=== PATIENT | male | born 1960 | race Caucasian/White ===

== ENCOUNTER 2019-08-22 13:24 | Inpatient (IN) | payer OTHER ==
[~2019-08-22] VITALS: Ht 152.4 cm; Wt 54.0 kg
[2019-08-22 13:57] LABS: EOSINOPHILS % (AUTO) 0.1 % (0.0-6.0); LYMPHOCYTES # (AUTO) 2.7 /CMM (0.8-4.8); MONOCYTES # (AUTO) 0.7 /CMM (0.1-1.30)
[2019-08-22 13:59] LABS: BASOPHILS % (AUTO) 2.8 % (0.0-2.0); HEMATOCRIT 27 % (39-51); HEMOGLOBIN 9.2 g/dL (13.5-17.5); LYMPHOCYTES % (AUTO) 28.9 % (20.0-44.0); MEAN CORPUSCULAR HGB CONC 34 g/dl (31.0-36.0); MEAN CORPUSCULAR VOLUME 102 fL (80-96); MONOCYTES % (AUTO) 7.8 % (2.0-12.0); NEUTROPHILS % (AUTO) 60.4 % (43.0-81.0); PLATELET COUNT (AUTO) 191 /CMM (150-450); RED BLOOD CELL COUNT(AUTO) 2.63 MIL/uL (4.5-6.0); WHITE BLOOD COUNT (AUTO) 9.4 K/uL (4.3-11.0)
[2019-08-22 14:00] LABS: BASOPHILS # (AUTO) 0.3 /CMM (0.0-0.2); NEUTROPHILS # (AUTO) 5.7 /CMM (1.8-8.9)
[2019-08-22 14:05] LABS: CALCIUM, SERUM 8.9 mg/dL (8.5-10.1); CARBON DIOXIDE 25 mmol/L (21-32); CHLORIDE 94 mmol/L (98-107); GLUCOSE 184 mg/dL (74-106); POTASSIUM 5.3 mmol/L (3.5-5.1); SODIUM SERUM 133 mmol/L (136-145); UREA NITROGEN, BLOOD 54 mg/dL (7-18)
[2019-08-22 14:10] LABS: CREATININE 8.5 mg/dL (0.6-1.3)
--- NOTE | 2019-08-22 14:10 | NUR ---
BIB [facility] TO ER BED 5. AAOX4. NOT IN RESP DISTRESS, BREATHING EVEN AND UNLABORED. BROUGHT IN FOR FEVER. PER REPORT, PT WAS NOTED WITH TEMP OF 102. UPON ASSESSMENT, PT'S TEMP WAS 101.5 ORAL. PT IS DIALYSIS PT WITH HD DAYS ON MARY. DIALYSIS DAYS T,TH,S. PT PLACED ON MONITOR. MD WAS AT THE BEDSIDE FOR EVAL. ORDERS RECEIVED, NOTED AND CARRIED OUT. IV LINE ON L WRIST 18G. BLOOD DRAWN AND GIVEN TO LOAN REVIEW OFFICER AT BEDSIDE.
[2019-08-22 14:14] LABS: ALANINE AMINOTRANSFERASE 20 U/L (12-78); ALBUMIN 3.1 g/dL (3.4-5.0); ALKALINE PHOSPHATASE 81 U/L (46-116); ASPARTATE AMINOTRANSFERASE 26 U/L (15-37); BILIRUBIN,DIRECT 0.3 mg/dL (0.0-0.2); BILIRUBIN,TOTAL 0.8 mg/dL (0.2-1.0); TOTAL PROTEIN, SERUM 7.2 g/dL (6.4-8.2)
[2019-08-22] MEDS ORDERED: FOLI0.8T PO (14:21)
[2019-08-22] MEDS ORDERED: ATOR40TA PO (14:21)
[2019-08-22] MEDS ORDERED: GABA300C PO (14:21)
[2019-08-22] MEDS ORDERED: FERR325T24 PO (14:21)
[2019-08-22] MEDS ORDERED: DOCU250C21 PO (14:21)
[2019-08-22] MEDS ORDERED: MIRT30TA7 PO (14:21)
[2019-08-22] MEDS ORDERED: COLC0.6C PO (14:21)
[2019-08-22] MEDS ORDERED: ALLO100T PO (14:21)
[2019-08-22] MEDS ORDERED: LABE100T5 PO (14:21)
[2019-08-22] MEDS ORDERED: FENO67CA PO (14:21)
[2019-08-22] MEDS ORDERED: AMLO10TA7 PO (14:21)
[2019-08-22] MEDS ORDERED: ASCO500T20 PO (14:21)
[2019-08-22] MEDS ORDERED: PANT20TA3 PO (14:21)
[2019-08-22] MEDS ORDERED: LIOT25TA13 PO (14:21)
[2019-08-22] MEDS ORDERED: OMEG-167 PO (14:21)
[2019-08-22] MEDS ORDERED: CEFEPIME 1 GM in IV D5W 50 ML IV ONE (14:30)
[2019-08-22] MEDS ORDERED: VANCOMYCIN 1 GM in IV D5W 250 ML IV ONE (14:30)
--- NOTE | 2019-08-22 15:05 | NUR ---
PT IS UNABLE TO PRODUCE URINE. PT IS ON DIALYSIS. MD IS AWARE.
--- NOTE | 2019-08-22 16:43 | NUR ---
PANEL DESIGN ENGINEER PRODUCTS PAGED
--- NOTE | 2019-08-22 17:39 | NUR ---
PANEL GAS MAIN FITTER HELPER PAGED
[2019-08-22] MEDS ORDERED: Z GUARD REMEDY 2 OZ OINT TP PRN (18:30)
[2019-08-22] MEDS ORDERED: ONDANSETRON HCL/PF 4 MG/2 ML VIAL IVP PRN (18:30)
[2019-08-22] MEDS ORDERED: ZOLPIDEM TARTRATE 5 MG TABLET PO PRN (18:30)
--- NOTE | 2019-08-22 19:26 | NUR ---
BED ASSIGNMENT 115
--- NOTE | 2019-08-22 19:34 | NUR ---
REPORT GIVEN TO VANESSA OQUENDO FOR EZEQUIEL.
[2019-08-22] MEDS ORDERED: ACETAMINOPHEN 325 MG TABLET ONE (19:37)
--- NOTE | 2019-08-22 19:55 | NUR ---
PT TRANSPORTED TO UNIT ON GURNEY WITH EMT AND RN AT BEDSIDE W/ ACLS PROTOCOL. NAD DURING TRANSPORT.
[2019-08-22 20:00] VITALS: BP 123/69
[2019-08-22] MEDS ORDERED: ACETAMINOPHEN 325 MG TABLET PO ONE (20:00)
[2019-08-22] MEDS ORDERED: FEE PK DOSING 1 MIN EA MC ONE (20:11)
--- NOTE | 2019-08-22 20:15 | NUR ---
ANTHROPOLOGY FACULTY MEMBERRADAR MECHANIC NOTES RECEIVED PATIENT FROM ER VIA HUGORMARILOU, ALERT AND ORIENTED X 3. VERBALLY RESPONSIVE PRYDEINIG SPEAKING, ABLE TO FOLLOW DIRECTIONS. BREATHING REGULAR AND UNLABORED ON ROOM AIR. BODY ASSESSMENT DONE, SKIN INTACT CLEAN AND DRY. LEFT WRIST G18 IV LINE INTACT AND PATENT, FLUSHING WELL WITH NO BLEEDING OR S/S OF INFILTRATION NOTED. ATTACHED TO WELLNESS INSTRUCTOR WITH NSR AT 67bpm. RIGHT UPPER ARM AV FISTULA POSITIVE FOR BRUIT AND THRILL, NO ACTIVE BLEEDING SEEN. DENIES SUICIDAL IDEATION OR PAIN/DISCOMFORT AT THIS TIME. BELONGINGS AND INITIAL VITAL SIGNS CHECKED AND DOCUMENTED. NO ADVANCE DIRECTIVES, PATIENT WISHES TO BE FULL CODE. BED LOW AND LOCKED ON SEMI FOWLERS POSITION. CALL LIGHT IN REACH. WILL CONTINUE TO MONITOR.
[2019-08-22] MEDS ORDERED: VANCOMYCIN 500 MG in IV D5W 100 ML IV PRN (20:30)
[2019-08-22] MEDS ORDERED: CEFEPIME 2 GM in IV D5W 100 ML IV SCH (20:30)
--- NOTE | 2019-08-22 22:00 | NUR ---
ADVERTISING INTERN NOTES ADVISED PATIENT ABOUT ISOLATION PRECAUTIONS TO R/O COVID19, HEALTH TEACHINGS PROVIDED, VERBALIZED UNDERSTANDING.
[2019-08-23 01:00] VITALS: BP 123/65
[2019-08-23 05:00] VITALS: BP 119/71
--- NOTE | 2019-08-23 05:00 | NUR ---
CHIEF NURSING EXECUTIVE NOTES DVT PUMP ON, WILL F/U WITH MD FOR ORDERS OF CHEMICAL DVT PROPHYLAXIS.
[2019-08-23] MEDS: HYDROCODONE/APAP 5/325MG 1 EACH TABLET PO PRN (05:34)
--- NOTE | 2019-08-23 05:35 | NUR ---
LEASING PROFESSIONAL NOTES COMPLAINED OF 6/10 HEADACHE, NORCO 5/325 GIVEN BY MOUTH. NON-PHARMACOLOGICAL INTERVENTIONS PROVIDED. VITAL SIGNS WNL. WILL CONTINUE TO MONITOR.
--- NOTE | 2019-08-23 06:35 | NUR ---
CONTENT STRATEGIST CLOSING NOTES PATIENT IN BED ALERT AND ORIENTED X 3. AFEBRILE WITH NO S/S OF DISTRESS OBSERVED. LEFT WRIST G18 IV LINE PATENT AND FLUSHING WELL. MAINTAINED ON SECOND RIDE FARE COLLECTOR WITH SINUS BRADYCARDIA AT 58bpm. RIGHT UPPER ARM AV FISTULA POSITIVE FOR BRUIT AND THRILL, NO ACTIVE BLEEDING SEEN. DENIES PAIN/DISCOMFORT AT THIS TIME. BED LOW AND LOCKED ON SEMI FOWLERS POSITION. CALL LIGHT IN REACH. WILL ENDORSE TO MORNING SHIFT FOR EZEQUIEL.
[2019-08-23 06:43] LABS: BASOPHILS # (AUTO) 0.1 /CMM (0.0-0.2); BASOPHILS % (AUTO) 0.7 % (0.0-2.0); EOSINOPHILS % (AUTO) 1.2 % (0.0-6.0); HEMATOCRIT 27 % (39-51); LYMPHOCYTES # (AUTO) 2.9 /CMM (0.8-4.8); MEAN CORPUSCULAR HGB CONC 34 g/dl (31.0-36.0); MEAN CORPUSCULAR VOLUME 101 fL (80-96); MONOCYTES # (AUTO) 0.5 /CMM (0.1-1.30); MONOCYTES % (AUTO) 6.7 % (2.0-12.0); NEUTROPHILS # (AUTO) 4.3 /CMM (1.8-8.9); NEUTROPHILS % (AUTO) 54.4 % (43.0-81.0); PLATELET COUNT (AUTO) 192 /CMM (150-450); RED BLOOD CELL COUNT(AUTO) 2.64 MIL/uL (4.5-6.0)
[2019-08-23 06:49] LABS: D-DIMER 0.28 mg/L(FEU (0.17-0.50)
[2019-08-23 06:59] LABS: ALBUMIN 3.2 g/dL (3.4-5.0); BILIRUBIN,TOTAL 0.8 mg/dL (0.2-1.0); CALCIUM, SERUM 8.9 mg/dL (8.5-10.1); MAGNESIUM 2.1 mg/dL (1.8-2.4); PHOSPHORUS 7.7 mg/dL (2.5-4.9); POTASSIUM 5.5 mmol/L (3.5-5.1); TOTAL PROTEIN, SERUM 7.6 g/dL (6.4-8.2)
[2019-08-23 07:03] LABS: CREATININE 10.1 mg/dL (0.6-1.3)
--- NOTE | 2019-08-23 07:25 | NUR ---
RN OPENING NOTE Received patient asleep in bed appears calm and relaxed. On room air no signs of distress. Patient is AO x 4 persian speaking. Tele reading SR 60bpm. Has L wrist # 18 flushes well. MARY AV Fistula palpable bruit and thrill. Call light within reach. Safety measures reinforced. Bed locked and on lowest position. Side rails up x2. Will cont to monitor.
[2019-08-23 07:28] LABS: THYROID STIMULATING HORMONE 1.372 uIU/mL (0.358-3.74)
[2019-08-23 07:53] LABS: C-REACTIVE PROTEIN 10.1 mg/dL (0.0-0.9)
[2019-08-23 08:00] VITALS: BP 133/76
[2019-08-23] MEDS: HEPARIN SODIUM, PORCINE 5000 UNITS/1 ML VIAL SQ SCH ×2 (11:57→21:21)
[2019-08-23 12:00] VITALS: BP 114/69
[2019-08-23] MEDS: CEFEPIME 1 GM in IV D5W 50 ML IV SCH (13:37)
[2019-08-23] MEDS: ACETAMINOPHEN 325 MG TABLET PO PRN (15:59)
[2019-08-23 16:00] VITALS: BP 132/77
[2019-08-23] MEDS ORDERED: COLCHICINE 0.6 MG TABLET PO PRN (16:30)
[2019-08-23] MEDS: LABETALOL HCL (100MG) 100 MG TABLET PO SCH (17:15)
[2019-08-23] MEDS: FERROUS SULFATE (325 MG) 325 MG/TAB TABLET PO SCH (17:15)
--- NOTE | 2019-08-23 18:45 | NUR ---
RN CLOSING NOTE Patient in bed calm and relaxed no signs of distress. All due meds given. Vital signs within normal limits. No co pain or discomfort. Dialysis done tolerated well. Will endorse to shift foreman nurse for blair.
--- NOTE | 2019-08-23 19:45 | NUR ---
TONGUE TRIMMER OPENING NOTES PATIENT AWAKEN IN BED. A/OX3. PRIMARY LANGUAGE LATVIAN. ON RA. NO S/S OF ACUTE RESPIRATORY DISTRESS; BREATHING IS EVEN AND UNLABORED. NO C/O PAIN. TELE MONITOR READING NSR, HEART RATE 77. IV PRESENT ON LEFT WRIST, SIZE 18, INTACT & PATENT, HEP LOCKED. CONTACT AND DROPLET PRECAUTIONS IN PLACE FOR R/O COVID 19; RESULTS PENDING. SAFETY MEASURES IN PLACE AND PATIENT'S NEEDS MET. BED LOCKED, ALARM ON, SIDE RAILS X2, CALL LIGHT WITHIN REACH. WILL CONTINUE TO MONITOR.
[2019-08-23 20:00] VITALS: BP 136/73
[2019-08-23] MEDS: ATORVASTATIN 40 MG TABLET PO SCH (21:19)
[2019-08-23] MEDS: MIRTAZAPINE 15 MG TABLET PO SCH (21:19)
[2019-08-23] MEDS: GABAPENTIN 300 MG CAPSULE PO SCH (21:20)
[2019-08-24] VITALS: BP 137/77
--- NOTE | 2019-08-24 01:37 | NUR ---
PT NEGATIVE COVID
--- NOTE | 2019-08-24 02:59 | NUR ---
REAL ESTATE SERVICES COORDINATOR NOTES COVID 19 TEST RESULTED NEGATIVE. CHARGE NURSE MADE AWARE.
[2019-08-24 04:00] VITALS: BP 146/72
[2019-08-24] MEDS: ACETAMINOPHEN 325 MG TABLET PO PRN ×2 (06:16→15:07)
[2019-08-24 06:54] LABS: CALCIUM, SERUM 8.9 mg/dL (8.5-10.1); POTASSIUM 4.8 mmol/L (3.5-5.1)
--- NOTE | 2019-08-24 06:58 | NUR ---
WATER QUALITY ANALYST CLOSING NOTES PATIENT SLEEPING IN BED, EASY TO AWAKEN. A/OX3. STABLE ON RA. NO S/S OF ACUTE RESPIRATORY DISTRESS; BREATHING IS EVEN AND UNLABORED. NO C/O PAIN. TELE MONITOR READING NSR, HEART RATE 78. IV PRESENT ON LEFT WRIST, SIZE 18, INTACT & PATENT, HEP LOCKED. SAFETY MEASURES IN PLACE AND PATIENT'S NEEDS MET. BED LOCKED, ALARM ON, SIDE RAILS X2, CALL LIGHT WITHIN REACH. WILL ENDORSE TO DAY SHIFT NURSE PLAN OF CARE
--- NOTE | 2019-08-24 07:52 | NUR ---
KIRSTEN RN OPENING NOTES PATIENT IS AWAKING IN BED. A/OX3. PRIMARY LANGUAGE CZECH. ON RA. NO S/S OF ACUTE RESPIRATORY DISTRESS; BREATHING IS EVEN AND UNLABORED. TELE MONITOR READING NSR, HEART RATE 81. IV PRESENT ON LEFT WRIST, SIZE 18, INTACT & PATENT, HEP LOCKED. CONTACT AND DROPLET PRECAUTIONS IN PLACE FOR R/O COVID 19; RESULTS PENDING. SAFETY MEASURES IN PLACE AND PATIENT'S NEEDS MET. BED LOCKED, ALARM ON, SIDE RAILS X2, CALL LIGHT WITHIN REACH. WILL CONTINUE TO MONITOR.
[2019-08-24 08:00] VITALS: BP 161/76
[2019-08-24] MEDS: PANTOPRAZOLE 40 MG TABLET.DR PO SCH (08:29)
[2019-08-24] MEDS: FERROUS SULFATE (325 MG) 325 MG/TAB TABLET PO SCH ×2 (08:29→17:10)
[2019-08-24] MEDS: ASCORBIC ACID 500 MG TABLET PO SCH (08:30)
[2019-08-24] MEDS: HEPARIN SODIUM, PORCINE 5000 UNITS/1 ML VIAL SQ SCH ×2 (08:30→23:49)
[2019-08-24] MEDS: DOCUSATE SODIUM 250 MG CAPSULE PO SCH (08:30)
[2019-08-24] MEDS: FOLIC ACID 1 MG TABLET PO SCH (08:30)
[2019-08-24] MEDS: LABETALOL HCL (100MG) 100 MG TABLET PO SCH ×2 (08:30→17:11)
[2019-08-24] MEDS: AMLODIPINE BESYLATE 10 MG TABLET PO SCH (08:31)
[2019-08-24] MEDS: ALLOPURINOL 100 MG TABLET PO SCH (08:31)
--- NOTE | 2019-08-24 08:39 | NUR ---
DISCUSSED WITH DR. RAMIREZ PATIENT NEGATIVE SARS TEST AND LABS/XRAYS,PER DR. RAMIREZ NEED TO RESWAB PT. PCR,WILL CONTINUE ISO FOR NOW ORDERED PRIMARY RN AWARE.
--- NOTE | 2019-08-24 09:00 | NUR ---
KIRSTEN RN NOTES GOT THE COVID SWAB THROYUGH NASAL PCR.
[2019-08-24] MEDS: Fenofibrate 48 MG TABLET PO SCH (09:17)
[2019-08-24] MEDS: LIOTHYRONINE SODIUM (25 MCG) 25 MCG TABLET PO SCH (09:17)
--- NOTE | 2019-08-24 10:30 | NUR ---
KIRSTEN RN NOTES TOOK THE TEST TO THE LAB PER DOCTOR ORDER
[2019-08-24 12:00] VITALS: BP 139/69
[2019-08-24] MEDS: CEFEPIME 1 GM in IV D5W 50 ML IV SCH (13:00)
[2019-08-24 16:00] VITALS: BP 144/64
--- NOTE | 2019-08-24 17:25 | NUR ---
KIRSTEN RN NOTES DIALYSIS NURSE COOPER AT THE BED SIDE
--- NOTE | 2019-08-24 19:13 | NUR ---
KIRSTEN RN CLOSING NOTES PATIENT IN BED ALERT AND ORIENTED X 3. AFEBRILE WITH NO S/S OF DISTRESS OBSERVED. LEFT WRIST G18 IV LINE PATENT AND FLUSHING WELL. MAINTAINED ON HOUSE CALLS NURSE WITH SINUS RHYTHM 80'S. RIGHT UPPER ARM AV FISTULA POSITIVE FOR BRUIT AND THRILL, NO ACTIVE BLEEDING SEEN. DENIES PAIN/DISCOMFORT AT THIS TIME. BED LOW AND LOCKED ON SEMI FOWLERS POSITION. CALL LIGHT IN REACH. WILL ENDORSE TO NIGHTSHIFT SHIFT FOR EZEQUIEL. DIALYSIS NURSE COOPER IS STILL AT THE BED SITE
--- NOTE | 2019-08-24 19:15 | NUR ---
RN OPENING NOTES PT RECEIVED, HD ONGOING TO RIGHT UPPER ARM AV FISTULA. A/OX2-3, FORGETFUL. ON ROOM AIR, BREATHING EVEN AND UNLABORED. DENIES SOB. IV TO LEFT WRIST PATENT NAD INTACT. BED IN LOW/LOCKED POSITION WITH CALL LIGHT IN REACH AND BED ALARM ON FOR SAFETY. WILL CONTINUE TO MONITOR
[2019-08-24 20:00] VITALS: BP 159/84
[2019-08-24] MEDS: HYDROCODONE/APAP 5/325MG 1 EACH TABLET PO PRN (20:03)
--- NOTE | 2019-08-24 20:50 | NUR ---
RN NOTES HD COMPLETED WITH 2L OUT. BP 148/89
[2019-08-24] MEDS: MIRTAZAPINE 15 MG TABLET PO SCH (23:48)
[2019-08-24] MEDS: GABAPENTIN 300 MG CAPSULE PO SCH (23:48)
[2019-08-24] MEDS: ATORVASTATIN 40 MG TABLET PO SCH (23:48)
[2019-08-25] VITALS: BP 158/76
[2019-08-25 04:00] VITALS: BP 166/76
[2019-08-25 06:30] LABS: BASOPHILS # (AUTO) 0.1 /CMM (0.0-0.2); BASOPHILS % (AUTO) 1.1 % (0.0-2.0); EOSINOPHILS % (AUTO) 1.2 % (0.0-6.0); HEMATOCRIT 27 % (39-51); HEMOGLOBIN 8.9 g/dL (13.5-17.5); LYMPHOCYTES # (AUTO) 1.8 /CMM (0.8-4.8); LYMPHOCYTES % (AUTO) 28.1 % (20.0-44.0); MEAN CORPUSCULAR HGB CONC 33 g/dl (31.0-36.0); MEAN CORPUSCULAR VOLUME 103 fL (80-96); MONOCYTES # (AUTO) 0.6 /CMM (0.1-1.30); MONOCYTES % (AUTO) 8.8 % (2.0-12.0); NEUTROPHILS # (AUTO) 3.9 /CMM (1.8-8.9); NEUTROPHILS % (AUTO) 60.8 % (43.0-81.0); PLATELET COUNT (AUTO) 197 /CMM (150-450); RED BLOOD CELL COUNT(AUTO) 2.63 MIL/uL (4.5-6.0); WHITE BLOOD COUNT (AUTO) 6.4 K/uL (4.3-11.0)
[2019-08-25 07:04] LABS: CALCIUM, SERUM 9.2 mg/dL (8.5-10.1); CREATININE 5.2 mg/dL (0.6-1.3); POTASSIUM 4.2 mmol/L (3.5-5.1)
[2019-08-25 07:23] LABS: IRON, SERUM 62 ug/dl (50-175); TOTAL IRON BINDING CAPACITY 217 ug/dl (250-450)
--- NOTE | 2019-08-25 07:24 | NUR ---
RN CLOSING NOTES PT RESTING COMFORTABLY IN BED. A/OX2-3 FORGETFUL. ON ROOM AIR, BREATHING EVEN AND UNLABORED. IN NO ACUTE DISTRESS OR PAIN. IV TO LEFT WRIST REMAINS PATENT AND INTACT. NO SIGNIFICANT CHANGES OVERNIGHT. ALL NEEDS MET AND ATTENDED. TURNED/REPOSITION Q2H AND HEELS OFFLOADED. BED IN LOW/LOCKED POSITION WITH CALL LIGHT IN REACH. SIDE RAILS UPX3 AND BED ALARM ON FOR SAFETY. ENDORSED TO ONCOMING SHIFT.
[2019-08-25] MEDS: PANTOPRAZOLE 40 MG TABLET.DR PO SCH (07:53)
--- NOTE | 2019-08-25 07:55 | NUR ---
KIRSTEN RN OPENING NOTES PATIENT IS SLEEPING IN BED. A/OX3. PRIMARY LANGUAGE NIGERIAN. ON RA. BREATHING IS EVEN AND UNLABORED. TELE MONITOR MED SURGE. IV PRESENT ON LEFT WRIST, SIZE 18, INTACT & PATENT, HEP LOCKED. CONTACT AND DROPLET PRECAUTIONS IN PLACE FOR R/O COVID 19; RESULTS PENDING. SAFETY MEASURES IN PLACE AND PATIENT'S NEEDS MET. BED LOCKED, ALARM ON, SIDE RAILS X2, CALL LIGHT WITHIN REACH. WILL CONTINUE TO MONITOR
[2019-08-25 08:00] VITALS: BP 163/69
[2019-08-25] MEDS: FERROUS SULFATE (325 MG) 325 MG/TAB TABLET PO SCH ×2 (08:15→16:51)
[2019-08-25] MEDS: DOCUSATE SODIUM 250 MG CAPSULE PO SCH (08:15)
[2019-08-25] MEDS: ASCORBIC ACID 500 MG TABLET PO SCH (08:15)
[2019-08-25] MEDS: ALLOPURINOL 100 MG TABLET PO SCH (08:15)
--- NOTE | 2019-08-25 08:15 | NUR ---
KIRSTEN RN NOTES PT HAS SLIGHTHLY FEVER 99.7. TYLENOL WAS GIVEN AND ICE PACKED WAS PLACED AND REMOVED BLANKETS.
[2019-08-25] MEDS: AMLODIPINE BESYLATE 10 MG TABLET PO SCH (08:16)
[2019-08-25] MEDS: FOLIC ACID 1 MG TABLET PO SCH (08:16)
[2019-08-25] MEDS: LABETALOL HCL (100MG) 100 MG TABLET PO SCH ×2 (08:17→16:52)
[2019-08-25] MEDS: HEPARIN SODIUM, PORCINE 5000 UNITS/1 ML VIAL SQ SCH ×2 (08:18→21:04)
[2019-08-25] MEDS: LIOTHYRONINE SODIUM (25 MCG) 25 MCG TABLET PO SCH (08:19)
[2019-08-25] MEDS: Fenofibrate 48 MG TABLET PO SCH (08:19)
--- NOTE | 2019-08-25 10:00 | NUR ---
KIRSTEN RN NOTES RECHECKED TEM IT DROPPED TO 98.1. REMOVED ICE PACKED.
[2019-08-25 10:01] LABS: FERRITIN 3188 ng/mL (8-388)
--- NOTE | 2019-08-25 11:23 | NUR ---
KIRSTEN RN NOTES 4 HOME HIV MEDS WERE BROUGHT BY TOMÁS [phone] SCIENTIFIC PUBLICATIONS EDITOR FROM [facility].
[2019-08-25 12:00] VITALS: BP 144/80
--- NOTE | 2019-08-25 12:00 | NUR ---
KIRSTEN RN NOTES BY ACCOUNT SERVICES MANAGER CHECKED TEMP IS 99.5. PUT ICE PACK AND REMOVED BLANKETS
--- NOTE | 2019-08-25 12:30 | NUR ---
KIRSTEN RN NOTES FEVER DROPPED 98.7
[2019-08-25] MEDS: EMTRICITABINE PO SCH (13:03)
[2019-08-25] MEDS: ABACAVIR SULFATE 300 MG PO SCH ×2 (13:03→16:53)
[2019-08-25] MEDS: DARUNAVIR ETHANOLATE 800 MG PO SCH (13:03)
[2019-08-25 13:04] LABS: OCCULT BLOOD STOOL POSITIVE (NEGATIVE)
[2019-08-25] MEDS: CEFEPIME 1 GM in IV D5W 50 ML IV SCH (13:06)
[2019-08-25 16:00] VITALS: BP 141/71
[2019-08-25] MEDS: NORVIR PO SCH (17:00)
--- NOTE | 2019-08-25 17:26 | NUR ---
KIRSTEN RN NOTES CALLED [facility] REGARDS TO DUE MED NORVIR . EDI INFORMED THAT IT IS . [facility]
--- NOTE | 2019-08-25 17:31 | NUR ---
KIRSTEN RN NOTES SPOKE WITH TOMÁS FROM [facility] WILL BRING THE NEW NORVIR TUESDAY WILL LET THE NURSE KNOW.
--- NOTE | 2019-08-25 19:44 | NUR ---
MS/RN OPENING NOTES RECEIVED PATIENT IN BED, AWAKE, OPENS EYES, WEAKNESS OBSERVED, ABLE TO NOD WITH SIMPLE QUESTIONS ON ROOM AIR. RECEIVED REPORT FROM AM RN FOR EZEQUIEL., PATIENT POCKETING UNABLE TO SWALLOW WITHOUT COUGHING, AWAITING NG FOR SWALLOW EVAL. TO MONITOR, SKIN WARM TO TOUCH. BED LOCKED, CALL LIGHTS WITHIN REACH. WILL MONITOR. NO MOANING AND NO GUARDING. SKIN WARM TO TOUCH.
[2019-08-25 20:00] VITALS: BP 142/75
--- NOTE | 2019-08-25 20:03 | NUR ---
ms/rn notes patient appear sedated, more unresponsive, and not taking po meds awaitinf for swallow evalmd beltran made aware about patient who has occult blood test poitive result and still to contnue heparin per md, to have mild scale sugar check as well. md order carreied out, also with stat abg order.
[2019-08-25] MEDS ORDERED: DEXTROSE 50%-WATER 50 ML DISP.SYRIN IV PRN (20:30)
[2019-08-25] MEDS: BLOOD SUGAR DIAGNOSTIC 1 EACH STRIP IN SCH (21:21)
[2019-08-25] MEDS: MIRTAZAPINE 15 MG TABLET PO SCH (21:30)
[2019-08-25] MEDS: ATORVASTATIN 40 MG TABLET PO SCH (21:30)
[2019-08-25] MEDS: GABAPENTIN 300 MG CAPSULE PO SCH (21:30)
--- NOTE | 2019-08-25 21:31 | NUR ---
MS/RN NOTES ABG RESULT REPORTED TO MD BOTELLO WITH NO NEW ORDER, PATIENT ON OXYGEN VIA NC AT 2 LITER SATURATION 99%, BLOOD SUGAR CHECK AT 100.
[2019-08-26] MEDS: ACETAMINOPHEN 650 MG/SUPP.RECT RC PRN ×3 (01:37→20:14)
--- NOTE | 2019-08-26 01:42 | NUR ---
TYLENOL 650 MG SUPPOSITORY GIVEN FOR TEMPERATURE OVER 100 DEG F.COOLING MEASURES PROVIDED.
[2019-08-26 03:31] VITALS: BP 142/75
--- NOTE | 2019-08-26 03:33 | NUR ---
MS/RN NOTES PATIENT OBSERVED MOANING AND VITAL SIGN CHECK SBP ELEVATED OVER 160. PATIENT CAN SWALLOW ZIP OF WATER, AWAKE AT THIS TIME, TO MONITOR.
[2019-08-26] MEDS: HYDROCODONE/APAP 5/325MG 1 EACH TABLET PO PRN (03:35)
--- NOTE | 2019-08-26 03:55 | NUR ---
MS/RN NOTES NORCO 5-325 MG PO GIVEN PATIENT MORE AWAKE, OBSERVED MOANING AND ABLE TO SWALLOW CRUSHED WITH APPLE SAUCE,
--- NOTE | 2019-08-26 06:18 | NUR ---
115-1 MS/RN NOTES PATIENT SLEPT AND OBSERVED MORE LETHARGIC, MONITORED FOR ANY CHANGES, TYLENOL SUPPOSITORY GIVEN FOR FEVER, BED LOCKED, ON OXYGEN VIA NC FOR COMFORT MEASURES. WILL ENDORSE TO AM RN FOR EZEQUIEL.
--- NOTE | 2019-08-26 07:20 | NUR ---
RN OPENING NOTES RECEIVED PATIENT IN BED, AWAKE, OPENS EYES, WEAKNESS OBSERVED, . RECEIVED REPORT FROM AM RN FOR EZEQUIEL., PATIENT POCKETING UNABLE TO SWALLOW WITHOUT COUGHING, AWAITING NG FOR SWALLOW EVAL TOMORROW. TO MONITOR, SKIN WARM TO TOUCH. BED LOCKED, CALL LIGHTS WITHIN REACH. WILL MONITOR.
[2019-08-26] MEDS: BLOOD SUGAR DIAGNOSTIC 1 EACH STRIP IN SCH ×4 (07:30→21:01)
[2019-08-26 08:00] VITALS: BP 118/79
[2019-08-26] MEDS: PANTOPRAZOLE 40 MG TABLET.DR PO SCH (08:19)
[2019-08-26] MEDS: FERROUS SULFATE (325 MG) 325 MG/TAB TABLET PO SCH ×2 (08:19→17:23)
[2019-08-26] MEDS: FOLIC ACID 1 MG TABLET PO SCH (08:19)
[2019-08-26] MEDS: ASCORBIC ACID 500 MG TABLET PO SCH (08:19)
[2019-08-26] MEDS: DOCUSATE SODIUM 250 MG CAPSULE PO SCH (08:21)
--- NOTE | 2019-08-26 08:38 | NUR ---
RN NOTES TYLENOL 650 MG SUPPOSITORY GIVEN FOR TEMPERATURE OVER 100 DEG F.COOLING MEASURES PROVIDED.
[2019-08-26 08:45] LABS: CALCIUM, SERUM 9.4 mg/dL (8.5-10.1); MAGNESIUM 2.5 mg/dL (1.8-2.4); PHOSPHORUS 7.2 mg/dL (2.5-4.9); POTASSIUM 4.7 mmol/L (3.5-5.1)
[2019-08-26] MEDS: LABETALOL HCL (100MG) 100 MG TABLET PO SCH ×2 (08:50→17:24)
[2019-08-26] MEDS: AMLODIPINE BESYLATE 10 MG TABLET PO SCH (08:50)
[2019-08-26] MEDS: ALLOPURINOL 100 MG TABLET PO SCH (08:50)
[2019-08-26] MEDS: LIOTHYRONINE SODIUM (25 MCG) 25 MCG TABLET PO SCH (08:58)
[2019-08-26 08:59] LABS: CREATININE 8.5 mg/dL (0.6-1.3)
[2019-08-26 09:00] VITALS: BP 118/79
[2019-08-26] MEDS: Fenofibrate 48 MG TABLET PO SCH (09:00)
[2019-08-26] MEDS: NORVIR PO SCH ×2 (09:00→17:00)
[2019-08-26 09:08] LABS: *BASOS 1 % (Not Estab.); *EOS 1 % (Not Estab.); *EOS, ABSOLUTE 0.1 x10E3/uL (0.0-0.4); *HCT 27.1 % (37.5-51.0); *HGB 8.7 g/dL (13.0-17.7); *IMMATURE GRANULOCYTES 0 % (Not Estab.); *LYMPHOCYTES 30 % (Not Estab.); *LYMPHS, ABSOLUTE 1.9 x10E3/uL (0.7-3.1); *MCH 33.1 pg (26.6-33.0); *MCHC 32.1 g/dL (31.5-35.7); *MCV 103 fL (79-97); *MONOCYTES 6 % (Not Estab.); *MONOS, ABSOLUTE 0.4 x10E3/uL (0.1-0.9); *NEUTROPHILS 62 % (Not Estab.); *NEUTROPHILS, ABSOLUTE 3.9 x10E3/uL (1.4-7.0); *PLT 217 x10E3/uL (150-450); *RBC 2.63 x10E6/uL (4.14-5.80)
[2019-08-26 09:22] LABS: C-REACTIVE PROTEIN 5.9 mg/dL (0.0-0.9)
[2019-08-26 09:23] LABS: ALBUMIN 3.2 g/dL (3.4-5.0); BILIRUBIN,DIRECT 0.3 mg/dL (0.0-0.2); BILIRUBIN,TOTAL 1.1 mg/dL (0.2-1.0)
[2019-08-26 09:24] LABS: TOTAL PROTEIN, SERUM 8.2 g/dL (6.4-8.2)
[2019-08-26 09:26] LABS: BASOPHILS # (AUTO) 0.1 /CMM (0.0-0.2); BASOPHILS % (AUTO) 1.3 % (0.0-2.0); EOSINOPHILS % (AUTO) 0.8 % (0.0-6.0); HEMATOCRIT 27 % (39-51); LYMPHOCYTES # (AUTO) 2.2 /CMM (0.8-4.8); LYMPHOCYTES % (AUTO) 30.6 % (20.0-44.0); MEAN CORPUSCULAR HGB CONC 34 g/dl (31.0-36.0); MEAN CORPUSCULAR VOLUME 102 fL (80-96); MONOCYTES # (AUTO) 0.6 /CMM (0.1-1.30); MONOCYTES % (AUTO) 8.5 % (2.0-12.0); NEUTROPHILS # (AUTO) 4.3 /CMM (1.8-8.9); NEUTROPHILS % (AUTO) 58.8 % (43.0-81.0); PLATELET COUNT (AUTO) 197 /CMM (150-450); RED BLOOD CELL COUNT(AUTO) 2.61 MIL/uL (4.5-6.0); WHITE BLOOD COUNT (AUTO) 7.3 K/uL (4.3-11.0)
[2019-08-26] MEDS: HEPARIN SODIUM, PORCINE 5000 UNITS/1 ML VIAL SQ SCH ×2 (09:38→20:15)
[2019-08-26] MEDS: DARUNAVIR ETHANOLATE 800 MG PO SCH (09:47)
[2019-08-26] MEDS: ABACAVIR SULFATE 300 MG PO SCH ×2 (09:47→17:25)
[2019-08-26] MEDS: EMTRICITABINE PO SCH (09:48)
--- NOTE | 2019-08-26 09:51 | NUR ---
NORVIR UN-ADMINISTERED, MEDICATION IS NOT IN [place], . ASKED PATIENT IF HE PREFERRED LIQUID OR TABLET,PATIENT NON-VERBAL. PER PHARMACY WILL BE IN LIQUID FORM TOMORROW
[2019-08-26] MEDS: CEFEPIME 1 GM in IV D5W 50 ML IV SCH ×2 (14:00→16:47)
--- NOTE | 2019-08-26 14:28 | NUR ---
RN NOTES CEFEPINE IV UN-ADMINISTERED DUE TO HEMODIALYSES, PER PHARMACY TO ADMINISTER AFTER HD IS COMPLETE. WILL CALL AGAIN .
[2019-08-26 15:55] LABS: ABG BASE EXCESS -0.3 mmol/L; ABG OXYGEN SATURATION 92.4 % (92.0-98.5); ABG PCO2 32.2 mmHg (35.0-45.0); ABG PH 7.472 (7.350-7.450); ABG PO2 64.8 mmHg (75.0-100.0); AaDO2 46.4 mmHg; COHb 1.2 % (0.5-1.5); MetHb 0.3 % (0.0-1.5); SITE, ABG Right Radial; VENT MODE, BG ROOM AIR
[2019-08-26 16:00] VITALS: BP 151/83
[2019-08-26 16:34] VITALS: BP 151/83
--- NOTE | 2019-08-26 17:01 | NUR ---
RN NOTES STARTED CEFEPINE IV LATE DUE TO HEMODIALYSIS, PHARMACY AWARE.
--- NOTE | 2019-08-26 19:36 | NUR ---
RN CLOSING NOTES PATIENT IN BED, OPENS EYES, WEAKNESS IS OBSERVED, PATIENT POCKETING UNABLE TO SWALLOW WITHOUT COUGHING, AWAITING NG FOR SWALLOW EVAL TOMORROW. LAST HD 08/25 REMOVED 2L, AWAITING FOR ANOTHER HD TOMORROW. TO MONITOR, SKIN WARM TO TOUCH. BED LOCKED, CALL LIGHTS WITHIN REACH. ENDORSED TO PM NURSE FOR EZEQUIEL.
[2019-08-26 20:00] VITALS: BP 171/80
[2019-08-26] MEDS: hydrALAZINE HCL IV 20 MG VIAL IV PRN (20:59)
[2019-08-26] MEDS: GABAPENTIN 300 MG CAPSULE PO SCH (21:00)
[2019-08-26] MEDS: ATORVASTATIN 40 MG TABLET PO SCH (21:00)
[2019-08-26] MEDS: MIRTAZAPINE 15 MG TABLET PO SCH (21:01)
[2019-08-27] VITALS (9 sets, daily range): BP systolic 139–167; BP diastolic 69–82
[2019-08-27 06:28] LABS: BASOPHILS # (AUTO) 0.1 /CMM (0.0-0.2); BASOPHILS % (AUTO) 1.1 % (0.0-2.0); EOSINOPHILS % (AUTO) 1.1 % (0.0-6.0); HEMATOCRIT 29 % (39-51); HEMOGLOBIN 9.6 g/dL (13.5-17.5); LYMPHOCYTES % (AUTO) 23.9 % (20.0-44.0); MEAN CORPUSCULAR HGB CONC 33 g/dl (31.0-36.0); MEAN CORPUSCULAR VOLUME 103 fL (80-96); MONOCYTES # (AUTO) 0.7 /CMM (0.1-1.30); MONOCYTES % (AUTO) 7.9 % (2.0-12.0); NEUTROPHILS # (AUTO) 5.4 /CMM (1.8-8.9); PLATELET COUNT (AUTO) 223 /CMM (150-450); RED BLOOD CELL COUNT(AUTO) 2.81 MIL/uL (4.5-6.0); WHITE BLOOD COUNT (AUTO) 8.2 K/uL (4.3-11.0)
[2019-08-27 06:45] LABS: CALCIUM, SERUM 9.5 mg/dL (8.5-10.1); MAGNESIUM 2.7 mg/dL (1.8-2.4); PHOSPHORUS 7.2 mg/dL (2.5-4.9); POTASSIUM 4.9 mmol/L (3.5-5.1)
[2019-08-27 06:48] LABS: CREATININE 7.9 mg/dL (0.6-1.3)
[2019-08-27] MEDS: PANTOPRAZOLE 40 MG TABLET.DR PO SCH (07:30)
--- NOTE | 2019-08-27 07:30 | NUR ---
TELE/RN NOTE THE PATIENT IS RECEIVED IN BED. PATIENT IS ALERT AND ORIENTED TO SELF. EXTERNAL TELE BOX READING IS SR 83. RECEIVING OXYGEN AT 2L/MIN VIA NASAL CANNULA. RESPIRATION REGULAR AND UNLABORED. PATIENT IN NO APPARENT DISTRESS. LEFT WRIST G 18 PATENT AND SALINE LOCKED. RIGHT UPPER ARM AV SHUNT PRESENT. BED LOW AND LOCKED. SIDE RAILS UP X3. CALL LIGHT WITHIN REACH. WILL CONTINUE TO MONITOR.
[2019-08-27] MEDS: FERROUS SULFATE (325 MG) 325 MG/TAB TABLET PO SCH ×2 (09:00→16:53)
[2019-08-27] MEDS: ALLOPURINOL 100 MG TABLET PO SCH (09:00)
[2019-08-27] MEDS: ABACAVIR SULFATE 300 MG PO SCH ×2 (09:00→16:53)
[2019-08-27] MEDS: EMTRICITABINE PO SCH (09:00)
[2019-08-27] MEDS: FOLIC ACID 1 MG TABLET PO SCH (09:00)
[2019-08-27] MEDS: Fenofibrate 48 MG TABLET PO SCH (09:00)
[2019-08-27] MEDS: LABETALOL HCL (100MG) 100 MG TABLET PO SCH ×2 (09:00→16:53)
[2019-08-27] MEDS: DARUNAVIR ETHANOLATE 800 MG PO SCH (09:00)
[2019-08-27] MEDS: ASCORBIC ACID 500 MG TABLET PO SCH (09:00)
[2019-08-27] MEDS: DOCUSATE SODIUM 250 MG CAPSULE PO SCH (09:00)
[2019-08-27] MEDS: NORVIR PO SCH ×2 (09:00→16:53)
[2019-08-27] MEDS: AMLODIPINE BESYLATE 10 MG TABLET PO SCH (09:00)
[2019-08-27] MEDS: LIOTHYRONINE SODIUM (25 MCG) 25 MCG TABLET PO SCH (09:00)
[2019-08-27] MEDS: BLOOD SUGAR DIAGNOSTIC 1 EACH STRIP IN SCH ×4 (09:20→22:30)
[2019-08-27] MEDS: hydrALAZINE HCL IV 20 MG VIAL IV PRN ×3 (09:45→16:57)
[2019-08-27] MEDS: HEPARIN SODIUM, PORCINE 5000 UNITS/1 ML VIAL SQ SCH ×2 (09:57→21:31)
--- NOTE | 2019-08-27 10:00 | NUR ---
TELE/RN NOTE ALL MORNING PO MEDICATION AND BREAKFAST ARE HELD DUE TO PATIENT POCKETING FOOD AND PO INTAKE NOT BEING SAFE. PATIENT HAS AN ORDER FOR SWALLOW EVAL. WAITING FOR THE EVAL TO BE DONE.
[2019-08-27 10:16] LABS: *% CD 8 POS. LYMPH 30.7 % (12.0-35.5); *ABSOLUTE CD 4 HELPER 361 /uL (359-1519); *ABSOLUTE CD 8 SUPPRESSOR 583 /uL (109-897); *CD4/CD8 RATIO 0.62 (0.92-3.72)
--- NOTE | 2019-08-27 12:00 | NUR ---
TELE/RN NOTE THE PATIENT`S TEMP IS NOTED TO BE 99.3F. ICE PACK PLACED BOTH AXILIARY. WILL RECHECK VITALS AGAIN IN ONE HOUR.
--- NOTE | 2019-08-27 12:00 | NUR ---
TELE/RN NOTE NORVIR MEDICATION IS DELIVERED BY RESPONSIBLE DEMOCRAT (VAL). THE MEDICATION HANDED TO THE PHARMACY PER POLICY AND INFORMED PHARMACY THAT THE RESPONSIBLE DEMOCRAT WANTS TO TAKE BACK THE REMAINING MEDICATION HOME UPON DISCHARGE.
--- NOTE | 2019-08-27 12:35 | NUR ---
TELE/RN NOTE THE PATIENT IS SEEN BY SPEECH THERAPIST FOR SWALLOW EVAL AND PER ST THE PATIENT DID NOT PASS SWALLOS EVAL AND IT IS NOT SAFE TO FEET THE PATIENT. NORMA SANDOVAL IS MADE AWARE AND RECEIVED AN ORDER FOR NPO. NOTED AND CARRIED OUT. PER SPEECH THERAPIES SHE WILL SEE THE PATIENT AGAIN TOMORROW.
--- NOTE | 2019-08-27 12:38 | NUR ---
TELE/RN NOTE THE PATIENT HAD DIALYSIS TODAY WITH 2L OUTPUT. THE PATIENT TOLERATED DIALYSIS WELL. PATIENT IS IN NO APPARENT DISTRESS.
--- NOTE | 2019-08-27 13:00 | NUR ---
TELE/RN NOTE COOLING MEASURES EFFECTIVE. THE PATIENT`S TEMP IS 98.7F.
--- NOTE | 2019-08-27 14:32 | NUR ---
TELE/RN NOTE MAXIPIME 1 GM DUE AT 1400 IS NOT ADMINISTERED YET BECAUSE THE PHARMACY HAS NOT DELIVERED THE MEDICATION. FOLLOW UP CALL TO PHARMACY IS MADE.
[2019-08-27] MEDS: CEFEPIME 1 GM in IV D5W 50 ML IV SCH (14:47)
--- NOTE | 2019-08-27 15:11 | NUR ---
RECEIVED REPORT FROM VANESSA SANDS FOR CONTINUITY OF CARE
--- NOTE | 2019-08-27 15:15 | NUR ---
TELE/RN NOTE THE PATIENT IS ALERT AND ORIENTED TO SELF. IN ROOM AIR AND OXYGEN SATURATION IS AT 95%. RESPIRATION REGULAR AND UNLABORED. PATIENT WITH NO MANIFESTATION OF ANY DISTRESS. TELE BOX SHOWING SR. LEFT WRIST G 18 PATENT AND MAXIPIME INFUSING PER ORDER. NO S/S INFILTRATION NOTED. RIGHT UPPER ARM AV SHUNT IN PLACE WITH NO BLEEDING. BED LOW AND LOCKED. SIDE RAILS UP X3. CALL LIGHT WITHIN REACH. ENDORSEMENT GIVEN TO VANESSA DE LOS SANTOS.
[2019-08-27 17:57] LABS: BASOPHILS # (AUTO) 0.1 /CMM (0.0-0.2); EOSINOPHILS % (AUTO) 0.4 % (0.0-6.0); HEMATOCRIT 28 % (39-51); HEMOGLOBIN 9.1 g/dL (13.5-17.5); LYMPHOCYTES # (AUTO) 1.5 /CMM (0.8-4.8); LYMPHOCYTES % (AUTO) 19.5 % (20.0-44.0); MEAN CORPUSCULAR HGB CONC 33 g/dl (31.0-36.0); MEAN CORPUSCULAR VOLUME 105 fL (80-96); MONOCYTES # (AUTO) 0.6 /CMM (0.1-1.30); MONOCYTES % (AUTO) 8.1 % (2.0-12.0); NEUTROPHILS # (AUTO) 5.6 /CMM (1.8-8.9); PLATELET COUNT (AUTO) 218 /CMM (150-450); RED BLOOD CELL COUNT(AUTO) 2.66 MIL/uL (4.5-6.0); WHITE BLOOD COUNT (AUTO) 7.8 K/uL (4.3-11.0)
[2019-08-27 18:40] LABS: BILIRUBIN,TOTAL 1.2 mg/dL (0.2-1.0); CALCIUM, SERUM 10.2 mg/dL (8.5-10.1); POTASSIUM 5.3 mmol/L (3.5-5.1); TOTAL PROTEIN, SERUM 8.1 g/dL (6.4-8.2)
--- NOTE | 2019-08-27 18:41 | NUR ---
RN CLOSING NOTE: PATIENT REMAINS IN ROOM. NO SIGNS OF ACUTE DISTRESS NOTED. SR IN THE 80S ON THE TELE MONITOR. SAFETY MEASURES IMPLEMENTED, BED IN LOWEST POSITION, LOCKED, SIDE RAILS UP, CALL LIGHT WITHIN REACH. WILL ENDORSE TO ONCOMING SHIFT RN FOR CONTINUITY OF CARE.
[2019-08-27 18:56] LABS: ALBUMIN 2.9 g/dL (3.4-5.0); CREATININE 6.2 mg/dL (0.6-1.3)
--- NOTE | 2019-08-27 19:10 | NUR ---
RN OPENING NOTE RECEIVED PATIENT IN BED RESTING NON VERBAL,NOT RESPONDING,BREATHING IS EVEN AN UNLABORED VITAL SIGN IN NORMAL RANGE,NPO HE FAILED SWALLOWING EVAL, VS 155/70 HR 89 RR 20 T:98.6,BREATHING IS EVEN NONLABORED NO SOB NOT ACUTE DISTRESS NOTED,IV SITE IS ON LEFT WRIST INTACT FLUSHED,AV FISTULA ON RIGHT UPPER ARM,ENDORSED BY PREVIOUS SHIFT HE HAD DIALYSIS TODAY REMOVED 2 LITER FLUID,CONTINUE TO MONITOR.
[2019-08-27 19:41] LABS: LYMPHOCYTES % (MANUAL) 19 % (16-48); MONOCYTES % (MANUAL) 4 % (0-11.0); NEUTROPHILS % (MANUAL) 77 (42-76)
[2019-08-27] MEDS: ATORVASTATIN 40 MG TABLET PO SCH ×2 (22:00→22:34)
[2019-08-27] MEDS: MIRTAZAPINE 15 MG TABLET PO SCH ×2 (22:00→22:36)
[2019-08-27] MEDS: GABAPENTIN 300 MG CAPSULE PO SCH ×2 (22:00→22:35)
--- NOTE | 2019-08-27 22:00 | NUR ---
RN NOTE ALL PO MEDS IN HOLD DUE TO PATIENT IS NPO AND FAILED SWALLOWING EVAL,AND UNABLE TO SWALLOW.
[2019-08-27] MEDS: INSULIN REGULAR, HUMAN 100 UNIT/ML 3 ML VIAL SQ PRN (22:31)
[2019-08-28] VITALS (7 sets, daily range): BP systolic 104–156; BP diastolic 60–80
--- NOTE | 2019-08-28 02:00 | NUR ---
TELE/RN OPENING NOTE RECEIVED THE PATIENT IN BED SLEEP. PATIENT IS ALERT AND ORIENTED X 1. EXTERNAL TELE BOX READING IS SR 88. RECEIVING OXYGEN AT 2L/MIN VIA NASAL CANNULA TOLERATING WELL. RESPIRATION REGULAR AND UNLABORED. PATIENT SHOW NO SIGNS OF DISTRESS. PATIENT HAS LEFT WRIST G #18 PATENT AND SALINE LOCKED. RIGHT UPPER ARM AV SHUNT PRESENT. SAFETY MEASURES ARE IN PLACE, BED IS LOW AND LOCKED WITH SIDE RAILS UP X3. CALL LIGHT WITHIN REACH. RECEIVED REPORT FROM KEL MENDEZ FOR EZEQUIEL. WILL CONTINUE TO MONITOR.
--- NOTE | 2019-08-28 02:08 | NUR ---
RN CLOSING NOTE PATIENT REMAINS IN BED NOT ACUTE DISTRESS NOTED,ENDORSED TO SANJEEV RN FOR CONTINUATION OF CARE
--- NOTE | 2019-08-28 06:15 | NUR ---
TELE/RN CLOSING NOTE PATIENT IN BED SLEEP. PATIENT IS ALERT AND ORIENTED X 1. EXTERNAL TELE BOX READING IS SR 86. RECEIVING OXYGEN AT 2L/MIN VIA NASAL CANNULA TOLERATING WELL. RESPIRATION REGULAR AND UNLABORED. PATIENT SHOW NO SIGNS OF DISTRESS. PATIENT HAS LEFT WRIST G #18 PATENT AND SALINE LOCKED. RIGHT UPPER ARM AV SHUNT PRESENT. AM LABS HAVE BEEN DRAWN. ALL PATIENTS NEEDS HAVE BEEN MET DURING SHIFT. SAFETY MEASURES ARE IN PLACE, BED IS LOW AND LOCKED WITH SIDE RAILS UP X 2. CALL LIGHT WITHIN REACH. WILL ENDORSE CARE TO DAY SHIFT NURSE.
[2019-08-28 06:33] LABS: ABG BASE EXCESS -1.1 mmol/L; ABG OXYGEN SATURATION 91.8 % (92.0-98.5); ABG PCO2 30.8 mmHg (35.0-45.0); ABG PH 7.474 (7.350-7.450); ABG PO2 65.6 mmHg (75.0-100.0); AaDO2 47.2 mmHg; MetHb 0.4 % (0.0-1.5); O2Hb 89.6 % (94.0-97.0); SITE, ABG Left Radial; VENT MODE, BG Room Air
[2019-08-28 07:00] LABS: BASOPHILS # (AUTO) 0.1 /CMM (0.0-0.2); EOSINOPHILS % (AUTO) 0.8 % (0.0-6.0); HEMATOCRIT 24 % (39-51); HEMOGLOBIN 7.8 g/dL (13.5-17.5); LYMPHOCYTES # (AUTO) 1.7 /CMM (0.8-4.8); MEAN CORPUSCULAR HGB CONC 33 g/dl (31.0-36.0); MEAN CORPUSCULAR VOLUME 104 fL (80-96); MONOCYTES # (AUTO) 0.6 /CMM (0.1-1.30); MONOCYTES % (AUTO) 8.3 % (2.0-12.0); NEUTROPHILS # (AUTO) 5.2 /CMM (1.8-8.9); NEUTROPHILS % (AUTO) 67.9 % (43.0-81.0); PLATELET COUNT (AUTO) 219 /CMM (150-450); RED BLOOD CELL COUNT(AUTO) 2.26 MIL/uL (4.5-6.0); WHITE BLOOD COUNT (AUTO) 7.7 K/uL (4.3-11.0)
[2019-08-28 07:07] LABS: ALBUMIN 2.8 g/dL (3.4-5.0); BILIRUBIN,TOTAL 1.2 mg/dL (0.2-1.0); CALCIUM, SERUM 9.8 mg/dL (8.5-10.1); MAGNESIUM 2.8 mg/dL (1.8-2.4); PHOSPHORUS 5.6 mg/dL (2.5-4.9); POTASSIUM 4.9 mmol/L (3.5-5.1); TOTAL PROTEIN, SERUM 7.3 g/dL (6.4-8.2)
[2019-08-28] MEDS: PANTOPRAZOLE 40 MG TABLET.DR PO SCH (07:19)
[2019-08-28] MEDS: BLOOD SUGAR DIAGNOSTIC 1 EACH STRIP IN SCH ×4 (07:30→21:27)
[2019-08-28 07:35] LABS: CREATININE 7.8 mg/dL (0.6-1.3)
[2019-08-28] MEDS: LIOTHYRONINE SODIUM (25 MCG) 25 MCG TABLET PO SCH (08:09)
[2019-08-28] MEDS: DOCUSATE SODIUM 250 MG CAPSULE PO SCH (08:09)
[2019-08-28] MEDS: AMLODIPINE BESYLATE 10 MG TABLET PO SCH (08:09)
[2019-08-28] MEDS: LABETALOL HCL (100MG) 100 MG TABLET PO SCH ×2 (08:09→16:27)
[2019-08-28] MEDS: DARUNAVIR ETHANOLATE 800 MG PO SCH (08:09)
[2019-08-28] MEDS: FOLIC ACID 1 MG TABLET PO SCH (08:09)
[2019-08-28] MEDS: ABACAVIR SULFATE 300 MG PO SCH ×2 (08:09→16:26)
[2019-08-28] MEDS: FERROUS SULFATE (325 MG) 325 MG/TAB TABLET PO SCH ×2 (08:09→16:25)
[2019-08-28] MEDS: NORVIR PO SCH ×2 (08:09→16:26)
[2019-08-28] MEDS: EMTRICITABINE PO SCH (08:09)
[2019-08-28] MEDS: ASCORBIC ACID 500 MG TABLET PO SCH (08:10)
[2019-08-28] MEDS: ALLOPURINOL 100 MG TABLET PO SCH (08:10)
[2019-08-28] MEDS: Fenofibrate 48 MG TABLET PO SCH (08:10)
[2019-08-28] MEDS: HEPARIN SODIUM, PORCINE 5000 UNITS/1 ML VIAL SQ SCH ×2 (08:26→21:11)
--- NOTE | 2019-08-28 08:43 | NUR ---
DURING FULL BODY ASSESSMENT, PATIENT SEEMS TO BE MORE ALTERED, CN AWARE. DIALYSIS NURSE AT BEDSIDE, WILL CONTINUE TO MONITOR MENTAL STATUS AND UPDATE MD ACCORDINGLY.
[2019-08-28] MEDS ORDERED: ALBUMIN 25% 25 GM in PREMIX 1 EA IV PRN (09:30)
--- NOTE | 2019-08-28 12:44 | NUR ---
KELIN ATMOSPHERIC PHYSICS PROFESSOR AWARE OF PATIENT'S MENTAL STATUS, NNO AT THIS TIME. WILL CONTINUE TO MONITOR PATIENT FOR CHANGES
[2019-08-28] MEDS: CEFEPIME 1 GM in IV D5W 50 ML IV SCH (13:00)
--- NOTE | 2019-08-28 15:18 | NUR ---
ABG RESULT DONE RESULT RELAYED TO KELIN CRESPO NO NEW ORDERS.
--- NOTE | 2019-08-28 19:00 | NUR ---
RN CLOSING NOTE: PATIENT REMAINS IN BED, NO SIGNS OF RESPIRATORY DISTRESS NOTED, NO SIGNS OF ACUTE DISTRESS NOTED. SR 82 ON TELE MONITOR. SAFETY MEASURES IMPLEMENTED, BED IN LOWEST POSITION LOCKED, BED ALARM ON, SIDE RAILS UP, CALL LIGHT WITHIN REACH. WILL ENDORSE TO SANJEEV MENDEZ FOR CONTINUITY OF CARE. Addendum: 08/28/19 at 1903 by BRANDO ANDERSON RN CORRECTION: GARRET WILL BE THE RN
--- NOTE | 2019-08-28 19:20 | NUR ---
RN OPENING NOTES: Received pt resting in bed, on isolation for R/O Covid. A&Ox1, nonverbal. On 2L/min NC tolerating well. No SOB or respiratory distress noted. SR on tele monitor. Pt NPO. IV site on left wrist #18 patent and flushing. Dressing c/d/i. MARY AV fistula. Safety measures in place. Will continue to monitor.
[2019-08-28] MEDS ORDERED: VANCOMYCIN 1 GM in IV D5W 250 ML IV ONE (21:00)
[2019-08-28] MEDS: MEROPENEM 500 MG in IV NS 0.9% 50 ML IV SCH (21:06)
[2019-08-28] MEDS: MIRTAZAPINE 15 MG TABLET PO SCH (21:28)
[2019-08-28] MEDS: ATORVASTATIN 40 MG TABLET PO SCH (21:28)
[2019-08-29] VITALS (10 sets, daily range): BP systolic 108–162; BP diastolic 50–85
[2019-08-29 02:52] LABS: ABG BASE EXCESS 1.2 mmol/L; ABG OXYGEN SATURATION 96.5 % (92.0-98.5); ABG PCO2 33.2 mmHg (35.0-45.0); ABG PH 7.488 (7.350-7.450); ABG PO2 101.3 mmHg (75.0-100.0); AaDO2 30.3 mmHg; COHb 1.8 % (0.5-1.5); MetHb 0.3 % (0.0-1.5); O2Hb 94.5 % (94.0-97.0); SITE, ABG Left Brachial; VENT MODE, BG Nasal Cannula
--- NOTE | 2019-08-29 04:04 | NUR ---
RN NOTE: Pt noted w/ IV site dislodged. Applied pressure. Started new IV site on LFA #20, patent and flushing. Dressing c/d/i.
[2019-08-29 06:40] LABS: CALCIUM, SERUM 9.4 mg/dL (8.5-10.1); CREATININE 7.3 mg/dL (0.6-1.3); POTASSIUM 4.5 mmol/L (3.5-5.1)
--- NOTE | 2019-08-29 06:40 | NUR ---
RN CLOSING NOTES: Pt remains on 2L/min NC tolerating well. No SOB or respiratory distress noted throughout shift. No acute changes noted during shift. SR on tele monitor. Isolation precautions in place. All meds administered as ordered. Kept clean and dry. Safety measures in place. Will endorse to AM nurse for EZEQUIEL.
[2019-08-29 07:22] LABS: BASOPHILS # (AUTO) 0.1 /CMM (0.0-0.2); MONOCYTES # (AUTO) 0.7 /CMM (0.1-1.30)
[2019-08-29 07:26] LABS: BASOPHILS % (AUTO) 1.2 % (0.0-2.0); EOSINOPHILS % (AUTO) 2.1 % (0.0-6.0); LYMPHOCYTES # (AUTO) 2.2 /CMM (0.8-4.8); LYMPHOCYTES % (AUTO) 22.9 % (20.0-44.0); MEAN CORPUSCULAR HGB CONC 33 g/dl (31.0-36.0); MEAN CORPUSCULAR VOLUME 105 fL (80-96); MONOCYTES % (AUTO) 6.8 % (2.0-12.0); NEUTROPHILS # (AUTO) 6.6 /CMM (1.8-8.9); PLATELET COUNT (AUTO) 233 /CMM (150-450); WHITE BLOOD COUNT (AUTO) 9.8 K/uL (4.3-11.0)
[2019-08-29] MEDS: BLOOD SUGAR DIAGNOSTIC 1 EACH STRIP IN SCH ×4 (07:30→21:03)
[2019-08-29] MEDS: PANTOPRAZOLE 40 MG TABLET.DR PO SCH (07:30)
--- NOTE | 2019-08-29 07:35 | NUR ---
RN OPENING NOTE Patient is resting in bed, A/O x0, opens eyes. Patient is in no acute distress, no SOB, saturating 100% on 1.5L NC. Tele monitor SR 85. IV line in the LFA #20g is clean and intact, flushing well. MARY AV fistula noted, thrill and bruit present. Blood sugar this morning 92. Will turn and reposition patient every 2 hours. Bed is in lowest position, side rails x3 in upright position, fall, safety and aspiration precautions in place. Will continue with plan of care.
[2019-08-29 07:50] LABS: RED BLOOD CELL COUNT(AUTO) 1.89 MIL/uL (4.5-6.0)
[2019-08-29 07:51] LABS: HEMOGLOBIN 6.5 g/dL (13.5-17.5)
[2019-08-29 07:52] LABS: HEMATOCRIT 20 % (39-51)
--- NOTE | 2019-08-29 08:06 | NUR ---
RN NOTE Notified Michelet N.P. patient's Hgb 6.5. Received order to tranfuse 1 unit PRBC. Orders repeated back and will carry out. Charge nurse made aware.
[2019-08-29 08:44] LABS: LYMPHOCYTES % (MANUAL) 20 % (16-48); NEUTROPHILS % (MANUAL) 73 (42-76)
[2019-08-29 08:45] LABS: EOSINOPHILS % (MANUAL) 2 % (0-4); MONOCYTES % (MANUAL) 5 % (0-11.0)
[2019-08-29] MEDS: EMTRICITABINE PO SCH (09:00)
[2019-08-29] MEDS: DOCUSATE SODIUM 250 MG CAPSULE PO SCH (09:00)
[2019-08-29] MEDS: LIOTHYRONINE SODIUM (25 MCG) 25 MCG TABLET PO SCH (09:00)
[2019-08-29] MEDS: Fenofibrate 48 MG TABLET PO SCH (09:00)
[2019-08-29] MEDS: NORVIR PO SCH ×2 (09:00→16:36)
[2019-08-29] MEDS: LABETALOL HCL (100MG) 100 MG TABLET PO SCH ×2 (09:00→16:36)
[2019-08-29] MEDS: FERROUS SULFATE (325 MG) 325 MG/TAB TABLET PO SCH ×2 (09:00→16:36)
[2019-08-29] MEDS: ABACAVIR SULFATE 300 MG PO SCH ×2 (09:00→16:36)
[2019-08-29] MEDS: DARUNAVIR ETHANOLATE 800 MG PO SCH (09:00)
[2019-08-29] MEDS: AMLODIPINE BESYLATE 10 MG TABLET PO SCH (09:00)
[2019-08-29] MEDS: ASCORBIC ACID 500 MG TABLET PO SCH (09:00)
[2019-08-29] MEDS: HEPARIN SODIUM, PORCINE 5000 UNITS/1 ML VIAL SQ SCH (09:00)
[2019-08-29] MEDS: FOLIC ACID 1 MG TABLET PO SCH (09:00)
[2019-08-29] MEDS: ALLOPURINOL 100 MG TABLET PO SCH (09:00)
--- NOTE | 2019-08-29 09:02 | NUR ---
RN NOTE Non-admin medications due to NPO diagnosis and possible GI bleed. MD is aware.
--- NOTE | 2019-08-29 10:43 | NUR ---
RN NOTE RT reported ABG results to Dr. Haider. Patient's O2 titrated down to 1L NC.
--- NOTE | 2019-08-29 14:16 | NUR ---
FF. UP COVID RESULT PER LAB SPECIMEN LEAKED NEED TO RESWAB,KELIN CRESPO MADE AWARE AND OK TO RESWAB AGUEDA MALIK RN MADE AWARE.
[2019-08-29] MEDS: PANTOPRAZOLE 40 MG VIAL IV SCH ×2 (15:27→20:54)
[2019-08-29 15:41] LABS: ABG BASE EXCESS -1.4 mmol/L; ABG PCO2 34.2 mmHg (35.0-45.0); ABG PH 7.436 (7.350-7.450); ABG PO2 139.5 mmHg (75.0-100.0); AaDO2 5.4 mmHg; COHb 1.6 % (0.5-1.5); MetHb 0.3 % (0.0-1.5); O2Hb 96.1 % (94.0-97.0); SITE, ABG Left Brachial; VENT MODE, BG Nasal Cannula
--- NOTE | 2019-08-29 17:40 | NUR ---
COVID SWAB SENT TO LAB
--- NOTE | 2019-08-29 17:53 | NUR ---
RN NOTE Blood transfusion started at 1735 currently being given during HD. Patient remains stable, vital signs remain stable. Patient is resting in bed, showing no signs of acute distress. Will continue to monitor.
--- NOTE | 2019-08-29 18:22 | NUR ---
RN NOTE BLOOD TRANSFUSION COMPLETE Blood transfusion completed with HD. HD RN at the bedside. Patient remains stable, showing no signs of acute distress, vital signs remains stable.
--- NOTE | 2019-08-29 18:23 | NUR ---
RN CLOSING NOTE Patient is resting in bed, A/O x0, opens eyes. Patient is in no acute distress, no SOB, saturating 100% on 1.5L NC. Tele monitor SR 85. IV line in the LFA #20g is clean and intact, flushing well. MARY AV fistula noted, thrill and bruit present. BS remain stable throughout the shift. Patient turned and reposition every 2 hours. All patient needs met, patient kept clean and dry throughout shift. Currently on HD at this time. Bed is in lowest position, side rails x3 in upright position, fall, safety and aspiration precautions in place. Will endorse to chairman & ceo for EZEQUIEL.
--- NOTE | 2019-08-29 19:40 | NUR ---
RN NOTE RECEIVED PT IN BED. AO X1, NON VERBAL, AROUSABLE TO LIGHT PAIN. NO S/SX OF ACUTE DISTRESS AT THIS TIME. PATIENT'S BREATHING IS EVEN AND UNLABORED. PATIENT IS ON 1 L OF OXYGEN VIA NC; TOLERATING WELL, SATURATING AT 100%. PATIENT ON TELE MONITOR READING SR, HR IS 70. NOTED IV SITE ON LFA; PATENT AND FLUSHING WELL ,NO S/S OF INFECTION OR INFILTRATION. NOTED AV FISTULA AT MARY, BRUIT AND THRILL NOTED. HD ONGOING AT BEDSIDE. SAFETY MEASURES IMPLEMENTED PER PROTOCOL. PATIENT BED ALARM IS ON. HEAD OF BED ELEVATED. BED IS LOCKED, IN LOWEST POSITION AND SIDE RAILS UP. CALL LIGHT WITHIN REACH OF THE PATIENT. WILL CONTINUE TO MONITOR AND REASSESS FOR ANY CHANGES. Addendum: 08/30/19 at 0515 by LATRICIA LACEY RN NOTED DVT PUMPS IN PLACE ON BLE.
--- NOTE | 2019-08-29 19:45 | NUR ---
RN NOTE NOTED END OF HD, 1.5 LITER WAS REMOVED PER HD RN, BP 130/60. PATIENT IN STABLE CONDITION. NO SIGN OF DISTRESS NOTED. LAB WAS INFORMED, SPOKE WITH JAMES, ACKNOWLEDGED AND SAID BLOOD DRAW WILL BE DONE 45 MINS POST HD.
[2019-08-29] MEDS: IV D5/ 0.9% NACL 1,000 ML IV PRN (20:54)
[2019-08-29] MEDS: MEROPENEM 500 MG in IV NS 0.9% 50 ML IV SCH (20:55)
[2019-08-29 20:59] LABS: BASOPHILS % (AUTO) 0.4 % (0.0-2.0); EOSINOPHILS % (AUTO) 2.3 % (0.0-6.0); HEMATOCRIT 23 % (39-51); HEMOGLOBIN 7.6 g/dL (13.5-17.5); LYMPHOCYTES # (AUTO) 1.8 /CMM (0.8-4.8); LYMPHOCYTES % (AUTO) 18.3 % (20.0-44.0); MEAN CORPUSCULAR HGB CONC 33 g/dl (31.0-36.0); MEAN CORPUSCULAR VOLUME 101 fL (80-96); MONOCYTES # (AUTO) 0.7 /CMM (0.1-1.30); MONOCYTES % (AUTO) 7.2 % (2.0-12.0); NEUTROPHILS # (AUTO) 7.1 /CMM (1.8-8.9); NEUTROPHILS % (AUTO) 71.8 % (43.0-81.0); PLATELET COUNT (AUTO) 225 /CMM (150-450); RED BLOOD CELL COUNT(AUTO) 2.27 MIL/uL (4.5-6.0); WHITE BLOOD COUNT (AUTO) 9.8 K/uL (4.3-11.0)
--- NOTE | 2019-08-29 21:00 | NUR ---
RN NOTE NOTED REPEAT CBC POST HD RESULTED, HGB LEVEL LOW AT 7.6 FROM PREVIOUS 6.5. STOCK REPLENISHER MADE AWARE.
[2019-08-29] MEDS: MIRTAZAPINE 15 MG TABLET PO SCH (21:27)
[2019-08-29] MEDS: ATORVASTATIN 40 MG TABLET PO SCH (21:27)
[2019-08-30] VITALS (11 sets, daily range): BP systolic 109–166; BP diastolic 70–85
--- NOTE | 2019-08-30 04:00 | NUR ---
NOTED BP 166/85. REASSESSED AND REPOSITIONED PATIENT. NO SIGN OF DISTRESS NOTED. BP RECHECKED AT 0430 AND REVEALED 152/69.
[2019-08-30 06:18] LABS: BASOPHILS # (AUTO) 0.1 /CMM (0.0-0.2); BASOPHILS % (AUTO) 1.2 % (0.0-2.0); EOSINOPHILS % (AUTO) 3.9 % (0.0-6.0); LYMPHOCYTES # (AUTO) 1.7 /CMM (0.8-4.8); LYMPHOCYTES % (AUTO) 21.2 % (20.0-44.0); MEAN CORPUSCULAR HGB CONC 33 g/dl (31.0-36.0); MEAN CORPUSCULAR VOLUME 101 fL (80-96); MONOCYTES # (AUTO) 0.7 /CMM (0.1-1.30); MONOCYTES % (AUTO) 8.6 % (2.0-12.0); NEUTROPHILS # (AUTO) 5.2 /CMM (1.8-8.9); NEUTROPHILS % (AUTO) 65.1 % (43.0-81.0); PLATELET COUNT (AUTO) 225 /CMM (150-450); RED BLOOD CELL COUNT(AUTO) 2.02 MIL/uL (4.5-6.0)
[2019-08-30 06:45] LABS: CALCIUM, SERUM 9.4 mg/dL (8.5-10.1); CREATININE 5.8 mg/dL (0.6-1.3)
--- NOTE | 2019-08-30 06:50 | NUR ---
RN NOTE TELEPHONE CALL FROM [facility], CRITICAL LAB VALUE NOTED HGB 6.8, HCT 20. SOON RN (EGG FACTORY WORKER) MADE AWARE.
[2019-08-30 06:53] LABS: HEMATOCRIT 20 % (39-51); HEMOGLOBIN 6.8 g/dL (13.5-17.5)
[2019-08-30 07:15] LABS: COMPLEMENT C3, SERUM 125 mg/dL (82-167); COMPLEMENT C4, SERUM 44 mg/dL (14-44)
--- NOTE | 2019-08-30 07:15 | NUR ---
ANODE CREW SUPERVISOR NOTES PATIENT IN BED OPENS EYES. NO ACUTE DISTRESS NOTED. BREATHING UNLABORED. IV ACCESS PATENT AND INTACT, NO REDNESS, NO SWELLING NOTED. CALL LIGHT WITHIN REACH. WILL CONTINUE TO MONITOR ACCORDINGLY.
--- NOTE | 2019-08-30 07:15 | NUR ---
RN NOTE PATIENT REMAINS IN ROOM. NO SIGNS OF RESPIRATORY/ACUTE DISTRESS NOTED. NS RUNNING AT 50 ML/HR AT [facility]. LATEST BP 152/69. SAFETY MEASURES IMPLEMENTED, BED IN LOWEST POSITION, LOCKED, SIDE RAILS UPX3, CALL LIGHT WITHIN REACH. ENDORSED TO AM SHIFT RN FOR CONTINUITY OF CARE.
--- NOTE | 2019-08-30 07:40 | NUR ---
BIOPHYSICS TEACHER NOTES RECEIVED NEW ORDER FROM DR KELIN CRESPO FOR 1 PRBC TO BE GIVEN WITH HD. ORDERS CLARIFIED AND READ BACK WITH DR CRESPO
[2019-08-30] MEDS: PANTOPRAZOLE 40 MG VIAL IV SCH ×2 (08:05→20:34)
[2019-08-30] MEDS: BLOOD SUGAR DIAGNOSTIC 1 EACH STRIP IN SCH ×4 (08:05→22:02)
[2019-08-30 08:06] LABS: *HIV-1 RNA BY PCR 70 copies/mL (.); *HIV-1 log10 RNA 1.845 (.)
--- NOTE | 2019-08-30 08:19 | NUR ---
UKE DRIVER NOTE PATIENT TRANSPORTED FOR CT HEAD IN STABLE CONDITION
[2019-08-30] MEDS: NORVIR PO SCH ×2 (09:00→17:00)
[2019-08-30] MEDS: ABACAVIR SULFATE 300 MG PO SCH ×2 (09:00→17:00)
[2019-08-30] MEDS: LABETALOL HCL (100MG) 100 MG TABLET PO SCH ×2 (09:00→17:00)
[2019-08-30] MEDS: Fenofibrate 48 MG TABLET PO SCH (09:00)
[2019-08-30] MEDS: ASCORBIC ACID 500 MG TABLET PO SCH (09:00)
[2019-08-30] MEDS: LIOTHYRONINE SODIUM (25 MCG) 25 MCG TABLET PO SCH (09:00)
[2019-08-30] MEDS: FERROUS SULFATE (325 MG) 325 MG/TAB TABLET PO SCH ×2 (09:00→17:00)
[2019-08-30] MEDS: FOLIC ACID 1 MG TABLET PO SCH (09:00)
[2019-08-30] MEDS: EMTRICITABINE PO SCH (09:00)
[2019-08-30] MEDS: ALLOPURINOL 100 MG TABLET PO SCH (09:00)
[2019-08-30] MEDS: AMLODIPINE BESYLATE 10 MG TABLET PO SCH (09:00)
[2019-08-30] MEDS: DOCUSATE SODIUM 250 MG CAPSULE PO SCH (09:00)
[2019-08-30] MEDS: DARUNAVIR ETHANOLATE 800 MG PO SCH (09:00)
--- NOTE | 2019-08-30 09:00 | NUR ---
FULL STACK NET DEVELOPER NOTE PATIENT CAME BACK FROM CT IN STABLE CONDITION
--- NOTE | 2019-08-30 09:10 | NUR ---
PAINT PROCESS ENGINEER NOTES DIALYSIS STARTED BY DIALYSIS NURSE LAURIE, PATIENT WITH STABLE VITAL SIGNS. NO ACUTE DISTRESS NOTED.
--- NOTE | 2019-08-30 09:25 | NUR ---
ANESTHESIOLOGY TECHNOLOGIST NOTES BLOOD TRANSFUSION STARTED, VITAL SIGNS STABLE, WILL CONTINUE TO MONITOR. Addendum: 08/30/19 at 1013 by CARROLL BROOKS RN ADDENDUM: BLOOD TRANSFUSION STARTED WITH HD.
[2019-08-30 09:34] LABS: BAND % (MANUAL) 1 % (0.0-5.0); EOSINOPHILS % (MANUAL) 4 % (0-4); LYMPHOCYTES % (MANUAL) 24 % (16-48); MONOCYTES % (MANUAL) 6 % (0-11.0); NEUTROPHILS % (MANUAL) 65 (42-76)
--- NOTE | 2019-08-30 09:40 | NUR ---
PERSONNEL ADMINISTRATOR NOTES BLOOD TRANSFUSION ON GOING,, VITAL SIGNS STABLE, NO ADVERSE REACTION OF BLOOD TRANSFUSION NOTED, WILL CONTINUE TO MONITOR.
--- NOTE | 2019-08-30 09:55 | NUR ---
PRINTED CIRCUIT BOARD DRAFTER NOTES BLOOD TRANSFUSION COMPLETED WITH HD. PATIENT IN STABLE CONDITION. NO ACUTE DISTRESS NOTED. BREATHING UNLABORED. NO ADVERSE REACTION OF BLOOD TRANSFUSION NOTED. VITAL SIGNS STABLE. HD ON GOING. WILL CONTINUE TO MONITOR PATIENT.
--- NOTE | 2019-08-30 10:50 | NUR ---
BACK SHOE CUTTER NOTES DIALYSIS DONE BY LAURIE MENDEZ, 2 LITERS OUT, VITAL SIGNS REMAIN STABLE. NO ACUTE DISTRESS NOTED. WILL CONTINUE TO MONITOR.
--- NOTE | 2019-08-30 11:13 | NUR ---
EXTERIOR DOOR INSTALLER NOTES PATIENT SEEN AND EVALUATED BY DR KELIN CRESPO, CLARIFIED IF HE WANTS HGB/HCT RECHECKED AGAIN POST BLOOD TRANFUSION, DR NEVILLE SAID CHECK LABS FOR TOMORROW.
--- NOTE | 2019-08-30 16:10 | NUR ---
REGULATORY COMPLIANCE MANAGER NOTES PATIENT TRANSPORTED TO [facility] VIA ACLS, OPENS EYES, ABLE TO MOVE RIGHT HAND AND RIGHT LEGS. NO ACUTE DISTRESS NOTED. BREATHING UNLABORED. IV ACCESS PATENT AND INTACT, NO REDNESS, NO SWELLING NOTED. ALL BELONGINGS ACCOUNTED FOR AND MEDICATIONS TRANSFER WITH THE PATIENT. REPORT GIVEN TO SONIA MENDEZ.
--- NOTE | 2019-08-30 16:23 | NUR ---
RN NOTES RECEIVED REPORT FROM SIMEON MENDEZ. PATIENT VITAL SIGN 165/83 HR 83 RR 20 TEMP 99 SAO2 92%. WILL CONTINUE TO MONITOR.
[2019-08-30] MEDS: IV D5/ 0.9% NACL 1,000 ML IV PRN (16:56)
--- NOTE | 2019-08-30 17:41 | NUR ---
TELE/RN NOTES PATIENT BP 159/85 HR 83 KELIN CRESPO IS AWARE. NO NEW ORDER AT THIS TIME.
--- NOTE | 2019-08-30 17:50 | NUR ---
TELE/RN NOTES KELIN CHERIE ORDER HYDRALAZINE 10 MG IVP EVERY HOURS NOTED AND CARRIED OUT.
--- NOTE | 2019-08-30 17:58 | NUR ---
TELE/RN NOTES PATIENT IS ON NPO.
[2019-08-30] MEDS ORDERED: hydrALAZINE HCL IV 20 MG VIAL IV PRN (18:00)
[2019-08-30] MEDS: hydrALAZINE HCL IV 20 MG VIAL IV PRN (18:05)
--- NOTE | 2019-08-30 18:57 | NUR ---
MS/RN CLOSING NOTES PATIENT IS ON BED. PATIENT OPEN EYES, NON VERBAL, MOVES RIGHT HAND AND RIGHT LEGS. PATIENT WITH OXYGEN 3 L VIA NASAL CANNULA IN PLACED. PATIENT IN NO APPARENT RESPIRATORY DISTRESS NOTED. PATIENT DENIES PAIN AT THIS TIME. IV ACCESS AT LEFT FOREARM # 20G PATENT AND INTACT. SEEN AND EXAMINED BY MD WITH ORDERS MADE AND CARRIED OUT. ALL DUE MEDICATION WAS GIVEN. SAFETY PRECAUTION IN PLACED . BED IN LOWEST POSITION AND LOCKED. SIDE RAILS UP X2. CALL LIGHT WITHIN REACH. WILL ENDORSED TO WIRE BRUSH OPERATOR FOR EZEQUIEL.
--- NOTE | 2019-08-30 19:10 | NUR ---
MS/RN OPENING NOTES: PATIENT IS ON BED. PATIENT OPEN EYES, NON VERBAL, MOVES RIGHT HAND AND RIGHT LEGS. PATIENT WITH OXYGEN 1 L VIA NASAL CANNULA IN PLACED. PATIENT IN NO APPARENT RESPIRATORY DISTRESS NOTED. PT SHOWS NO S/S OF PAIN. NO COMPLAINS OF PAIN. ON TELE MONITOR WITH READING OF SR 86. IV ACCESS AT LEFT FOREARM # 20G PATENT AND INTACT, D5 NS RUNNING AT 50MLS/HR. SAFETY PRECAUTION IN PLACED. BED IN LOWEST POSITION AND LOCKED. SIDE RAILS UP X2. CALL LIGHT WITHIN REACH. WILL CONTINUE MONITORING ACCORDINGLY. Addendum: 08/30/19 at 2013 by TIERRA RODRIGUEZ RN TELE/RN OPENING NOTES:
[2019-08-30] MEDS: MEROPENEM 500 MG in IV NS 0.9% 50 ML IV SCH (20:33)
[2019-08-30] MEDS: MIRTAZAPINE 15 MG TABLET PO SCH (21:57)
[2019-08-30] MEDS: ATORVASTATIN 40 MG TABLET PO SCH (21:57)
--- NOTE | 2019-08-30 22:00 | NUR ---
TELE/RN NOTES: PT ACCUCHECK FOR HS IS 108. NO INSULIN COVERAGE PER SLIDING SCALE. PT IS ALSO NPO. STABLE AT THIS TIME. WILL CONTINUE TO MONITOR ACCORDINGLY.
[2019-08-30] MEDS: INSULIN REGULAR, HUMAN 100 UNIT/ML 3 ML VIAL SQ PRN (22:03)
[2019-08-30] MEDS: ACETAMINOPHEN 650 MG/SUPP.RECT RC PRN (23:46)
--- NOTE | 2019-08-30 23:48 | NUR ---
TELE/RN NOTES: PT IS MORE ALERT NOW COMPARED TO LETHARGIC STATE. ASKED PT IF HE HAS ANY PAIN. AND PATIENT WAS ABLE TO ANSWER BY DOING HAND GESTURES AND NODDING HIS HEAD. PER PT, HE HAS GENERALIZED PAIN AND A HEADACHE. TYLENOL 650MG SUPPOSITORY ADMINISTERED. VSS. WILL CONTINUE TO MONITOR ACCORDINGLY.
[2019-08-31] VITALS: BP 159/81
[2019-08-31 04:00] VITALS: BP 146/82
[2019-08-31] MEDS: BLOOD SUGAR DIAGNOSTIC 1 EACH STRIP IN SCH ×4 (06:38→22:24)
[2019-08-31] MEDS: INSULIN REGULAR, HUMAN 100 UNIT/ML 3 ML VIAL SQ PRN ×2 (06:40→22:38)
--- NOTE | 2019-08-31 06:40 | NUR ---
TELE/RN NOTES: PT ACCUCHECK FOR AC IS 117. NO INSULIN COVERAGE PER SLIDING SCALE. PT IS ALSO NPO. STABLE AT THIS TIME. WILL CONTINUE TO MONITOR ACCORDINGLY.
--- NOTE | 2019-08-31 07:00 | NUR ---
TELE/RN CLOSING NOTES: PATIENT IS ON BED. MORE AWAKE AND RESPONSIVE TO QUESTIONS WHEN ASKED. ABLE TO NOD WHEN RESPONDING TO QUESTIONS. PATIENT WITH OXYGEN 1 L VIA NASAL CANNULA IN PLACED. PATIENT IN NO APPARENT RESPIRATORY DISTRESS NOTED. PT SHOWS NO S/S OF PAIN. NO COMPLAINS OF PAIN. ON TELE MONITOR WITH READING OF SR 77. IV ACCESS AT LEFT FOREARM # 20G PATENT AND INTACT. SAFETY PRECAUTION IN PLACED. BED IN LOWEST POSITION AND LOCKED. SIDE RAILS UP X2. CALL LIGHT WITHIN REACH. WILL ENDORSE TO NEXT SHIFT FOR EZEQUIEL.
--- NOTE | 2019-08-31 07:36 | NUR ---
RN NOTES RECEIVED PATIENT IN BED RESTING COMFORTABLY IN MODERATE HIGH BACK REST. ON OXYGEN 1 L VIA NASAL CANNULA. NO SIGNS OF DISTRESS NOTED AT THIS TIME. ON TELE MONITOR WITH READING OF SR 80'S. IV ACCESS AT LEFT FOREARM # 20G PATENT AND INTACT. SAFETY PRECAUTION IN PLACED. BED IN LOWEST POSITION AND LOCKED. SIDE RAILS UP X2. CALL LIGHT WITHIN REACH. WILL CONTINUE TO MONITOR.
[2019-08-31 08:00] VITALS: BP 155/76
[2019-08-31 08:19] LABS: CALCIUM, SERUM 9.8 mg/dL (8.5-10.1); POTASSIUM 3.9 mmol/L (3.5-5.1)
[2019-08-31] MEDS: FERROUS SULFATE (325 MG) 325 MG/TAB TABLET PO SCH ×2 (09:00→17:17)
[2019-08-31] MEDS: DOCUSATE SODIUM 250 MG CAPSULE PO SCH (09:00)
[2019-08-31] MEDS: ABACAVIR SULFATE 300 MG PO SCH ×2 (09:00→17:09)
[2019-08-31] MEDS: LABETALOL HCL (100MG) 100 MG TABLET PO SCH ×2 (09:00→17:17)
[2019-08-31] MEDS: Fenofibrate 48 MG TABLET PO SCH (09:00)
[2019-08-31] MEDS: EMTRICITABINE PO SCH (09:00)
[2019-08-31] MEDS: ALLOPURINOL 100 MG TABLET PO SCH (09:00)
[2019-08-31] MEDS: AMLODIPINE BESYLATE 10 MG TABLET PO SCH (09:00)
[2019-08-31] MEDS: LIOTHYRONINE SODIUM (25 MCG) 25 MCG TABLET PO SCH (09:00)
[2019-08-31] MEDS: DARUNAVIR ETHANOLATE 800 MG PO SCH (09:00)
[2019-08-31] MEDS: ASCORBIC ACID 500 MG TABLET PO SCH (09:00)
[2019-08-31] MEDS: FOLIC ACID 1 MG TABLET PO SCH (09:00)
[2019-08-31] MEDS: NORVIR PO SCH ×2 (09:00→17:33)
[2019-08-31] MEDS: PANTOPRAZOLE 40 MG VIAL IV SCH ×2 (09:03→22:27)
[2019-08-31 10:02] LABS: BASOPHILS # (AUTO) 0.1 /CMM (0.0-0.2); BASOPHILS % (AUTO) 0.8 % (0.0-2.0); EOSINOPHILS % (AUTO) 2.5 % (0.0-6.0); HEMATOCRIT 25 % (39-51); HEMOGLOBIN 8.3 g/dL (13.5-17.5); LYMPHOCYTES # (AUTO) 1.4 /CMM (0.8-4.8); LYMPHOCYTES % (AUTO) 17.2 % (20.0-44.0); MEAN CORPUSCULAR HGB CONC 33 g/dl (31.0-36.0); MEAN CORPUSCULAR VOLUME 99 fL (80-96); MONOCYTES # (AUTO) 0.7 /CMM (0.1-1.30); MONOCYTES % (AUTO) 8.2 % (2.0-12.0); NEUTROPHILS # (AUTO) 5.8 /CMM (1.8-8.9); NEUTROPHILS % (AUTO) 71.3 % (43.0-81.0); PLATELET COUNT (AUTO) 247 /CMM (150-450); RED BLOOD CELL COUNT(AUTO) 2.54 MIL/uL (4.5-6.0); WHITE BLOOD COUNT (AUTO) 8.1 K/uL (4.3-11.0)
--- NOTE | 2019-08-31 11:50 | NUR ---
RN NOTES PATIENT WAS PICKED UP BY 2 O.R NURSE VIA HOSPITAL BED FOR PEG PLACEMENT, PATIENT HAS NO FAMILY, CONSENT WAS SIGNED BY DR. CRESPO AND DR. ALCAZAR. CHECKLIST DONE. NO SIGNS OF DISTRESS NOTED. WILL CONTINUE TO MONITOR.
[2019-08-31] MEDS ORDERED: FENTANYL PF 100MCG/2ML AMPUL ONE (11:57)
[2019-08-31] MEDS ORDERED: ANESTHESIA TRAY IN PYXIS 1 EA TRAY MC ONE (12:01)
--- NOTE | 2019-08-31 12:57 | NUR ---
RN NOTES RECEIVED PATIENT FROM SURGERY, S/P PEG PLACEMENT, NO SIGNS OF DISTRESS NOTED AT THIS TIME. BINDER IN PLACE, PER DR. SAYRA BLANKENSHIP TO GIVE MEDS TODAY AND TO START TUBE FEEDING IN THE AM 08/31. WILL CONTINUE TO MONITOR.
[2019-08-31 14:14] LABS: *ANA ANTI-CENTROMERE B AB <0.2 AI (0.0-0.9); *ANA ANTI-DNA(DS) AB, QN <1 IU/mL (0-9); *ANA ANTI-JO-1 <0.2 AI (0.0-0.9); *ANA ANTICHROMATIN ANTIBODY <0.2 AI (0.0-0.9); *ANA RNP ANTIBODIES <0.2 AI (0.0-0.9); *ANA SJOGREN'S ANTI-SS-A <0.2 AI (0.0-0.9); *ANA SJOGREN'S ANTI-SS-B <0.2 AI (0.0-0.9); *ANAANTI-SCLERODERMA-70 AB <0.2 AI (0.0-0.9); *ANASMITH AB <0.2 AI (0.0-0.9)
--- NOTE | 2019-08-31 14:15 | NUR ---
RN NOTES DIALYSIS NURSE ON UNIT, WILL DIALYZE PATIENT. NO SIGNS OF DISTRESS NOTED AT THIS TIME. WILL CONTINUE TO MONITOR.
[2019-08-31 16:00] VITALS: BP 130/69
--- NOTE | 2019-08-31 17:10 | NUR ---
RN NOTES S/P HD, OUTPUT OF 1.5L, NO SIGNS OF DISTRESS NOTED, V/S WNL. WILL CONTINUE TO MONITOR.
--- NOTE | 2019-08-31 19:20 | NUR ---
RN NOTES PATIENT IN BED RESTING COMFORTABLY IN MODERATE HIGH BACK REST. ON ROOM AIR, NO SIGNS OF DISTRESS NOTED THROUGHOUT THE SHIFT. IV ACCESS AT LEFT FOREARM # 20G PATENT AND INTACT. S/P PEG PLACEMENT, INTACT WITH BINDER. SAFETY PRECAUTION IN PLACED. BED IN LOWEST POSITION AND LOCKED. SIDE RAILS UP X2. CALL LIGHT WITHIN REACH. WILL ENDORSE TO STAFF RN NURSE FOR EZEQUIEL.
--- NOTE | 2019-08-31 19:25 | NUR ---
MS/RN OPENING NOTES: PATIENT IS ON BED. PATIENT OPEN EYES, NON VERBAL, MOVES RIGHT HAND AND RIGHT LEGS. PATIENT WITH OXYGEN 1 L VIA NASAL CANNULA IN PLACED. PATIENT IN NO APPARENT RESPIRATORY DISTRESS NOTED. PT SHOWS NO S/S OF PAIN. NO COMPLAINS OF PAIN. S/P G-TUBE PLACEMENT. OK TO GIVE MEDS THROUGH G-TUBE. IV ACCESS AT LEFT FOREARM # 20G PATENT AND INTACT, D5 NS RUNNING AT 50MLS/HR. SAFETY PRECAUTION IN PLACED. BED IN LOWEST POSITION AND LOCKED. SIDE RAILS UP X2. CALL LIGHT WITHIN REACH. WILL CONTINUE MONITORING ACCORDINGLY.
[2019-08-31] MEDS: IV D5/ 0.9% NACL 1,000 ML IV PRN (19:31)
[2019-08-31 20:00] VITALS: BP 135/68
[2019-08-31] MEDS: ATORVASTATIN 40 MG TABLET PO SCH (22:26)
[2019-08-31] MEDS: MIRTAZAPINE 15 MG TABLET PO SCH (22:26)
[2019-08-31] MEDS: MEROPENEM 500 MG in IV NS 0.9% 50 ML IV SCH (22:28)
[2019-09-01] MEDS: INSULIN REGULAR, HUMAN 100 UNIT/ML 3 ML VIAL SQ PRN ×2 (06:31→21:30)
[2019-09-01] MEDS: BLOOD SUGAR DIAGNOSTIC 1 EACH STRIP IN SCH ×4 (06:31→21:28)
[2019-09-01 07:14] LABS: BASOPHILS # (AUTO) 0.1 /CMM (0.0-0.2); BASOPHILS % (AUTO) 0.8 % (0.0-2.0); HEMATOCRIT 22 % (39-51); HEMOGLOBIN 7.6 g/dL (13.5-17.5); LYMPHOCYTES # (AUTO) 2.1 /CMM (0.8-4.8); MEAN CORPUSCULAR HGB CONC 34 g/dl (31.0-36.0); MEAN CORPUSCULAR VOLUME 99 fL (80-96); MONOCYTES # (AUTO) 0.7 /CMM (0.1-1.30); MONOCYTES % (AUTO) 8.2 % (2.0-12.0); NEUTROPHILS # (AUTO) 5.4 /CMM (1.8-8.9); PLATELET COUNT (AUTO) 233 /CMM (150-450); RED BLOOD CELL COUNT(AUTO) 2.27 MIL/uL (4.5-6.0); WHITE BLOOD COUNT (AUTO) 8.5 K/uL (4.3-11.0)
[2019-09-01 07:45] LABS: CALCIUM, SERUM 9.3 mg/dL (8.5-10.1); CREATININE 5.3 mg/dL (0.6-1.3); POTASSIUM 3.9 mmol/L (3.5-5.1)
--- NOTE | 2019-09-01 07:55 | NUR ---
MS/RN CLOSING NOTES: PATIENT IS ON BED RESTING COMFORTABLY. ABLE TO NOD WHEN RESPONDING TO QUESTIONS IN GERMAN. PATIENT WITH OXYGEN 1 L VIA NASAL CANNULA IN PLACED. PATIENT IN NO APPARENT RESPIRATORY DISTRESS NOTED. PT SHOWS NO S/S OF PAIN. NO COMPLAINS OF PAIN. IV ACCESS AT LEFT FOREARM #20G PATENT AND INTACT. SAFETY PRECAUTION IN PLACED. BED IN LOWEST POSITION AND LOCKED. SIDE RAILS UP X2. CALL LIGHT WITHIN REACH. WILL ENDORSE TO NEXT SHIFT FOR EZEQUIEL.
[2019-09-01 08:00] VITALS: BP 153/67
--- NOTE | 2019-09-01 08:00 | NUR ---
RN NOTES RECEIVED PATIENT IN THE BED, NON-VERBAL, ROOM AIR, NO ACUTE RESPIRATORY DISTRESS, PATIENT TOTAL CARE, GT INTACT, RESIDUAL, AND PLACEMENT CHECKED, V/S TAKEN WNL, ADMINISTERED SCHEDULED MEDICATION VIA GT, ASSIST TURN AND REPOSTION Q 2 HR. KEEP HOB ELEVATED FOR ASPIRATION PRECAUTION. CALL LIGHT WITHIN TO REACH. CONTINUED MONITORING.
[2019-09-01] MEDS: PANTOPRAZOLE 40 MG VIAL IV SCH ×2 (10:01→21:02)
[2019-09-01] MEDS: LIOTHYRONINE SODIUM (25 MCG) 25 MCG TABLET PO SCH (10:02)
[2019-09-01] MEDS: Fenofibrate 48 MG TABLET PO SCH (10:02)
[2019-09-01] MEDS: ASCORBIC ACID 500 MG TABLET PO SCH (10:02)
[2019-09-01] MEDS: AMLODIPINE BESYLATE 10 MG TABLET PO SCH (10:02)
[2019-09-01] MEDS: ABACAVIR SULFATE 300 MG PO SCH ×2 (10:02→17:12)
[2019-09-01] MEDS: FERROUS SULFATE (325 MG) 325 MG/TAB TABLET PO SCH ×2 (10:03→17:03)
[2019-09-01] MEDS: FOLIC ACID 1 MG TABLET PO SCH (10:03)
[2019-09-01] MEDS: DOCUSATE SODIUM 250 MG CAPSULE PO SCH (10:03)
[2019-09-01] MEDS: LABETALOL HCL (100MG) 100 MG TABLET PO SCH ×2 (10:03→17:04)
[2019-09-01] MEDS: DARUNAVIR ETHANOLATE 800 MG PO SCH (10:03)
[2019-09-01] MEDS: ALLOPURINOL 100 MG TABLET PO SCH (10:07)
[2019-09-01] MEDS: NORVIR PO SCH ×2 (10:46→17:10)
[2019-09-01] MEDS: EMTRICITABINE PO SCH (10:46)
--- NOTE | 2019-09-01 13:10 | NUR ---
rn notes bs-110 mg/dl. patient GTF, will start at dinner time, no coverage given, picker feeder for mri of brain wo contrast. mri Questionnaire felled from history, patient has no family, and non verbal, cosigned via co worker VANESSA Silva.
--- NOTE | 2019-09-01 15:00 | NUR ---
RN Notes patient having hemodialysis at this time.
[2019-09-01 16:00] VITALS: BP 117/67
--- NOTE | 2019-09-01 17:00 | NUR ---
rn notes finished hemodialysis at this time output was 1800 ml, bs-96/mg/dl started nephro GTF 20 ml/hr goal is oncrease 45 in 24 hr . assist turn and reposition q 2 hr, keep hob elevated for aspiration precaution.
[2019-09-01] MEDS: NEPRO 1,000 ML BOTTLE GT PRN (17:06)
[2019-09-01] MEDS: VANCOMYCIN 500 MG in IV D5W 100 ML IV PRN (18:23)
--- NOTE | 2019-09-01 18:30 | NUR ---
RN NOTES PATIENT STABLE INFUSING VANCOMYCIN 100ML/HR INTACT ON LEFT FA. , ALSO INFUSING GTF AT 20ML/HR INTACT, KEEP HOB ELEVATED FOR ASPIRATION PRECAUTION, CALL LIGHT WITHIN TO REACH. ENDORSED ONCOMING NURSE FOLLOW PLAN OF CARE.
--- NOTE | 2019-09-01 19:42 | NUR ---
MS/RN OPENING NOTES: RECEIVED PATIENT ON BED. PATIENT OPEN EYES, NON VERBAL, BUT ABLE TO NOD WHEN ANSWERING TO QUESTIONS. FRENCH SPEAKING. MOVES RIGHT HAND AND RIGHT LEGS. PATIENT WITH OXYGEN 1 L VIA NASAL CANNULA IN PLACED. PATIENT IN NO APPARENT RESPIRATORY DISTRESS NOTED. PT SHOWS NO S/S OF PAIN. NO COMPLAINS OF PAIN. GTF INFUSING AT 25MLS/HR. NO RESIDUALS. IV ACCESS AT LEFT FOREARM # 20G PATENT AND INTACT. SAFETY PRECAUTION IN PLACED. BED IN LOWEST POSITION AND LOCKED. SIDE RAILS UP X2. CALL LIGHT WITHIN REACH. WILL CONTINUE MONITORING ACCORDINGLY.
[2019-09-01 20:00] VITALS: BP 118/63
[2019-09-01] MEDS: MEROPENEM 500 MG in IV NS 0.9% 50 ML IV SCH (21:01)
[2019-09-01] MEDS: MIRTAZAPINE 15 MG TABLET PO SCH (21:19)
[2019-09-01] MEDS: ATORVASTATIN 40 MG TABLET PO SCH (21:19)
--- NOTE | 2019-09-01 22:00 | NUR ---
MS/RN NOTES: TRANSFERRED PT VIA GURNEY. PT LEFT UNIT IN STABLE CONDITION. VSS. ALL DUE MEDS GIVEN ORDERED. ALL NEEDS MET AND RENDERED. REPORT GIVEN AT BEDSIDE TO VANESSA ALDANA FOR EZEQUIEL.
--- NOTE | 2019-09-01 22:05 | NUR ---
furniture upholsterer of care notes: received report at bed side from bayron alfaro. pt from [facility] brought to [facility] via bed. pt non verbal, open eyes, on ra respirations even and unlabored, iv access patent and flushing well, on hl. pt has gtube in placed, abdl binder applied. scd in used, ble offloaded on pillows. suction set up secured. inventory of belongings completed by fitz otto. vs taken and recorded. hob kept 30 degree. safety precautions for fall initiated, call light in reach, will continue monitoring pt.
[2019-09-01 22:09] VITALS: BP 111/60
--- NOTE | 2019-09-01 22:11 | NUR ---
rnnotes: pt awake, open eyes, non verbal, pt with gtube, abdomen soft tot touch with active bowel sound heard upon auscultation. gtube residual check, nothing obtained, able to flush easily with 30cc of water. pt connected to gtube feeding nepro at 20ml/hr. kept pt hob 30 degree, aspiration precaution followed.
[2019-09-01] MEDS: ACETAMINOPHEN 325 MG TABLET PO PRN (22:14)
[2019-09-01 22:15] VITALS: BP 111/60
--- NOTE | 2019-09-01 22:16 | NUR ---
prn tylenol: t 99.0 orally, prn tylenol 650 mg administered via gtube.
[2019-09-02] VITALS: BP 118/60
[2019-09-02] MEDS: BLOOD SUGAR DIAGNOSTIC 1 EACH STRIP IN SCH ×4 (06:18→21:38)
[2019-09-02] MEDS: IV D5/ 0.9% NACL 1,000 ML IV PRN (06:21)
--- NOTE | 2019-09-02 06:46 | NUR ---
End of shift report: Pt remains non-verbal, open eyes, intermittent cough noted, non-productive. Pt kept on aspiration precaution, kept hob 30 degree. Iv access remains patent and flushing well, infusing with d5ns at 50ml/hr, no s/s of iv infiltration noted. Pt remains on gtube feeding, nepro at 30ml/hr. ble kept offloaded on pillows. Pt remains on isolation r/o meningitis, ppe utilized. Vs remains stable, needs attended, safety precautions for fall remains engaged, call light in reach, will endorse to day rn for continuity of care.
[2019-09-02 07:08] LABS: BASOPHILS # (AUTO) 0.1 /CMM (0.0-0.2); EOSINOPHILS % (AUTO) 3.2 % (0.0-6.0); HEMATOCRIT 24 % (39-51); HEMOGLOBIN 8.1 g/dL (13.5-17.5); LYMPHOCYTES # (AUTO) 2.3 /CMM (0.8-4.8); LYMPHOCYTES % (AUTO) 29.1 % (20.0-44.0); MEAN CORPUSCULAR HGB CONC 33 g/dl (31.0-36.0); MEAN CORPUSCULAR VOLUME 100 fL (80-96); MONOCYTES # (AUTO) 0.7 /CMM (0.1-1.30); MONOCYTES % (AUTO) 8.8 % (2.0-12.0); NEUTROPHILS # (AUTO) 4.6 /CMM (1.8-8.9); NEUTROPHILS % (AUTO) 57.9 % (43.0-81.0); PLATELET COUNT (AUTO) 270 /CMM (150-450); RED BLOOD CELL COUNT(AUTO) 2.45 MIL/uL (4.5-6.0); WHITE BLOOD COUNT (AUTO) 7.9 K/uL (4.3-11.0)
[2019-09-02 07:11] LABS: CALCIUM, SERUM 10.1 mg/dL (8.5-10.1); POTASSIUM 3.6 mmol/L (3.5-5.1)
--- NOTE | 2019-09-02 07:40 | NUR ---
MS RN OPENING NOTE PATIENT IN BED RESTING COMFORTABLY. PATIENT IN NO ACUTE DISTRESS. NO SOB NOTED. PATIENT BREATHING IS EVEN AND UNLABORED. PATIENT IS NONVERBAL, WITH EYES OPEN. PATIENT HOB IS ELEVATED. SAFETY PRECAUTIONS IN PLACE. PATIENT BED ALARM IS ON. ISOLATION PRECAUTIONS IN PLACE. PATIENT BED IS LOCKED AND IN LOWEST POSITION. CALL LIGHT WITHIN REACH. WILL CONTINUE TO MONITOR.
[2019-09-02 08:00] VITALS: BP 130/69
--- NOTE | 2019-09-02 08:00 | NUR ---
MS RN NOTE PATIENT TEMPERATURE 99.1F. IMPLEMENTED COOLING MEASURES. WILL CONTINUE TO MONITOR.
[2019-09-02] MEDS: FERROUS SULFATE (325 MG) 325 MG/TAB TABLET PO SCH ×2 (08:25→16:37)
[2019-09-02] MEDS: AMLODIPINE BESYLATE 10 MG TABLET PO SCH (08:25)
[2019-09-02] MEDS: ALLOPURINOL 100 MG TABLET PO SCH (08:25)
[2019-09-02] MEDS: PANTOPRAZOLE 40 MG VIAL IV SCH ×2 (08:25→20:34)
[2019-09-02] MEDS: ASCORBIC ACID 500 MG TABLET PO SCH (08:25)
[2019-09-02] MEDS: DARUNAVIR ETHANOLATE 800 MG PO SCH (08:26)
[2019-09-02] MEDS: ABACAVIR SULFATE 300 MG PO SCH ×2 (08:26→16:36)
[2019-09-02] MEDS: DOCUSATE SODIUM 250 MG CAPSULE PO SCH (08:26)
[2019-09-02] MEDS: FOLIC ACID 1 MG TABLET PO SCH (08:26)
[2019-09-02] MEDS: LABETALOL HCL (100MG) 100 MG TABLET PO SCH ×2 (08:26→16:36)
[2019-09-02] MEDS: Fenofibrate 48 MG TABLET PO SCH (08:31)
[2019-09-02] MEDS: LIOTHYRONINE SODIUM (25 MCG) 25 MCG TABLET PO SCH (08:31)
[2019-09-02] MEDS: EMTRICITABINE PO SCH (08:34)
--- NOTE | 2019-09-02 08:36 | NUR ---
MS RN NOTE Per pharmacist Von input "6 each" when scanning medication Emtriva, as that is the equivalent of 6ml of the ordered dose that is suppose to be given.
--- NOTE | 2019-09-02 08:47 | NUR ---
MS RN NOTE Per pharmacist Von when scanning this medication Norvir, input "1 each" as the equivalent dose of the scheduled ordered dose to be given.
[2019-09-02] MEDS: NORVIR PO SCH ×2 (08:48→16:35)
--- NOTE | 2019-09-02 11:30 | NUR ---
MS MENDEZ NOTE CALLED TO PHYSICIAN [employer] TECHNICIAN MEDICAL OFFICES OF HIV PHYSICIAN JUVE AVILEZ. NO ONE HAS PICKED UP AND CALLED TO OFFICES MULTIPLE TIMES WITH NO RESPONSE. VOICEMAIL MESSAGE LEFT TO OBTAIN LABS, CD4, AND VIRAL LOAD. Addendum: 09/02/19 at 1309 by EMILY BYRNES RN MS MENDEZ NOTE CALLED TO PHYSICIAN PLANETARIUM TECHNICIAN MEDICAL OFFICES OF HIV PHYSICIAN JUVE AVILEZ. NO ONE HAS PICKED UP AND CALLED TO OFFICES MULTIPLE TIMES WITH NO RESPONSE. VOICEMAIL MESSAGE LEFT TO OBTAIN LABS, CD4, AND VIRAL LOAD RESULTS.
[2019-09-02] MEDS: INSULIN REGULAR, HUMAN 100 UNIT/ML 3 ML VIAL SQ PRN ×2 (12:27→21:40)
[2019-09-02 16:04] VITALS: BP 121/56
[2019-09-02] MEDS: ACETAMINOPHEN 325 MG TABLET PO PRN (16:39)
--- NOTE | 2019-09-02 16:40 | NUR ---
MS RN NOTE PATIENT TEMPERATURE 99.4F. IMPLEMENTED COOLING MEASURES AND TYLENOL PRN GIVEN ORDERED.
--- NOTE | 2019-09-02 16:57 | NUR ---
MS RN NOTE PATIENT BLOOD SUGAR IS 96. NO INSULIN COVERAGE NEEDED PER PROTOCOL.
--- NOTE | 2019-09-02 17:12 | NUR ---
MS RN NOTE NOTIFIED DR. PAYAN OF CT HEAD WITHOUT CONTRAST RESULTS.
--- NOTE | 2019-09-02 18:20 | NUR ---
MS RN NOTE PATIENT TEMPERATURE 99F. COOLING MEASURES ONGOING.
--- NOTE | 2019-09-02 18:39 | NUR ---
MS RN CLOSING NOTE PATIENT IN BED RESTING COMFORTABLY. PATIENT IN NO ACUTE DISTRESS. NO SOB NOTED. PATIENT BREATHING IS EVEN AND UNLABORED. PATIENT IS NONVERBAL, WITH EYES OPEN. PATIENT HOB IS ELEVATED. SAFETY PRECAUTIONS IN PLACE. PATIENT BED ALARM IS ON. ISOLATION PRECAUTIONS IN PLACE. PATIENT KEPT CLEAN, DRY, AND COMFORTABLE THROUGHOUT SHIFT. PATIENT ON GTUBE FEEDING, NEPRO AT 35ML/HR. PATIENT TURNED AND REPOSITIONED Q2H. IV SITE PATENT AND INTACT. PATIENT BED IS LOCKED AND IN LOWEST POSITION. CALL LIGHT WITHIN REACH. WILL ENDORSE CARE TO PM SHIFT FOR EZEQUIEL.
--- NOTE | 2019-09-02 19:00 | NUR ---
MS/RN OPENING NOTES: RECEIVED PATIENT IN BED RESTING COMFORTABLY. NONVERBAL, OPENS EYES WHEN TALKED TO. PATIENT IN NO ACUTE DISTRESS. NO SOB NOTED. PATIENT BREATHING IS EVEN AND UNLABORED. PATIENT HOB IS ELEVATED. G-TUBE INFUSING AT 35MLS/HR. NO RESIDUALS NOTED. SAFETY PRECAUTIONS IN PLACE. PATIENT BED ALARM IS ON. ISOLATION PRECAUTIONS IN PLACE. PATIENT BED IS LOCKED AND IN LOWEST POSITION. CALL LIGHT WITHIN REACH. WILL CONTINUE TO MONITOR ACCORDINGLY.
[2019-09-02 20:00] VITALS: BP 103/52
[2019-09-02] MEDS: MEROPENEM 500 MG in IV NS 0.9% 50 ML IV SCH (20:31)
[2019-09-02 20:38] VITALS: BP 103/52
[2019-09-02] MEDS: ATORVASTATIN 40 MG TABLET PO SCH (21:31)
--- NOTE | 2019-09-02 22:00 | NUR ---
MS/RN NOTES: PT HAS A TEMP OF 99.3. APPLIED COOLING MEASURES. WILL CONTINUE TO MONITOR TEMP. PT STABLE.
--- NOTE | 2019-09-02 23:00 | NUR ---
MS/RN NOTES: PT TEMP NOW 98.5. WILL CONTINUE TO MONITOR ACCORDINGLY.
[2019-09-03] MEDS: IV D5/ 0.9% NACL 1,000 ML IV PRN (03:16)
[2019-09-03] MEDS: ACETAMINOPHEN 325 MG TABLET PO PRN (04:20)
--- NOTE | 2019-09-03 04:30 | NUR ---
MS/RN NOTES: TEMP IS 99.3. PT GIVEN TYLENOL 650MG VIA GTUBE. TOLERATED WELL. WILL RECHECK AND CONTINUE TO MONITOR.
--- NOTE | 2019-09-03 04:41 | NUR ---
MS/RN NOTES: PT. HAD A LOOSE CONSISTENCY, DARK BM JUST NOW. H/H LOW. PATIENT IS POSITIVE FOR STOOL OCCULT BLOOD X1 ON 08/24. INFORMED BETHEL YAO HAZARDOUS WASTE MANAGEMENT SPECIALIST. WAITING FOR ORDERS.
--- NOTE | 2019-09-03 05:30 | NUR ---
MS/RN NOTES: GAVE PT BED BATH. TEMP IS NOW 98.7. COOLING MEASURES AND TYLENOL EFFECTIVE. WILL CONTINUE TO MONITOR.
[2019-09-03] MEDS: NEPRO 1,000 ML BOTTLE GT PRN (05:47)
--- NOTE | 2019-09-03 06:40 | NUR ---
MS/RN NOTES: TOTAL BM X2. FEEDING WELL TOLERATED. NO RESIDUALS.
[2019-09-03 06:43] LABS: BASOPHILS # (AUTO) 0.1 /CMM (0.0-0.2); BASOPHILS % (AUTO) 1.3 % (0.0-2.0); EOSINOPHILS % (AUTO) 3.6 % (0.0-6.0); HEMATOCRIT 25 % (39-51); HEMOGLOBIN 8.3 g/dL (13.5-17.5); LYMPHOCYTES # (AUTO) 1.9 /CMM (0.8-4.8); LYMPHOCYTES % (AUTO) 21.9 % (20.0-44.0); MEAN CORPUSCULAR HGB CONC 34 g/dl (31.0-36.0); MEAN CORPUSCULAR VOLUME 100 fL (80-96); MONOCYTES # (AUTO) 0.5 /CMM (0.1-1.30); MONOCYTES % (AUTO) 6.3 % (2.0-12.0); NEUTROPHILS # (AUTO) 5.7 /CMM (1.8-8.9); NEUTROPHILS % (AUTO) 66.9 % (43.0-81.0); PLATELET COUNT (AUTO) 298 /CMM (150-450); RED BLOOD CELL COUNT(AUTO) 2.47 MIL/uL (4.5-6.0); WHITE BLOOD COUNT (AUTO) 8.6 K/uL (4.3-11.0)
--- NOTE | 2019-09-03 06:51 | NUR ---
MS/RN CLOSING NOTES: PATIENT REMAINS IN BED RESTING COMFORTABLY. NONVERBAL, OPENS EYES WHEN TALKED TO. PATIENT IN NO ACUTE DISTRESS. NO SOB NOTED. PATIENT BREATHING IS EVEN AND UNLABORED. PATIENT HOB IS ELEVATED. G-TUBE INFUSING AT 40MLS/HR. NO RESIDUALS NOTED. IV ON THE LEFT FA #22G WITH D5NS RUNNING AT 50MLS/HR. SAFETY PRECAUTIONS IN PLACE. PATIENT BED ALARM IS ON. ISOLATION PRECAUTIONS IN PLACE. PATIENT BED IS LOCKED AND IN LOWEST POSITION. CALL LIGHT WITHIN REACH. WILL ENDORSE TO DAY SHIFT FOR EZEQUIEL.
[2019-09-03 07:10] LABS: CALCIUM, SERUM 9.5 mg/dL (8.5-10.1); CREATININE 7.3 mg/dL (0.6-1.3); MAGNESIUM 2.2 mg/dL (1.8-2.4); PHOSPHORUS 4.9 mg/dL (2.5-4.9); POTASSIUM 4.2 mmol/L (3.5-5.1)
--- NOTE | 2019-09-03 07:30 | NUR ---
MS RN NOTES RECEIVED PT IN BED, ASLEEP, EASILY AROUSED, NONVERBAL. PT TOLERATING RA, WITH NO ACUTE RESPIRATORY DISTRESS NOTED. PT NOT EXHIBITING ANY SIGNS OF PAIN OR DISCOMFORT, PT APPEARS CALM. IVF D5NS AT 50ML/HR TO LFA G22, INTACT AND FLUID INFUSING WELL. ON GOING GT FEEDING NEPHRO RUNNING AT 40ML/HR, NO RESIDUALS NOTED. MARY AV FISTULA NOTED FOR HD ACCESS. HOB KEPT ELEVATED. PT KEPT COMFORTABLE. CALL LIGHT KEPT WITHIN REACH. PT'S BED IN LOWEST, LOCKED POSITION WITH SRX3. WILL CONTINUE PLAN OF CARE.
[2019-09-03] MEDS: BLOOD SUGAR DIAGNOSTIC 1 EACH STRIP IN SCH ×4 (07:46→21:18)
[2019-09-03 08:00] VITALS: BP 151/70
[2019-09-03] MEDS: NORVIR PO SCH (08:24)
[2019-09-03] MEDS: DARUNAVIR ETHANOLATE 800 MG PO SCH (08:26)
[2019-09-03] MEDS: ABACAVIR SULFATE 300 MG PO SCH (08:27)
[2019-09-03] MEDS ORDERED: COLCHICINE 0.6 MG TABLET GT PRN (08:29)
[2019-09-03] MEDS: PANTOPRAZOLE 40 MG VIAL IV SCH (08:30)
[2019-09-03] MEDS ORDERED: ZOLPIDEM TARTRATE 5 MG TABLET GT PRN (08:32)
[2019-09-03] MEDS: ASCORBIC ACID 500 MG TABLET GT SCH (08:44)
[2019-09-03] MEDS: Fenofibrate 48 MG TABLET GT SCH (08:44)
[2019-09-03] MEDS: AMLODIPINE BESYLATE 10 MG TABLET GT SCH (08:44)
[2019-09-03] MEDS: LIOTHYRONINE SODIUM (25 MCG) 25 MCG TABLET GT SCH (08:44)
[2019-09-03] MEDS: ALLOPURINOL 100 MG TABLET GT SCH (08:45)
[2019-09-03] MEDS: LABETALOL HCL (100MG) 100 MG TABLET GT SCH ×2 (08:45→17:00)
[2019-09-03] MEDS: FOLIC ACID 1 MG TABLET GT SCH (08:46)
[2019-09-03] MEDS: DOCUSATE SODIUM LIQ 100 MG/10 ML UDC GT SCH (08:49)
[2019-09-03] MEDS: FERROUS SULFATE UDC 300 MG/5 ML UDC GT SCH ×2 (08:49→18:45)
[2019-09-03] MEDS ORDERED: EMTRICITABINE PO SCH (09:00)
--- NOTE | 2019-09-03 09:00 | NUR ---
MS RN NOTES PT'S MORNING MEDICINES, ALL ADMINISTERED VIA GT. VERIFIED ALL ORDERS TO PHARMACIST/MINA, ORDERS CLARIFIED. WILL CONTINUE PLAN OF CARE.
--- NOTE | 2019-09-03 09:50 | NUR ---
MS RN NOTES SEEN AND EVALUATED BY DR PAYAN, ORDERED TO DISCONTINUE ISOLATION. WILL CONTINUE PLAN OF CARE.
[2019-09-03 16:00] VITALS: BP 130/64
--- NOTE | 2019-09-03 16:18 | NUR ---
MS RN NOTES PT JUST STARTED BEING DIALYZE BY RN/VANDANA. WILL CONTINUE PLAN OF CARE.
--- NOTE | 2019-09-03 17:22 | NUR ---
MS RN NOTES SCHEDULED 5PM MEDICINES ON HOLD AT THIS TIME DUE TOPT IS BEING DIALYZE. WILL CONTINUE ADMINISTERING THE MEDS AFTER DIALYSIS PER RN/VANDANA. WILL CONTINUE TO MONITOR.
[2019-09-03] MEDS: NORVIR GT SCH (18:45)
[2019-09-03] MEDS: ABACAVIR SULFATE 300 MG GT SCH (18:49)
--- NOTE | 2019-09-03 18:57 | NUR ---
MS RN NOTES PT REMAINS IN BED, ASLEEP, EASILY AROUSED, NONVERBAL. PT TOLERATING RA, WITH NO ACUTE RESPIRATORY DISTRESS NOTED. PT NOT EXHIBITING ANY SIGNS OF PAIN OR DISCOMFORT, PT APPEARS CALM. PT JUST FINISHED DIALYSIS WITH 1L OUTPUT. IVF D5NS AT 50ML/HR TO LFA G22, INTACT AND FLUID INFUSING WELL. ON GOING GT FEEDING NEPHRO RUNNING AT 45ML/HR, NO RESIDUALS NOTED. MARY AV FISTULA NOTED FOR HD ACCESS. HOB KEPT ELEVATED. PT KEPT COMFORTABLE. CALL LIGHT KEPT WITHIN REACH. PT'S BED IN LOWEST, LOCKED POSITION WITH SRX3. WILL ENDORSE TO INCOMING NIGHT NURSE FOR EZEQUIEL.
--- NOTE | 2019-09-03 19:05 | NUR ---
RN MS OPENING NOTES RECEIVED PATIENT IN BED HOB ELEVATED FOR ASPIRATION PRECAUTIONS, AWAKE EYES OPEN, NON VERBAL, RESPONSIVE TO VERBAL AND TACTILE STIMULI, RESPIRATIONS EVEN AND UNLABORED WITH EQUAL RISE AND FALL OF CHEST, APPEARS COMFORTABLE AT THIS TIME, NO FACIAL GRIMACING PRESENT, HD SITE TO RIGHT ARM AV FISTULA WITH BRUIT PRESENT, GTUBE INTACT AND PROPERLY WORKING, IV SITE TO LEFT FA #22 G INTACT AND PATENT IVF RUNNING ORDERED, ORIENTED TO STAFF AND CALL LIGHT AND KEPT WITHIN REACH, SAFETY PRECAUTIONS IN PLACE, LOW BED AND LOCKED, ALL NEEDS ATTENDED AT THIS TIME WILL CONTINUE TO MONITOR AND ATTEND TO NEEDS, REPOSITIONED, HEELS OFFLOADED.
[2019-09-03 20:00] VITALS: BP 128/77
[2019-09-03 20:16] VITALS: BP 128/77
[2019-09-03] MEDS: MEROPENEM 500 MG in IV NS 0.9% 50 ML IV SCH (21:14)
[2019-09-03] MEDS: ATORVASTATIN 40 MG TABLET GT SCH (21:14)
[2019-09-03] MEDS: INSULIN REGULAR, HUMAN 100 UNIT/ML 3 ML VIAL SQ PRN (21:25)
[2019-09-04] VITALS (9 sets, daily range): BP systolic 113–150; BP diastolic 59–77
[2019-09-04] MEDS: IV D5/ 0.9% NACL 1,000 ML IV PRN (03:04)
[2019-09-04] MEDS: NEPRO 1,000 ML BOTTLE GT PRN (04:43)
[2019-09-04] MEDS: LIOTHYRONINE SODIUM (25 MCG) 25 MCG TABLET GT SCH (05:40)
[2019-09-04] MEDS: PANTOPRAZOLE 40 MG/PACK PACK GT SCH (05:40)
[2019-09-04] MEDS: BLOOD SUGAR DIAGNOSTIC 1 EACH STRIP IN SCH ×4 (05:59→22:04)
[2019-09-04] MEDS: INSULIN REGULAR, HUMAN 100 UNIT/ML 3 ML VIAL SQ PRN (06:01)
--- NOTE | 2019-09-04 06:25 | NUR ---
RN MS CLOSING NOTES PATIENT IN BED HOB ELEVATED FOR ASPIRATION PRECAUTIONS, AWAKE EYES OPEN, NON VERBAL NOTED MUMBLES UNCLEAR SPEECH, RESPONSIVE TO VERBAL AND TACTILE STIMULI, RESPIRATIONS EVEN AND UNLABORED WITH EQUAL RISE AND FALL OF CHEST, APPEARS COMFORTABLE AT THIS TIME, NO FACIAL GRIMACING PRESENT, HD SITE TO RIGHT ARM AV FISTULA WITH BRUIT PRESENT, GTUBE INTACT AND PROPERLY WORKING TOLERATING WELL RESIDUALS 5CC, IV SITE TO LEFT FA #22 G INTACT AND PATENT IVF RUNNING ORDERED, CALL LIGHT KEPT WITHIN REACH, SAFETY PRECAUTIONS IN PLACE, LOW BED AND LOCKED, ALL NEEDS ATTENDED AT THIS TIME WILL CONTINUE TO MONITOR AND ATTEND TO NEEDS, REPOSITIONED, HEELS OFFLOADED PERINEAL CARE PROVIDED , WOUND CARE CONSULT PLACED, NOTED BUTTOCKS AREA WITH SCATTERED DRY SCALY SKIN, ZGUARD APPLIED , MEPILEX APPLIED, WOUND PHOTO TAKEN.
[2019-09-04 07:00] LABS: BASOPHILS # (AUTO) 0.1 /CMM (0.0-0.2); BASOPHILS % (AUTO) 1.4 % (0.0-2.0); EOSINOPHILS % (AUTO) 2.8 % (0.0-6.0); HEMATOCRIT 21 % (39-51); LYMPHOCYTES # (AUTO) 1.7 /CMM (0.8-4.8); LYMPHOCYTES % (AUTO) 19.9 % (20.0-44.0); MEAN CORPUSCULAR HGB CONC 33 g/dl (31.0-36.0); MEAN CORPUSCULAR VOLUME 102 fL (80-96); MONOCYTES # (AUTO) 0.5 /CMM (0.1-1.30); MONOCYTES % (AUTO) 5.7 % (2.0-12.0); NEUTROPHILS # (AUTO) 6.1 /CMM (1.8-8.9); NEUTROPHILS % (AUTO) 70.2 % (43.0-81.0); PLATELET COUNT (AUTO) 228 /CMM (150-450); RED BLOOD CELL COUNT(AUTO) 2.08 MIL/uL (4.5-6.0); WHITE BLOOD COUNT (AUTO) 8.7 K/uL (4.3-11.0)
[2019-09-04 07:06] LABS: CREATININE 5.3 mg/dL (0.6-1.3); POTASSIUM 3.9 mmol/L (3.5-5.1)
--- NOTE | 2019-09-04 07:28 | NUR ---
MS RN NOTES RECEIVED PT IN BED, ASLEEP, EASILY AROUSED, NONVERBAL. PT TOLERATING RA, WITH NO ACUTE RESPIRATORY DISTRESS NOTED. PT NOT EXHIBITING ANY SIGNS OF PAIN OR DISCOMFORT AND PT APPEARS CALM. IVF D5NS AT 50ML/HR TO LFA G22, INTACT AND FLUID INFUSING WELL. ON GOING GT FEEDING NEPHRO RUNNING AT 45ML/HR, NO RESIDUALS NOTED. MARY AV FISTULA NOTED FOR HD ACCESS. HOB KEPT ELEVATED. PT KEPT COMFORTABLE. CALL LIGHT KEPT WITHIN REACH. PT'S BED IN LOWEST, LOCKED POSITION WITH SRX3. WILL CONTINUE PLAN OF CARE.
[2019-09-04 07:30] LABS: HEMOGLOBIN 6.9 g/dL (13.5-17.5)
--- NOTE | 2019-09-04 08:17 | NUR ---
MS RN NOTES RECEIVED CALL FROM LAB REGARDING HGB RESULT OF 6.9, HOSPITALIST/TS MADE AWARE. AWAITING FOR ORDERS.
[2019-09-04] MEDS: FERROUS SULFATE UDC 300 MG/5 ML UDC GT SCH ×2 (08:26→17:11)
[2019-09-04] MEDS: FOLIC ACID 1 MG TABLET GT SCH (08:26)
[2019-09-04] MEDS: DOCUSATE SODIUM LIQ 100 MG/10 ML UDC GT SCH (08:26)
[2019-09-04] MEDS: ACETAMINOPHEN 325 MG TABLET PO PRN (08:27)
[2019-09-04] MEDS: AMLODIPINE BESYLATE 10 MG TABLET GT SCH (08:27)
[2019-09-04] MEDS: LABETALOL HCL (100MG) 100 MG TABLET GT SCH ×2 (08:27→17:11)
[2019-09-04] MEDS: ALLOPURINOL 100 MG TABLET GT SCH (08:27)
[2019-09-04] MEDS: ASCORBIC ACID 500 MG TABLET GT SCH (08:27)
[2019-09-04] MEDS: NORVIR GT SCH ×2 (08:29→17:11)
[2019-09-04] MEDS: DARUNAVIR ETHANOLATE 800 MG GT SCH (08:30)
[2019-09-04] MEDS: ABACAVIR SULFATE 300 MG GT SCH ×2 (08:30→17:11)
[2019-09-04] MEDS: EMTRICITABINE GT SCH (08:31)
[2019-09-04] MEDS: Fenofibrate 48 MG TABLET GT SCH (08:31)
--- NOTE | 2019-09-04 08:42 | NUR ---
WOUND CARE CONSULT: PT PRESENTS WITH RASH TO BUTTOCKS WITH PEELING SKIN AND NOTED TO HAVE FREQUENT STOOLING. RECOMMENDATIONS MADE FOR SKIN PROTECTION. DISCUSSED WITH NURSING STAFF. WILL SEE PRN. MEI IN AGREEMENT WITH PLAN OF CARE. Addendum: 09/04/19 at 0844 by TOMAS ARREGUIN WNDNU Amended: Links added.
--- NOTE | 2019-09-04 09:32 | NUR ---
MS RN NOTES PT SEEN AND EVALUATED BY DR. RAMIREZ. INFORMED REGARDING EPISODE OF LOW GRADE FEVER ASWELL. PRN TYL 650MG GIVEN ORDERED. WILL CONTINUE TO MONITOR.
--- NOTE | 2019-09-04 09:41 | NUR ---
MS RN NOTES RECEIVED ORDER OF 1PRBC TO TRANSFUSE TO PT. PT MADE AWARE, EXISTING BLOOD TRANSFUSION CONSENT PRESENT AND MADE AWARE BLOOD BANK.
[2019-09-04] MEDS: CLOTRIMAZOLE 1% 15 GM TUBE TP SCH ×2 (09:53→17:12)
[2019-09-04 09:59] LABS: EOSINOPHILS % (MANUAL) 6 % (0-4); LYMPHOCYTES % (MANUAL) 18 % (16-48); MONOCYTES % (MANUAL) 2 % (0-11.0); NEUTROPHILS % (MANUAL) 74 (42-76)
--- NOTE | 2019-09-04 10:06 | NUR ---
MS RN NOTES RECEIVED CALL FROM DR. MULLINS FOR SCHEDULED SUBXYPHOID PERICARDIAL WINDOW AT 3PM. INFORMED HIM REGARDING NO PRESENCE OF FAMILY MEMBER, PREVIOUS CONSENT WAS SIGNED BY DNP/NN AND MD/DF. PER DR. MULLINS, ASK DR. HEMPHILL AND DR. STEEL TO SIGN WELL. PT GTF NEPHRO STOPPED. WILL OBTAIN CONSENT FOR DR. STEEL AND DR. HEMPHILL. WILL CONTINUE TO MONITOR.
--- NOTE | 2019-09-04 10:38 | NUR ---
MS RN NOTES CALLED LAB AND BLOOD IS NOT READY YET. AWAITING FOR BLOOD TO BE AVAILABLE BEFORE TRANSFUSING. NO ACTIVE BLEEDING PRESENT. WILL CONTINUE TO MONITOR.
[2019-09-04] MEDS ORDERED: ANESTHESIA TRAY IN PYXIS 1 EA TRAY MC ONE (12:01)
[2019-09-04] MEDS ORDERED: FENTANYL PF 250MCG/5ML AMPUL ONE (13:02)
[2019-09-04] MEDS ORDERED: FAMOTIDINE/PF INJ 20 MG/2 ML VIAL IV ONE (13:03)
--- NOTE | 2019-09-04 13:15 | NUR ---
MS RN NOTES PT BEING DIALYZE BY RN/ALEE, BLOOD TRANSFUSION ADMINISTERED WITH DIALYSIS. WILL DOCUMENT VITALS WELL. WILL CONTINUE TO MONITOR.
--- NOTE | 2019-09-04 13:47 | NUR ---
MS RN NOTES BLOOD TRANSFUSION IS FINISHED PER VANESSA/ALEE. VITALS DOCUMENTED. SEEN AND EVALUATED BY DR. BOTELLO, UPDATED WITH PT'S CONDITION WELL. WILL CONTINUE TO MONITOR.
--- NOTE | 2019-09-04 14:27 | NUR ---
MS RN NOTES RECEIVED CALL FROM DR. MULLINS, CANCELLED SUBXIPHOID PERICARDIAL WINDOW PROCEDURE TODAY. MAY RESUME GTF, WILL RESCHEDULE THE PROCEDURE EVELINA AT 3PM AND NPO POST MIDNIGHT PER DR. MULLINS. SURGERY MADE AWARE AND RN/ALANNAH INFORMED. DIALYSIS NURSE AT BEDSIDE MADE AWARE WELL. WILL ENDORSE TO INCOMING NIGHT NURSE FOR EZEQUIEL.
--- NOTE | 2019-09-04 15:24 | NUR ---
MS RN NOTES JUST FINISHED DIALYSIS, 2L OUT. VITALS RECORDED. PT STABLE AND COMFORTABLE AT THIS TIME. WILL CONTINUE TO MONITOR.
--- NOTE | 2019-09-04 16:42 | NUR ---
MS RN NOTES ID/KEVIN IN THE UNIT. RN FOLLOWED UP WITH PT'S MD FOR HIV. TRACKED FROM HIS OWN PHARMACY , THEY GAVE DR. SOUZA'S CONTACT NUMBER , THAT APPEARS TO BE A CLINIC, WAS ABLE TO SPEAK TO THE CREDIT ADMINISTRATOR NURSE AT , BUT STATING THEY DON'T HAVE PHYSICIAN'S CONTACT INFORMATION WELL, AND EVENTUALLY TRANSFERRED TO TO [facility] LINE WITH AUTOMATED SERVICES ONLY. MADE AWARE KEVIN AND WILL FOLLOW-UP IN AM. WILL ENDORSE INFORMATION TO NIGHT NURSE WELL.
[2019-09-04] MEDS: VANCOMYCIN 500 MG in IV D5W 100 ML IV PRN (17:15)
--- NOTE | 2019-09-04 18:51 | NUR ---
MS RN NOTES PT REMAINS ASLEEP, EASILY AROUSED, NONVERBAL. PT TOLERATING RA, WITH NO ACUTE RESPIRATORY DISTRESS NOTED. PT NOT EXHIBITING ANY SIGNS OF PAIN OR DISCOMFORT AND PT APPEARS CALM. IVF D5NS AT 50ML/HR TO LFA G22, INTACT AND FLUID INFUSING WELL. PIV TO LAC G20, FLUSHED WITH NS, INTACT AND OPERATIONAL. ON GOING GT FEEDING NEPHRO RUNNING AT 45ML/HR, NO RESIDUALS NOTED. MARY AV FISTULA NOTED FOR HD ACCESS. HOB KEPT ELEVATED. PT KEPT COMFORTABLE. ALL NEEDS AND CARE ATTENDED. CALL LIGHT KEPT WITHIN REACH. PT'S BED IN LOWEST, LOCKED POSITION WITH SRX3. WILL ENDORSE TO INCOMING NIGHT NURSE FOR EZEQUIEL.
--- NOTE | 2019-09-04 19:00 | NUR ---
RN dimas opening notes Received Pt in the room. Pt is resting in bed comfortably, able to open eyes and verbal-mumbles. Respiration is normal. No SOB. No S/S of distress noted. IV sites at LAC# 20 is clean, intact and infusing well D5NS@ 50 ml/hr. IV sites at LFA# 22 is clean, intact and SL. R upperarm AV fistula is thrill and bruit. Gtube is clean and infusing well nephro @ 45 ml/hr with 0 residual. Safety precautions is maintained. Bed at low position, brakes locked, side rails upX3. HOB elevated and call light is within reach. Will continue to monitor.
[2019-09-04] MEDS: MEROPENEM 500 MG in IV NS 0.9% 50 ML IV SCH (20:21)
[2019-09-04] MEDS: ATORVASTATIN 40 MG TABLET GT SCH (22:03)
[2019-09-05] VITALS (12 sets, daily range): BP systolic 129–165; BP diastolic 70–83
[2019-09-05] MEDS: IV D5/ 0.9% NACL 1,000 ML IV PRN (01:03)
[2019-09-05] MEDS: PANTOPRAZOLE 40 MG/PACK PACK GT SCH (05:19)
[2019-09-05] MEDS: LIOTHYRONINE SODIUM (25 MCG) 25 MCG TABLET GT SCH (05:19)
--- NOTE | 2019-09-05 06:40 | NUR ---
RN medsurg closing notes Pt is resting in bed comfortably. Respiration is normal. No SOB. No S/S of distress noted. VS is stable. Afebrile. IV sites at LAC# 20 is clean, intact and infusing well D5NS@ 50 ml/hr. IV sites at LFA# 22 is clean, intact and SL. R upperarm AV fistula is thrill and bruit. Pt status is NPO for today's procedure. Kept Pt clean, dry and comfortable. All needs met and attended. Safety precautions is maintained. Bed at low position, brakes locked, side rails upX3. HOB elevated and call light is within reach. Will endorse to morning nurse for EZEQUIEL.
[2019-09-05] MEDS: BLOOD SUGAR DIAGNOSTIC 1 EACH STRIP IN SCH ×3 (06:46→18:18)
[2019-09-05 07:13] LABS: BASOPHILS # (AUTO) 0.1 /CMM (0.0-0.2); BASOPHILS % (AUTO) 1.4 % (0.0-2.0); EOSINOPHILS % (AUTO) 3.2 % (0.0-6.0); HEMATOCRIT 24 % (39-51); LYMPHOCYTES # (AUTO) 1.6 /CMM (0.8-4.8); LYMPHOCYTES % (AUTO) 21.4 % (20.0-44.0); MEAN CORPUSCULAR HGB CONC 33 g/dl (31.0-36.0); MEAN CORPUSCULAR VOLUME 101 fL (80-96); MONOCYTES # (AUTO) 0.5 /CMM (0.1-1.30); MONOCYTES % (AUTO) 6.2 % (2.0-12.0); NEUTROPHILS # (AUTO) 5.2 /CMM (1.8-8.9); NEUTROPHILS % (AUTO) 67.8 % (43.0-81.0); PLATELET COUNT (AUTO) 267 /CMM (150-450); RED BLOOD CELL COUNT(AUTO) 2.41 MIL/uL (4.5-6.0); WHITE BLOOD COUNT (AUTO) 7.7 K/uL (4.3-11.0)
[2019-09-05 07:29] LABS: CALCIUM, SERUM 10.1 mg/dL (8.5-10.1); CREATININE 4.9 mg/dL (0.6-1.3); MAGNESIUM 2.3 mg/dL (1.8-2.4); PHOSPHORUS 3.2 mg/dL (2.5-4.9); POTASSIUM 4.1 mmol/L (3.5-5.1)
--- NOTE | 2019-09-05 07:45 | NUR ---
MS RN OPENING NOTE PATIENT IN BED RESTING COMFORTABLY. PATIENT IN NO ACUTE DISTRESS. NO SOB NOTED. PATIENT BREATHING IS EVEN AND UNLABORED. PATIENT MAINTAINED NPO STATUS. PATIENT HOB IS ELEVATED. SAFETY PRECAUTIONS IN PLACE. PATIENT BED ALARM IS ON. PATIENT BED IS LOCKED AND IN LOWEST POSITION. CALL LIGHT WITHIN REACH. WILL CONTINUE TO MONITOR.
[2019-09-05] MEDS: FERROUS SULFATE UDC 300 MG/5 ML UDC GT SCH ×2 (09:00→17:57)
[2019-09-05] MEDS: ASCORBIC ACID 500 MG TABLET GT SCH (09:00)
[2019-09-05] MEDS: AMLODIPINE BESYLATE 10 MG TABLET GT SCH (09:00)
[2019-09-05] MEDS: LABETALOL HCL (100MG) 100 MG TABLET GT SCH ×2 (09:00→17:58)
[2019-09-05] MEDS: EMTRICITABINE GT SCH (09:00)
[2019-09-05] MEDS: NORVIR GT SCH (09:00)
[2019-09-05] MEDS: FOLIC ACID 1 MG TABLET GT SCH (09:00)
[2019-09-05] MEDS: DARUNAVIR ETHANOLATE 800 MG GT SCH (09:00)
[2019-09-05] MEDS: DOCUSATE SODIUM LIQ 100 MG/10 ML UDC GT SCH (09:00)
[2019-09-05] MEDS: ABACAVIR SULFATE 300 MG GT SCH ×2 (09:00→18:01)
[2019-09-05] MEDS: Fenofibrate 48 MG TABLET GT SCH (09:00)
--- NOTE | 2019-09-05 09:05 | NUR ---
MS RN NOTES PATIENT NPO STATUS. HELD AM PO MEDICATIONS.
[2019-09-05] MEDS: CLOTRIMAZOLE 1% 15 GM TUBE TP SCH ×2 (09:25→17:59)
--- NOTE | 2019-09-05 11:56 | NUR ---
MS RN NOTE Per Ravi Banks, order okay for straight cath to obtain urine sample for UA.
--- NOTE | 2019-09-05 11:57 | NUR ---
MS RN NOTE PATIENT BLOOD SUGAR IS 117. NO INSULIN COVERAGE NEEDED PER PROTOCOL.
[2019-09-05] MEDS ORDERED: KETAMINE HCL (500MG/10ML) 50 MG/ML VIAL ONE (12:35)
[2019-09-05] MEDS ORDERED: MIDAZOLAM HCL 2 MG/2ML VIAL ONE (12:35)
[2019-09-05] MEDS ORDERED: ROCURONIUM BROMIDE 50 MG/5 ML ONE (13:16)
[2019-09-05] MEDS ORDERED: DESFLURANE 240 ML BOTTLE IH ONE (13:32)
[2019-09-05] MEDS ORDERED: FENTANYL PF 100MCG/2ML AMPUL ONE (13:32)
[2019-09-05 13:49] LABS: APPEARANCE,URINE CLEAR (CLEAR); BILIRUBIN,URINE NEGATIVE (NEGATIVE); BLOOD, URINE NEGATIVE Ery/uL (NEGATIVE); COLOR,URINE DARK YELLO (YELLOW); KETONES,URINE NEGATIVE (NEGATIVE); LEUKOCYTE ESTERASE ,URINE NEGATIVE (NEGATIVE); NITRITE, URINE NEGATIVE (NEGATIVE); PH,URINE 8.5 (5.0-8.0); PROTEIN,URINE 100 mg/dl (NEGATIVE); UGLUCOSE NEGATIVE (NEGATIVE); UROBILINOGEN,URINE 0.2 EU/dL (0.2)
[2019-09-05 15:09] LABS: BACTERIA,URINE Few /HPF (None Seen); RBC,URINE 0-2 /HPF (0-2); SQUAMOUS EPITHELIAL CELL,UR Few /HPF (None Seen); WBC,URINE 0-2 /HPF (0-3)
--- NOTE | 2019-09-05 16:10 | NUR ---
RN NOTE PATIENT TRANSFERRED TO ICU FROM OR AFTER PERICARDIAL WINDOW. REPORT GIVEN TO CORONA MENDEZ AT ICU FOR TRANSFER OF CARE. PATIENT HAD BEEN KEPT CLEAN, DRY, AND COMFORTABLE THROUGHOUT MY CARE. ENDORSED ALL CARE TO CORONA MENDEZ FOR EZEQUIEL Addendum: 09/05/19 at 1711 by EMILY BYRNES RN RN NOTE PATIENT TRANSFERRED TO ICU FROM OR AFTER PERICARDIAL WINDOW. REPORT GIVEN TO CORONA MENDEZ AT ICU FOR TRANSFER OF CARE. PATIENT HAD BEEN KEPT CLEAN, DRY, AND COMFORTABLE THROUGHOUT MY CARE. ENDORSED ALL CARE TO CORONA MENDEZ FOR EZEQUIEL.
--- NOTE | 2019-09-05 19:18 | NUR ---
RN CLOSING NOTES PATIENT IS RESTING COMFORTABLY AT THIS TIME, NO S.SX OF DISTRESS. PT NEEDS HAVE BEEN MET, VITAL SIGNS ARE STABLE. NO ACUTE CHANGES OCCURRED THROUGHOUT THE SHIFT, SAFETY MEASURES HAVE BEEN IMPLEMENTED, CALL LIGHT IS WITHIN REACH, BED IS IN [id number] AND LOCKED POSITION, PT HAS BEEN ENDORSED TO NIGHTSHIFT RN FOR EZEQUIEL.
--- NOTE | 2019-09-05 19:45 | NUR ---
ICU/BELLY DANCER REPORT RECEIVED FROM THE TO DAY NURSE. SEE FLOWSHEET FOR ASSESSMENT, SKIN ISSUES ARE ADDRESSED ON FLOWSHEET ALONG WITH INTERVENTION TO EACH. PT ALERT TO SELF, OPENS EYES BUT NO VERBAL RESPONDS. PT HAS 3 LITERS N/C WITH SATURATION AT 100'S%. WILL MONITOR THIS PT AND HIS SATURATION. PT WAS TURNED AND REPOSITIONED FOR COMFORT AND CARE. NO ACUTE DISTRESS SEEN AT THIS TIME, WILL CONTINUE TO MONITOR THIS PT. MANISH CARDIAL DRESSING APPEARS TO CLEAN, DRY AND INTACT. LEFT CHEST TUBE IS DRAINING SERIOUS FLUID, WILL MONITOR THIS.
--- NOTE | 2019-09-05 20:05 | NUR ---
ICU/WEATHERIZATION AND HOUSING INSPECTOR STARTED G/TUBE FEEDING ON THIS PT. WAS HANGING UP HOWEVER HAD NOT BEEN STATED. WILL MONITOR THIS PT AND HIS RESIDUALS.
--- NOTE | 2019-09-05 20:30 | NUR ---
ICU/CNC MAINTENANCE TECHNICIAN CHANGED ACCU CHECK SCALE OVER TO Q 6 HRS DUE TO PT IS CURRENTLY ON G/TUBE FEEDING, NO LONGER ACHS.
--- NOTE | 2019-09-05 21:30 | NUR ---
ICU/COMBAT SYSTEMS ENGINEER PT APPEARS TO BE IN PAIN USING FLACC SCALE. PAIN IS RATED 8-10, NOTIFIED CHARGE NURSE WHO THEN GAVE MORPHINE 2MG IVP PRN. PT IS S/P PERICARDIAL WINDOW AND LEFT CHEST TUBE. WILL CONTINUE TO MONITOR THIS PT AND HIS PAIN.
[2019-09-05] MEDS: MEROPENEM 500 MG in IV NS 0.9% 50 ML IV SCH (21:36)
[2019-09-05] MEDS: MORPHINE SULFATE INJ 2 MG/ML DISP.SYRIN IV PRN (21:48)
[2019-09-05] MEDS: ATORVASTATIN 40 MG TABLET GT SCH (21:49)
[2019-09-05] MEDS: ALLOPURINOL 100 MG TABLET GT SCH (21:49)
[2019-09-05] MEDS ORDERED: DEXTROSE 50%-WATER 50 ML DISP.SYRIN IV PRN (22:00)
--- NOTE | 2019-09-05 22:10 | NUR ---
ICU/AMORTIZATION SCHEDULE CLERK PT WAS PROVIDED ORAL CARE AT THIS TIME, PT TOLERATED THIS WELL, REMAINS ON CURRENT 3 LITERS N/C WITH SATURATION AT 99%. PT WAS TURNED AND REPOSITIONED FOR COMFORT AND CARE. WILL CONTINUE TO MONITOR THIS PT
--- NOTE | 2019-09-05 23:50 | NUR ---
ICU/[employer] MIDNIGHT BLOOD SUGAR WAS 110, THERE IS NO COVERAGE FOR THIS PER SLIDING SCALE ORDERED BY MD. WILL CONTINUE TO MONITOR THIS PER MD ORDERS AND HOSPITAL PROTOCOL.
[2019-09-06] VITALS (23 sets, daily range): BP systolic 113–169; BP diastolic 62–79
[2019-09-06] MEDS: BLOOD SUGAR DIAGNOSTIC 1 EACH STRIP IN SCH ×5 (00:49→23:29)
--- NOTE | 2019-09-06 01:10 | NUR ---
ICU/STATEMENT CLERK PT'S BLOOD PRESSURE HAS BEEN ELEVATED AT 160'S, PT HAD RECEIVED MORPHINE HOWEVER IT DIDN'T APPEAR TO WORK. NOTIFIED CHARGE NURSE WHO THEN GAVE APRESOLINE 10MG IVP PRN FOR SBP GREATER THEN 160'S, CURRENT BP IS 169/79. WILL CONTINUE TO MONITOR THIS PT
[2019-09-06] MEDS: MORPHINE SULFATE INJ 2 MG/ML DISP.SYRIN IV PRN (02:19)
--- NOTE | 2019-09-06 02:45 | NUR ---
ICU/UNIVERSITY EXTENSION SPECIALIST PT APPEARS TO BE IN PAIN USING FLACC SCALE. PAIN IS RATED 8-10, NOTIFIED CHARGE NURSE WHO THEN GAVE MORPHINE 2MG IVP PRN. PT IS S/P PERICARDIAL WINDOW AND LEFT CHEST TUBE. WILL CONTINUE TO MONITOR THIS PT AND HIS PAIN.
[2019-09-06 04:24] LABS: BASOPHILS # (AUTO) 0.1 /CMM (0.0-0.2); BASOPHILS % (AUTO) 0.6 % (0.0-2.0); EOSINOPHILS % (AUTO) 0.4 % (0.0-6.0); HEMATOCRIT 25 % (39-51); HEMOGLOBIN 8.1 g/dL (13.5-17.5); LYMPHOCYTES # (AUTO) 1.3 /CMM (0.8-4.8); LYMPHOCYTES % (AUTO) 14.2 % (20.0-44.0); MEAN CORPUSCULAR HGB CONC 33 g/dl (31.0-36.0); MEAN CORPUSCULAR VOLUME 101 fL (80-96); MONOCYTES # (AUTO) 0.5 /CMM (0.1-1.30); NEUTROPHILS # (AUTO) 7.1 /CMM (1.8-8.9); NEUTROPHILS % (AUTO) 78.8 % (43.0-81.0); PLATELET COUNT (AUTO) 221 /CMM (150-450); RED BLOOD CELL COUNT(AUTO) 2.43 MIL/uL (4.5-6.0)
[2019-09-06 04:45] LABS: CALCIUM, SERUM 9.1 mg/dL (8.5-10.1); CREATININE 6.4 mg/dL (0.6-1.3); PHOSPHORUS 4.4 mg/dL (2.5-4.9)
[2019-09-06] MEDS: PANTOPRAZOLE 40 MG/PACK PACK GT SCH (06:10)
--- NOTE | 2019-09-06 07:04 | NUR ---
ICU/[employer] CALLED ABOUT 0600 MEDICATION CYTOMEL, WILL BRING IT UP.
[2019-09-06] MEDS: DOCUSATE SODIUM LIQ 100 MG/10 ML UDC GT SCH (08:34)
[2019-09-06] MEDS: LABETALOL HCL (100MG) 100 MG TABLET GT SCH ×2 (08:35→18:25)
[2019-09-06] MEDS: ASCORBIC ACID 500 MG TABLET GT SCH (08:35)
[2019-09-06] MEDS: FOLIC ACID 1 MG TABLET GT SCH (08:35)
[2019-09-06] MEDS: FERROUS SULFATE UDC 300 MG/5 ML UDC GT SCH ×2 (08:35→18:24)
[2019-09-06] MEDS: AMLODIPINE BESYLATE 10 MG TABLET GT SCH (08:36)
[2019-09-06] MEDS: ABACAVIR SULFATE 300 MG GT SCH ×2 (08:43→18:32)
[2019-09-06] MEDS: Fenofibrate 48 MG TABLET GT SCH (08:43)
[2019-09-06] MEDS: CLOTRIMAZOLE 1% 15 GM TUBE TP SCH ×2 (08:43→18:44)
[2019-09-06] MEDS: EMTRICITABINE GT SCH (08:43)
[2019-09-06] MEDS: LIOTHYRONINE SODIUM (25 MCG) 25 MCG TABLET GT SCH (08:43)
[2019-09-06] MEDS: DARUNAVIR ETHANOLATE 800 MG GT SCH (08:44)
[2019-09-06] MEDS: NORVIR GT SCH (08:44)
--- NOTE | 2019-09-06 13:54 | NUR ---
ICU/JEWELRY FINISHER NOTE Pt was received lethargic, no purposeful response movement noted, occ tracking with eye movement but not consistent. Left chest tube is patent and intact on low cont suction. Tolerating TF, no residual noted. Had HD this am, took out 1L, stable. Transferred to tele as okayed by Dr. Estevez, gave report to Vesta MENDEZ.
--- NOTE | 2019-09-06 14:00 | NUR ---
SIMONIZERCAD DESIGNER NOTES FROM ICU RECEIVED FROM THE TO DAY RN NURSE,CONCEPCIÓN RIVAS. PT ALERT TO SELF, OPENS EYES OCCASIONALLY RESPONDS IN THAI. PT IS ON 1 LITERS N/C WITH SATURATION AT 100'S%. TURNED AND REPOSITIONED FOR COMFORT AND CARE. NO ACUTE DISTRESS OR S/S OF DISCOMFORT AT THIS TIME, WILL CONTINUE TO MONITOR THIS PT. MANISH CARDIAL DRESSING APPEARS TO CLEAN, DRY AND INTACT. LEFT CHEST TUBE INTACT DRAINING SERIOUS FLUID, ON GT FEEDING OF NEPRO AT 45 ML/HR INFUSING WELL. HOB ELEVATED.WITH ASPIRATION PRECAUTIONS.WITH RT UPPER ARM AV SHUNT INTACT AND HAD HEMODIALYSIS TODAY WITH 1 LITER OUTPUT.WILL CONTINUE TO MONITOR.
--- NOTE | 2019-09-06 14:10 | NUR ---
URGENT LUMBAR PUNCTURE PROCEDURE DONE TO RULE OUT MENINGITIS.PLEASE CHECK PROGRESS NOTES OF NITA BOTELLO DNP. PT UNABLE TO SIGN DUE TO CONFUSION.SENT CSF BODY FLUID TO LAB FOR NUMEROUS TESTS ORDERED AND CARRIED OUT.WILL WAIT FOR THE RESULT. PT TOLERATED WELL. NO S/S OF PAIN OR DISTRESS. WILL CONTINUE TO MONITOR.
[2019-09-06 16:42] LABS: CSF GLUCOSE 76 mg/dL (40-70); CSF PROTEIN 71.7 mg/dL (15-45)
--- NOTE | 2019-09-06 18:00 | NUR ---
CALLED DR MEDINA BUT TO NO AVAIL. DR MEDINA HASN'T RETURNED CALL.WILL FOLLOW UP TOMORROW.PT RESTING IN BED WITH NO S/S OF PAIN OR DISTRESS.WITH ONGOING GT FEEDING OF NEPRO.WITH LT MID AXILLARY CHEST TUBE IN PLACE DRAINING 280 ML SEROSANGUINOUS FLUID OUTPUT. TURNED EVERY TWO HRS.WILL CONTINUE TO MONITOR.
[2019-09-06] MEDS: VANCOMYCIN 500 MG in IV D5W 100 ML IV PRN (18:32)
[2019-09-06] MEDS: INSULIN REGULAR, HUMAN 100 UNIT/ML 3 ML VIAL SQ PRN (19:11)
--- NOTE | 2019-09-06 19:50 | NUR ---
SENIOR SECURITY ARCHITECT NOTES PATIENT IN BED, OPENS EYES. TELUGU SPEAKING ONLY. BREATHING EVEN AND UNLABORED ON 1L NC. SHOWS NO SIGNS OF ACUTE RESPIRATORY DISTRESS, NO ACUTE PAIN. TELE MONITOR SR WITH INVERT T-WAVE. GTUBE IS CLEAN DRY AND INTACT. RUNNING NEPHRO AT 45ML/HR. NO RESIDUALS. R UPPER ARM AV SHUNT. IV ON L FA 22G AND L AC 20G CLEAN DRY AND INTACT. SHOWS NO SIGNS OF INFILTRATION, NO REDNESS. L CHEST TUBE SUCTION WITH 280ML OF SEROSANGIOUS FLUID OUT FROM PREVIOUS SHIFT. SAFETY PRECAUTIONS IN PLACE. BED IN LOWEST POSITION, LOCKED, AND CALL LIGHT KEPT WITHIN REACH. WILL CONTINUE TO MONITOR.
[2019-09-06] MEDS: ACETAMINOPHEN 325 MG TABLET PO PRN (21:13)
[2019-09-06] MEDS: ATORVASTATIN 40 MG TABLET GT SCH (21:13)
[2019-09-06] MEDS: MEROPENEM 500 MG in IV NS 0.9% 50 ML IV SCH (21:13)
[2019-09-06] MEDS: ALLOPURINOL 100 MG TABLET GT SCH (21:13)
--- NOTE | 2019-09-06 21:13 | NUR ---
BLOOD BANK TECHNOLOGIST NOTES PT FEVER OF 100.3. STARTED COOLING MEASURES AND GIVEN TYLENOL AT 3. WILL CONTINUE TO MONITOR.
--- NOTE | 2019-09-06 22:13 | NUR ---
WINDOWS ARCHITECT NOTES AN HOUR AFTER TYLENOL, TEMP 98.2. WILL CONTINUE TO MONITOR.
[2019-09-07] VITALS: BP 127/63
[2019-09-07] MEDS: NEPRO 1,000 ML BOTTLE GT PRN (00:05)
[2019-09-07 04:00] VITALS: BP 133/62
[2019-09-07] MEDS: LIOTHYRONINE SODIUM (25 MCG) 25 MCG TABLET GT SCH (06:19)
[2019-09-07] MEDS: BLOOD SUGAR DIAGNOSTIC 1 EACH STRIP IN SCH ×4 (06:19→23:40)
[2019-09-07] MEDS: PANTOPRAZOLE 40 MG/PACK PACK GT SCH (06:19)
[2019-09-07] MEDS: INSULIN REGULAR, HUMAN 100 UNIT/ML 3 ML VIAL SQ PRN ×3 (06:30→12:19)
[2019-09-07 06:57] LABS: BASOPHILS % (AUTO) 0.6 % (0.0-2.0); EOSINOPHILS % (AUTO) 1.2 % (0.0-6.0); HEMATOCRIT 23 % (39-51); HEMOGLOBIN 7.9 g/dL (13.5-17.5); LYMPHOCYTES # (AUTO) 1.5 /CMM (0.8-4.8); LYMPHOCYTES % (AUTO) 19.9 % (20.0-44.0); MEAN CORPUSCULAR HGB CONC 34 g/dl (31.0-36.0); MEAN CORPUSCULAR VOLUME 99 fL (80-96); MONOCYTES # (AUTO) 0.7 /CMM (0.1-1.30); MONOCYTES % (AUTO) 8.7 % (2.0-12.0); NEUTROPHILS # (AUTO) 5.4 /CMM (1.8-8.9); NEUTROPHILS % (AUTO) 69.6 % (43.0-81.0); PLATELET COUNT (AUTO) 218 /CMM (150-450); RED BLOOD CELL COUNT(AUTO) 2.32 MIL/uL (4.5-6.0); WHITE BLOOD COUNT (AUTO) 7.8 K/uL (4.3-11.0)
--- NOTE | 2019-09-07 07:02 | NUR ---
ENTREPRENEUR NOTES PATIENT IN BED, OPENS EYES. GREEK SPEAKING ONLY. BREATHING EVEN AND UNLABORED ON 1L NC. SHOWS NO SIGNS OF ACUTE RESPIRATORY DISTRESS, NO ACUTE PAIN. TELE MONITOR SR WITH INVERT T-WAVE. GTUBE IS CLEAN DRY AND INTACT. RUNNING NEPHRO AT 45ML/HR. NO RESIDUALS. R UPPER ARM AV SHUNT. IV ON L FA 22G AND L AC 20G CLEAN DRY AND INTACT. SHOWS NO SIGNS OF INFILTRATION, NO REDNESS. L CHEST TUBE SUCTION WITH 78ML OF SEROSANGUINEOUS FLUID OUT. ALL DUE MEDICATIONS GIVEN. SAFETY PRECAUTIONS IN PLACE. BED IN LOWEST POSITION, LOCKED, AND CALL LIGHT KEPT WITHIN REACH. WILL ENDORSE TO ONCOMING NURSE.
[2019-09-07 07:10] LABS: CALCIUM, SERUM 9.4 mg/dL (8.5-10.1); CREATININE 6.1 mg/dL (0.6-1.3); MAGNESIUM 2.2 mg/dL (1.8-2.4); PHOSPHORUS 4.7 mg/dL (2.5-4.9); POTASSIUM 3.8 mmol/L (3.5-5.1)
[2019-09-07 08:00] VITALS: BP 142/66
--- NOTE | 2019-09-07 08:00 | NUR ---
FUNERAL HOME MANAGER OPENING NOTES Received Patient resting in bed. Non-verbal, occasionally mumbles in Khmer. VS stable with no acute distress. Breathing even and unlabored on 2LPM via NC with no respiratory distress. Denies pain. No signs and symptoms of pain. Chest Tube in place and patent. Telemonitor in place and patent reading SR with HR-74. Right Upper Arm AV Shunt patent with thrill and bruit noted. GTube in place and patent. Noted green residual 250ml. Held GTube feeding at this time. 22g PIV on LFA clean, intact, patent and flushing well. 20g PIV on LAC clean, intact, patent and flushing well. Safety precautions in place. Bed locked and set to lowest position with side rails x 2 up. All needs rendered at this time. Call light within reach. Will continue to monitor.
[2019-09-07] MEDS: DOCUSATE SODIUM LIQ 100 MG/10 ML UDC GT SCH (08:25)
[2019-09-07] MEDS: FOLIC ACID 1 MG TABLET GT SCH (08:25)
[2019-09-07] MEDS: FERROUS SULFATE UDC 300 MG/5 ML UDC GT SCH ×2 (08:25→17:43)
[2019-09-07] MEDS: EMTRICITABINE GT SCH (08:26)
[2019-09-07] MEDS: ABACAVIR SULFATE 300 MG GT SCH ×2 (08:26→17:43)
[2019-09-07] MEDS: AMLODIPINE BESYLATE 10 MG TABLET GT SCH (08:27)
[2019-09-07] MEDS: ASCORBIC ACID 500 MG TABLET GT SCH (08:27)
[2019-09-07] MEDS: DARUNAVIR ETHANOLATE 800 MG GT SCH (08:27)
[2019-09-07] MEDS: LABETALOL HCL (100MG) 100 MG TABLET GT SCH ×2 (08:27→17:43)
[2019-09-07] MEDS: Fenofibrate 48 MG TABLET GT SCH (08:27)
[2019-09-07] MEDS: NORVIR GT SCH (08:29)
[2019-09-07] MEDS: CLOTRIMAZOLE 1% 15 GM TUBE TP SCH ×2 (08:48→17:44)
--- NOTE | 2019-09-07 14:00 | NUR ---
MS RN NOTES Notified Jocelyn DNP of increased GTube residual. Per DNP, ordered Reglan 10mg IVP q6h. Order read back, noted and carried out. Patient otherwise in stable condition. No signs and symptoms of acute distress. Will continue to monitor.
[2019-09-07] MEDS: METOCLOPRAMIDE HCL 10 MG/2 ML VIAL IV SCH ×2 (14:49→21:15)
[2019-09-07 16:00] VITALS: BP 134/72
[2019-09-07] MEDS: HYDROCODONE/APAP 5/325MG 1 EACH TABLET GT PRN ×2 (17:45→21:55)
--- NOTE | 2019-09-07 19:02 | NUR ---
MS RN CLOSING NOTES Patient resting in bed. Non-verbal, occasionally mumbles in Tajik. VS stable with no acute distress. Breathing even and unlabored on 2LPM via NC with no respiratory distress. Denies pain. No signs and symptoms of pain. Chest Tube in place and patent. Right Upper Arm AV Shunt patent with thrill and bruit noted. GTube in place and patent with Nephro infusing at 45ml/hr. 22g PIV on LFA clean, intact, patent and flushing well. 20g PIV on LAC clean, intact, patent and flushing well. Safety precautions in place. Bed locked and set to lowest position with side rails x 2 up. All needs rendered at this time. Call light within reach. Will endorse plan of care to oncoming shift.
--- NOTE | 2019-09-07 19:30 | NUR ---
MS/RN OPENING NOTES RECEIVED PATIENT IN BED, OPENS EYES. PATIENT IS GUYANESE SPEAKING. BREATHING EVEN AND UNLABORED ON 2L NC. PATIENT SHOWS NO SIGNS OF ACUTE RESPIRATORY DISTRESS AND NO ACUTE PAIN NOTED. G-TUBE IS CLEAN DRY AND INTACT. RUNNING NEPHRO AT 45ML/HR, NO RESIDUALS NOTED. PATIENT HAS RIGHT UPPER ARM AV SHUNT. IV ON LEFT FOREARM 22 G AND LEFT AC 20G CLEAN DRY AND INTACT. LEFT CHEST TUBE IN PLACE WITH SUCTION. SAFETY MEASURES ARE IN PLACE, BED IS LOCKED AND PLACED IN THE LOWEST POSITION WITH ALARM ON. CALL LIGHT IS WITHIN REACH. SIDE RAILS ARE UP X 3. WILL CONTINUE TO MONITOR PATIENT THROUGH OUT SHIFT.
[2019-09-07 20:00] VITALS: BP 98/64
[2019-09-07] MEDS: ALLOPURINOL 100 MG TABLET GT SCH (21:15)
[2019-09-07] MEDS: ATORVASTATIN 40 MG TABLET GT SCH (21:15)
--- NOTE | 2019-09-07 21:55 | NUR ---
MS/RN NOTES PATIENT WAS SHOWING FACIAL GRIMACING AND DISCOMFORT. WHEN ASKED IN [facility] IF HE WAS IN PAIN PATIENT NODDED HEAD WILL MOANING. PATIENT WAS GIVEN NORCO 5-325 MG G TUBE, V/S STABLE. WILL CONTINUE TO MONITOR.
[2019-09-08] MEDS: METOCLOPRAMIDE HCL 10 MG/2 ML VIAL IV SCH ×4 (02:57→21:27)
[2019-09-08] MEDS: PANTOPRAZOLE 40 MG/PACK PACK GT SCH (05:06)
[2019-09-08] MEDS: LIOTHYRONINE SODIUM (25 MCG) 25 MCG TABLET GT SCH (05:06)
[2019-09-08] MEDS: BLOOD SUGAR DIAGNOSTIC 1 EACH STRIP IN SCH ×3 (05:21→17:31)
--- NOTE | 2019-09-08 06:45 | NUR ---
MS/RN CLOSING NOTES PATIENT IN BED RESTING, OPENS EYES. PATIENT IS GEORGIAN SPEAKING. BREATHING EVEN AND UNLABORED ON 2L NC TOLERATING WELL. PATIENT SHOWS NO SIGNS OF ACUTE RESPIRATORY DISTRESS AND NO ACUTE PAIN NOTED. G-TUBE IS CLEAN DRY AND INTACT RUNNING NEPHRO AT 40ML/HR, 20ML OF RESIDUALS NOTED. PATIENT HAS RIGHT UPPER ARM AV SHUNT. IV ON LEFT FOREARM 22 G AND LEFT AC 20G INTACT. LEFT CHEST TUBE IN PLACE WITH SUCTION, OUTPUT 25 ML. SAFETY MEASURES ARE IN PLACE, BED IS LOCKED AND PLACED IN THE LOWEST POSITION WITH ALARM ON. CALL LIGHT IS WITHIN REACH. SIDE RAILS ARE UP X 3. WILL ENDORSE CARE TO DAY SHIFT.
--- NOTE | 2019-09-08 07:00 | NUR ---
MS RN OPENING NOTES RECEIVED PATIENT RESTING IN BED WITH OPEN EYES AT THIS TIME. NON VERBAL AND MUMBLES. BREATHING EVEN AND UNLABORED WITH EQUAL RISE AND FALL IN CHEST. PT ON 2LPM OXYGEN VIA NC. NO SOB NOTED, NO S/S OF ANY ACUTE DISTRESS NOTED, NO S/S OF PAIN NOTED. G-TUBE FEEDING IN PLACE WITH NO RESIDUAL NOTED. R UPPER ARM AV SHUNT NOTED. IV ACCESS ON LFA G#22 AND LAC G#20 INTACT, PATENT AND FLUSHING WELL. CHEST TUBE SUCTION IN PLACE WITH SEROSANGUINEOUS FLUID NOTED. SAFETY PRECAUTIONS IN PLACE. BED IN LOWEST LOCKED POSITION, SIDE RAILS UP, CALL LIGHT WITHIN REACH. WILL CONTINUE TO MONITOR
[2019-09-08 08:00] VITALS: BP 137/61
--- NOTE | 2019-09-08 08:00 | NUR ---
PATIENT NOTED WITH LEFT LATERAL BELOW THE BREAST INCISION. PICTURE TAKEN AND FILED IN CHART. WILL CONTINUE TO MONITOR
--- NOTE | 2019-09-08 08:00 | NUR ---
PATIENT NOTED WITH TEMPERATURE OF 99.5, COOLING MEASURES ADMINISTERED, SHEETS TAKEN OFF, ICE PACK PLACE UNDER ARMS. WILL CONTINUE TO MONITOR
[2019-09-08 08:31] LABS: CALCIUM, SERUM 9.5 mg/dL (8.5-10.1); CREATININE 4.9 mg/dL (0.6-1.3); POTASSIUM 4.3 mmol/L (3.5-5.1)
--- NOTE | 2019-09-08 09:00 | NUR ---
REASSESSED PATIENT'S TEMPERATURE AT THIS TIME AFTER APPLYING COOLING MEASURES. TEMPERATURE 98.8 NOTED AT THIS TIME. COOLING MEASURES EFFECTIVE. WILL CONTINUE TO MONITOR
[2019-09-08] MEDS: NEPRO 1,000 ML BOTTLE GT PRN (09:17)
[2019-09-08] MEDS: FERROUS SULFATE UDC 300 MG/5 ML UDC GT SCH ×2 (09:21→16:48)
[2019-09-08] MEDS: FOLIC ACID 1 MG TABLET GT SCH (09:21)
[2019-09-08] MEDS: DOCUSATE SODIUM LIQ 100 MG/10 ML UDC GT SCH (09:21)
[2019-09-08] MEDS: ASCORBIC ACID 500 MG TABLET GT SCH (09:22)
[2019-09-08] MEDS: LABETALOL HCL (100MG) 100 MG TABLET GT SCH ×2 (09:22→16:48)
[2019-09-08] MEDS: AMLODIPINE BESYLATE 10 MG TABLET GT SCH (09:22)
[2019-09-08] MEDS: DARUNAVIR ETHANOLATE 800 MG GT SCH (09:23)
[2019-09-08] MEDS: ABACAVIR SULFATE 300 MG GT SCH ×2 (09:23→16:46)
[2019-09-08] MEDS: Fenofibrate 48 MG TABLET GT SCH (09:23)
[2019-09-08] MEDS: EMTRICITABINE GT SCH (09:24)
[2019-09-08] MEDS: CLOTRIMAZOLE 1% 15 GM TUBE TP SCH ×2 (09:25→17:05)
[2019-09-08] MEDS: NORVIR GT SCH (09:32)
[2019-09-08] MEDS: INSULIN REGULAR, HUMAN 100 UNIT/ML 3 ML VIAL SQ PRN (11:46)
[2019-09-08 16:00] VITALS: BP 129/69
[2019-09-08] MEDS: HYDROCODONE/APAP 5/325MG 1 EACH TABLET GT PRN (17:13)
--- NOTE | 2019-09-08 17:14 | NUR ---
PATIENT NOTED WITH FACIAL GRIMACE, MOANING, RESTLESS, TRASHING AND GUARDING. VS ASSESSED. BP 129/69 HR 73, RR 20, T 98.1, SPO2 100. NORCO 5-325 GT Q4HR PRN ADMINISTERED AT THIS TIME. WILL CONTINUE TO MONITOR
--- NOTE | 2019-09-08 17:33 | NUR ---
BS 128, NO COVERAGE PER SLIDING SCALE. WILL CONTINUE TO MONITOR
--- NOTE | 2019-09-08 18:48 | NUR ---
HD DONE TODAY WITH 500CC OUTPUT. PT REMAINS STABLE. WILL CONTINUE TO MONITOR
--- NOTE | 2019-09-08 18:49 | NUR ---
LEFT CHEST TUBE IN PLACE WITH SUCTION. SEROSANGUINEOUS OUTPUT OF 40CC. WILL CONTINUE TO MONITOR
--- NOTE | 2019-09-08 18:51 | NUR ---
MS RN CLOSING NOTES PT AWAKE IN BED AT THIS TIME. PT REMAINED STABLE THROUGHOUT SHIFT. ALL CARE, NEEDS, WOUND TREATMENT, MEDICATIONS ADMINISTERED ANTICIPATED PER SCHEDULE. PT KEPT CLEAN AND DRY. PATIENT TOLERATED G-TUBE WELL WITH NO RESIDUAL NOTED. LEFT CHEST TUBE IN PLACE. SAFETY PRECAUTIONS IN PLACE, BED IN LOWEST LOCKED POSITION, HOB ELEVATED TO SEMI FOWLERS POSITION, SIDE RAILS UP, CALL LIGHT WITHIN REACH, WILL ENDORSE TO RUG CLIPPER NURSE FOR EZEQUIEL.
[2019-09-08 20:00] VITALS: BP 112/51
--- NOTE | 2019-09-08 20:00 | NUR ---
MS TELE OPENING NOTES RECEIVED PATIENT IN BED, OPENS EYES, NON-VERBAL, MUMBLES, NAMIBIAN SPEAKING, 02 @ 2LPM VIA NASAL CANNULA, UNLABORED BREATHING, NO SIGNS OF RESPIRATORY DISTRESS, G TUBE FEEDING NEPRO @ 45 ML/HR, MARY AV SHUNT, LFA G #22 SL, LAC #20G, LEFT CHEST TUBE DRAINAGE PRESENT, SIDE RAILS UP.
[2019-09-08] MEDS: ATORVASTATIN 40 MG TABLET GT SCH (22:02)
[2019-09-08] MEDS: ALLOPURINOL 100 MG TABLET GT SCH (22:02)
[2019-09-09] VITALS (8 sets, daily range): BP systolic 121–136; BP diastolic 52–65
[2019-09-09] MEDS: BLOOD SUGAR DIAGNOSTIC 1 EACH STRIP IN SCH ×4 (00:19→18:01)
--- NOTE | 2019-09-09 00:22 | NUR ---
MS NOTES BLOODSUGAR 127. NO COVERAGE.
[2019-09-09] MEDS: METOCLOPRAMIDE HCL 10 MG/2 ML VIAL IV SCH ×4 (02:51→21:20)
[2019-09-09] MEDS: PANTOPRAZOLE 40 MG/PACK PACK GT SCH (05:05)
[2019-09-09] MEDS: LIOTHYRONINE SODIUM (25 MCG) 25 MCG TABLET GT SCH (05:05)
[2019-09-09] MEDS: INSULIN REGULAR, HUMAN 100 UNIT/ML 3 ML VIAL SQ PRN (05:31)
--- NOTE | 2019-09-09 06:30 | NUR ---
MS RN NOTES ZERO OUTPUT ON SURGICAL DRAINAGE.
--- NOTE | 2019-09-09 06:37 | NUR ---
MS RN CLOSING NOTES ENDORSED PATIENT IN BED, OPENS EYES, NON-VERBAL, MUMBLES, CYMRAES SPEAKING, 02 @ 2LPM VIA NASAL CANNULA, UNLABORED BREATHING, NO SIGNS OF RESPIRATORY DISTRESS, G TUBE FEEDING NEPRO @ 45 ML/HR, MARY AV SHUNT, LFA G #22 SL, LAC #20G, NO REDNESS OR INFILTRATION NOTED, LEFT CHEST TUBE DRAINAGE PRESENT, ZERO DRAIN OUTPUT, DUE MEDS GIVEN, SIDE RAILS UP FOR SAFETY.
--- NOTE | 2019-09-09 07:10 | NUR ---
MS RN NOTES PATIENT IN BED AWAKE, MUMBLES. NO ACUTE DISTRESS NOTED. BREATHING UNLABORED. IV ACCESS PATENT AND INTACT, NO REDNESS, NO SWELLING NOTED. G TUBE FEEDING INFUSING WELL AT ORDERED RATE, HEAD OF BED ELEVATED. RIGHT UPPER ARM DIALYSIS ACCESS INTACT WITH DRESSING. LEFT CHEST TUBE IN PLACE. SAFETY MEASURES IN PLACE. CALL LIGHT WITHIN REACH. WILL CONTINUE TO MONITOR ACCORDINGLY.
[2019-09-09 08:08] LABS: LYMPHOCYTES # (AUTO) 1.5 /CMM (0.8-4.8)
[2019-09-09 08:27] LABS: CALCIUM, SERUM 9.8 mg/dL (8.5-10.1); CREATININE 4.1 mg/dL (0.6-1.3); MAGNESIUM 2.4 mg/dL (1.8-2.4); PHOSPHORUS 3.2 mg/dL (2.5-4.9); POTASSIUM 4.5 mmol/L (3.5-5.1)
[2019-09-09 08:59] LABS: BASOPHILS % (AUTO) 0.7 % (0.0-2.0); EOSINOPHILS % (AUTO) 1.8 % (0.0-6.0); LYMPHOCYTES % (AUTO) 20.5 % (20.0-44.0); MEAN CORPUSCULAR HGB CONC 33 g/dl (31.0-36.0); MEAN CORPUSCULAR VOLUME 102 fL (80-96); MONOCYTES # (AUTO) 0.5 /CMM (0.1-1.30); MONOCYTES % (AUTO) 7.5 % (2.0-12.0); NEUTROPHILS # (AUTO) 5.1 /CMM (1.8-8.9); NEUTROPHILS % (AUTO) 69.5 % (43.0-81.0); PLATELET COUNT (AUTO) 249 /CMM (150-450); WHITE BLOOD COUNT (AUTO) 7.3 K/uL (4.3-11.0)
[2019-09-09 09:01] LABS: HEMATOCRIT 18 % (39-51); HEMOGLOBIN 6.1 g/dL (13.5-17.5)
--- NOTE | 2019-09-09 09:25 | NUR ---
MS RN NOTES RECEIVED CRITICAL RESULT RELAYED BY LABORATORY [facility] HGB 6.1 / HCT 18, PATIENT VITAL SIGNS WITHIN NORMAL LIMITS, NO S/SX OF BLEEDING NOTED. RELAYED TO DR NITA BOTELLO WITH NEW ORDER FOR 1 PRBC AND TYPE AND SCREEN, ORDER CLARIFIED AND READ BACK WITH DR BOTELLO, NOTED AND CARRIED OUT.
[2019-09-09] MEDS: Fenofibrate 48 MG TABLET GT SCH (09:39)
[2019-09-09] MEDS: ABACAVIR SULFATE 300 MG GT SCH ×2 (09:39→18:00)
[2019-09-09] MEDS: FOLIC ACID 1 MG TABLET GT SCH (09:40)
[2019-09-09] MEDS: DARUNAVIR ETHANOLATE 800 MG GT SCH (09:40)
[2019-09-09] MEDS: FERROUS SULFATE UDC 300 MG/5 ML UDC GT SCH ×2 (09:40→17:58)
[2019-09-09] MEDS: DOCUSATE SODIUM LIQ 100 MG/10 ML UDC GT SCH (09:40)
[2019-09-09] MEDS: ASCORBIC ACID 500 MG TABLET GT SCH (09:41)
[2019-09-09] MEDS: LABETALOL HCL (100MG) 100 MG TABLET GT SCH ×2 (09:46→17:59)
[2019-09-09] MEDS: AMLODIPINE BESYLATE 10 MG TABLET GT SCH (09:46)
[2019-09-09] MEDS: CLOTRIMAZOLE 1% 15 GM TUBE TP SCH ×2 (09:47→18:00)
[2019-09-09] MEDS: NORVIR GT SCH (09:51)
[2019-09-09] MEDS: EMTRICITABINE GT SCH (09:51)
[2019-09-09 10:08] LABS: EOSINOPHILS % (MANUAL) 2 % (0-4); LYMPHOCYTES % (MANUAL) 17 % (16-48); MONOCYTES % (MANUAL) 5 % (0-11.0); MYELOCYTES % 1 % (0-0); NEUTROPHILS % (MANUAL) 75 (42-76)
[2019-09-09] MEDS: NEPRO 1,000 ML BOTTLE GT PRN ×2 (14:39→15:45)
--- NOTE | 2019-09-09 17:08 | NUR ---
MS RN NOTES BLOOD TRANSFUSION STARTED VITAL SIGNS WITHIN NORMAL LIMITS. NO ACUTE DISTRESS NOTED. WILL CONTINUE TO MONITOR.
--- NOTE | 2019-09-09 17:23 | NUR ---
MS RN NOTES BLOOD TRANSFUSION ONGOING VITAL SIGNS WITHIN NORMAL LIMITS. NO ACUTE DISTRESS NOTED. WILL CONTINUE TO MONITOR.
--- NOTE | 2019-09-09 17:53 | NUR ---
MS RN NOTES BLOOD TRANSFUSION ONGOING VITAL SIGNS WITHIN NORMAL LIMITS. NO ADVERSE REACTION OF BLOOD TRANSFUSION NOTED. NO ACUTE DISTRESS NOTED. WILL CONTINUE TO MONITOR.
--- NOTE | 2019-09-09 18:53 | NUR ---
MS RN NOTES PATIENT IN BED EYES CLOSED, RESPOND TO VERBAL AND TACTILE STIMULI, MUMBLES. NO ACUTE DISTRESS NOTED. BREATHING UNLABORED. IV ACCESS PATENT AND INTACT, NO REDNESS, NO SWELLING NOTED. G TUBE FEEDING INFUSING WELL AT ORDERED RATE, HEAD OF BED ELEVATED. RIGHT UPPER ARM DIALYSIS ACCESS INTACT WITH DRESSING. DIALYSIS DONE TODAY WITH 1,000 ML OUT BY DIALYSIS NURSE LAURIE. LEFT CHEST TUBE IN PLACE WITH 100ML OUTPUT. BLOOD TRANSFUSION STILL ONGOING VITAL SIGNS WITHIN NORMAL LIMITS. NO ADVERSE REACTION OF BLOOD TRANSFUSION NOTED. NEEDS ATTENDED AND ANTICIPATED. SAFETY MEASURES IN PLACE. CALL LIGHT WITHIN REACH. WILL ENDORSE TO NIGHT NURSE FOR CONTINUITY OF CARE.
--- NOTE | 2019-09-09 20:00 | NUR ---
MS RN NOTES 1ST UNIT OF PRBC COMPLETED. NO S/SX OF TRANSFUSION RXN NOTED. VSS. AFEBRILE. WILL CONTINUE TO MONITOR.
[2019-09-09] MEDS: ATORVASTATIN 40 MG TABLET GT SCH (21:20)
[2019-09-09] MEDS: ALLOPURINOL 100 MG TABLET GT SCH (21:20)
[2019-09-10] MEDS: BLOOD SUGAR DIAGNOSTIC 1 EACH STRIP IN SCH ×4 (00:51→17:59)
[2019-09-10] MEDS: INSULIN REGULAR, HUMAN 100 UNIT/ML 3 ML VIAL SQ PRN ×2 (01:04→12:09)
[2019-09-10] MEDS: METOCLOPRAMIDE HCL 10 MG/2 ML VIAL IV SCH ×4 (02:26→21:57)
[2019-09-10] MEDS: PANTOPRAZOLE 40 MG/PACK PACK GT SCH (05:17)
[2019-09-10] MEDS: LIOTHYRONINE SODIUM (25 MCG) 25 MCG TABLET GT SCH (05:17)
--- NOTE | 2019-09-10 06:17 | NUR ---
MS RN NOTES AWAKE & ALERT. NOT IN ANY DISTRESS. NO SOB NOTED. DENIES ANY PAIN OR DISCOMFORT AT THIS TIME. WITH IV-HL PATENT & INTACT. WITH GTF INFUSING WELL. CHEST TUBE IN PLACE. CALL LIGHT WITHIN REACH. BED IN LOWEST POSITION. SR UP X 3 WITH BED ALARM ON FOR SAFETY. WILL ENDORSE TO NEXT SHIFT.
--- NOTE | 2019-09-10 07:10 | NUR ---
MS RN NOTES PATIENT IN BED EYES CLOSED, AWAKEN EASILY, RESPOND TO VERBAL AND TACTILE STIMULI. NO ACUTE DISTRESS NOTED. BREATHING UNLABORED. IV ACCESS PATENT AND INTACT, NO REDNESS, NO SWELLING NOTED. G TUBE FEEDING INFUSING WELL AT ORDERED RATE, HEAD OF BED ELEVATED. RIGHT UPPER ARM DIALYSIS ACCESS INTACT WITH DRESSING. LEFT CHEST TUBE IN PLACE. SAFETY MEASURES IN PLACE. CALL LIGHT WITHIN REACH. WILL CONTINUE TO MONITOR ACCORDINGLY.
[2019-09-10 08:11] VITALS: BP_SYST 134; BP_SYST 93; BP_DIAS 52
[2019-09-10] MEDS: EMTRICITABINE GT SCH (08:12)
[2019-09-10] MEDS: DARUNAVIR ETHANOLATE 800 MG GT SCH (08:12)
[2019-09-10] MEDS: Fenofibrate 48 MG TABLET GT SCH (08:12)
[2019-09-10] MEDS: ASCORBIC ACID 500 MG TABLET GT SCH (08:12)
[2019-09-10] MEDS: ABACAVIR SULFATE 300 MG GT SCH ×2 (08:12→16:22)
[2019-09-10] MEDS: NORVIR GT SCH (08:12)
[2019-09-10] MEDS: FERROUS SULFATE UDC 300 MG/5 ML UDC GT SCH ×2 (08:12→16:22)
[2019-09-10] MEDS: DOCUSATE SODIUM LIQ 100 MG/10 ML UDC GT SCH (08:12)
[2019-09-10] MEDS: AMLODIPINE BESYLATE 10 MG TABLET GT SCH (08:13)
[2019-09-10] MEDS: FOLIC ACID 1 MG TABLET GT SCH (08:13)
[2019-09-10] MEDS: CLOTRIMAZOLE 1% 15 GM TUBE TP SCH ×2 (08:14→16:23)
[2019-09-10] MEDS: LABETALOL HCL (100MG) 100 MG TABLET GT SCH ×2 (08:14→16:22)
--- NOTE | 2019-09-10 08:40 | NUR ---
MS RN NOTES RECHECKED TEMPERATURE 99.1 ORAL . WILL CONTINUE TO MONITOR PATIENT.
--- NOTE | 2019-09-10 08:47 | NUR ---
MS RN NOTES SEEN AND EVALUATED BY DOMINGA JETT, NO NEW ORDERS MADE.
--- NOTE | 2019-09-10 09:30 | NUR ---
MS RN NOTES DR NITA BOTELLO MADE AWARE OF TEMPERATURE NOTED 100.6 COOLING MEASURES PROVIDED AND RECHECKED NOTED 99.1, NO NEW ORDERS MADE AT THIS TIME.
[2019-09-10] MEDS: NEPRO 1,000 ML BOTTLE GT PRN (14:52)
[2019-09-10 16:40] VITALS: BP 152/74
[2019-09-10] MEDS: ACETAMINOPHEN 325 MG TABLET PO PRN (18:36)
--- NOTE | 2019-09-10 18:37 | NUR ---
MS RN NOTES PATIENT COMPLAINT OF 3/10 BACK PAIN, TYLENOL GIVEN ORDERED.
--- NOTE | 2019-09-10 18:53 | NUR ---
MS RN NOTES PATIENT IN BED AWAKE, KNOWS HIS NAME, MUMBLES. NO ACUTE DISTRESS NOTED. BREATHING UNLABORED. NO SOB NOTED. IV ACCESS PATENT AND INTACT, NO REDNESS, NO SWELLING NOTED. G TUBE FEEDING INFUSING WELL AT ORDERED RATE,TOLERATING G TUBE FEEDING WELL. HEAD OF BED ELEVATED. RIGHT UPPER ARM DIALYSIS ACCESS INTACT WITH DRESSING. DIALYSIS DONE TODAY WITH 1,000 ML OUT BY DIALYSIS NURSE LAURIE, VITAL SIGNS STABLE. LEFT CHEST TUBE IN PLACE WITH 110 ML OUTPUT. NEEDS ATTENDED AND ANTICIPATED. TURN AND REPOSITION EVERY 2 HOURS AND NEEDED. SAFETY MEASURES IN PLACE. CALL LIGHT WITHIN REACH. WILL ENDORSE TO NIGHT NURSE FOR CONTINUITY OF CARE. Addendum: 09/10/19 at 1933 by CARROLL BROOKS RN DISREGARD ABOVE NOTE
--- NOTE | 2019-09-10 19:00 | NUR ---
MS RN NOTES PATIENT IN BED AWAKE, KNOWS HIS NAME, MUMBLES. NO ACUTE DISTRESS NOTED. BREATHING UNLABORED. NO SOB NOTED. IV ACCESS PATENT AND INTACT, NO REDNESS, NO SWELLING NOTED. G TUBE FEEDING INFUSING WELL AT ORDERED RATE,TOLERATING G TUBE FEEDING WELL. HEAD OF BED ELEVATED. RIGHT UPPER ARM DIALYSIS ACCESS INTACT WITH DRESSING. DIALYSIS DONE TODAY WITH 1,000 ML OUT BY DIALYSIS NURSE LAURIE, VITAL SIGNS STABLE. LEFT CHEST TUBE IN PLACE WITH 90 ML OUTPUT. NEEDS ATTENDED AND ANTICIPATED. TURN AND REPOSITION EVERY 2 HOURS AND NEEDED. SAFETY MEASURES IN PLACE. CALL LIGHT WITHIN REACH. WILL ENDORSE TO NIGHT NURSE FOR CONTINUITY OF CARE.
[2019-09-10 20:00] VITALS: BP 125/58
--- NOTE | 2019-09-10 20:00 | NUR ---
MS RN OPENING NOTE: Received patient in bed. Patient is non-verbal but opens his eyes. He mumbles and speaks dominican. Noted 2L nasal canula. Patient breathing well. No SOB, breathing even and unlabored. Noted Gtube feeding Nepro. Gtube is patent. Noted MARY AV shunt; thrill and bruit present. IV access LFA 22g, LAC 20g. Both patent, no infiltration, no redness. Will continue plan of care.
[2019-09-10] MEDS: ATORVASTATIN 40 MG TABLET GT SCH (21:58)
[2019-09-10] MEDS: ALLOPURINOL 100 MG TABLET GT SCH (21:58)
[2019-09-11] MEDS: INSULIN REGULAR, HUMAN 100 UNIT/ML 3 ML VIAL SQ PRN ×3 (00:18→12:19)
[2019-09-11] MEDS: BLOOD SUGAR DIAGNOSTIC 1 EACH STRIP IN SCH ×3 (00:18→12:01)
--- NOTE | 2019-09-11 00:19 | NUR ---
MS RN NOTE: Patient glucose 123. Hold her Sliding scale.
[2019-09-11] MEDS: METOCLOPRAMIDE HCL 10 MG/2 ML VIAL IV SCH ×3 (02:37→14:48)
[2019-09-11] MEDS: PANTOPRAZOLE 40 MG/PACK PACK GT SCH (05:27)
[2019-09-11] MEDS: LIOTHYRONINE SODIUM (25 MCG) 25 MCG TABLET GT SCH (05:27)
--- NOTE | 2019-09-11 06:31 | NUR ---
MS RN CLOSING NOTE: Patient in bed sleeping. On 2L nasal canula. Patient breathing well. No SOB, breathing even and unlabored. Gtube is patent, feeding Nepro. MARY AV shunt; thrill and bruit present. Safety precaution in place. Bed in lowest level, alarm is on, brakes are on, side rails x2 are up, and call light is within reach. Will endorse to next shift.
--- NOTE | 2019-09-11 07:30 | NUR ---
received pt. this am,opens eyes and mumbles occ.av shunt intact,vs stable.skin warm and dry.
[2019-09-11] MEDS: DOCUSATE SODIUM LIQ 100 MG/10 ML UDC GT SCH (08:03)
[2019-09-11 08:07] VITALS: BP 141/66
[2019-09-11 08:25] LABS: BASOPHILS # (AUTO) 0.1 /CMM (0.0-0.2); BASOPHILS % (AUTO) 0.8 % (0.0-2.0); EOSINOPHILS % (AUTO) 2.8 % (0.0-6.0); HEMATOCRIT 22 % (39-51); HEMOGLOBIN 7.6 g/dL (13.5-17.5); LYMPHOCYTES # (AUTO) 1.5 /CMM (0.8-4.8); LYMPHOCYTES % (AUTO) 19.3 % (20.0-44.0); MEAN CORPUSCULAR HGB CONC 34 g/dl (31.0-36.0); MEAN CORPUSCULAR VOLUME 100 fL (80-96); MONOCYTES # (AUTO) 0.4 /CMM (0.1-1.30); MONOCYTES % (AUTO) 5.6 % (2.0-12.0); NEUTROPHILS # (AUTO) 5.5 /CMM (1.8-8.9); NEUTROPHILS % (AUTO) 71.5 % (43.0-81.0); PLATELET COUNT (AUTO) 260 /CMM (150-450); RED BLOOD CELL COUNT(AUTO) 2.21 MIL/uL (4.5-6.0); WHITE BLOOD COUNT (AUTO) 7.7 K/uL (4.3-11.0)
[2019-09-11 08:36] LABS: CALCIUM, SERUM 8.3 mg/dL (8.5-10.1); CREATININE 4.9 mg/dL (0.6-1.3); MAGNESIUM 2.2 mg/dL (1.8-2.4); PHOSPHORUS 4.3 mg/dL (2.5-4.9); POTASSIUM 4.9 mmol/L (3.5-5.1)
[2019-09-11] MEDS: EMTRICITABINE GT SCH (09:42)
[2019-09-11] MEDS: Fenofibrate 48 MG TABLET GT SCH (09:43)
[2019-09-11] MEDS: NORVIR GT SCH (09:43)
[2019-09-11] MEDS: ASCORBIC ACID 500 MG TABLET GT SCH (09:44)
[2019-09-11] MEDS: AMLODIPINE BESYLATE 10 MG TABLET GT SCH (09:44)
[2019-09-11] MEDS: FERROUS SULFATE UDC 300 MG/5 ML UDC GT SCH (09:44)
[2019-09-11] MEDS: ABACAVIR SULFATE 300 MG GT SCH (09:44)
[2019-09-11] MEDS: FOLIC ACID 1 MG TABLET GT SCH (09:45)
[2019-09-11] MEDS: LABETALOL HCL (100MG) 100 MG TABLET GT SCH (09:46)
[2019-09-11] MEDS: DARUNAVIR ETHANOLATE 800 MG GT SCH (09:47)
[2019-09-11] MEDS: CLOTRIMAZOLE 1% 15 GM TUBE TP SCH (10:14)
--- NOTE | 2019-09-11 11:00 | NUR ---
dr. beltran in and chest tube removed.sutures intact,pressure dressing to site.no pleural fluid drainage this shift.
[2019-09-11 11:07] LABS: *WEST NILE VIRUS IgG, CSF Equivocal (Negative); VDRL, CSF Non Reactive (Non Rea:<1:1)
--- NOTE | 2019-09-11 12:30 | NUR ---
no change in status.
[2019-09-11 13:17] LABS: *WEST NILE VIRUS IgM, CSF Negative (Negative)
[2019-09-11] MEDS ORDERED: ZOLP5TAB2 GT (13:43)
[2019-09-11] MEDS ORDERED: ACET325T53 PO (13:43)
[2019-09-11] MEDS ORDERED: PANT40SU2 GT (13:43)
[2019-09-11] MEDS ORDERED: FERR300L GT (13:43)
[2019-09-11 14:07] LABS: *CRYPTOCOCCUS AG, CSF Negative (Negative)
[2019-09-11 16:35] VITALS: BP 132/78
--- NOTE | 2019-09-11 16:55 | NUR ---
hep locks out.report called to transferring facility.ambulance here and all papers signed and paper work along with belongings sent with pt.
== END 2019-09-11 17:00 | DRG 950 ==
LOC: ER 13:31 → TELE1 19:39 → MEDSG1 08-24 08:04 → TELE1 08-26 21:14 → TELE 08-30 15:52 → MED 08-31 14:23 → MEDSG2 09-01 22:03 → ICU 09-05 15:39 → TELE 09-06 14:01 → MED 09-07 07:51
PROVIDERS: ADMIT Hospitalist; ATTEND Internal Medicine
PROC: 5A1D70Z Performance of Urinary Filtration, Intermittent, Less than 6 Hours Per Day (ICD-10-PCS; 2019-08-23)
PROC: 30233N1 Transfusion of Nonautologous Red Blood Cells into Peripheral Vein, Percutaneous Approach (ICD-10-PCS; 2019-08-29)
PROC: 0DH63UZ Insertion of Feeding Device into Stomach, Percutaneous Approach (ICD-10-PCS; principal; 2019-08-31)
PROC: 0W9D00Z Drainage of Pericardial Cavity with Drainage Device, Open Approach (ICD-10-PCS; 2019-09-05)
PROC: 02BN0ZZ Excision of Pericardium, Open Approach (ICD-10-PCS; 2019-09-05)
PROC: 009U3ZX Drainage of Spinal Canal, Percutaneous Approach, Diagnostic (ICD-10-PCS; 2019-09-06)
DX: I12.0 Hypertensive chronic kidney disease with stage 5 chronic kidney disease or end stage renal disease (principal); J15.6 Pneumonia due to other Gram-negative bacteria; G93.41 Metabolic encephalopathy; N18.6 End stage renal disease; E87.1 Hypo-osmolality and hyponatremia; E87.5 Hyperkalemia; E11.22 Type 2 diabetes mellitus with diabetic chronic kidney disease; Z99.2 Dependence on renal dialysis; E44.1 Mild protein-calorie malnutrition; J15.9 Unspecified bacterial pneumonia; D50.9 Iron deficiency anemia, unspecified; Z86.73 Personal history of transient ischemic attack (TIA), and cerebral infarction without residual deficits; E03.9 Hypothyroidism, unspecified; D63.8 Anemia in other chronic diseases classified elsewhere; I63.9 Cerebral infarction, unspecified; I32 Pericarditis in diseases classified elsewhere; B20 Human immunodeficiency virus [HIV] disease; D53.9 Nutritional anemia, unspecified; E78.5 Hyperlipidemia, unspecified; E87.2 Acidosis; F32.9 Major depressive disorder, single episode, unspecified; M10.9 Gout, unspecified; K21.9 Gastro-esophageal reflux disease without esophagitis; J98.11 Atelectasis; Z79.899 Other long term (current) drug therapy; Z87.891 Personal history of nicotine dependence; R47.01 Aphasia; R13.10 Dysphagia, unspecified; N25.0 Renal osteodystrophy; G81.94 Hemiplegia, unspecified affecting left nondominant side; R40.2362 Coma scale, best motor response, obeys commands, at arrival to emergency department; R40.2142 Coma scale, eyes open, spontaneous, at arrival to emergency department; R40.2252 Coma scale, best verbal response, oriented, at arrival to emergency department; A86 Unspecified viral encephalitis; Z68.23 Body mass index [BMI] 23.0-23.9, adult; K29.71 Gastritis, unspecified, with bleeding
CPT/HCPCS: 36415; 36600; 70450-TC; 70551-TC; 71045-TC; 80048-TC; 80053-TC; 80061-TC; 80076-TC; 80202-TC; 81000-TC; 82272-TC; 82550-TC; 82728-TC; 82803-TC; 82962-TC; 83540-TC; 83605-TC; 83615-TC; 83735-TC; 83880; 84100-TC; 84443-TC; 84484-TC; 85025-TC; 85378-TC; 85385-TC; 85610-TC; 85652-TC; 85730-TC; 86140-TC; 86225; 86235; 86360; 86592; 86694; 86706; 86788; 86789; 86803; 86850-TC; 86921-TC; 87040-TC; 87070-TC; 87081-TC; 87340; 87536; 87899; 89051-TC; 90935-TC; 92611-TC; 93307-TC; 93308-TC; 97110-TC; 97112-TC; 97530-TC; A4216; A6403; C1751; C9113; G0378; J0360; J0690; J0692; J1644; J1815; J2185; J2250; J2270; J2704; J2765; J3010; J3370; J3490; J7030; J7040; J7042; J7050; J7060; P9016-BL; P9047; U0003-CS

== ENCOUNTER 2019-09-21 11:01 | Inpatient (IN) | payer OTHER ==
[~2019-09-21] VITALS: Ht 162.6 cm; Wt 50.3 kg
[2019-09-21] VITALS (11 sets, daily range): BP systolic 164–186; BP diastolic 84–92
[~2019-09-21 11:01] MED LIST: ACET325T53 PO; ALLO100T GT; AMLO10TA7 GT; ASCO500T20 GT; ATOR40TA GT; COLC0.6C GT; DOCU250C21 GT; FENO67CA GT; FERR300L GT; FERR325T24 PO; FOLI0.8T GT; GABA300C GT; LABE100T5 GT; LIOT25TA13 GT; MIRT30TA7 GT; OMEG-167 GT; PANT20TA3 PO; PANT40SU2 GT; ZOLP5TAB2 GT
--- NOTE | 2019-09-21 11:13 | NUR ---
[facility] unit 45 From [facility] "UGI bleed/throwing up bright red blood/clots" since this morning, to ER bed 8, hooked to monitor, changed to hosp gown, warm blanklet provided, patient aao X 1, per report, last dialysis yesterday, noted w MARY AV fistula and G-tube. Dr Shaffer at bedside
[2019-09-21] MEDS ORDERED: OMEP20CA15 GT (11:24)
[2019-09-21] MEDS ORDERED: ZOLP5TAB2 GT (11:24)
[2019-09-21] MEDS ORDERED: FERR300L GT (11:24)
[2019-09-21] MEDS ORDERED: LEVE100S GT (11:24)
[2019-09-21] MEDS ORDERED: EPOE1000 SQ (11:24)
[2019-09-21] MEDS ORDERED: INSU100V39 SQ (11:24)
[2019-09-21] MEDS ORDERED: ACET-868 GT (11:24)
[2019-09-21] MEDS ORDERED: LORA2VIA6 IM (11:24)
[2019-09-21 11:47] LABS: BASOPHILS # (AUTO) 0.1 /CMM (0.0-0.2); BASOPHILS % (AUTO) 0.8 % (0.0-2.0); EOSINOPHILS % (AUTO) 3.2 % (0.0-6.0); HEMATOCRIT 21 % (39-51); HEMOGLOBIN 7.3 g/dL (13.5-17.5); LYMPHOCYTES # (AUTO) 1.5 /CMM (0.8-4.8); LYMPHOCYTES % (AUTO) 13.5 % (20.0-44.0); MEAN CORPUSCULAR HGB CONC 34 g/dl (31.0-36.0); MEAN CORPUSCULAR VOLUME 101 fL (80-96); MONOCYTES # (AUTO) 0.7 /CMM (0.1-1.30); MONOCYTES % (AUTO) 6.3 % (2.0-12.0); NEUTROPHILS # (AUTO) 8.2 /CMM (1.8-8.9); NEUTROPHILS % (AUTO) 76.2 % (43.0-81.0); PLATELET COUNT (AUTO) 332 /CMM (150-450); RED BLOOD CELL COUNT(AUTO) 2.12 MIL/uL (4.5-6.0); WHITE BLOOD COUNT (AUTO) 10.8 K/uL (4.3-11.0)
[2019-09-21 12:00] LABS: ALANINE AMINOTRANSFERASE 13 U/L (12-78); ALBUMIN 2.3 g/dL (3.4-5.0); ALKALINE PHOSPHATASE 93 U/L (46-116); ASPARTATE AMINOTRANSFERASE 27 U/L (15-37); BILIRUBIN,DIRECT 0.3 mg/dL (0.0-0.2); BILIRUBIN,TOTAL 0.8 mg/dL (0.2-1.0); CARBON DIOXIDE 33 mmol/L (21-32); CHLORIDE 101 mmol/L (98-107); CREATININE 6.3 mg/dL (0.6-1.3); GLUCOSE 115 mg/dL (74-106); LIPASE 325 U/L (73-393); POTASSIUM 4.5 mmol/L (3.5-5.1); SODIUM SERUM 143 mmol/L (136-145); TOTAL PROTEIN, SERUM 8.2 g/dL (6.4-8.2); UREA NITROGEN, BLOOD 52 mg/dL (7-18)
[2019-09-21] MEDS ORDERED: PANTOPRAZOLE 40 MG VIAL IV ONE (12:30)
[2019-09-21] MEDS ORDERED: IV NS 0.9% 500 ML BAG IV ONE (12:30)
[2019-09-21] MEDS ORDERED: IV NS 0.9% 1,000 ML IV PRN (12:54)
[2019-09-21] MEDS ORDERED: PANTOPRAZOLE 40 MG VIAL ONE (12:55)
[2019-09-21] MEDS ORDERED: Z GUARD REMEDY 2 OZ OINT TP PRN (13:00)
[2019-09-21] MEDS ORDERED: ZOLPIDEM TARTRATE 5 MG TABLET PO PRN (13:00)
[2019-09-21] MEDS ORDERED: ACETAMINOPHEN 325 MG TABLET PO PRN ×2 (13:00→13:30)
[2019-09-21] MEDS ORDERED: ONDANSETRON HCL/PF 4 MG/2 ML VIAL IVP PRN (13:00)
--- NOTE | 2019-09-21 13:11 | NUR ---
ASKED ICU BED FROM SUP
[2019-09-21] MEDS ORDERED: ZOLPIDEM TARTRATE 5 MG TABLET GT PRN (13:30)
--- NOTE | 2019-09-21 13:32 | NUR ---
CONSENT SIGNED BY MD FOR EMERGENCY BLOOD TRANSFUSION FOR ACUTE BLEEDING OR HEMORRHAGE
--- NOTE | 2019-09-21 13:46 | NUR ---
VERIFIED BLOOD PRODUCT INFORMATION WITH CIELO PARMAR RN
--- NOTE | 2019-09-21 13:50 | NUR ---
PRE BLOOD TRANSFUSION VS TAKEN AND RECORDED. VSS.
--- NOTE | 2019-09-21 14:05 | NUR ---
15MIN AFTER STARTING BLOOD TRANSFUSION, NO ADVERSE REACTION NOTED. VITAL SIGNS TAKEN AND RECORDED. VSS. WILL CONTINUE TO MONITOR.
--- NOTE | 2019-09-21 14:25 | NUR ---
CALL FROM [facility], BED WILL BE DELAYED
--- NOTE | 2019-09-21 14:47 | NUR ---
KELIN BUSTILLO CALLED FOR BED,JARETT RODRIGUEZ IS STILL "WORKING ON IT"
--- NOTE | 2019-09-21 15:19 | NUR ---
BLOOD TRANSFUSION DONE. NO ADVERSE REACTION NOTED. VITALS TAKEN AND RECORDED. VSS.
[2019-09-21] MEDS ORDERED: COLCHICINE 0.6 MG TABLET GT PRN (15:30)
--- NOTE | 2019-09-21 15:54 | NUR ---
NURSING SUP GAVE ICU BED 254.
[2019-09-21] MEDS: FERROUS SULFATE UDC 300 MG/5 ML UDC GT SCH (17:00)
[2019-09-21] MEDS ORDERED: Medication Not On Formulary EA (Omega-3 Fatty Acids/Fish Oil (Fish Oil 1,000 Mg Softgel) GT SCH (17:00)
--- NOTE | 2019-09-21 17:14 | NUR ---
REPORT GIVEN TO JORGE OF ICU
--- NOTE | 2019-09-21 18:00 | NUR ---
received pt from ER, alert, does not follow commands, dysphasia, SR, NC 2L sat well, lungs clear, no edema, GT clamped, HD pt, HD today at 2100, v/s stable, no pain, pt cleaned, changed and repositioned.
[2019-09-21] MEDS: PANTOPRAZOLE 80 MG in IV NS 0.9% 500 ML IV PRN (19:00)
--- NOTE | 2019-09-21 20:00 | NUR ---
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
[2019-09-21] MEDS: LEVETIRACETAM SOL (5 ML) 100 MG/ML UDC GT SCH (21:00)
--- NOTE | 2019-09-21 21:00 | NUR ---
SHIP CONSTRUCTION TEACHER NOTES ALL DUE PO MEDICATION NOT ADMINISTERED D/T PT NPO STATUS.
--- NOTE | 2019-09-21 21:15 | NUR ---
METER SUPERVISOR NOTES HEMODIALYSIS STARTED ORDERED , DIALYSIS NURSE AT BEDSIDE.WILL CONTINUE TO MONITOR PTS.
[2019-09-21 21:29] LABS: HEMOGLOBIN 7.7 g/dL (13.5-17.5)
[2019-09-21] MEDS: ATORVASTATIN 40 MG TABLET GT SCH (22:00)
[2019-09-21] MEDS: MIRTAZAPINE 15 MG TABLET GT SCH (22:00)
[2019-09-21] MEDS: GABAPENTIN 300 MG CAPSULE GT SCH (22:00)
--- NOTE | 2019-09-21 23:06 | NUR ---
ROPE COILING MACHINE OPERATOR NOTES HGB 7.7 HCT23 , 1 UNIT OF PRBC STARTED ORDERED GIVEN BY DIALYSIS NURSE WITH NO ASE NOTED.WILL CONTINUE TO MONITOR PTS .V/S STABLE AFEBRILE NO SOB NO DISTRESS NOTED ,PTS MORE ALERT AT THIS TIME
[2019-09-22] VITALS (40 sets, daily range): BP systolic 121–187; BP diastolic 63–95
--- NOTE | 2019-09-22 00:05 | NUR ---
LEARNING AND DEVELOPMENT OFFICER NOTES BLOOD TRANSFUSION COMPLETED AT 0005 , WITH NO ASE NOTED AT 0010 HEMODIALYSIS ENDED 1 LITER OUT . PT WITH NO SOB NO DISTRESS NOTED .WILL CONTINUE TO MONITOR PT.
--- NOTE | 2019-09-22 02:00 | NUR ---
LOFTER NOTES PT C/O OF HEADACHE ,P7/10 ,BP OF SYSTOLIC 180S,SPOKE TO VICE PRESIDENT OF MANUFACTURING JUSTIN WITH ORDER NOTED AND CARRIED OUT MORPHINE 1MG IVP Q4 HRS PRN FOR PAIN ,HYDRALAZINE 10MG IVP Q4HRS PRN FOR SBP>160 ORDER NOTED AND CARRIED OUT .MORPHINE 1MG 1VP GIVEN ORDERED WITH EFFECT, PT ABLE TO SLEEP AND COMFORTABLE NO FACIAL GRIMACING NOTED , RWUA AV SHUNT MONITORED NO BLEEDING NOTED.WILL CONTINUE TO MONITOR.
[2019-09-22] MEDS: MORPHINE SULFATE INJ 2 MG/ML DISP.SYRIN IV PRN ×2 (02:09→20:13)
--- NOTE | 2019-09-22 03:20 | NUR ---
curriculum advisory teacher notes Bp 175/85 hydralazine 10mg ivp given as ordered. will continue to monitor.
[2019-09-22] MEDS: hydrALAZINE HCL IV 20 MG VIAL IV PRN ×2 (03:23→07:38)
[2019-09-22] MEDS: PANTOPRAZOLE 80 MG in IV NS 0.9% 500 ML IV PRN ×3 (03:59→21:43)
[2019-09-22 04:56] LABS: BASOPHILS % (AUTO) 0.5 % (0.0-2.0); EOSINOPHILS % (AUTO) 2.9 % (0.0-6.0); HEMATOCRIT 27 % (39-51); HEMOGLOBIN 9.4 g/dL (13.5-17.5); LYMPHOCYTES # (AUTO) 1.6 /CMM (0.8-4.8); LYMPHOCYTES % (AUTO) 17.5 % (20.0-44.0); MEAN CORPUSCULAR HGB CONC 34 g/dl (31.0-36.0); MEAN CORPUSCULAR VOLUME 93 fL (80-96); MONOCYTES # (AUTO) 0.8 /CMM (0.1-1.30); MONOCYTES % (AUTO) 8.3 % (2.0-12.0); NEUTROPHILS # (AUTO) 6.5 /CMM (1.8-8.9); NEUTROPHILS % (AUTO) 70.8 % (43.0-81.0); PLATELET COUNT (AUTO) 287 /CMM (150-450); RED BLOOD CELL COUNT(AUTO) 2.96 MIL/uL (4.5-6.0); WHITE BLOOD COUNT (AUTO) 9.2 K/uL (4.3-11.0)
[2019-09-22 05:22] LABS: CALCIUM, SERUM 9.3 mg/dL (8.5-10.1); CREATININE 3.6 mg/dL (0.6-1.3); PHOSPHORUS 3.6 mg/dL (2.5-4.9); POTASSIUM 3.3 mmol/L (3.5-5.1)
[2019-09-22 05:37] LABS: THYROID STIMULATING HORMONE 4.396 uIU/mL (0.358-3.74)
--- NOTE | 2019-09-22 06:24 | NUR ---
aviculturist notes Pt remains in bed awake alertx1-2 togolese speaking ,v/s stable afebrile , remains on sr ,on protonix drip 8mg/50ml on progress, Ns at 75cc/hr on progress, latest hgb 9.4 ,Remain npo status ,oral care done no more bleeding noted ,will endorse to rn day shift for continuity of care, kept pts clean dry and comfortable.
--- NOTE | 2019-09-22 08:12 | NUR ---
received pt from shiftman, alert, disoriented, confused, follows simple commands at times, SR, RA sat well, lungs are clear, no edema, GT to ILS bloody drainage, also blood clots in the mouth are suctioned out, 2 PRBCs transfused, HD yesterday, v/s stable, no pain, pt turned and repositioned.
[2019-09-22] MEDS: POTASSIUM CL. PREMIX PERIPHER. 50 ML IV SCH ×2 (08:32→09:56)
[2019-09-22] MEDS: DOCUSATE SODIUM 250 MG CAPSULE PO SCH (08:33)
[2019-09-22] MEDS: LIOTHYRONINE SODIUM (25 MCG) 25 MCG TABLET GT SCH (08:33)
[2019-09-22] MEDS: LEVETIRACETAM SOL (5 ML) 100 MG/ML UDC GT SCH ×2 (08:33→21:00)
[2019-09-22] MEDS: ALLOPURINOL 100 MG TABLET GT SCH (08:33)
[2019-09-22] MEDS: FOLIC ACID 1 MG TABLET GT SCH (08:33)
[2019-09-22] MEDS: FERROUS SULFATE UDC 300 MG/5 ML UDC GT SCH ×2 (08:33→16:28)
[2019-09-22] MEDS: ASCORBIC ACID 500 MG TABLET GT SCH (08:33)
[2019-09-22] MEDS ORDERED: OMEPRAZOLE 20 MG CAPSULE.DR GT SCH (09:00)
[2019-09-22] MEDS ORDERED: PANTOPRAZOLE 40 MG VIAL IV SCH (09:00)
[2019-09-22] MEDS: PIPERACILLIN /TAZOBACTAM 3.375 G in IV D5W 50 ML IV SCH ×2 (13:15→20:15)
--- NOTE | 2019-09-22 16:15 | NUR ---
pt is resting in the bed, alert, disoriented, SR, EGD with biopsy done, pt tolerated it well, on 2L 02 sat well, GT to ILS, HD today 800cc out, receiving Protonix drip, blood clots suctioned form the mouth, v/s stable, no pain, pt cleaned, changed and repositioned.
--- NOTE | 2019-09-22 19:30 | NUR ---
RN OPENING NOTES: PATIENT IN BED, AWAKE, AND VERBALLY RESPONSIVE WITH DELAYED AND UNCLEAR SPEECH. CITIZEN OF [place]-SPEAKING. UNLABORED BREATHING. ON O2 AT 2LPM VIA NC; O2 SAT >95%. REMAINS NPO. ON INTERMITTENT SUCTIONING VIA GT, MINIMAL OUTPUT. PATIENT HAS MARY AV FISTULA; (+) BRUIT AND THRILL. ADELE MIDLINE C/D/I; FLUSHING WELL. SAFETY PRECAUTIONS IMPLEMENTED. BED LOCKED, LOW POSITION, BILATERAL SIDE RAILS X 2 UP. HOB ELEVATED. WILL CONT. TO MONITOR. Addendum: 09/22/19 at 2123 by GRETCHEN MORAN RN ORAL SUCTIONING PERFORMED; NO BLOOD CLOTS NOTED AT THIS TIME. WILL CONT. TO MONITOR.
--- NOTE | 2019-09-22 20:05 | NUR ---
RN NOTE: PATIENT C/O 09/16 ACHING BACK PAIN. BP 163/66, HR 82, O2 SAT 100%, RR 14. REPOSITIONED PATIENT BUT INEFFECTIVE. WILL ADMINISTER PAIN MEDICATION ORDERED. WILL CONT. TO MONITOR. Addendum: 09/22/19 at 2123 by GRETCHEN MORAN RN 2100: PATIENT'S BACK PAIN LEVEL IMPROVED. NO MOANING OR FACIAL GRIMACING. NO RESPIRATORY DISTRESS. BP 133/69, HR 80, RR 12. PATIENT ASLEEP AND RESTING COMFORTABLY AT THIS TIME. WILL CONT. TO MONITOR.
[2019-09-22] MEDS: GABAPENTIN 300 MG CAPSULE GT SCH (21:36)
[2019-09-22] MEDS: ATORVASTATIN 40 MG TABLET GT SCH (21:36)
[2019-09-22] MEDS: MIRTAZAPINE 15 MG TABLET GT SCH (21:36)
[2019-09-23] VITALS (28 sets, daily range): BP systolic 13–172; BP diastolic 63–80
[2019-09-23] MEDS: PIPERACILLIN /TAZOBACTAM 3.375 G in IV D5W 50 ML IV SCH ×3 (04:31→21:12)
[2019-09-23] MEDS ORDERED: PANTOPRAZOLE 40 MG VIAL ONE (04:48)
[2019-09-23 04:54] LABS: BASOPHILS % (AUTO) 0.5 % (0.0-2.0); EOSINOPHILS % (AUTO) 5.1 % (0.0-6.0); HEMATOCRIT 26 % (39-51); HEMOGLOBIN 8.6 g/dL (13.5-17.5); LYMPHOCYTES % (AUTO) 11.6 % (20.0-44.0); MEAN CORPUSCULAR HGB CONC 33 g/dl (31.0-36.0); MEAN CORPUSCULAR VOLUME 95 fL (80-96); MONOCYTES # (AUTO) 0.7 /CMM (0.1-1.30); MONOCYTES % (AUTO) 8.2 % (2.0-12.0); NEUTROPHILS # (AUTO) 6.5 /CMM (1.8-8.9); NEUTROPHILS % (AUTO) 74.6 % (43.0-81.0); PLATELET COUNT (AUTO) 282 /CMM (150-450); RED BLOOD CELL COUNT(AUTO) 2.73 MIL/uL (4.5-6.0); WHITE BLOOD COUNT (AUTO) 8.8 K/uL (4.3-11.0)
[2019-09-23] MEDS: PANTOPRAZOLE 80 MG in IV NS 0.9% 500 ML IV PRN (04:58)
[2019-09-23 05:54] LABS: ALBUMIN 1.9 g/dL (3.4-5.0); BILIRUBIN,TOTAL 0.8 mg/dL (0.2-1.0); CALCIUM, SERUM 8.8 mg/dL (8.5-10.1); CREATININE 3.8 mg/dL (0.6-1.3); MAGNESIUM 1.9 mg/dL (1.8-2.4); PHOSPHORUS 3.9 mg/dL (2.5-4.9); POTASSIUM 3.7 mmol/L (3.5-5.1)
--- NOTE | 2019-09-23 06:19 | NUR ---
RN NOTE: PHARMACIST WANTS TO CLARIFY WITH DR. COLBERT IF PROTONIX DRIP SHOULD BE CONTINUED. WILL ENDORSE TO AM RN FOR CONTINUITY OF CARE.
--- NOTE | 2019-09-23 07:17 | NUR ---
RN CLOSING NOTES: PATIENT IN NO ACUTE DISTRESS. NO S/S OF PAIN. NO ACTIVE BLEEDING NOTED. ENDORSED TO AM RN TO CLARIFY WITH DR. COLBERT IF PROTONIX DRIP NEEDS TO BE CONTINUED PER PHARMACIST.
[2019-09-23] MEDS: MORPHINE SULFATE INJ 2 MG/ML DISP.SYRIN IV PRN (07:53)
--- NOTE | 2019-09-23 08:00 | NUR ---
FORMATION FRACTURING OPERATOR OPENING NOTES: PATIENT IN BED, AWAKE, AND VERBALLY RESPONSIVE WITH DELAYED AND FRENCH-SPEAKING. UNLABORED BREATHING. ON O2 AT 2LPM VIA NC; O2 SAT >95%. REMAINS NPO. ON INTERMITTENT SUCTIONING VIA GT, MINIMAL OUTPUT. PATIENT HAS MARY AV FISTULA; (+) BRUIT AND THRILL. ADELE MIDLINE C/D/I; FLUSHING WELL AND INTACT WITH NO SIGN OF INFILTRATION .SAFETY PRECAUTIONS ARE IMPLEMENTED. BED LOCKED IN THE,LOW POSITION AND SIDE RAILS X 2 UP. HOB ELEVATED. WILL CONTINUE TO MONITOR
[2019-09-23] MEDS: DOCUSATE SODIUM 250 MG CAPSULE PO SCH ×2 (09:00→09:23)
[2019-09-23] MEDS: LIOTHYRONINE SODIUM (25 MCG) 25 MCG TABLET GT SCH ×2 (09:00→09:22)
[2019-09-23] MEDS: Fenofibrate 48 MG TABLET GT SCH (09:00)
[2019-09-23] MEDS: ASCORBIC ACID 500 MG TABLET GT SCH ×2 (09:00→09:23)
[2019-09-23] MEDS: FOLIC ACID 1 MG TABLET GT SCH ×2 (09:00→09:23)
[2019-09-23] MEDS: ALLOPURINOL 100 MG TABLET GT SCH ×2 (09:00→09:23)
[2019-09-23] MEDS: FERROUS SULFATE UDC 300 MG/5 ML UDC GT SCH ×3 (09:00→16:37)
[2019-09-23] MEDS: LEVETIRACETAM SOL (5 ML) 100 MG/ML UDC GT SCH ×2 (09:00→09:23)
--- NOTE | 2019-09-23 09:00 | NUR ---
KIRSTEN RN NOTES PT IS ON NPO HOWEVER PT HAS MEDS DUE INFORMED DR SHE SAID STRICT NPO.
--- NOTE | 2019-09-23 09:05 | NUR ---
BOX SPRING MAKER NOTES PT HAS KEPPRA DUE TO NPO HAS TO CHNGE FROM LIQUID FORM TO IV. INFORMED PHARMACY SAID 1 TO 1
[2019-09-23] MEDS: LEVETIRACETAM (500MG) 500 MG in IV NS 0.9% 100 ML IV SCH ×2 (10:59→20:03)
[2019-09-23] MEDS: hydrALAZINE HCL IV 20 MG VIAL IV PRN ×2 (11:41→19:45)
--- NOTE | 2019-09-23 16:00 | NUR ---
WOOD ROOM SUPERVISOR NOTES PER [facility] AND PHARMACY PROTONIX IV PUMP WAS STOPPED AND CHANGED TO JUST IV PROTONIX PUSH
[2019-09-23] MEDS: PANTOPRAZOLE 40 MG VIAL IV SCH (16:37)
--- NOTE | 2019-09-23 18:19 | NUR ---
HOUSEHOLD APPLIANCES SALESPERSON CLOSING NOTES: PATIENT IN BED RESTING, AWAKE, AND VERBALLY RESPONSIVE WITH DELAYED SPEECH AND WELSH-SPEAKING. UNLABORED BREATHING. ON O2 AT 2LPM VIA NC; O2 SAT IN 99%/100%. REMAINS NPO. ON INTERMITTENT SUCTIONING VIA GT, MINIMAL OUTPUT OF 120 ML. NO BLEEDING NOTED ONLY BROWN COLOR IN SUCTIONING CANISTER. PATIENT HAS MARY AV FISTULA; (+) BRUIT AND THRILL. ADELE MIDLINE C/D/I; FLUSHING WELL AND INTACT WITH NO SIGN OF INFILTRATION .SAFETY PRECAUTIONS ARE IMPLEMENTED. BED LOCKED IN THE LOW POSITION AND SIDE RAILS ARE X 2 UP. HOB ELEVATED. WILL ENDORSE TO NIGHTSHIFT FOR EZEQUIEL
--- NOTE | 2019-09-23 19:05 | NUR ---
AIRWORTHINESS SAFETY INSPECTOR NOTE RECEIVED PATIENT IN BED RESTING WITH HOB ELEVATED. AWAKE, ALERT, ORIENTED X2. ABLE TO MAKE NEEDS KNOWN. BREATHING IS EVEN AND NON-LABORED. NO SOB NOTED AT THIS TIME. PATIENT IS NPO PER AM SHIFT REPORT FOR GI BLEED DIAGNOSIS. NO COMPLAINS OF PAIN AT THIS TIME. ON O2 2 LITERS VIA NC. 02 SAT IS 100% AT THIS TIME. IV SITE ON ADELE MIDLINE IS CLEAN, DRY, AND PATENT. BRUIT FELT ON MARY AV FISTULA. PER AM SHIFT REPORT, PATIENT IS ANURIC, DIALYSIS PATIENT. IN NO APPARENT DISTRESS NOTED AT THIS TIME. CALL LIGHT IS WITHIN EASY REACH. WILL CONTINUE TO MONITOR.
[2019-09-23] MEDS: ATORVASTATIN 40 MG TABLET GT SCH (21:13)
[2019-09-23] MEDS: GABAPENTIN 300 MG CAPSULE GT SCH (21:13)
[2019-09-23] MEDS: MIRTAZAPINE 15 MG TABLET GT SCH (21:13)
--- NOTE | 2019-09-23 23:45 | NUR ---
HOSTLER HELPER NOTE PATIENT COMPLAINED OF BEING THIRSTY AT THIS TIME. PATIENT IS NPO STATUS DUE TO GL BLEED DIAGNOSIS. CHECKED PATIENT'S GLUCOSE, GLUCOSE IS 76 AT THIS TIME. INFORMED BLUEPRINT DEVELOPER MD DR. DAVENPORT FOR ANY IV FLUIDS. MD RESPONDED NO IV FLUIDS AT THIS TIME. ORDER NOTED.
[2019-09-24] VITALS (15 sets, daily range): BP systolic 147–182; BP diastolic 64–100
[2019-09-24] MEDS: hydrALAZINE HCL IV 20 MG VIAL IV PRN ×2 (03:39→16:38)
[2019-09-24] MEDS: PIPERACILLIN /TAZOBACTAM 3.375 G in IV D5W 50 ML IV SCH (04:04)
[2019-09-24 04:42] LABS: BASOPHILS % (AUTO) 0.5 % (0.0-2.0); EOSINOPHILS % (AUTO) 4.7 % (0.0-6.0); HEMATOCRIT 27 % (39-51); HEMOGLOBIN 9.3 g/dL (13.5-17.5); LYMPHOCYTES # (AUTO) 0.9 /CMM (0.8-4.8); LYMPHOCYTES % (AUTO) 10.5 % (20.0-44.0); MEAN CORPUSCULAR HGB CONC 34 g/dl (31.0-36.0); MEAN CORPUSCULAR VOLUME 94 fL (80-96); MONOCYTES # (AUTO) 0.8 /CMM (0.1-1.30); MONOCYTES % (AUTO) 9.2 % (2.0-12.0); NEUTROPHILS # (AUTO) 6.6 /CMM (1.8-8.9); NEUTROPHILS % (AUTO) 75.1 % (43.0-81.0); PLATELET COUNT (AUTO) 298 /CMM (150-450); RED BLOOD CELL COUNT(AUTO) 2.86 MIL/uL (4.5-6.0); WHITE BLOOD COUNT (AUTO) 8.8 K/uL (4.3-11.0)
[2019-09-24 05:14] LABS: CALCIUM, SERUM 9.4 mg/dL (8.5-10.1); CREATININE 5.5 mg/dL (0.6-1.3); PHOSPHORUS 5.5 mg/dL (2.5-4.9)
--- NOTE | 2019-09-24 06:42 | NUR ---
MOVER NOTE PATIENT REMAINED STABLE THROUGHOUT THE NIGHT. NO SIGNIFICANT CHANGES NOTED. DUE MEDS GIVEN ORDERED AND TOLERATED WELL. PATIENT IS KEPT CLEAN, DRY, AND COMFORTABLE. KEPT NPO ORDERED. ALL NEEDS ATTENDED AND MET. REPOSITIONED Q2H OR TOLERATED. IN NO APPARENT DISTRESS NOTED. WILL ENDORSE TO AM SHIFT RN FOR CONTINUATION OF CARE.
[2019-09-24] MEDS: PANTOPRAZOLE 40 MG VIAL IV SCH ×2 (08:31→16:38)
[2019-09-24] MEDS: DOCUSATE SODIUM 250 MG CAPSULE PO SCH (08:31)
[2019-09-24] MEDS: Fenofibrate 48 MG TABLET GT SCH (08:31)
[2019-09-24] MEDS: LIOTHYRONINE SODIUM (25 MCG) 25 MCG TABLET GT SCH (08:31)
[2019-09-24] MEDS: FERROUS SULFATE UDC 300 MG/5 ML UDC GT SCH ×2 (08:31→16:51)
[2019-09-24] MEDS: LEVETIRACETAM (500MG) 500 MG in IV NS 0.9% 100 ML IV SCH ×2 (08:32→20:44)
[2019-09-24] MEDS: ALLOPURINOL 100 MG TABLET GT SCH (08:32)
[2019-09-24] MEDS: FOLIC ACID 1 MG TABLET GT SCH (08:32)
[2019-09-24] MEDS: ASCORBIC ACID 500 MG TABLET GT SCH (08:32)
--- NOTE | 2019-09-24 10:55 | NUR ---
MS RN NOTES PATIENT TRANSFERRED FROM ICU IN STABLE CONDITION. ALERT AND ORIENTED, UKRAINIAN SPEAKING. ON 2 LITERS NASAL CANNULA, TOLERATING WITH SPO2 100%. IV ACCESS ON LEFT UPPER ARM, INTACT AND PATENT. AV SHUNT ON RIGHT ARM. G-TUBE SITE IN PLACE AND INTACT ON LOW INTERMITTENT SUCTION. PATIENT SKIN WARM AND DRY TO TOUCH. SAFETY PRECAUTIONS IMPLEMENTED WITH BED LOCKED, BILATERAL SIDE RAILS UP, BED IN THE LOWEST POSITION, AND CALL LIGHT WITHIN EASY REACH OF PATIENT WILL CONTINUE TO MONITOR.
--- NOTE | 2019-09-24 11:09 | NUR ---
1050 TRANSFERRED TO MED SURG ORDERED, GAVE REPORT TO JESSE MENDEZ. PT WAS TOLERATING 2 LPM/NC, KEPT NPO ORDERED, GT TO LCS, 5 ML OUTPUT NOTED WITH BROWN DRAINAGE.
[2019-09-24] MEDS ORDERED: PIPERACILLIN /TAZOBACTAM 2.25 G in IV NS 0.9% 50 ML IV SCH (13:00)
[2019-09-24] MEDS: PIPERACILLIN /TAZOBACTAM 2.25 G in IV D5W 50 ML IV SCH ×2 (13:15→21:48)
[2019-09-24] MEDS: MORPHINE SULFATE INJ 2 MG/ML DISP.SYRIN IV PRN ×2 (18:05→22:28)
--- NOTE | 2019-09-24 18:57 | NUR ---
MS RN NOTES PATIENT IN BED, ALERT AND ORIENTED, HAITIAN SPEAKING. PATIENT ON NASAL CANNULA, 2 LITERS, WITH NON-LABORED BREATHING AND NO RESPIRATORY DISTRESS AT THIS TIME. PATIENT IV ACCESS INTACT AND PATENT. G-TUBE SITE INTACT AND LOW INTERMITTENT SUCTION IN PLACE. PER LOLIS PORRAS NP PATIENT IS STRICT NPO. NO PO MEDICATIONS ADMINISTERED. HEMODIALYSIS NURSE AT BEDSIDE. PATIENT PRESENTS NO PAIN OR DISCOMFORT AT THIS TIME. SAFETY PRECAUTIONS IMPLEMENTED WITH BED LOCKED BED IN THE LOWEST POSITION, BILATERAL SIDE RAILS UP, CALL LIGHT WITHIN EASY REACH. WILL ENDORSE PLAN OF CARE TO UPCOMING NURSE.
--- NOTE | 2019-09-24 19:45 | NUR ---
CERNER ANALYST OPEN NOTES PATIENT IS LAYING IN BED CURRENTLY RECEIVING DIALYSIS. ON 2L NASAL CANULA, NO SOB/ ACUTE RESPIRATORY DISTRESS NOTED. BED IS IN LOWEST LOCKED POSITION WITH SIDE RAILS UP X3, SEMI FOWLERS. CALL LIGHT IS WITHIN REACH. WILL CONTINUE TO MONITOR.
[2019-09-24] MEDS: ATORVASTATIN 40 MG TABLET GT SCH (21:53)
[2019-09-24] MEDS: GABAPENTIN 300 MG CAPSULE GT SCH (21:53)
[2019-09-24] MEDS: MIRTAZAPINE 15 MG TABLET GT SCH (21:53)
[2019-09-25] VITALS (7 sets, daily range): BP systolic 111–187; BP diastolic 69–88
[2019-09-25] MEDS: PIPERACILLIN /TAZOBACTAM 2.25 G in IV D5W 50 ML IV SCH ×3 (04:06→21:02)
[2019-09-25] MEDS: MORPHINE SULFATE INJ 2 MG/ML DISP.SYRIN IV PRN ×2 (04:14→21:01)
[2019-09-25 06:28] LABS: BASOPHILS # (AUTO) 0.1 /CMM (0.0-0.2); BASOPHILS % (AUTO) 0.9 % (0.0-2.0); EOSINOPHILS % (AUTO) 4.8 % (0.0-6.0); HEMATOCRIT 29 % (39-51); HEMOGLOBIN 9.8 g/dL (13.5-17.5); LYMPHOCYTES % (AUTO) 12.4 % (20.0-44.0); MEAN CORPUSCULAR HGB CONC 34 g/dl (31.0-36.0); MEAN CORPUSCULAR VOLUME 95 fL (80-96); MONOCYTES # (AUTO) 0.6 /CMM (0.1-1.30); MONOCYTES % (AUTO) 7.9 % (2.0-12.0); NEUTROPHILS # (AUTO) 5.9 /CMM (1.8-8.9); PLATELET COUNT (AUTO) 296 /CMM (150-450); RED BLOOD CELL COUNT(AUTO) 3.05 MIL/uL (4.5-6.0); WHITE BLOOD COUNT (AUTO) 7.9 K/uL (4.3-11.0)
--- NOTE | 2019-09-25 06:33 | NUR ---
INCREMENT MANAGER CLOSE NOTES PATIENT IS LAYING IN BED. A/O X3. ON 2L NASAL CANULA, NO SOB/ ACUTE RESPIRATORY DISTRESS NOTED. MIDLINE IN L UPPERARM IS PATENT AND INTACT, ALL DUE ANTIBIOTICS GIVEN. PATIENT KEPT NPO. G TUBE IN PLACE WITH LOW INTERMITTENT SUCTION. APPEARS COMFORTABLE/ NO COMPLAINTS OF PAIN AT THE MOMENT. BED IS IN LOWEST LOCKED POSITION WITH SIDE RAILS UP X3, SEMI FOWLERS. CALL LIGHT IS WITHIN REACH. WILL ENDORSE TO AM NURSE.
[2019-09-25 07:02] LABS: CALCIUM, SERUM 9.3 mg/dL (8.5-10.1); CREATININE 3.6 mg/dL (0.6-1.3); PHOSPHORUS 3.6 mg/dL (2.5-4.9)
--- NOTE | 2019-09-25 07:35 | NUR ---
MS RN OPENING NOTES PATIENT RECEIVED AWAKE IN BED IN NO ACUTE SIGNS OF DISTRESS. HOB ELEVATED. A/O X2-3. MALIAN SPEAKING, DENIES PAIN OR ANY DISCOMFORTS AT THIS TIME. ON 02 VIA N/C AT 2LPM, BREATHING EVEN AND UNLABORED, NO SOB NOTED. MIDLINE ON ADELE INTACT AND PATENT. PT IS NPO WITH G-TUBE INTACT AND PATENT CONNECTED TO LOW INTERMITTENT SUCTIONED WITH NO OUTPUT NOTED AT THIS TIME. BED IS IN LOWEST LOCKED POSITION WITH SIDE RAILS UP X2. CALL LIGHT IS WITHIN REACH. WILL CONTINUE TO MONITOR.
[2019-09-25] MEDS: PANTOPRAZOLE 40 MG VIAL IV SCH ×2 (08:45→16:23)
[2019-09-25] MEDS: LEVETIRACETAM (500MG) 500 MG in IV NS 0.9% 100 ML IV SCH ×2 (08:46→21:27)
[2019-09-25] MEDS: LIOTHYRONINE SODIUM (25 MCG) 25 MCG TABLET GT SCH (08:47)
[2019-09-25] MEDS: ASCORBIC ACID 500 MG TABLET GT SCH (08:48)
[2019-09-25] MEDS: FOLIC ACID 1 MG TABLET GT SCH (08:48)
[2019-09-25] MEDS: ALLOPURINOL 100 MG TABLET GT SCH (08:48)
[2019-09-25] MEDS: Fenofibrate 48 MG TABLET GT SCH (08:48)
[2019-09-25] MEDS: FERROUS SULFATE UDC 300 MG/5 ML UDC GT SCH ×2 (08:48→16:23)
[2019-09-25] MEDS: DOCUSATE SODIUM 250 MG CAPSULE PO SCH (08:48)
[2019-09-25] MEDS ORDERED: NEPRO 1,000 ML BOTTLE GT PRN (12:30)
[2019-09-25] MEDS: NEPRO 1,000 ML BOTTLE GT PRN (13:04)
--- NOTE | 2019-09-25 18:36 | NUR ---
RN NOTES COLLECTED STOOL SPECIMEN FOR OCCULT BLOOD AND CALLED LAB TO PICK-UP SPECIMEN.
--- NOTE | 2019-09-25 18:40 | NUR ---
MS RN OPENING NOTES PATIENT IN BED LYING AT MODERATE HIGH BACKREST POSITION. A/O X2-3. GRENADIAN SPEAKING. ON SUPPLEMENTAL 02 VIA N/C AT 2LPM, TOLERATING WELL WITH NO SOB NOTED THROUGHOUT THE DAY. MIDLINE ON ADELE INTACT AND PATENT. G-TUBE IN PLACE WITH FEEDING OF NEPRO @ 40ML/HR IN PROGRESS, TOLERATING WELL. ASPIRATION PRECAUTIONS MAINTAINED. PT TURNED AND REPOSITIONED Q 2HRS AND PRN. SAFETY MEASURES KEPT IN PLACE. . BED IS IN LOWEST LOCKED POSITION WITH SIDE RAILS UP X2. CALL LIGHT IS WITHIN REACH. WILL ENDORSE TO SECOND BUTLER NURSE FOR EZEQUIEL
--- NOTE | 2019-09-25 21:00 | NUR ---
MS RN OPENING NOTES: RECEIVED PT FROM 3W. PT IS A/OX2-3 DIVEHI SPEAKING/UNDERSTANDING ONLY BUT CAN UNDERSTAND AND SPEAK SOME SAMMARINESE TO MAKE HIS NEEDS KNOWN. PT ON 2LPM VIA NC AND IS TOLERATING WELL. NO SOB NOTED. PT COMPLAINING OF PAIN AT THIS TIME. PT HAS RIGHT AV SHUNT AND DRESSING IS CLEAN AND DRY. PT ALSO HAS ADELE MIDLINE AND IS PATENT AND INTACT. FLUSHES FINE. PT HAS G TUBE. 5ML OF RESIDUAL NOTED. PT ON GTUBE FEEDING NEPRO AT 40ML/HR AND IS TOLERATING WELL. HOB ELEVATED. BED KEPT IN LOW, LOCKED POSITION, AND SIDE RAILS X 3UP. CALL LIGHT WITHIN REACH. BED ALARM ACTIVATED. WILL CONTINUE TO MONITOR PT.
--- NOTE | 2019-09-25 21:05 | NUR ---
MS RN NOTES: PT COMPLAINING OF GENERALIZED PAIN 09/16 . PT WAS ADMINISTERED ZOFRAN 4MG IV AMD MORPHINE 1MG IV FOR PAIN. WILL CONTINUE TO MONITOR.
--- NOTE | 2019-09-25 21:11 | NUR ---
MS RN NOTES: CALLED PHARMACY TO [place] HYDRALAZINE IV. PHARMACIST SAID THEY ARE OUT.
--- NOTE | 2019-09-25 21:22 | NUR ---
MS RN NOTES: SPOKE WITH DR. ORANTES. INFORMED HIM THAT BP IS ELEVATED 197/85. PT IS A DIALYSIS PT. ALSO PHARMACY OUT OF HYDRALAZINE IV SO OK TO CHANGE TO PO IN HYDRALAZINE 25MG PO .
[2019-09-25] MEDS: MIRTAZAPINE 15 MG TABLET GT SCH (21:27)
[2019-09-25] MEDS: GABAPENTIN 300 MG CAPSULE GT SCH (21:27)
[2019-09-25] MEDS ORDERED: hydrALAZINE HCL 25 MG TABLET PO PRN (21:30)
[2019-09-25] MEDS: ATORVASTATIN 40 MG TABLET GT SCH (21:37)
[2019-09-25] MEDS: hydrALAZINE HCL 25 MG TABLET GT PRN (21:38)
[2019-09-25 23:22] LABS: OCCULT BLOOD STOOL POSITIVE (NEGATIVE)
--- NOTE | 2019-09-26 00:04 | NUR ---
MS RN NOTES: NOTIFIED DR. ORANTES ABOUT BLOOD PRESSURE STILL BEING ELEVATED WITH THE MACHINE. PER DR. ORANTES, RECHECK BP MANUALLY. RECHECKED ON LEFT ARM AND BLOOD PRESSURE IS 158/82 HR 87. WILL CONTINUE TO MONITOR.
[2019-09-26 00:09] VITALS: BP 158/82
[2019-09-26] MEDS: hydrALAZINE HCL 25 MG TABLET GT PRN (03:30)
[2019-09-26] MEDS: PIPERACILLIN /TAZOBACTAM 2.25 G in IV D5W 50 ML IV SCH ×3 (04:03→21:28)
[2019-09-26 04:52] VITALS: BP 119/65
--- NOTE | 2019-09-26 06:35 | NUR ---
MS RN CLOSING NOTES: ALL NEEDS WERE ATTENDED AND ANTICIPATED FOR. PT KEPT CLEAN, DRY, AND COMFORTABLE. PT REMAINS ON 2LPM VIA NC AND IS TOLERATING WELL. PT ASLEEP AT THIS TIME AND IS AROUSABLE TO TOUCH. PT HAS G TUBE AND IS PATENT . G TUBE FEEDING IS AT NEPRO 40ML/HR. NO RESIDUALS NOTED. PT ANURIC. PT HAS MARY AV SHUNT. DRESSING CLEAN AND DRY. PT HAS ADELE MIDLINE AND IS PATENT AND INTACT AND HAS BEEN FLUSHED. CURRENTLY H/L AT THIS TIME. BED ALARM ACTIVATED. BED KEPT IN LOW, LOCKED POSITION, AND SIDE RAILS X 3UP WITH HOB ELEVATED. CALL LIGHT WITHIN REACH. WILL ENDORSE TO AM NURSE FOR EZEQUIEL.
--- NOTE | 2019-09-26 07:09 | NUR ---
MS RN NOTES: ENDORSED TO AM NURSEARSENIO, FOR EZEQUIEL.
[2019-09-26 07:17] LABS: BASOPHILS # (AUTO) 0.1 /CMM (0.0-0.2); BASOPHILS % (AUTO) 0.5 % (0.0-2.0); EOSINOPHILS % (AUTO) 2.5 % (0.0-6.0); HEMATOCRIT 26 % (39-51); HEMOGLOBIN 8.6 g/dL (13.5-17.5); LYMPHOCYTES # (AUTO) 0.7 /CMM (0.8-4.8); MEAN CORPUSCULAR HGB CONC 33 g/dl (31.0-36.0); MEAN CORPUSCULAR VOLUME 95 fL (80-96); MONOCYTES # (AUTO) 0.5 /CMM (0.1-1.30); MONOCYTES % (AUTO) 4.7 % (2.0-12.0); NEUTROPHILS # (AUTO) 8.9 /CMM (1.8-8.9); NEUTROPHILS % (AUTO) 85.3 % (43.0-81.0); PLATELET COUNT (AUTO) 286 /CMM (150-450); RED BLOOD CELL COUNT(AUTO) 2.74 MIL/uL (4.5-6.0); WHITE BLOOD COUNT (AUTO) 10.4 K/uL (4.3-11.0)
[2019-09-26 07:36] LABS: CALCIUM, SERUM 9.4 mg/dL (8.5-10.1); CREATININE 5.2 mg/dL (0.6-1.3); POTASSIUM 3.5 mmol/L (3.5-5.1)
[2019-09-26 08:00] VITALS: BP 103/64
--- NOTE | 2019-09-26 08:10 | NUR ---
Patient seen by Christiano Albrecht DNP. No new orders at this time .
[2019-09-26] MEDS: PANTOPRAZOLE 40 MG VIAL IV SCH ×2 (08:40→17:17)
[2019-09-26] MEDS: Fenofibrate 48 MG TABLET GT SCH (08:41)
[2019-09-26] MEDS: FERROUS SULFATE UDC 300 MG/5 ML UDC GT SCH ×2 (08:41→17:18)
[2019-09-26] MEDS: FOLIC ACID 1 MG TABLET GT SCH (08:41)
[2019-09-26] MEDS: ALLOPURINOL 100 MG TABLET GT SCH (08:41)
[2019-09-26] MEDS: ASCORBIC ACID 500 MG TABLET GT SCH (08:41)
[2019-09-26] MEDS: DOCUSATE SODIUM 250 MG CAPSULE PO SCH (08:41)
[2019-09-26] MEDS: LIOTHYRONINE SODIUM (25 MCG) 25 MCG TABLET GT SCH (08:41)
[2019-09-26] MEDS: LEVETIRACETAM (500MG) 500 MG in IV NS 0.9% 100 ML IV SCH (08:42)
--- NOTE | 2019-09-26 09:30 | NUR ---
WOUND CARE CONSULT: PT PRESENTS WITH STAGE 2 ULCER TO LEFT BUTTOCK WITH RASH AND PEELING SKIN TO BUTTOCKS WELL SUTURE TO LEFT CHEST, PRESENT ON ADMISSION. RECOMMENDATIONS MADE FOR SKIN PROTECTION AND WOUND CARE. DISCUSSED WITH NURSING STAFF. PT [facility]. IN AGREEMENT WITH PLAN OF CARE. Addendum: 09/26/19 at 5568 by TOMAS ARREGUIN WNDNU Amended: Links added.
[2019-09-26] MEDS: ACETAMINOPHEN 650 MG/20.3 ML UDC NG PRN (12:46)
--- NOTE | 2019-09-26 13:02 | NUR ---
Tylenol administrated and cooling mesures provided for fever 100.3. Christiano Albrecht DNP notified
[2019-09-26] MEDS ORDERED: EPOETIN ALFA (10,000 UNIT) 10,000 UNIT/ML VIAL SQ SCH (15:00)
[2019-09-26 16:00] VITALS: BP 123/64
[2019-09-26] MEDS: NEPRO 1,000 ML BOTTLE GT PRN (16:12)
--- NOTE | 2019-09-26 16:15 | NUR ---
Bedside HD started. Patient more awake now , VS are stable , no fever at this time.
[2019-09-26] MEDS: CLOTRIMAZOLE 1% 15 GM TUBE TP SCH (17:18)
--- NOTE | 2019-09-26 18:44 | NUR ---
HD finished with 500 ml output. Patient tolerated well . VS are stable. All needs attended and patient kept clean and dry, repositioned Q2H. Safety measures implemented, aspiration precautions in place. No active bleeding noted. G-tube feeding tolerated well with no residual. Will endorse to next shift for EZEQUIEL
--- NOTE | 2019-09-26 19:25 | NUR ---
MS RN NOTES PATIENT IN BED, LETHARGIC. ALERT AND ORIENTED X 1-2. MOSTLY YAKUT SPEAKING. BREATHING EVEN AND UNLABORED ON 2L NC. SHOWS NO SIGNS OF ACUTE RESPIRATORY DISTRESS. NO ACUTE PAIN. S/P HD 500ML OUT. ON GTUBE FEEDING NEPRO AT 40ML/HR. IV ON ADELE MIDLINE CLEAN DRY AND INTACT. SHOWS NO SIGNS OF INFILTRATION, NO REDNESS. MARY AV SHUNT WITH DRESSING INTACT. SAFETY PRECAUTIONS IN PLACE. BED IN LOWEST POSITION, LOCKED, AND CALL LIGHT KEPT WITHIN REACH. WILL CONTINUE TO MONITOR.
[2019-09-26 20:00] VITALS: BP 162/74
[2019-09-26 20:10] VITALS: BP 155/73
[2019-09-26] MEDS: MIRTAZAPINE 15 MG TABLET GT SCH (21:28)
[2019-09-26] MEDS: ATORVASTATIN 40 MG TABLET GT SCH (21:28)
[2019-09-26] MEDS: LEVETIRACETAM SOL (5 ML) 100 MG/ML UDC GT SCH (21:28)
[2019-09-26] MEDS: GABAPENTIN 300 MG CAPSULE GT SCH (21:28)
[2019-09-27] MEDS: PIPERACILLIN /TAZOBACTAM 2.25 G in IV D5W 50 ML IV SCH ×3 (05:14→21:07)
--- NOTE | 2019-09-27 06:35 | NUR ---
MS RN NOTES PATIENT IN BED, ASLEEP. ALERT AND ORIENTED X 1-2. MOSTLY FRENCH SPEAKING. BREATHING EVEN AND UNLABORED ON 2L NC. SHOWS NO SIGNS OF ACUTE RESPIRATORY DISTRESS. NO ACUTE PAIN. ON GTUBE FEEDING NEPRO AT 40ML/HR. NO RESIDUALS. IV ON ADELE MIDLINE CLEAN DRY AND INTACT. SHOWS NO SIGNS OF INFILTRATION, NO REDNESS. MARY AV SHUNT WITH DRESSING INTACT. ALL DUE MEDICATIONS GIVEN. SAFETY PRECAUTIONS IN PLACE. BED IN LOWEST POSITION, LOCKED, AND CALL LIGHT KEPT WITHIN REACH. WILL ENDORSE TO ONCOMING NURSE.
[2019-09-27 06:47] LABS: BASOPHILS % (AUTO) 0.4 % (0.0-2.0); EOSINOPHILS % (AUTO) 3.6 % (0.0-6.0); HEMATOCRIT 26 % (39-51); HEMOGLOBIN 8.8 g/dL (13.5-17.5); LYMPHOCYTES # (AUTO) 1.3 /CMM (0.8-4.8); LYMPHOCYTES % (AUTO) 11.4 % (20.0-44.0); MEAN CORPUSCULAR HGB CONC 33 g/dl (31.0-36.0); MEAN CORPUSCULAR VOLUME 96 fL (80-96); MONOCYTES # (AUTO) 0.6 /CMM (0.1-1.30); MONOCYTES % (AUTO) 5.6 % (2.0-12.0); PLATELET COUNT (AUTO) 269 /CMM (150-450); RED BLOOD CELL COUNT(AUTO) 2.75 MIL/uL (4.5-6.0); WHITE BLOOD COUNT (AUTO) 11.3 K/uL (4.3-11.0)
[2019-09-27 07:18] LABS: CALCIUM, SERUM 9.7 mg/dL (8.5-10.1); MAGNESIUM 1.8 mg/dL (1.8-2.4); PHOSPHORUS 2.9 mg/dL (2.5-4.9); POTASSIUM 3.9 mmol/L (3.5-5.1)
--- NOTE | 2019-09-27 07:51 | NUR ---
MS RN OPENING NOTE PATIENT IN BED RESTING COMFORTABLY. PATIENT IN NO ACUTE DISTRESS. NO SOB NOTED. PATIENT BREATHING IS EVEN AND UNLABORED. BED ALARM IS ON. HOB IS ELEVATED. PATIENT GTUBE FEEDING PATENT AND INTACT RUNNING AT 40ML/HR WITH NO RESIDUAL. SAFETY PRECAUTIONS IN PLACE. PATIENT BED IS LOCKED AND IN LOWEST POSITION. CALL LIGHT WITHIN REACH. WILL CONTINUE TO MONITOR.
[2019-09-27 08:18] VITALS: BP 203/87
[2019-09-27] MEDS: FERROUS SULFATE UDC 300 MG/5 ML UDC GT SCH ×2 (08:37→16:37)
[2019-09-27] MEDS: ALLOPURINOL 100 MG TABLET GT SCH (08:37)
[2019-09-27] MEDS: LEVETIRACETAM SOL (5 ML) 100 MG/ML UDC GT SCH ×2 (08:37→21:06)
[2019-09-27] MEDS: PANTOPRAZOLE 40 MG VIAL IV SCH ×2 (08:37→16:37)
[2019-09-27] MEDS: DOCUSATE SODIUM 250 MG CAPSULE PO SCH (08:37)
[2019-09-27] MEDS: FOLIC ACID 1 MG TABLET GT SCH (08:37)
[2019-09-27] MEDS: Fenofibrate 48 MG TABLET GT SCH (08:37)
[2019-09-27] MEDS: ASCORBIC ACID 500 MG TABLET GT SCH (08:38)
[2019-09-27] MEDS: LIOTHYRONINE SODIUM (25 MCG) 25 MCG TABLET GT SCH (08:43)
[2019-09-27] MEDS: hydrALAZINE HCL 25 MG TABLET GT PRN ×2 (08:43→16:42)
[2019-09-27] MEDS: CLOTRIMAZOLE 1% 15 GM TUBE TP SCH ×2 (08:48→16:42)
--- NOTE | 2019-09-27 10:13 | NUR ---
MS RN NOTE INFORMED BETHEL YAO THAT BP THIS MORNING WAS 203/87 AND AFTER HYDRALAZINE PRN WAS GIVEN PATIENT BP STILL ELEVATED AT 176/77. PER BETHEL GIVE ONE TIME DOSE 25 MG HYDRALAZINE PO TO BE GIVEN THROUGH GTUBE.
[2019-09-27] MEDS ORDERED: hydrALAZINE HCL 25 MG TABLET PO ONE (10:30)
[2019-09-27 13:15] VITALS: BP 188/80
--- NOTE | 2019-09-27 14:15 | NUR ---
MS RN NOTE BETHEL YAO MADE AWARE OF RECENT ELEVATED BP'S. BETHEL CAME AND EVALUATED PATIENT AND WILL PLACE ORDERS FOR BP MEDICATIONS.
[2019-09-27] MEDS: LABETALOL HCL (100MG) 100 MG TABLET GT SCH ×2 (14:57→21:07)
[2019-09-27] MEDS: AMLODIPINE BESYLATE 10 MG TABLET GT SCH (14:57)
[2019-09-27] MEDS: NEPRO 1,000 ML BOTTLE GT PRN (16:35)
[2019-09-27 16:59] VITALS: BP 184/82
[2019-09-27 17:19] VITALS: BP 164/78
--- NOTE | 2019-09-27 17:28 | NUR ---
MS RN NOTE NOTIFIED BETHEL YAO OF ELEVATED BP EVEN AFTER ORDERED BP MEDS FROM BETHEL IN THE AFTERNOON. INFORMED HER THAT HYDRALAZINE PRN WAS STILL NEEDED TO LOWER BP. PER BETHEL SHE STATED SHE WILL REVIEW PATIENT INFORMATION AND MEDICATIONS AND IS MADE AWARE. NO NEW ORDERS AT THIS TIME.
[2019-09-27 17:50] VITALS: BP 159/79
--- NOTE | 2019-09-27 18:00 | NUR ---
MS RN NOTE NOTIFIED BETHEL YAO OF NOTED HISTORY OF DM AND IF SLIDING SCALE WAS NEEDED. PER BETHEL SHE STATED SHE WILL REVIEW BLOOD SUGARS AND ADJUST AND ORDER IF NEEDED. NO NEW ORDERS AT THIS TIME.
--- NOTE | 2019-09-27 18:42 | NUR ---
MS RN CLOSING NOTE PATIENT IN BED RESTING COMFORTABLY. PATIENT IN NO ACUTE DISTRESS. NO SOB NOTED. PATIENT BREATHING IS EVEN AND UNLABORED. BED ALARM IS ON. HOB IS ELEVATED. PATIENT GTUBE FEEDING PATENT AND INTACT RUNNING AT 40ML/HR WITH NO RESIDUAL. PATIENT KEPT CLEAN, DRY, AND COMFORTABLE THROUGHOUT SHIFT. PATIENT TURNED AND REPOSITIONED Q2H. WOUND CARE PROVIDED ORDERED. SAFETY PRECAUTIONS IN PLACE. PATIENT BED IS LOCKED AND IN LOWEST POSITION. CALL LIGHT WITHIN REACH. WILL ENDORSE CARE TO PM SHIFT FOR EZEQUIEL.
--- NOTE | 2019-09-27 19:45 | NUR ---
MS RN NOTES PATIENT IN BED, ASLEEP, ALERT AND ORIENTED X 1-2. MOSTLY NAMIBIAN SPEAKING. BREATHING EVEN AND UNLABORED ON 2L NC. SHOWS NO SIGNS OF ACUTE RESPIRATORY DISTRESS. NO ACUTE PAIN. ON GTUBE FEEDING NEPRO AT 40ML/HR, 0 RESIDUALS. IV ON ADELE MIDLINE CLEAN DRY AND INTACT. SHOWS NO SIGNS OF INFILTRATION, NO REDNESS. MARY AV SHUNT WITH DRESSING INTACT. SAFETY PRECAUTIONS IN PLACE. BED IN LOWEST POSITION, LOCKED, AND CALL LIGHT KEPT WITHIN REACH. WILL CONTINUE TO MONITOR.
[2019-09-27 20:00] VITALS: BP 150/67
[2019-09-27] MEDS: GABAPENTIN 300 MG CAPSULE GT SCH (21:05)
[2019-09-27] MEDS: ATORVASTATIN 40 MG TABLET GT SCH (21:07)
[2019-09-27] MEDS: MIRTAZAPINE 15 MG TABLET GT SCH (21:07)
[2019-09-28 01:31] LABS: *BASOS 0 % (Not Estab.); *EOS 3 % (Not Estab.); *EOS, ABSOLUTE 0.4 x10E3/uL (0.0-0.4); *HCT 26.1 % (37.5-51.0); *HGB 8.6 g/dL (13.0-17.7); *IMMATURE GRANULOCYTES 1 % (Not Estab.); *IMMATURE GRANULOCYTES(ABS) 0.2 x10E3/uL (0.0-0.1); *LYMPHOCYTES 12 % (Not Estab.); *LYMPHS, ABSOLUTE 1.4 x10E3/uL (0.7-3.1); *MCH 31.7 pg (26.6-33.0); *MCV 96 fL (79-97); *MONOCYTES 4 % (Not Estab.); *MONOS, ABSOLUTE 0.5 x10E3/uL (0.1-0.9); *NEUTROPHILS 80 % (Not Estab.); *NEUTROPHILS, ABSOLUTE 9.7 x10E3/uL (1.4-7.0); *PLT 269 x10E3/uL (150-450); *RBC 2.71 x10E6/uL (4.14-5.80); *RDW 15.6 % (11.6-15.4)
[2019-09-28] MEDS: PIPERACILLIN /TAZOBACTAM 2.25 G in IV D5W 50 ML IV SCH ×3 (05:25→21:33)
--- NOTE | 2019-09-28 06:39 | NUR ---
MS RN NOTES PATIENT IN BED, ASLEEP, ALERT AND ORIENTED X 1-2. MOSTLY BULGARIAN SPEAKING. BREATHING EVEN AND UNLABORED ON 2L NC. SHOWS NO SIGNS OF ACUTE RESPIRATORY DISTRESS. NO ACUTE PAIN. ON GTUBE FEEDING NEPRO AT 40ML/HR, 0 RESIDUALS. IV ON ADELE MIDLINE CLEAN DRY AND INTACT. SHOWS NO SIGNS OF INFILTRATION, NO REDNESS. MARY AV SHUNT WITH DRESSING INTACT. ALL DUE MEDICATIONS GIVEN. SAFETY PRECAUTIONS IN PLACE. BED IN LOWEST POSITION, LOCKED, AND CALL LIGHT KEPT WITHIN REACH. WILL ENDORSE TO ONCOMING NURSE.
--- NOTE | 2019-09-28 07:30 | NUR ---
MS RN NOTES RECEIVED PATIENT IN BED ASLEEP, AROUSABLE TO VERBAL AND TACTILE STIMULI. HOB ELEVATED. NO SOB. DENIES ANY C/OF PAIN NOR DISCOMFORT. ALERT AND ORIENTED X1-2. GT INTACT AND PATENT SAQIB FEEDING WELL AT 40 ML/HR, NO RESIDUAL NOTED. ADELE MIDLINE INTACT AND PATENT. RIGHT ARM AV SHUNT WITH GOOD BRUIT/THRILL. BED IN LOWEST POSITION, LOCKED. BED ALARM ON. CALL LIGHT WITHIN REACH.
[2019-09-28 08:00] VITALS: BP 166/74
[2019-09-28] MEDS: Fenofibrate 48 MG TABLET GT SCH (09:09)
[2019-09-28] MEDS: ASCORBIC ACID 500 MG TABLET GT SCH (09:09)
[2019-09-28] MEDS: LIOTHYRONINE SODIUM (25 MCG) 25 MCG TABLET GT SCH (09:09)
[2019-09-28] MEDS: LABETALOL HCL (100MG) 100 MG TABLET GT SCH ×2 (09:10→21:33)
[2019-09-28] MEDS: DOCUSATE SODIUM 250 MG CAPSULE PO SCH (09:10)
[2019-09-28] MEDS: FERROUS SULFATE UDC 300 MG/5 ML UDC GT SCH ×2 (09:10→16:10)
[2019-09-28] MEDS: FOLIC ACID 1 MG TABLET GT SCH (09:10)
[2019-09-28] MEDS: ALLOPURINOL 100 MG TABLET GT SCH (09:10)
[2019-09-28] MEDS: hydrALAZINE HCL 50 MG TABLET PO SCH ×3 (09:10→16:10)
[2019-09-28] MEDS: ISOSORBIDE DINITRATE (20MG) 20 MG TABLET PO SCH ×2 (09:10→16:11)
[2019-09-28] MEDS: LEVETIRACETAM SOL (5 ML) 100 MG/ML UDC GT SCH ×2 (09:10→21:33)
[2019-09-28] MEDS: PANTOPRAZOLE 40 MG VIAL IV SCH ×2 (09:11→16:10)
[2019-09-28] MEDS: AMLODIPINE BESYLATE 10 MG TABLET GT SCH (09:11)
[2019-09-28] MEDS: CLOTRIMAZOLE 1% 15 GM TUBE TP SCH ×2 (09:24→16:43)
[2019-09-28 09:44] LABS: *% CD 4 POS. LYMPH 19.7 % (30.8-58.5); *% CD 8 POS. LYMPH 30.5 % (12.0-35.5); *ABSOLUTE CD 4 HELPER 276 /uL (359-1519); *ABSOLUTE CD 8 SUPPRESSOR 427 /uL (109-897); *CD4/CD8 RATIO 0.65 (0.92-3.72)
[2019-09-28 11:30] LABS: BASOPHILS # (AUTO) 0.1 /CMM (0.0-0.2); BASOPHILS % (AUTO) 0.8 % (0.0-2.0); EOSINOPHILS % (AUTO) 4.4 % (0.0-6.0); HEMATOCRIT 23 % (39-51); HEMOGLOBIN 7.8 g/dL (13.5-17.5); LYMPHOCYTES # (AUTO) 1.1 /CMM (0.8-4.8); LYMPHOCYTES % (AUTO) 10.9 % (20.0-44.0); MEAN CORPUSCULAR HGB CONC 33 g/dl (31.0-36.0); MEAN CORPUSCULAR VOLUME 96 fL (80-96); MONOCYTES # (AUTO) 0.7 /CMM (0.1-1.30); MONOCYTES % (AUTO) 6.4 % (2.0-12.0); NEUTROPHILS % (AUTO) 77.5 % (43.0-81.0); PLATELET COUNT (AUTO) 223 /CMM (150-450); RED BLOOD CELL COUNT(AUTO) 2.45 MIL/uL (4.5-6.0); WHITE BLOOD COUNT (AUTO) 10.3 K/uL (4.3-11.0)
--- NOTE | 2019-09-28 12:55 | NUR ---
MS RN NOTES DIALYSIS COMPLETED SAQIB WELL, OUTPUT 1 L.
[2019-09-28] MEDS: ACETAMINOPHEN 650 MG/20.3 ML UDC NG PRN (16:11)
[2019-09-28 17:00] VITALS: BP 149/75
--- NOTE | 2019-09-28 18:50 | NUR ---
MS RN NOTES PATIENT RESTING COMFORTABLY IN BED, ASLEEP. AROUSABLE TO VERBAL AND TACTILE STIMULI. HOB ELEVATED. NO S/S OF RESPIRATORY DISTRESS. DENIES ANY C/OF PAIN NOR DISCOMFORT. GT INTACT AND PATENT SAQIB FEEDING WELL AT 40 ML/HR, NO RESIDUAL NOTED. ADELE MIDLINE INTACT AND PATENT. RIGHT ARM AV SHUNT WITH GOOD BRUIT/THRILL. NOTED DARK BROWN FORMED STOOL X2. NO S/S OF BLEEDING OBSERVED. ABLE TO ASSIST WITH BED MOBILITY DURING CARE. BED IN LOWEST POSITION, LOCKED. BED ALARM ON. CALL LIGHT WITHIN REACH. IN NO APPARENT DISTRESS.
--- NOTE | 2019-09-28 19:10 | NUR ---
MS RN NOTES RECEIVED PT IN BED RESTING. RESPIRATIONS EVEN AND UNLABORED WITH NO S/S OF ACUTE DISTRESS OR SOB NOTED. NO COMPLAINTS OF PAIN AT THIS TIME, NO S/S OF PAIN. PT NOTED WITH GT INTACT AND PATENT INFUSING FEEDING @ 40 ML/HR. PT NOTED WITH ADELE MIDLINE INTACT AND PATENT. PT ALSO NOTED WITH RIGHT ARM AV SHUNT. SAFETY MEASURES IN PLACE WITH BED IN LOWEST LOCKED POSITION WITH SIDE RAILS UP X2. CALL LIGHT WITHIN REACH. WILL CONTINUE TO MONITOR.
[2019-09-28] MEDS: NEPRO 1,000 ML BOTTLE GT PRN (19:38)
[2019-09-28 20:00] VITALS: BP 101/54
[2019-09-28] MEDS ORDERED: LAMIVUDINE/ZIDOVUDINE 150-300 1 TAB TABLET PO SCH ×2 (21:00)
[2019-09-28] MEDS: GABAPENTIN 300 MG CAPSULE GT SCH (21:33)
[2019-09-28] MEDS: MIRTAZAPINE 15 MG TABLET GT SCH (21:33)
[2019-09-28] MEDS: ATORVASTATIN 40 MG TABLET GT SCH (21:33)
[2019-09-28] MEDS: EFAVIRENZ 600 MG TABLET PO SCH (21:34)
[2019-09-29] MEDS: PIPERACILLIN /TAZOBACTAM 2.25 G in IV D5W 50 ML IV SCH ×3 (04:51→20:15)
[2019-09-29 06:48] LABS: BASOPHILS # (AUTO) 0.1 /CMM (0.0-0.2); BASOPHILS % (AUTO) 0.6 % (0.0-2.0); EOSINOPHILS % (AUTO) 4.5 % (0.0-6.0); HEMATOCRIT 23 % (39-51); HEMOGLOBIN 7.5 g/dL (13.5-17.5); LYMPHOCYTES # (AUTO) 1.5 /CMM (0.8-4.8); LYMPHOCYTES % (AUTO) 14.6 % (20.0-44.0); MEAN CORPUSCULAR HGB CONC 33 g/dl (31.0-36.0); MEAN CORPUSCULAR VOLUME 97 fL (80-96); MONOCYTES # (AUTO) 0.7 /CMM (0.1-1.30); MONOCYTES % (AUTO) 6.7 % (2.0-12.0); NEUTROPHILS # (AUTO) 7.5 /CMM (1.8-8.9); NEUTROPHILS % (AUTO) 73.6 % (43.0-81.0); PLATELET COUNT (AUTO) 208 /CMM (150-450); RED BLOOD CELL COUNT(AUTO) 2.36 MIL/uL (4.5-6.0); WHITE BLOOD COUNT (AUTO) 10.2 K/uL (4.3-11.0)
[2019-09-29 07:01] LABS: CALCIUM, SERUM 9.6 mg/dL (8.5-10.1); CREATININE 4.5 mg/dL (0.6-1.3); PHOSPHORUS 2.4 mg/dL (2.5-4.9); POTASSIUM 3.9 mmol/L (3.5-5.1)
--- NOTE | 2019-09-29 07:15 | NUR ---
MS RN NOTES RECEIVED PATIENT IN BED ASLEEP, AROUSABLE TO VERBAL AND TACTILE STIMULI. HOB ELEVATED. NO SOB. DENIES ANY C/OF PAIN NOR DISCOMFORT. GT INTACT AND PATENT SAQIB FEEDING WELL AT 40 ML/HR, NO RESIDUAL NOTED. ADELE MIDLINE INTACT AND PATENT. RIGHT ARM AV SHUNT WITH GOOD BRUIT/THRILL. BED IN LOWEST POSITION, LOCKED. BED ALARM ON. CALL LIGHT WITHIN REACH. VISUAL CHECK DONE.
--- NOTE | 2019-09-29 07:17 | NUR ---
MS RN NOTES PT IN BED RESTING. RESPIRATIONS EVEN AND UNLABORED WITH NO S/S OF ACUTE DISTRESS OR SOB NOTED THROUGHOUT SHIFT. NO COMPLAINTS OF PAIN AT THIS TIME, NO S/S OF PAIN. PT NOTED WITH GT INTACT AND PATENT INFUSING FEEDING @ 40 ML/HR. PT NOTED WITH ADELE MIDLINE INTACT AND PATENT. PT KEPT CLEAN, DRY, AND COMFORTABLE. PT ALSO NOTED WITH RIGHT ARM AV SHUNT. SAFETY MEASURES IN PLACE WITH BED IN LOWEST LOCKED POSITION WITH SIDE RAILS UP X2. CALL LIGHT WITHIN REACH. WILL ENDORSE TO ONCOMING NURSE FOR EZEQUIEL.
[2019-09-29 08:00] VITALS: BP 114/69
[2019-09-29] MEDS: LIOTHYRONINE SODIUM (25 MCG) 25 MCG TABLET GT SCH (08:37)
[2019-09-29] MEDS: Fenofibrate 48 MG TABLET GT SCH (08:37)
[2019-09-29] MEDS: PANTOPRAZOLE 40 MG VIAL IV SCH ×2 (08:37→17:28)
[2019-09-29] MEDS: FERROUS SULFATE UDC 300 MG/5 ML UDC GT SCH ×2 (08:37→17:28)
[2019-09-29] MEDS: LEVETIRACETAM SOL (5 ML) 100 MG/ML UDC GT SCH ×2 (08:37→21:26)
[2019-09-29] MEDS: FOLIC ACID 1 MG TABLET GT SCH (08:38)
[2019-09-29] MEDS: ISOSORBIDE DINITRATE (20MG) 20 MG TABLET PO SCH ×2 (08:38→17:28)
[2019-09-29] MEDS: ALLOPURINOL 100 MG TABLET GT SCH (08:38)
[2019-09-29] MEDS: hydrALAZINE HCL 50 MG TABLET PO SCH ×3 (08:38→17:29)
[2019-09-29] MEDS: AMLODIPINE BESYLATE 10 MG TABLET GT SCH (08:38)
[2019-09-29] MEDS: DOCUSATE SODIUM 250 MG CAPSULE PO SCH (08:38)
[2019-09-29] MEDS: ASCORBIC ACID 500 MG TABLET GT SCH (08:39)
[2019-09-29] MEDS: LABETALOL HCL (100MG) 100 MG TABLET GT SCH ×2 (08:39→21:27)
[2019-09-29] MEDS: EFAVIRENZ 600 MG TABLET PO SCH (08:42)
[2019-09-29] MEDS: CLOTRIMAZOLE 1% 15 GM TUBE TP SCH ×2 (09:01→17:41)
[2019-09-29 17:00] VITALS: BP 110/71
--- NOTE | 2019-09-29 18:37 | NUR ---
MS RN NOTES PATIENT RESTING COMFORTABLY IN BED, ASLEEP. AROUSABLE TO VERBAL AND TACTILE STIMULI. HOB ELEVATED. NO S/S OF RESPIRATORY DISTRESS. DENIES ANY C/OF PAIN NOR DISCOMFORT. GT INTACT AND PATENT SAQIB FEEDING WELL AT 40 ML/HR, NO RESIDUAL NOTED. ADELE MIDLINE INTACT AND PATENT. RIGHT ARM AV SHUNT WITH GOOD BRUIT/THRILL. NO S/S OF BLEEDING OBSERVED. BED IN LOWEST POSITION, LOCKED. BED ALARM ON. CALL LIGHT WITHIN REACH. IN NO APPARENT DISTRESS.
[2019-09-29 20:00] VITALS: BP 106/63
[2019-09-29] MEDS: MIRTAZAPINE 15 MG TABLET GT SCH (21:26)
[2019-09-29] MEDS: GABAPENTIN 300 MG CAPSULE GT SCH (21:26)
[2019-09-29] MEDS: ATORVASTATIN 40 MG TABLET GT SCH (21:26)
[2019-09-29] MEDS: NEPRO 1,000 ML BOTTLE GT PRN (21:29)
[2019-09-30] MEDS: PIPERACILLIN /TAZOBACTAM 2.25 G in IV D5W 50 ML IV SCH ×2 (04:10→12:29)
--- NOTE | 2019-09-30 07:35 | NUR ---
MS RN NOTES RECEIVED PATIENT IN BED ASLEEP, AROUSABLE TO VERBAL AND TACTILE STIMULI. HOB ELEVATED. NO SOB. DENIES ANY C/O PAIN NOR DISCOMFORT. GT INTACT AND PATENT SAQIB FEEDING WELL AT 40 ML/HR, NO RESIDUAL NOTED. ADELE MIDLINE INTACT AND PATENT. RIGHT ARM AV SHUNT WITH GOOD BRUIT/THRILL. BED IN LOWEST POSITION, LOCKED. BED ALARM ON. CALL LIGHT WITHIN REACH. VISUAL CHECK DONE.
[2019-09-30 08:00] VITALS: BP 162/79
[2019-09-30] MEDS ORDERED: EFAVIRENZ 600 MG TABLET PO SCH (09:00)
[2019-09-30] MEDS: DOCUSATE SODIUM 250 MG CAPSULE PO SCH (09:23)
[2019-09-30] MEDS: FERROUS SULFATE UDC 300 MG/5 ML UDC GT SCH ×2 (09:23→17:00)
[2019-09-30] MEDS: LEVETIRACETAM SOL (5 ML) 100 MG/ML UDC GT SCH (09:23)
[2019-09-30] MEDS: PANTOPRAZOLE 40 MG VIAL IV SCH ×2 (09:24→17:00)
[2019-09-30] MEDS: ASCORBIC ACID 500 MG TABLET GT SCH (09:24)
[2019-09-30] MEDS: LIOTHYRONINE SODIUM (25 MCG) 25 MCG TABLET GT SCH (09:24)
[2019-09-30] MEDS: FOLIC ACID 1 MG TABLET GT SCH (09:24)
[2019-09-30] MEDS: ISOSORBIDE DINITRATE (20MG) 20 MG TABLET PO SCH ×2 (09:25→17:00)
[2019-09-30] MEDS: hydrALAZINE HCL 50 MG TABLET PO SCH ×3 (09:25→17:00)
[2019-09-30] MEDS: LABETALOL HCL (100MG) 100 MG TABLET GT SCH (09:29)
[2019-09-30] MEDS: AMLODIPINE BESYLATE 10 MG TABLET GT SCH (09:29)
[2019-09-30] MEDS: ALLOPURINOL 100 MG TABLET GT SCH (09:29)
[2019-09-30] MEDS: Fenofibrate 48 MG TABLET GT SCH (09:29)
[2019-09-30] MEDS: CLOTRIMAZOLE 1% 15 GM TUBE TP SCH ×2 (09:42→17:27)
[2019-09-30 11:27] LABS: BASOPHILS # (AUTO) 0.1 /CMM (0.0-0.2); BASOPHILS % (AUTO) 0.9 % (0.0-2.0); EOSINOPHILS % (AUTO) 5.4 % (0.0-6.0); HEMATOCRIT 23 % (39-51); HEMOGLOBIN 7.7 g/dL (13.5-17.5); LYMPHOCYTES # (AUTO) 1.3 /CMM (0.8-4.8); LYMPHOCYTES % (AUTO) 13.8 % (20.0-44.0); MEAN CORPUSCULAR HGB CONC 33 g/dl (31.0-36.0); MEAN CORPUSCULAR VOLUME 96 fL (80-96); MONOCYTES # (AUTO) 0.8 /CMM (0.1-1.30); MONOCYTES % (AUTO) 8.2 % (2.0-12.0); NEUTROPHILS # (AUTO) 6.8 /CMM (1.8-8.9); NEUTROPHILS % (AUTO) 71.7 % (43.0-81.0); PLATELET COUNT (AUTO) 192 /CMM (150-450); RED BLOOD CELL COUNT(AUTO) 2.42 MIL/uL (4.5-6.0); WHITE BLOOD COUNT (AUTO) 9.5 K/uL (4.3-11.0)
[2019-09-30] MEDS ORDERED: EFAV600T PO (14:14)
[2019-09-30] MEDS ORDERED: HYDR-4077 PO (14:14)
[2019-09-30] MEDS ORDERED: Nepro GT (14:14)
--- NOTE | 2019-09-30 17:27 | NUR ---
MS RN NOTES HELD EVENING MEDS, PATIENT CURRENTLY RECEIVING HD.
--- NOTE | 2019-09-30 18:51 | NUR ---
MS RN NOTES PATIENT RESTING COMFORTABLY IN BED, ASLEEP. AROUSABLE TO VERBAL AND TACTILE STIMULI. HOB ELEVATED. NO S/S OF RESPIRATORY DISTRESS. DENIES ANY C/OF PAIN NOR DISCOMFORT. GT INTACT AND PATENT SAQIB FEEDING WELL AT 40 ML/HR, NO RESIDUAL NOTED. ADELE MIDLINE INTACT AND PATENT. RIGHT ARM AV SHUNT WITH GOOD BRUIT/THRILL. NO S/S OF BLEEDING OBSERVED. PATIENT STILL RECEIVING DIALYSIS SAQIB WELL. BED IN LOWEST POSITION, LOCKED. BED ALARM ON. CALL LIGHT WITHIN REACH. IN NO APPARENT DISTRESS. REPORT GIVEN TO SN[facility] A[facility] MENDE[facility] AT [facility] WITH DISCHARGE INSTRUCTIONS PROVIDED VIA PHONE.
--- NOTE | 2019-09-30 19:35 | NUR ---
MS RN NOTES LEFT UPPER ARM MIDLINE REMOVED WITH CATHETER TIP INTACT WITH GAUZE DRESSING APPLIED. ALL BELONGINGS ACCOUNTED FOR. AWAITING FOR AMBULANCE TRANSPORTATION.
[2019-09-30 20:33] VITALS: BP 154/80
--- NOTE | 2019-09-30 20:51 | NUR ---
MS AX SURVEY WORKER NOTES PT DISCHARGED FROM UNIT VIA AMBULANCE BY 2 CONSTRUCTION ADMINISTRATIVE ASSISTANT VIA [facility]E IN STABLE CONDITION. PT A/O 1-2. RESPIRATIONS EVEN AND UNLABORED WITH NO S/S OF ACUTE DISTRESS OR SOB NOTED. PT S/P DIALYSIS WITH 1L OUT. NO COMPLAINTS OF PAIN. PT LEFT WITH BELONGINGS AND MIDLINE WAS REMOVED. DISCHARGE PAPERWORK GIVEN TO CONSTRUCTION ADMINISTRATIVE ASSISTANT AND DISCHARGE INSTRUCTIONS GIVEN TO FACILITY AND VERBALIZED UNDERSTANDING. ID BAND REMOVED.
== END 2019-09-30 20:50 | DRG 137 ==
LOC: ER 11:04 → ICU 17:17 → MED 09-24 10:46 → TELE 09-24 10:52 → MED 09-25 10:05 → MEDSG2 09-25 20:41
PROVIDERS: ADMIT Registered Nurse; ATTEND Nurse Practitioner Acute Care
PROC: 5A1D70Z Performance of Urinary Filtration, Intermittent, Less than 6 Hours Per Day (ICD-10-PCS; principal; 2019-09-21)
PROC: 30233N1 Transfusion of Nonautologous Red Blood Cells into Peripheral Vein, Percutaneous Approach (ICD-10-PCS; principal; 2019-09-21)
PROC: B547ZZA Ultrasonography of Left Subclavian Vein, Guidance (ICD-10-PCS; principal; 2019-09-21)
PROC: 05H633Z Insertion of Infusion Device into Left Subclavian Vein, Percutaneous Approach (ICD-10-PCS; principal; 2019-09-21)
PROC: 0DB58ZX Excision of Esophagus, Via Natural or Artificial Opening Endoscopic, Diagnostic (ICD-10-PCS; 2019-09-22)
DX: J69.0 Pneumonitis due to inhalation of food and vomit (principal); R57.1 Hypovolemic shock; E11.22 Type 2 diabetes mellitus with diabetic chronic kidney disease; F32.9 Major depressive disorder, single episode, unspecified; G93.41 Metabolic encephalopathy; I12.0 Hypertensive chronic kidney disease with stage 5 chronic kidney disease or end stage renal disease; N18.6 End stage renal disease; Z99.2 Dependence on renal dialysis; Z87.01 Personal history of pneumonia (recurrent); Z93.1 Gastrostomy status; J98.11 Atelectasis; B20 Human immunodeficiency virus [HIV] disease; K22.8 Other specified diseases of esophagus; I32 Pericarditis in diseases classified elsewhere; K92.0 Hematemesis; K29.70 Gastritis, unspecified, without bleeding; D53.9 Nutritional anemia, unspecified; D63.8 Anemia in other chronic diseases classified elsewhere; E03.9 Hypothyroidism, unspecified; E78.5 Hyperlipidemia, unspecified; K21.9 Gastro-esophageal reflux disease without esophagitis; Z79.4 Long term (current) use of insulin; Z79.899 Other long term (current) drug therapy; R04.0 Epistaxis; I69.354 Hemiplegia and hemiparesis following cerebral infarction affecting left non-dominant side; M10.9 Gout, unspecified
CPT/HCPCS: 36415; 71045-TC; 80048-TC; 80053-TC; 80061-TC; 80076-TC; 82272-TC; 82962-TC; 83690-TC; 83735-TC; 84100-TC; 84443-TC; 84484-TC; 85025-TC; 85027-TC; 85730-TC; 86360; 86850-TC; 86921-TC; 87040-TC; 87081-TC; 87806; 88305-TC; 88313-TC; 90935-TC; 93307-TC; A4216; A4217; A6403; C9113; C9803-CS; G0378; J0360; J0885; J1953; J2270; J2405; J2543; J2704; J3480; J7030; J7040; J7050; J7060; P9016-BL

== ENCOUNTER 2021-02-26 10:53 | Inpatient (IN) | payer OTHER ==
[~2021-02-26] VITALS: Ht 170.2 cm; Wt 70.3 kg
[~2021-02-26 10:53] MED LIST changes: +ACET-868 GT; -ACET325T53 PO; +AMLO-213 GT; -AMLO10TA7 GT; +EFAV600T PO; +EPOE1000 SQ; -FERR325T24 PO; -FOLI0.8T GT; +FOLI0.8T3 GT; +HYDR-4077 PO; +INSU100V39 SQ; +LEVE100S GT; +LORA2VIA6 IM; +MIRT-91 GT; -MIRT30TA7 GT; +Nepro GT; +OMEP20CA15 GT; -PANT20TA3 PO; -PANT40SU2 GT
--- NOTE | 2021-02-26 11:10 | NUR ---
PT BIB [facility] FOR RUE DIALYSIS ACCESS SWELLING R/O INFECTION. 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 (MWF) DIALIZED YESTERDAY. PT A/OX1. CONNECTED PT TO POX AND MONITOR. SAFETY MEASURES IN PLACE
--- NOTE | 2021-02-26 11:15 | NUR ---
KATHERINE MEI AT PT'S BEDSIDE
--- NOTE | 2021-02-26 11:22 | NUR ---
DOCK COORDINATOR AT PT'S BEDSIDE
[2021-02-26] MEDS ORDERED: ABAC300T2 PO (11:29)
[2021-02-26] MEDS ORDERED: DARU800T2 GT (11:29)
[2021-02-26] MEDS ORDERED: DOCU-141 GT (11:29)
--- NOTE | 2021-02-26 11:35 | NUR ---
COVID SWAB DONE AND SENT TO LAB
--- NOTE | 2021-02-26 11:38 | NUR ---
TELETRAY OPERATOR AT BEDSIDE FOR BLOOD DRAW
[2021-02-26 12:03] LABS: BASOPHILS # (AUTO) 0.1 K/uL (0.0-0.2); BASOPHILS % (AUTO) 1.3 % (0.0-2.0); EOSINOPHILS % (AUTO) 1.5 % (0.0-6.0); HEMATOCRIT 32 % (39-51); HEMOGLOBIN 10.8 g/dL (13.5-17.5); LYMPHOCYTES # (AUTO) 0.8 K/uL (0.8-4.8); MEAN CORPUSCULAR HGB CONC 33 g/dl (31.0-36.0); MEAN CORPUSCULAR VOLUME 107 fL (80-96); MONOCYTES # (AUTO) 0.4 K/uL (0.1-1.30); MONOCYTES % (AUTO) 9.3 % (2.0-12.0); NEUTROPHILS # (AUTO) 3.2 K/uL (1.8-8.9); NEUTROPHILS % (AUTO) 70.9 % (43.0-81.0); PLATELET COUNT (AUTO) 73 K/uL (150-450); RED BLOOD CELL COUNT(AUTO) 3.01 MIL/uL (4.5-6.0); WHITE BLOOD COUNT (AUTO) 4.6 K/uL (4.3-11.0)
[2021-02-26 12:22] LABS: CALCIUM, SERUM 8.5 mg/dL (8.5-10.1); CREATININE 3.8 mg/dL (0.6-1.3); POTASSIUM 3.3 mmol/L (3.5-5.1)
[2021-02-26 12:31] LABS: BILIRUBIN,DIRECT 0.4 mg/dL (0.0-0.2); BILIRUBIN,TOTAL 1.4 mg/dL (0.2-1.0); TOTAL PROTEIN, SERUM 5.9 g/dL (6.4-8.2)
--- NOTE | 2021-02-26 12:32 | NUR ---
COVID ANTIGEN (+); KATHERINE MEI AWARE. CONTACT DROPLET ISO PRECAUTIONS IN PLACE
[2021-02-26] MEDS ORDERED: ACETAMINOPHEN 325 MG TABLET PO PRN (13:30)
[2021-02-26] MEDS ORDERED: DEXTROSE 50%-WATER 50 ML DISP.SYRIN IV PRN (14:00)
[2021-02-26] MEDS ORDERED: LORAZEPAM INJ 2 MG/ML VIAL IV PRN (14:00)
[2021-02-26] MEDS ORDERED: ALBUTEROL SULFATE 8 GM HFA.AER.AD IH PRN (14:00)
[2021-02-26] MEDS ORDERED: ACETAMINOPHEN 650 MG/SUPP.RECT RC PRN (14:00)
[2021-02-26] MEDS ORDERED: ONDANSETRON HCL/PF 4 MG/2 ML VIAL IVP PRN (14:00)
[2021-02-26] MEDS: AZITHROMYCIN 500 MG in IV D5W 250 ML IV SCH (16:50)
[2021-02-26] MEDS: GABAPENTIN 300 MG CAPSULE GT SCH (18:00)
[2021-02-26] MEDS: ABACAVIR SULFATE 300 MG TABLET PO SCH (18:00)
[2021-02-26] MEDS: LABETALOL HCL (100MG) 100 MG TABLET GT SCH (18:00)
[2021-02-26] MEDS: FERROUS SULFATE UDC 300 MG/5 ML UDC GT SCH (18:00)
[2021-02-26] MEDS ORDERED: GABAPENTIN 300 MG CAPSULE ONE (18:06)
[2021-02-26] MEDS ORDERED: FERROUS SULFATE UDC 300 MG/5 ML UDC ONE (18:06)
[2021-02-26] MEDS ORDERED: LABETALOL HCL (100MG) 100 MG TABLET ONE (18:06)
[2021-02-26] MEDS ORDERED: ABACAVIR SULFATE 300 MG TABLET ONE (18:06)
[2021-02-26] MEDS: BLOOD SUGAR DIAGNOSTIC 1 EACH STRIP VI SCH ×2 (18:30→22:05)
[2021-02-26] MEDS ORDERED: INSULIN REGULAR, HUMAN 100 UNIT/ML 10 ML VIAL ONE (19:04)
[2021-02-26] MEDS: *INSULIN REGULAR(HUMULIN R)HUM 100 UNIT/ML VIAL SQ PRN ×2 (19:05→22:05)
--- NOTE | 2021-02-26 19:06 | NUR ---
GOT BED AFTER CHANGE OF SHIFT 117 PER HOUSE SUP.
[2021-02-26] MEDS ORDERED: MIDODRINE HCL (5MG) 5 MG TABLET ONE (19:45)
[2021-02-26] MEDS ORDERED: LEVETIRACETAM (500MG) 500 MG/5 ML VIAL IV ONE (19:45)
[2021-02-26] MEDS ORDERED: MIRTAZAPINE 15 MG TABLET ONE (19:46)
[2021-02-26] MEDS ORDERED: ATORVASTATIN 40 MG TABLET ONE (19:46)
[2021-02-26] MEDS: MIDODRINE HCL (5MG) 5 MG TABLET GT SCH (20:05)
[2021-02-26] MEDS: LEVETIRACETAM SOL (5 ML) 100 MG/ML UDC GT SCH (20:10)
[2021-02-26] MEDS: DOXYCYCLINE 100 MG in IV D5W 100 ML IV SCH (20:10)
--- NOTE | 2021-02-26 21:34 | NUR ---
BP 78/53. PT IN NO DISTRESS AT THIS TIME.
--- NOTE | 2021-02-26 21:48 | NUR ---
BP 96/39
[2021-02-26] MEDS: ATORVASTATIN 40 MG TABLET GT SCH (21:59)
[2021-02-26] MEDS: MIRTAZAPINE 15 MG TABLET GT SCH (21:59)
--- NOTE | 2021-02-26 22:15 | NUR ---
AWAITING CALL BACK FROM ARSENIO MENDEZ TO GIVE REPORT
[2021-02-27] MEDS ORDERED: IV NS 0.9% 500 ML BAG IV ONE (00:30)
--- NOTE | 2021-02-27 00:42 | NUR ---
AUGUSTINE GREEN AT PT'S BEDSIDE FOR CENTRAL LINE
[2021-02-27] MEDS ORDERED: NOREPINEPHRINE 4 MG/4 ML AMPUL IV ONE (01:08)
[2021-02-27 04:56] LABS: BASOPHILS # (AUTO) 0.1 K/uL (0.0-0.2); BASOPHILS % (AUTO) 1.1 % (0.0-2.0); EOSINOPHILS % (AUTO) 1.3 % (0.0-6.0); HEMATOCRIT 34 % (39-51); HEMOGLOBIN 11.2 g/dL (13.5-17.5); LYMPHOCYTES # (AUTO) 1.1 K/uL (0.8-4.8); LYMPHOCYTES % (AUTO) 18.7 % (20.0-44.0); MEAN CORPUSCULAR HGB CONC 33 g/dl (31.0-36.0); MEAN CORPUSCULAR VOLUME 107 fL (80-96); MONOCYTES # (AUTO) 0.5 K/uL (0.1-1.30); MONOCYTES % (AUTO) 7.7 % (2.0-12.0); NEUTROPHILS # (AUTO) 4.3 K/uL (1.8-8.9); NEUTROPHILS % (AUTO) 71.2 % (43.0-81.0); PLATELET COUNT (AUTO) 92 K/uL (150-450); RED BLOOD CELL COUNT(AUTO) 3.19 MIL/uL (4.5-6.0)
[2021-02-27 05:10] LABS: ALBUMIN 2.1 g/dL (3.4-5.0); BILIRUBIN,TOTAL 0.9 mg/dL (0.2-1.0); CALCIUM, SERUM 9.1 mg/dL (8.5-10.1); CREATININE 4.4 mg/dL (0.6-1.3); POTASSIUM 3.6 mmol/L (3.5-5.1); TOTAL PROTEIN, SERUM 6.2 g/dL (6.4-8.2)
[2021-02-27] MEDS: BLOOD SUGAR DIAGNOSTIC 1 EACH STRIP VI SCH ×4 (07:43→21:53)
[2021-02-27] MEDS: *INSULIN REGULAR(HUMULIN R)HUM 100 UNIT/ML VIAL SQ PRN (07:43)
[2021-02-27] MEDS ORDERED: INSULIN REGULAR, HUMAN 100 UNIT/ML 10 ML VIAL ONE (07:56)
[2021-02-27] MEDS ORDERED: DARUNAVIR ETHANOLATE 800 MG TABLET PO SCH (09:00)
[2021-02-27] MEDS ORDERED: FENOFIBRATE MICRONIZED 67 MG GT SCH (09:00)
[2021-02-27] MEDS ORDERED: DOCUSATE SODIUM 100 MG CAPSULE PO SCH (09:00)
[2021-02-27] MEDS ORDERED: FERROUS SULFATE UDC 300 MG/5 ML UDC ONE ×2 (09:11→16:02)
[2021-02-27] MEDS ORDERED: DOCUSATE SODIUM LIQ 100 MG/10 ML UDC ONE (09:11)
[2021-02-27] MEDS ORDERED: LIOTHYRONINE SODIUM (25 MCG) 25 MCG TABLET ONE (09:11)
[2021-02-27] MEDS ORDERED: ALLOPURINOL 100 MG TABLET ONE (09:11)
[2021-02-27] MEDS ORDERED: GABAPENTIN 300 MG CAPSULE ONE ×3 (09:12→16:03)
[2021-02-27] MEDS ORDERED: FOLIC ACID 1 MG TABLET ONE (09:12)
[2021-02-27] MEDS ORDERED: LABETALOL HCL (100MG) 100 MG TABLET ONE ×2 (09:12→16:03)
[2021-02-27] MEDS ORDERED: MIDODRINE HCL (5MG) 5 MG TABLET ONE ×3 (09:12→16:06)
[2021-02-27] MEDS ORDERED: LEVETIRACETAM SOL (5 ML) 100 MG/ML UDC ONE ×2 (09:12→21:35)
[2021-02-27] MEDS ORDERED: AMLODIPINE BESYLATE 10 MG TABLET ONE (09:13)
[2021-02-27] MEDS: FERROUS SULFATE UDC 300 MG/5 ML UDC GT SCH ×2 (09:14→16:20)
[2021-02-27] MEDS: LIOTHYRONINE SODIUM (25 MCG) 25 MCG TABLET GT SCH (09:14)
[2021-02-27] MEDS: LEVETIRACETAM SOL (5 ML) 100 MG/ML UDC GT SCH ×2 (09:15→21:36)
[2021-02-27] MEDS: FOLIC ACID 1 MG TABLET GT SCH (09:15)
[2021-02-27] MEDS: AMLODIPINE BESYLATE 10 MG TABLET GT SCH (09:15)
[2021-02-27] MEDS: GABAPENTIN 300 MG CAPSULE GT SCH ×3 (09:15→16:20)
[2021-02-27] MEDS: LABETALOL HCL (100MG) 100 MG TABLET GT SCH ×2 (09:16→16:21)
[2021-02-27] MEDS: DOCUSATE SODIUM 250 MG CAPSULE PO SCH (09:16)
[2021-02-27] MEDS: ALLOPURINOL 100 MG TABLET GT SCH (09:16)
[2021-02-27] MEDS: MIDODRINE HCL (5MG) 5 MG TABLET GT SCH ×3 (09:17→16:20)
[2021-02-27] MEDS: ABACAVIR SULFATE 300 MG TABLET PO SCH ×2 (09:35→16:21)
--- NOTE | 2021-02-27 09:35 | NUR ---
CATE NOT AVAILABLE AT THE PHARMACY. WILL INFORM
[2021-02-27] MEDS: DOXYCYCLINE 100 MG in IV D5W 100 ML IV SCH ×2 (09:52→21:36)
[2021-02-27 10:20] LABS: BAND % (MANUAL) 1 % (0.0-5.0); LYMPHOCYTES % (MANUAL) 9 % (16-48); NEUTROPHILS % (MANUAL) 83 (42-76)
[2021-02-27 10:21] LABS: MONOCYTES % (MANUAL) 7 % (0-11.0)
--- NOTE | 2021-02-27 12:40 | NUR ---
BLOOD SUGAR READING IS 124. NO COVERAGE PER ORDER.
[2021-02-27] MEDS ORDERED: ABACAVIR SULFATE 300 MG TABLET ONE (16:03)
[2021-02-27] MEDS: AZITHROMYCIN 500 MG in IV D5W 250 ML IV SCH (16:10)
--- NOTE | 2021-02-27 17:50 | NUR ---
NEPRO 50 ML HR X20 HR AND DIETARY CONSULT PER QC LAB TECHNICIAN KEH. THE ORDERS ARE READ BACK, VERIFIED. NOTED AND CARRIED OUT.
--- NOTE | 2021-02-27 18:51 | NUR ---
NEPRO 50 ML/HR VIA GT STARTED PER LOAN OPERATIONS MANAGER KEH. HOB ELEVATED TO PREVENT ASPIRATION.
[2021-02-27] MEDS ORDERED: ATORVASTATIN 40 MG TABLET ONE (21:37)
[2021-02-27] MEDS ORDERED: MIRTAZAPINE 15 MG TABLET ONE (21:38)
[2021-02-27] MEDS: ATORVASTATIN 40 MG TABLET GT SCH (22:05)
[2021-02-27] MEDS: MIRTAZAPINE 15 MG TABLET GT SCH (22:05)
[2021-02-28] VITALS (8 sets, daily range): BP systolic 61–129; BP diastolic 36–82
--- NOTE | 2021-02-28 00:11 | NUR ---
PT TOLERATING NEPRO 50 ML HR WELL WITH <10ML RESIDUAL. STOP TIME 1600. START TIME 1999.
[2021-02-28 05:47] LABS: BASOPHILS # (AUTO) 0.1 K/uL (0.0-0.2); EOSINOPHILS % (AUTO) 1.7 % (0.0-6.0); HEMATOCRIT 34 % (39-51); HEMOGLOBIN 11.5 g/dL (13.5-17.5); LYMPHOCYTES # (AUTO) 1.5 K/uL (0.8-4.8); LYMPHOCYTES % (AUTO) 24.2 % (20.0-44.0); MEAN CORPUSCULAR HGB CONC 34 g/dl (31.0-36.0); MEAN CORPUSCULAR VOLUME 106 fL (80-96); MONOCYTES # (AUTO) 0.6 K/uL (0.1-1.30); MONOCYTES % (AUTO) 8.8 % (2.0-12.0); NEUTROPHILS # (AUTO) 4.1 K/uL (1.8-8.9); NEUTROPHILS % (AUTO) 64.3 % (43.0-81.0); PLATELET COUNT (AUTO) 139 K/uL (150-450); RED BLOOD CELL COUNT(AUTO) 3.22 MIL/uL (4.5-6.0); WHITE BLOOD COUNT (AUTO) 6.3 K/uL (4.3-11.0)
--- NOTE | 2021-02-28 06:50 | NUR ---
AM CARE DONE, PT TURN Q2H DURING SHIFT. TOLERATING G TUBE FEEDING WELL.
[2021-02-28 06:58] LABS: CALCIUM, SERUM 8.9 mg/dL (8.5-10.1); CREATININE 5.4 mg/dL (0.6-1.3); PHOSPHORUS 5.5 mg/dL (2.5-4.9); POTASSIUM 3.6 mmol/L (3.5-5.1)
[2021-02-28] MEDS ORDERED: FERROUS SULFATE UDC 300 MG/5 ML UDC ONE ×2 (07:46→16:53)
[2021-02-28] MEDS ORDERED: DOCUSATE SODIUM 250 MG CAPSULE PO ONE (07:46)
[2021-02-28] MEDS ORDERED: ALLOPURINOL 100 MG TABLET ONE (07:46)
[2021-02-28] MEDS ORDERED: LIOTHYRONINE SODIUM (25 MCG) 25 MCG TABLET ONE (07:47)
[2021-02-28] MEDS ORDERED: FOLIC ACID 1 MG TABLET ONE (07:47)
[2021-02-28] MEDS ORDERED: LEVETIRACETAM SOL (5 ML) 100 MG/ML UDC ONE ×2 (07:47→21:29)
[2021-02-28] MEDS ORDERED: MIDODRINE HCL (5MG) 5 MG TABLET ONE ×3 (07:47→16:53)
[2021-02-28] MEDS ORDERED: GABAPENTIN 300 MG CAPSULE ONE ×3 (07:48→16:54)
[2021-02-28] MEDS ORDERED: LABETALOL HCL (100MG) 100 MG TABLET ONE ×2 (07:48→16:53)
[2021-02-28] MEDS ORDERED: AMLODIPINE BESYLATE 10 MG TABLET ONE (07:48)
[2021-02-28] MEDS ORDERED: ABACAVIR SULFATE 300 MG TABLET ONE ×2 (07:49→16:54)
[2021-02-28] MEDS: BLOOD SUGAR DIAGNOSTIC 1 EACH STRIP VI SCH ×4 (08:27→23:29)
[2021-02-28] MEDS: GABAPENTIN 300 MG CAPSULE GT SCH ×3 (08:28→16:56)
[2021-02-28] MEDS: FERROUS SULFATE UDC 300 MG/5 ML UDC GT SCH ×2 (08:28→16:55)
[2021-02-28] MEDS: LIOTHYRONINE SODIUM (25 MCG) 25 MCG TABLET GT SCH (08:28)
[2021-02-28] MEDS: FOLIC ACID 1 MG TABLET GT SCH (08:28)
[2021-02-28] MEDS: AMLODIPINE BESYLATE 10 MG TABLET GT SCH (08:28)
[2021-02-28] MEDS: LEVETIRACETAM SOL (5 ML) 100 MG/ML UDC GT SCH ×2 (08:28→21:30)
[2021-02-28] MEDS: LABETALOL HCL (100MG) 100 MG TABLET GT SCH ×2 (08:29→16:56)
[2021-02-28] MEDS: MIDODRINE HCL (5MG) 5 MG TABLET GT SCH ×3 (08:29→16:56)
[2021-02-28] MEDS: ALLOPURINOL 100 MG TABLET GT SCH (08:29)
[2021-02-28] MEDS: INSULIN REGULAR, HUMAN 100 UNIT/ML 3 ML VIAL SQ PRN (08:34)
[2021-02-28] MEDS ORDERED: DOXYCYCLINE HYCLATE (100 MG) 100 MG TABLET GT SCH (09:30)
[2021-02-28] MEDS: DOCUSATE SODIUM 250 MG CAPSULE PO SCH (09:35)
[2021-02-28] MEDS: ABACAVIR SULFATE 300 MG TABLET PO SCH ×2 (09:35→16:57)
[2021-02-28] MEDS ORDERED: DOXYCYCLINE HYCLATE (100 MG) 100 MG TABLET ONE (09:36)
--- NOTE | 2021-02-28 16:00 | NUR ---
NEPRO GTUBE FEEDING HELD ORDERED. <10ML RESIDUAL NOTED. PT TOLERATING FEEDINGS WELL. WILL RESUME FEEDING 1999 ORDERED.
[2021-02-28] MEDS: AZITHROMYCIN 500 MG in IV D5W 250 ML IV SCH (16:50)
[2021-02-28] MEDS: *INSULIN REGULAR(HUMULIN R)HUM 100 UNIT/ML VIAL SQ PRN ×2 (17:24→23:31)
--- NOTE | 2021-02-28 18:06 | NUR ---
ASSIGNED TO 262. PT TO TRANSFER NEXT SHIFT
[2021-02-28] MEDS: NOREPINEPHRINE 8 MG in IV NS 0.9% 242 ML IV PRN ×2 (18:10→22:15)
--- NOTE | 2021-02-28 19:54 | NUR ---
REPORT GIVEN TO GARRET MENDEZ FOR EZEQUIEL
--- NOTE | 2021-02-28 20:00 | NUR ---
RESUMED NEPRO GTUBE FEEDING @ 50CC/HR ORDERED. <10ML RESIDUAL NOTED. PT TOLERATING FEEDINGS WELL. WILL ENDORSE TO ONCOMING RN TO HOLD FEEDINGS AT 1600 FOR NEPHRO X20HRS.
[2021-02-28] MEDS: ATORVASTATIN 40 MG TABLET GT SCH (21:40)
[2021-02-28] MEDS: MIRTAZAPINE 15 MG TABLET GT SCH (21:40)
[2021-02-28] MEDS ORDERED: MIRTAZAPINE 15 MG TABLET ONE (21:43)
[2021-02-28] MEDS ORDERED: ATORVASTATIN 40 MG TABLET ONE (21:43)
--- NOTE | 2021-02-28 21:50 | NUR ---
PT SEEN BY SEVEN GREEN ID.
--- NOTE | 2021-02-28 22:15 | NUR ---
PT TRANSPORTED TO ROOM 262 ON STEAM FITTER HELPER PER ACLS PROTOCOL. LEVOPHED INFUSING AT 0.1MCG/KG/MIN. ALL V/S STABLE AT TIME OF TRANSFER.
[2021-02-28] MEDS ORDERED: VANCOMYCIN 1.25 GM in IV D5W 250 ML IV ONE (22:30)
[2021-02-28] MEDS: NEPRO 1,000 ML BOTTLE GT PRN (22:31)
[2021-02-28] MEDS ORDERED: VANCOMYCIN 1 GM VIAL ONE (22:58)
[2021-02-28] MEDS ORDERED: CEFEPIME 1 GM VIAL ONE (23:42)
[2021-02-28] MEDS: IV NS 0.9% 250 ML IV PRN (23:59)
[2021-02-28] MEDS: CEFEPIME 1 GM in IV D5W 50 ML IV SCH (23:59)
[2021-03-01] VITALS (81 sets, daily range): BP systolic 67–148; BP diastolic 32–88
[2021-03-01 05:47] LABS: BASOPHILS # (AUTO) 0.1 K/uL (0.0-0.2); EOSINOPHILS % (AUTO) 1.3 % (0.0-6.0); HEMATOCRIT 33 % (39-51); HEMOGLOBIN 10.9 g/dL (13.5-17.5); LYMPHOCYTES # (AUTO) 1.5 K/uL (0.8-4.8); LYMPHOCYTES % (AUTO) 21.4 % (20.0-44.0); MEAN CORPUSCULAR HGB CONC 33 g/dl (31.0-36.0); MEAN CORPUSCULAR VOLUME 107 fL (80-96); MONOCYTES # (AUTO) 0.6 K/uL (0.1-1.30); MONOCYTES % (AUTO) 8.1 % (2.0-12.0); NEUTROPHILS # (AUTO) 4.9 K/uL (1.8-8.9); NEUTROPHILS % (AUTO) 68.2 % (43.0-81.0); PLATELET COUNT (AUTO) 146 K/uL (150-450); RED BLOOD CELL COUNT(AUTO) 3.07 MIL/uL (4.5-6.0); WHITE BLOOD COUNT (AUTO) 7.2 K/uL (4.3-11.0)
[2021-03-01 06:19] LABS: CALCIUM, SERUM 9.1 mg/dL (8.5-10.1); CREATININE 6.2 mg/dL (0.6-1.3); POTASSIUM 3.6 mmol/L (3.5-5.1)
[2021-03-01] MEDS ORDERED: VANCOMYCIN POST DIALYSIS 500MG IV PRN (06:30)
[2021-03-01] MEDS: BLOOD SUGAR DIAGNOSTIC 1 EACH STRIP VI SCH ×4 (07:54→23:35)
[2021-03-01] MEDS: FERROUS SULFATE UDC 300 MG/5 ML UDC GT SCH ×2 (08:16→17:06)
[2021-03-01] MEDS: LEVETIRACETAM SOL (5 ML) 100 MG/ML UDC GT SCH ×2 (08:16→20:36)
[2021-03-01] MEDS: ALLOPURINOL 100 MG TABLET GT SCH (08:16)
[2021-03-01] MEDS: FOLIC ACID 1 MG TABLET GT SCH (08:16)
[2021-03-01] MEDS: GABAPENTIN 300 MG CAPSULE GT SCH ×3 (08:16→17:06)
[2021-03-01] MEDS: MIDODRINE HCL (5MG) 5 MG TABLET GT SCH ×3 (08:17→17:06)
[2021-03-01] MEDS: ABACAVIR SULFATE 300 MG TABLET PO SCH ×2 (08:38→17:08)
[2021-03-01] MEDS: LIOTHYRONINE SODIUM (25 MCG) 25 MCG TABLET GT SCH (08:39)
[2021-03-01] MEDS: LABETALOL HCL (100MG) 100 MG TABLET GT SCH ×2 (09:00→17:00)
[2021-03-01] MEDS: AMLODIPINE BESYLATE 10 MG TABLET GT SCH (09:00)
[2021-03-01] MEDS: DOCUSATE SODIUM 250 MG CAPSULE PO SCH (09:00)
--- NOTE | 2021-03-01 09:17 | NUR ---
RN NOTE PT RECEIVED RESTING IN BED, NOT IN RESPIRATORY DISTRESS, ON RA. GT FEEDING IN PLACE WITH NEPRO RUNNING AT 50CC/HR. ASPIRATION PREC FOLLOWED. R SUBCLAVIAN TRIPLE LUMEN CENTRAL LINE IN PLACE, WITH LEVO DRIP RUNNING AT 0.06 WITH MAP MAINTAINED ABOVE 65. WILL CONTINUE TO MONITOR.
[2021-03-01] MEDS: INSULIN REGULAR, HUMAN 100 UNIT/ML 3 ML VIAL SQ PRN (12:45)
[2021-03-01] MEDS ORDERED: ALBUMIN 25% 25 GM in PREMIX 1 EA IV PRN (15:00)
[2021-03-01] MEDS: NOREPINEPHRINE 8 MG in IV NS 0.9% 242 ML IV PRN (16:49)
[2021-03-01] MEDS: IV NS 0.9% 250 ML IV PRN (17:52)
[2021-03-01] MEDS: AZITHROMYCIN 500 MG in IV D5W 250 ML IV SCH (18:38)
[2021-03-01] MEDS: *INSULIN REGULAR(HUMULIN R)HUM 100 UNIT/ML VIAL SQ PRN (18:55)
--- NOTE | 2021-03-01 18:58 | NUR ---
RN NOTE PT RESTING IN BED PPOST HD WITH 1L FLUID REMOVED, NOT IN RESPIRATORY DISTRESS, ON RA. GT FEEDING IN PLACE WITH NEPRO RUNNING AT 50CC/HR. ASPIRATION PREC FOLLOWED. R SUBCLAVIAN TRIPLE LUMEN CENTRAL WAS PULLED OUT, NO BLEEDING NOTED, CENTRAL LINE CLAMPED. PMD MADE AWARE AND NEW ORDER GIVEN FOR FEMORAL CENTRAL LINE, TRIPLE LUMEN R FEMORAL CENTRAL LINE IN PLACE RUNNING WITH LEVO DRIP RUNNING AT 0.06 WITH MAP MAINTAINED ABOVE 65. DUE MEDICATIONS GIVEN, NEEDS ATTENDED. WILL ENDORSE TO NEXT SHIFT. SPOKE WITH PHARMACY REGARDING DARUNAVIR MEDICATION NOT AVAILABLE IN [place]. PLACED CALL ON [facility] FOR HOME MEDS SUPPLY BUT WAS UNABLE TO REACH. WILL ENDORSE TO NEXT SHIFT.
--- NOTE | 2021-03-01 20:00 | NUR ---
COCOA MILLING MACHINE OPERATOR. INITIAL ASSESSMENT. RECEIVED THE PT REST IN BED. NONVERBAL. OPEN EYES, DOES NOT FOLLOW COMMANDS. ROOM AIR. SAT 98%. NO ACUTE DISTRESS NOTED. TECHNOLOGY INSTRUCTOR SHOWING NSR. IV RT GROIN TLC. TKO AND LEVOPHED 0.04MCG/KG/MIN. HOB ELEVATED. GT INTACT. RESUME THE FEEDING AT 0800. PER HANDED OVER RN. WILL CONTINUE TO MONITOR VITALS.
[2021-03-01] MEDS ORDERED: INSULIN GLARGINE, 100 UNIT/ML CARTRIDGE SQ SCH (22:00)
[2021-03-01] MEDS: ATORVASTATIN 40 MG TABLET GT SCH (22:28)
[2021-03-01] MEDS: CEFEPIME 1 GM in IV D5W 50 ML IV SCH (22:28)
[2021-03-01] MEDS: MIRTAZAPINE 15 MG TABLET GT SCH (22:28)
[2021-03-01] MEDS ORDERED: ACETAMINOPHEN 650 MG/20.3 ML UDC NG PRN (23:00)
[2021-03-02] VITALS (88 sets, daily range): BP systolic 55–152; BP diastolic 35–95
[2021-03-02 05:18] LABS: BASOPHILS % (AUTO) 0.7 % (0.0-2.0); EOSINOPHILS % (AUTO) 2.1 % (0.0-6.0); HEMATOCRIT 30 % (39-51); HEMOGLOBIN 10.2 g/dL (13.5-17.5); LYMPHOCYTES # (AUTO) 1.3 K/uL (0.8-4.8); LYMPHOCYTES % (AUTO) 18.6 % (20.0-44.0); MEAN CORPUSCULAR HGB CONC 34 g/dl (31.0-36.0); MEAN CORPUSCULAR VOLUME 106 fL (80-96); MONOCYTES # (AUTO) 0.7 K/uL (0.1-1.30); MONOCYTES % (AUTO) 9.3 % (2.0-12.0); NEUTROPHILS % (AUTO) 69.3 % (43.0-81.0); PLATELET COUNT (AUTO) 114 K/uL (150-450); RED BLOOD CELL COUNT(AUTO) 2.83 MIL/uL (4.5-6.0); WHITE BLOOD COUNT (AUTO) 7.2 K/uL (4.3-11.0)
[2021-03-02 05:26] LABS: CALCIUM, SERUM 9.6 mg/dL (8.5-10.1); CREATININE 5.3 mg/dL (0.6-1.3); POTASSIUM 3.7 mmol/L (3.5-5.1)
--- NOTE | 2021-03-02 06:41 | NUR ---
REVIEWER SALES. AM CARE GIVEN. REMAINING SAME LEVO RUNNING. HOB ELEVATED. DURING SHIFT NO SEIZURE ACTIVITY NOTED. ROOM AIR. SAT 98%. NO ACUTE DISTRESS NOTED. HOB ELEAVTED. TURN AND REPOSITION Q2H. WILL CONTINUE TO MONITOR VITALS.
--- NOTE | 2021-03-02 07:28 | NUR ---
WOUND CARE CONSULT: REVIEWED CHART, NURSING DOCUMENTATION AND PHOTO WHICH INDICATES SACRAL SCARRING, PRESENT ON ADMISSION. RECOMMENDATIONS MADE FOR SKIN PROTECTION. DISCUSSED WITH NURSING STAFF. MD IN AGREEMENT WITH PLAN OF CARE.
[2021-03-02] MEDS ORDERED: Z GUARD REMEDY 4 OZ OINT TP PRN (07:30)
--- NOTE | 2021-03-02 07:30 | NUR ---
RN NOTES PT FOUND SEMI FOWLERS DISPLAYING NO S/S OF DISTRESS, FLACC = 0 BREATHING IS EVEN AND UNLABORED ON RA. R UA FISTULA HAS DRESSING, NO BLOOD OR FLUIDS OBSERVED, BRUIT AUSCULTATED, THRILL PALPATED. L UA PICC IS PATIENT AND INTACT. 0 RESIDUAL MEASURED VIA PEG. R WRIST SOFT RESTRAINT APPLIED, PULSE PALPATED AND CAP REFILL < 3 SECONDS. VSS, RN WILL MONITOR AND TREAT THROUGHOUT SHIFT. SAFETY MEASURES IN PLACE, BED LOCKED AND IN LOWEST POSITION, SIDE RAILS UPX2, CALL LIGHT WITHIN REACH, BED ALARM ARMED. Addendum: 03/02/21 at 1001 by ROMAN GONZALEZ RN PT DOES NOT HAVE L UA PICC. PT HAS R FEMORAL TRIPLE LUMIN
[2021-03-02 08:06] LABS: *BASOS 1 % (Not Estab.); *EOS 1 % (Not Estab.); *EOS, ABSOLUTE 0.1 x10E3/uL (0.0-0.4); *HCT 31.7 % (37.5-51.0); *HGB 10.8 g/dL (13.0-17.7); *IMMATURE GRANULOCYTES 1 % (Not Estab.); *IMMATURE GRANULOCYTES(ABS) 0.1 x10E3/uL (0.0-0.1); *LYMPHOCYTES 23 % (Not Estab.); *LYMPHS, ABSOLUTE 1.4 x10E3/uL (0.7-3.1); *MCHC 34.1 g/dL (31.5-35.7); *MCV 103 fL (79-97); *MONOCYTES 5 % (Not Estab.); *MONOS, ABSOLUTE 0.3 x10E3/uL (0.1-0.9); *NEUTROPHILS 69 % (Not Estab.); *NEUTROPHILS, ABSOLUTE 4.1 x10E3/uL (1.4-7.0); *PLT 153 x10E3/uL (150-450); *RBC 3.09 x10E6/uL (4.14-5.80); *RDW 13.9 % (11.6-15.4)
[2021-03-02] MEDS: FOLIC ACID 1 MG TABLET GT SCH (08:13)
[2021-03-02] MEDS: MIDODRINE HCL (5MG) 5 MG TABLET GT SCH ×3 (08:13→17:33)
[2021-03-02] MEDS: LIOTHYRONINE SODIUM (25 MCG) 25 MCG TABLET GT SCH (08:13)
[2021-03-02] MEDS: ABACAVIR SULFATE 300 MG TABLET PO SCH ×2 (08:14→17:33)
[2021-03-02] MEDS: DOCUSATE SODIUM 250 MG CAPSULE PO SCH (08:14)
[2021-03-02] MEDS: ALLOPURINOL 100 MG TABLET GT SCH (08:14)
[2021-03-02] MEDS: GABAPENTIN 300 MG CAPSULE GT SCH ×3 (08:14→17:33)
[2021-03-02] MEDS: LABETALOL HCL (100MG) 100 MG TABLET GT SCH ×2 (08:14→16:31)
[2021-03-02] MEDS: BLOOD SUGAR DIAGNOSTIC 1 EACH STRIP VI SCH ×4 (08:15→21:38)
[2021-03-02] MEDS: FERROUS SULFATE UDC 300 MG/5 ML UDC GT SCH ×2 (08:15→17:33)
[2021-03-02] MEDS: LEVETIRACETAM SOL (5 ML) 100 MG/ML UDC GT SCH ×2 (08:15→21:24)
[2021-03-02] MEDS: AMLODIPINE BESYLATE 10 MG TABLET GT SCH (08:15)
[2021-03-02] MEDS: Z GUARD REMEDY 4 OZ OINT TP SCH (08:42)
--- NOTE | 2021-03-02 09:00 | NUR ---
NURSES NOTES RN INFORMED [facility] SALES ACCOUNT SPECIALIST ABOUT BP RX AND TITRATION OF LEVOPHED. SALES ACCOUNT SPECIALIST GAVE ORDERS: HOLD LABETALOL AND NORVASC, GIVE MIDORINE. RN ACKNOWLEDGED.
[2021-03-02 10:07] LABS: *% CD 4 POS. LYMPH 22.7 % (30.8-58.5); *% CD 8 POS. LYMPH 33.4 % (12.0-35.5); *ABSOLUTE CD 4 HELPER 318 /uL (359-1519); *ABSOLUTE CD 8 SUPPRESSOR 468 /uL (109-897); *CD4/CD8 RATIO 0.68 (0.92-3.72)
[2021-03-02] MEDS: INSULIN REGULAR, HUMAN 100 UNIT/ML 3 ML VIAL SQ PRN ×2 (11:50→18:19)
[2021-03-02] MEDS: NEPRO 1,000 ML BOTTLE GT PRN (12:55)
[2021-03-02] MEDS: AZITHROMYCIN 500 MG in IV D5W 250 ML IV SCH (16:05)
[2021-03-02] MEDS: NOREPINEPHRINE 8 MG in IV NS 0.9% 242 ML IV PRN (17:34)
--- NOTE | 2021-03-02 19:30 | NUR ---
RN NOTES PT FOUND SEMI FOWLERS DISPLAYING NO S/S OF DISTRESS, FLACC = 0 BREATHING IS EVEN AND UNLABORED ON RA. R UA FISTULA HAS DRESSING, NO BLOOD OR FLUIDS OBSERVED, BRUIT AUSCULTATED, THRILL PALPATED. R FEMORAL TRIPLE LUMEN IS PATIENT AND INTACT. R WRIST SOFT RESTRAINT APPLIED, PULSE PALPATED AND CAP REFILL < 3 SECONDS. SBAR AND REPORT GIVEN TO HIM MANAGER RN, ALL QUESTIONS ANSWERED. SAFETY MEASURES IN PLACE, BED LOCKED AND IN LOWEST POSITION, SIDE RAILS UPX2, CALL LIGHT WITHIN REACH, BED ALARM ARMED. PT ENDORSED IN STABLE CONDITION FOR EZEQUIEL.
--- NOTE | 2021-03-02 20:14 | NUR ---
RN OPENING NOTE RECEIVED PATIENT IN BED. PATIENT SPEAKS MALIAN, ABLE TO ANSWER YES NO QUESTIONS, SOME UNCLEAR SPEECH. ALERT TO NAME. TOLERATING ROOM AIR. RESPIRATIONS ARE EVEN AND UNLABORED. NO SOB NOTED. NO C/O PAIN NOTED. TELE MONITOR READS SINUS RHTYHM HR 89. NO APPARENT DISTRESS. IV ACCESS IN RIGHT FEMORAL RUNNING LEVO @0.06. LEFT WRIST #20 INFILTRATED, AND REMOVED. GTUBE , NO RESIDUAL, INCREASE FEEDING FROM 20CC TO 30 CC. BED IS LOW AND LOCKED, HOB ELEVATED IN SEMI FOWLERS, SIDE RAILS UPX2. ALARMS ARE ON, SAFETY PRECAUTIONSIN PLACE.
[2021-03-02] MEDS: MIRTAZAPINE 15 MG TABLET GT SCH (21:24)
[2021-03-02] MEDS: CEFEPIME 1 GM in IV D5W 50 ML IV SCH (21:24)
[2021-03-02] MEDS: ATORVASTATIN 40 MG TABLET GT SCH (21:24)
[2021-03-02] MEDS: *INSULIN REGULAR(HUMULIN R)HUM 100 UNIT/ML VIAL SQ PRN (21:50)
--- NOTE | 2021-03-02 22:51 | NUR ---
RN NOTE RECEIVED A CALL FROM LAB THAT THE ORDER FOR HIV 1/2 DIFFERENTIATION WAS NOT GOING TO BE ACCEPTED IN [facility] IT WAS MISSING CRITERIA/ INFORMATION FOR THE SEND OUT. INFORMED ORDERING DR. AIKEN WITH INFECTIOUS DISEASE AND RECEIVED ORDER OK TO CANCEL. INFORMED LAB.
[2021-03-03] VITALS (95 sets, daily range): BP systolic 90–136; BP diastolic 27–91
[2021-03-03 05:03] LABS: CALCIUM, SERUM 9.6 mg/dL (8.5-10.1); CREATININE 6.1 mg/dL (0.6-1.3); POTASSIUM 3.9 mmol/L (3.5-5.1)
[2021-03-03 05:09] LABS: BASOPHILS # (AUTO) 0.1 K/uL (0.0-0.2); EOSINOPHILS % (AUTO) 3.4 % (0.0-6.0); HEMATOCRIT 31 % (39-51); HEMOGLOBIN 10.7 g/dL (13.5-17.5); LYMPHOCYTES # (AUTO) 1.3 K/uL (0.8-4.8); LYMPHOCYTES % (AUTO) 19.3 % (20.0-44.0); MEAN CORPUSCULAR HGB CONC 34 g/dl (31.0-36.0); MEAN CORPUSCULAR VOLUME 106 fL (80-96); MONOCYTES # (AUTO) 0.6 K/uL (0.1-1.30); MONOCYTES % (AUTO) 8.3 % (2.0-12.0); NEUTROPHILS # (AUTO) 4.6 K/uL (1.8-8.9); PLATELET COUNT (AUTO) 149 K/uL (150-450); RED BLOOD CELL COUNT(AUTO) 2.97 MIL/uL (4.5-6.0); WHITE BLOOD COUNT (AUTO) 6.7 K/uL (4.3-11.0)
[2021-03-03] MEDS: IV NS 0.9% 250 ML IV PRN (05:44)
--- NOTE | 2021-03-03 07:14 | NUR ---
RN CLOSING NOTE RESTNG IN BED. TOLERATING ROOM AIR. NO PAIN. TELE MONITOR IS SINUS RHTYHM. NO DISTRESS.RIGHT FEMORAL RUNNING LEVO @0.04. . GTUBE RUNNING NEPRO@ 30 CC. BED REMAINS LOW AND LOCKED, HOB ELEVATED IN SEMI FOWLERS, SIDE RAILS UPX2. ALARMS ARE ON, SAFETY PRECAUTIONSIN PLACE. WILL ENDORSE TO ONCOMING SHIFT.
--- NOTE | 2021-03-03 07:30 | NUR ---
RN NOTES PT FOUND SEMI FOWLERS DISPLAYING NO S/S OF DISTRESS, FLACC = 0 BREATHING IS EVEN AND UNLABORED ON RA. R UA FISTULA HAS DRESSING, NO BLOOD OR FLUIDS OBSERVED, BRUIT AUSCULTATED, THRILL PALPATED. PT HAS R FEMORAL TRIPLE LUMEN. 0 RESIDUAL MEASURED VIA PEG. R WRIST SOFT RESTRAINT APPLIED, PULSE PALPATED AND CAP REFILL < 3 SECONDS. VSS, RN WILL MONITOR AND TREAT THROUGHOUT SHIFT. SAFETY MEASURES IN PLACE, BED LOCKED AND IN LOWEST POSITION, SIDE RAILS UPX2, CALL LIGHT WITHIN REACH, BED ALARM ARMED.
[2021-03-03] MEDS: FERROUS SULFATE UDC 300 MG/5 ML UDC GT SCH ×2 (08:13→17:01)
[2021-03-03] MEDS: ABACAVIR SULFATE 300 MG TABLET PO SCH ×2 (08:13→17:01)
[2021-03-03] MEDS: DOCUSATE SODIUM 250 MG CAPSULE PO SCH (08:13)
[2021-03-03] MEDS: BLOOD SUGAR DIAGNOSTIC 1 EACH STRIP VI SCH ×4 (08:13→17:02)
[2021-03-03] MEDS: LEVETIRACETAM SOL (5 ML) 100 MG/ML UDC GT SCH ×2 (08:13→21:33)
[2021-03-03] MEDS: GABAPENTIN 300 MG CAPSULE GT SCH ×3 (08:14→17:01)
[2021-03-03] MEDS: MIDODRINE HCL (5MG) 5 MG TABLET GT SCH ×3 (08:14→17:01)
[2021-03-03] MEDS: LIOTHYRONINE SODIUM (25 MCG) 25 MCG TABLET GT SCH (08:14)
[2021-03-03] MEDS: FOLIC ACID 1 MG TABLET GT SCH (08:14)
[2021-03-03] MEDS: LABETALOL HCL (100MG) 100 MG TABLET GT SCH ×2 (08:14→17:00)
[2021-03-03] MEDS: ALLOPURINOL 100 MG TABLET GT SCH (08:14)
[2021-03-03] MEDS: AMLODIPINE BESYLATE 10 MG TABLET GT SCH (08:15)
[2021-03-03] MEDS: *INSULIN REGULAR(HUMULIN R)HUM 100 UNIT/ML VIAL SQ PRN ×2 (08:25→12:22)
[2021-03-03] MEDS: Z GUARD REMEDY 4 OZ OINT TP SCH (08:37)
[2021-03-03] MEDS: NEPRO 1,000 ML BOTTLE GT PRN (12:00)
[2021-03-03] MEDS: INSULIN REGULAR, HUMAN 100 UNIT/ML 3 ML VIAL SQ PRN (17:46)
[2021-03-03] MEDS ORDERED: VANCOMYCIN 1 GM in IV D5W 250 ML IV ONE (19:00)
--- NOTE | 2021-03-03 19:15 | NUR ---
RN NOTES PT FOUND SEMI FOWLERS DISPLAYING NO S/S OF DISTRESS, FLACC = 0 BREATHING IS EVEN AND UNLABORED ON RA. R UA FISTULA HAS DRESSING, NO BLOOD OR FLUIDS OBSERVED, BRUIT AUSCULTATED, THRILL PALPATED. R FEMORAL TRIPLE LUMEN IS PATIENT AND INTACT. R WRIST SOFT RESTRAINT APPLIED, PULSE PALPATED AND CAP REFILL < 3 SECONDS. SBAR AND REPORT GIVEN TO SECOND BAKER RN, ALL QUESTIONS ANSWERED. SAFETY MEASURES IN PLACE, BED LOCKED AND IN LOWEST POSITION, SIDE RAILS UPX2, CALL LIGHT WITHIN REACH, BED ALARM ARMED. PT ENDORSED IN STABLE CONDITION FOR EZEQUIEL.
[2021-03-03] MEDS: ATORVASTATIN 40 MG TABLET GT SCH (21:34)
[2021-03-03] MEDS: MIRTAZAPINE 15 MG TABLET GT SCH (21:34)
[2021-03-03] MEDS: CEFEPIME 1 GM in IV D5W 50 ML IV SCH (21:34)
[2021-03-03] MEDS: NOREPINEPHRINE 8 MG in IV NS 0.9% 242 ML IV PRN (23:28)
[2021-03-04] VITALS (87 sets, daily range): BP systolic 70–152; BP diastolic 43–93
[2021-03-04 05:01] LABS: BASOPHILS # (AUTO) 0.1 K/uL (0.0-0.2); EOSINOPHILS % (AUTO) 3.5 % (0.0-6.0); HEMATOCRIT 30 % (39-51); HEMOGLOBIN 10.1 g/dL (13.5-17.5); LYMPHOCYTES # (AUTO) 1.1 K/uL (0.8-4.8); LYMPHOCYTES % (AUTO) 19.6 % (20.0-44.0); MEAN CORPUSCULAR HGB CONC 34 g/dl (31.0-36.0); MEAN CORPUSCULAR VOLUME 106 fL (80-96); MONOCYTES # (AUTO) 0.4 K/uL (0.1-1.30); MONOCYTES % (AUTO) 8.2 % (2.0-12.0); NEUTROPHILS # (AUTO) 3.7 K/uL (1.8-8.9); NEUTROPHILS % (AUTO) 67.7 % (43.0-81.0); PLATELET COUNT (AUTO) 153 K/uL (150-450); WHITE BLOOD COUNT (AUTO) 5.5 K/uL (4.3-11.0)
[2021-03-04 06:14] LABS: CALCIUM, SERUM 9.4 mg/dL (8.5-10.1); CREATININE 6.8 mg/dL (0.6-1.3); POTASSIUM 4.2 mmol/L (3.5-5.1)
[2021-03-04] MEDS: BLOOD SUGAR DIAGNOSTIC 1 EACH STRIP VI SCH ×4 (07:30→21:22)
[2021-03-04] MEDS: ALLOPURINOL 100 MG TABLET GT SCH (08:57)
[2021-03-04] MEDS: LEVETIRACETAM SOL (5 ML) 100 MG/ML UDC GT SCH ×2 (08:57→21:21)
[2021-03-04] MEDS: FERROUS SULFATE UDC 300 MG/5 ML UDC GT SCH ×2 (08:57→18:06)
[2021-03-04] MEDS: DOCUSATE SODIUM 250 MG CAPSULE PO SCH (08:57)
[2021-03-04] MEDS: PREZISTA 800 MG GT SCH (08:58)
[2021-03-04] MEDS: FOLIC ACID 1 MG TABLET GT SCH (08:58)
[2021-03-04] MEDS: LIOTHYRONINE SODIUM (25 MCG) 25 MCG TABLET GT SCH (08:58)
[2021-03-04] MEDS: MIDODRINE HCL (5MG) 5 MG TABLET GT SCH ×3 (08:58→18:06)
[2021-03-04] MEDS: ABACAVIR SULFATE 300 MG TABLET PO SCH ×2 (08:58→18:09)
[2021-03-04] MEDS: GABAPENTIN 300 MG CAPSULE GT SCH ×3 (08:59→18:06)
[2021-03-04] MEDS: LABETALOL HCL (100MG) 100 MG TABLET GT SCH ×2 (08:59→17:00)
[2021-03-04] MEDS: AMLODIPINE BESYLATE 10 MG TABLET GT SCH (08:59)
[2021-03-04] MEDS: Z GUARD REMEDY 4 OZ OINT TP SCH (09:00)
[2021-03-04] MEDS: INSULIN REGULAR, HUMAN 100 UNIT/ML 3 ML VIAL SQ PRN ×2 (09:33→18:18)
[2021-03-04] MEDS: *INSULIN REGULAR(HUMULIN R)HUM 100 UNIT/ML VIAL SQ PRN ×2 (13:22→21:44)
[2021-03-04] MEDS ORDERED: VANCOMYCIN 500 MG in IV D5W 100ml IV ONE (16:00)
--- NOTE | 2021-03-04 19:35 | NUR ---
RN NOTE OPENING REC'D PT IN BED. AWAKE. ALERT. ENGLISH SPEAKING. SPEECH UNCLEAR AT TIMES. NO DISTRESS NOTED. DIALYSIS NURSE AT BEDSIDE, TOLERATING WELL VIA HD ACCESS MARY AV FISTULA. PT REMAINS ON ROOM AIR O2 SAT WNL. PT IV SITE INTACT, BLOOD RETURN NOTED, FLUSHED. RUNNING LEVO TO MAINTAIN BP WILL TITRATE ORDERED. PT GT FLUSHED PATENT, NO RESIDUAL NOTED. GT FEEDING ORDERED. PT HAS. HOB ELEVATED SAFETY PRECAUTIONS IN PLACE. WILL CONT TO MONITOR THROUGHOUT SHIFT FOR CHANGE OF CONDITION.
--- NOTE | 2021-03-04 19:44 | NUR ---
Rn Closing NOTES Patient in bed awake and on room air with 02 sat of 99%. levo running at 0.2 mcg. HOB kept elevated. Bed is in lowest and locked position.Dialysis nurse at bedside. Endorsed to next shift. Patient noted with 2 bm's during shift . MD Castillo made aware regarding swelling in right arm.Will continue to monitor.Endorsed to next shift for EZEQUIEL along with to give vanco post dialysis.
--- NOTE | 2021-03-04 20:46 | NUR ---
RN NOTE HD 2L WAS REMOVED AFTER DIALYSIS, VANCO TROUGH TODAY WAS 8 WILL ADMINISTER ABX
[2021-03-04] MEDS: MIRTAZAPINE 15 MG TABLET GT SCH (21:21)
[2021-03-04] MEDS: ATORVASTATIN 40 MG TABLET GT SCH (21:21)
[2021-03-04] MEDS: CEFEPIME 1 GM in IV D5W 50 ML IV SCH (21:29)
[2021-03-04] MEDS ORDERED: VANCOMYCIN 500 MG in IV D5W 100 ML IV SCH (21:30)
[2021-03-04] MEDS: NEPRO 1,000 ML BOTTLE GT PRN (21:48)
[2021-03-04] MEDS: NOREPINEPHRINE 8 MG in IV NS 0.9% 242 ML IV PRN (22:26)
[2021-03-05] VITALS (35 sets, daily range): BP systolic 102–169; BP diastolic 54–78
[2021-03-05] MEDS ORDERED: VANCOMYCIN POST DIALYSIS 500MG IV PRN (06:00)
--- NOTE | 2021-03-05 07:30 | NUR ---
Rn OPENING NOTES Patient in bed awake and on room air with 02 sat of 96%. HOB kept elevated. Bed is in lowest and locked position.Will continue to monitor.Will continue to monitor. Call light with in reach.
--- NOTE | 2021-03-05 07:39 | NUR ---
RN NOTE CLOSING AT THIS TIME, PT IS NOT IN DISTRESS. REMAINS ALERT, SPEECH STILL UNCLEAR. ALL NEEDS ATTENDED, SAFETY MEASURES IN PLACE. LEVO WAS TURNED OFF AT 2300 DURING MY SHIFT. BP WELL WITHIN NORMAL LIMIT, NO EVIDENCE OF SZ NOTED. 1 BM NOTED, LOOSE. NO CHANGE OF CONDITION NOTED. ENDORSED TO DAY SHIFT RN FOR CONTINUATION OF CARE.
[2021-03-05] MEDS: FOLIC ACID 1 MG TABLET GT SCH (08:27)
[2021-03-05] MEDS: ALLOPURINOL 100 MG TABLET GT SCH (08:27)
[2021-03-05] MEDS: LIOTHYRONINE SODIUM (25 MCG) 25 MCG TABLET GT SCH (08:27)
[2021-03-05] MEDS: LEVETIRACETAM SOL (5 ML) 100 MG/ML UDC GT SCH ×2 (08:27→22:14)
[2021-03-05] MEDS: GABAPENTIN 300 MG CAPSULE GT SCH ×3 (08:27→16:48)
[2021-03-05] MEDS: ABACAVIR SULFATE 300 MG TABLET PO SCH ×2 (08:27→16:48)
[2021-03-05] MEDS: MIDODRINE HCL (5MG) 5 MG TABLET GT SCH ×3 (08:27→16:48)
[2021-03-05] MEDS: DOCUSATE SODIUM 250 MG CAPSULE PO SCH (08:28)
[2021-03-05] MEDS: LABETALOL HCL (100MG) 100 MG TABLET GT SCH ×2 (08:28→16:31)
[2021-03-05] MEDS: FERROUS SULFATE UDC 300 MG/5 ML UDC GT SCH ×2 (08:28→16:48)
[2021-03-05] MEDS: Z GUARD REMEDY 4 OZ OINT TP SCH (08:28)
[2021-03-05] MEDS: PREZISTA 800 MG GT SCH (08:28)
[2021-03-05] MEDS: BLOOD SUGAR DIAGNOSTIC 1 EACH STRIP VI SCH ×4 (08:29→22:15)
[2021-03-05] MEDS: AMLODIPINE BESYLATE 10 MG TABLET GT SCH (08:29)
[2021-03-05] MEDS: INSULIN REGULAR, HUMAN 100 UNIT/ML 3 ML VIAL SQ PRN ×2 (08:58→13:08)
--- NOTE | 2021-03-05 19:00 | NUR ---
RN NOTE PATIENT ARRIVED TO UNIT FROM ICU IN STABLE CONDITION, WILL ENDORSE TO NIGHT NURSE FOR EZEQUIEL.
--- NOTE | 2021-03-05 19:15 | NUR ---
Trasfer to Tele notes Patient in bed awake and on room air with 02 sat of 99%. HOB kept elevated. Bed is in lowest and locked position.Report given at bedside at 1830pm to Renetta MENDEZ. Patient turned and repositioned q2h and prn prior to transfer. Noted with bm x 3. colace held in am. Endorsed to nurse to monitor.
--- NOTE | 2021-03-05 19:29 | NUR ---
RN NOTES: RECEIVED PATIENT IN BED, ALERT, ORIENTED X0, NON-VERBAL AND RESPONSIVE TO PAINFUL STIMULI. ON ROOM AIR AND PT TOLERATED WELL. IV ACCES ON RT THIGH INTACT AND PATENT. NO S/S OF INFILTRATIONS. RT AV FISTULA NOTED FOR HD ACCESS. NO BLEEDING NOTED. NO FACIAL GRIMACING NOTED. NO ACUTE DISTRESS. ON GTUBE FEEDING NEPHRO 45CC/HR AND PT TOLERATED WELL. ALL SAFETY MEASURE IN PLACE. BED IN LOW POSITION AND LOCKED. SIDE RAILS X3, PLACE CALL LIGHT WITH IN REACH. WILL CONTINUE TO MONITOR.
[2021-03-05] MEDS: MIRTAZAPINE 15 MG TABLET GT SCH (22:15)
[2021-03-05] MEDS: ATORVASTATIN 40 MG TABLET GT SCH (22:15)
[2021-03-05] MEDS: CEFEPIME 1 GM in IV D5W 50 ML IV SCH (22:15)
[2021-03-05] MEDS: *INSULIN REGULAR(HUMULIN R)HUM 100 UNIT/ML VIAL SQ PRN (22:25)
--- NOTE | 2021-03-05 22:30 | NUR ---
RN NOTES: PT'S BLOOD SUGAR 133, 2 UNITS OF REGULAR INSULIN GIVEN. NO S/S OF HYPER/HYPOGLYCEMIA. WILL CONTINUE TO MONITOR
[2021-03-06] VITALS (8 sets, daily range): BP systolic 98–137; BP diastolic 52–83
--- NOTE | 2021-03-06 04:36 | NUR ---
RN NOTES: TURNED OFF THE FEEDING AT 0400. WILL START AGAIN AT 0800.
--- NOTE | 2021-03-06 06:44 | NUR ---
RN OPENING NOTES: PATIENT IN BED, ALERT, ORIENTED X0, NON-VERBAL AND RESPONSIVE TO PAINFUL STIMULI. ON ROOM AIR, O2 SAT 100% AND PT TOLERATED WELL. IV ACCES ON RT FEMORAL INTACT AND PATENT. NO S/S OF INFILTRATIONS. RT AV FISTULA NOTED FOR HD ACCESS. NO BLEEDING NOTED. NO FACIAL GRIMACING NOTED. NO ACUTE DISTRESS. ON GTUBE FEEDING NEPHRO 50 CC/HR AND PT TOLERATED WELL. ALL DUE MEDS GIVEN ORDER. ALL SAFETY MEASURE IN PLACE. BED IN LOW POSITION AND LOCKED. SIDE RAILS X3, PLACE CALL LIGHT WITH IN REACH. WILL ENDORSE TO MORNING SHIFT NURSE. Addendum: 03/06/21 at 0746 by RUT LEE RN WRONG NOTE
--- NOTE | 2021-03-06 06:47 | NUR ---
RN CLOSING NOTES: PATIENT IN BED, ALERT, ORIENTED X0, NON-VERBAL AND RESPONSIVE TO PAINFUL STIMULI. ON ROOM AIR, O2 SAT 100% AND PT TOLERATED WELL. IV ACCES ON RT FEMORAL INTACT AND PATENT. NO S/S OF INFILTRATIONS. RT AV FISTULA NOTED FOR HD ACCESS. NO BLEEDING NOTED. NO FACIAL GRIMACING NOTED. NO ACUTE DISTRESS. ON GTUBE FEEDING NEPHRO 50 CC/HR AND PT TOLERATED WELL. ALL DUE MEDS GIVEN ORDER. ALL SAFETY MEASURE IN PLACE. BED IN LOW POSITION AND LOCKED. SIDE RAILS X3, PLACE CALL LIGHT WITH IN REACH. WILL ENDORSE TO MORNING SHIFT NURSE.
[2021-03-06] MEDS: BLOOD SUGAR DIAGNOSTIC 1 EACH STRIP VI SCH ×4 (08:25→21:50)
[2021-03-06] MEDS: ABACAVIR SULFATE 300 MG TABLET PO SCH ×2 (08:46→16:40)
[2021-03-06] MEDS: PREZISTA 800 MG GT SCH (08:46)
[2021-03-06] MEDS: ALLOPURINOL 100 MG TABLET GT SCH (08:47)
[2021-03-06] MEDS: LIOTHYRONINE SODIUM (25 MCG) 25 MCG TABLET GT SCH (08:47)
[2021-03-06] MEDS: DOCUSATE SODIUM 250 MG CAPSULE PO SCH (08:47)
[2021-03-06] MEDS: LEVETIRACETAM SOL (5 ML) 100 MG/ML UDC GT SCH ×2 (08:47→21:27)
[2021-03-06] MEDS: GABAPENTIN 300 MG CAPSULE GT SCH ×3 (08:47→16:39)
[2021-03-06] MEDS: FERROUS SULFATE UDC 300 MG/5 ML UDC GT SCH ×2 (08:47→17:01)
[2021-03-06] MEDS: FOLIC ACID 1 MG TABLET GT SCH (08:47)
[2021-03-06] MEDS: MIDODRINE HCL (5MG) 5 MG TABLET GT SCH ×3 (08:48→16:40)
[2021-03-06] MEDS: LABETALOL HCL (100MG) 100 MG TABLET GT SCH ×2 (09:00→16:40)
[2021-03-06] MEDS: AMLODIPINE BESYLATE 10 MG TABLET GT SCH (09:00)
[2021-03-06] MEDS: Z GUARD REMEDY 4 OZ OINT TP SCH (09:00)
--- NOTE | 2021-03-06 19:11 | NUR ---
RN NOTE PT POST HD WITH 2L FLUID REMOVED. PT NOT IN DISTRESS. V/S STABLE. FOR D/C TO [facility]. GAVE REPORT TO VANESSA BENAVIDES. P/U 1999. ENDORSED TO NEXT SHIFT.
--- NOTE | 2021-03-06 19:20 | NUR ---
RN OPENING NOTES PATIENT RECEIVED IN BED, ALERT, ORIENTED X 1, NON-VERBAL AND RESPONSIVE TO PAINFUL STIMULI. ON ROOM AIR, O2 SAT 100%, NO SOB NOTED, NOT IN DISTRESS. PATIENT NOTED WITH IV ACCES ON RT FEMORAL INTACT AND PATENT, FLUSHED WITH NS. NO S/S OF INFILTRATIONS. RT AV FISTULA NOTED FOR HD ACCESS. NO BLEEDING NOTED. NO FACIAL GRIMACING NOTED. ON GTUBE FEEDING NEPHRO 50 CC/HR AND PT TOLERATED WELL. IN PLACED, INTACT, NO RESIDUAL NOTED UPON ASPIRATION, HOB KEPT ELEVATED. ALL SAFETY MEASURE IN PLACE. BED IN LOW POSITION AND LOCKED. SIDE RAILS X3, PLACE CALL LIGHT WITH IN REACH.
[2021-03-06] MEDS: ATORVASTATIN 40 MG TABLET GT SCH (21:27)
[2021-03-06] MEDS: MIRTAZAPINE 15 MG TABLET GT SCH (21:28)
--- NOTE | 2021-03-06 21:55 | NUR ---
RN NOTES REMOVED RT. FEMORAL CENTRAL LINE TRIPLE LUMEN CATHETER, RECOVER 20CM IN LENGTH, NO PERFORATION NOTED ON THE TIP, PROCEDURE TOLERATED WELL. PRESSURE DRESSING PROVIDED, NO ACTIVE BLEEDING.
[2021-03-06] MEDS: CEFEPIME 1 GM in IV D5W 50 ML IV SCH (22:00)
--- NOTE | 2021-03-06 22:00 | NUR ---
RN NOTES PT. DISCHARGED
--- NOTE | 2021-03-06 22:20 | NUR ---
RN DISCHARGED NOTES PATIENT PICKED UP BY 2 EMT VIA [facility]E, ALL PO MEDS GIVEN ORDERED, BLOOD SUGAR CHECKED DONE AND OBTAINED 103 mg/dL, REPORT GIVEN TO EMT STAFF, TOOK ALL BELONGING AND PATIENT OWNED MEDS PREZISTA 800MG WITH 27 TABLETS LEFT. TO BE DISCHARGED TO [facility]. PATIENT LEFT THE FACILITY WITH THE AMBULANCE STAFF IN STABLE CONDITION.
== END 2021-03-07 | DRG 890 ==
LOC: ER 11:01 → TRANSITION 15:22 → ICU 02-28 18:35 → TELE1 03-05 18:55
PROVIDERS: ADMIT Nurse Practitioner Acute Care; ATTEND Nurse Practitioner Acute Care
PROC: 05H533Z Insertion of Infusion Device into Right Subclavian Vein, Percutaneous Approach (ICD-10-PCS; principal; 2021-02-27)
PROC: B546ZZA Ultrasonography of Right Subclavian Vein, Guidance (ICD-10-PCS; 2021-02-27)
PROC: 06HM33Z Insertion of Infusion Device into Right Femoral Vein, Percutaneous Approach (ICD-10-PCS; 2021-03-01)
PROC: B54BZZA Ultrasonography of Right Lower Extremity Veins, Guidance (ICD-10-PCS; 2021-03-01)
PROC: 5A1D70Z Performance of Urinary Filtration, Intermittent, Less than 6 Hours Per Day (ICD-10-PCS; 2021-03-01)
DX: A41.89 Other specified sepsis (principal); B20 Human immunodeficiency virus [HIV] disease; G92.8 Other toxic encephalopathy; J12.82 Pneumonia due to coronavirus disease 2019; R65.21 Severe sepsis with septic shock; E43 Unspecified severe protein-calorie malnutrition; D63.1 Anemia in chronic kidney disease; E88.09 Other disorders of plasma-protein metabolism, not elsewhere classified; D68.59 Other primary thrombophilia; I12.0 Hypertensive chronic kidney disease with stage 5 chronic kidney disease or end stage renal disease; E44.0 Moderate protein-calorie malnutrition; J15.9 Unspecified bacterial pneumonia; N18.6 End stage renal disease; E11.22 Type 2 diabetes mellitus with diabetic chronic kidney disease; Z99.2 Dependence on renal dialysis; Z93.1 Gastrostomy status; D53.9 Nutritional anemia, unspecified; E03.9 Hypothyroidism, unspecified; E78.5 Hyperlipidemia, unspecified; R13.10 Dysphagia, unspecified; F09 Unspecified mental disorder due to known physiological condition; M10.9 Gout, unspecified; I69.354 Hemiplegia and hemiparesis following cerebral infarction affecting left non-dominant side; Z79.4 Long term (current) use of insulin; Z79.899 Other long term (current) drug therapy; G40.909 Epilepsy, unspecified, not intractable, without status epilepticus; E11.42 Type 2 diabetes mellitus with diabetic polyneuropathy; M89.9 Disorder of bone, unspecified; T82.510A Breakdown (mechanical) of surgically created arteriovenous fistula, initial encounter; Y71.2 Prosthetic and other implants, materials and accessory cardiovascular devices associated with adverse incidents; Y92.129 Unspecified place in nursing home as the place of occurrence of the external cause; F03.90 Unspecified dementia, unspecified severity, without behavioral disturbance, psychotic disturbance, mood disturbance, and anxiety; F32.A Depression, unspecified; Z87.01 Personal history of pneumonia (recurrent); Z88.2 Allergy status to sulfonamides; Z74.09 Other reduced mobility
CPT/HCPCS: 36415; 71045-TC; 80048-TC; 80053-TC; 80076-TC; 80177; 80202-TC; 82962-TC; 83735-TC; 84100-TC; 85025-TC; 85378-TC; 85730-TC; 86140-TC; 86360; 86706; 87040-TC; 87081-TC; 87340; 87806; 90935-TC; 93971-TC; A4216; C9803; G0378; J0456; J0692; J1815; J1953; J3370; J3490; J7030; J7040; J7050; J7060; P9047

== ENCOUNTER 2021-03-11 13:26 | Inpatient (IN) | payer OTHER ==
[~2021-03-11] VITALS: Ht 170.2 cm; Wt 62.1 kg
[~2021-03-11 13:26] MED LIST changes: +ABAC300T2 PO; -ASCO500T20 GT; -COLC0.6C GT; +DARU800T2 GT; +DOCU-141 GT; -DOCU250C21 GT; -EFAV600T PO; -EPOE1000 SQ; -HYDR-4077 PO; -LORA2VIA6 IM; -Nepro GT; -OMEG-167 GT; -OMEP20CA15 GT; -ZOLP5TAB2 GT
--- NOTE | 2021-03-11 13:40 | NUR ---
BIB [facility] FOR LOW B/P. +COVID 03/03/21. HX HIV AND CVA ELADIGN TO L SIDED PARALYSIS. AAOX1, [place] SPEAKING. BREATHING EVEN AND UNLABORED. BP 79/40.
--- NOTE | 2021-03-11 13:40 | NUR ---
PT TO ER BED 5, PLACED IN SLIGHT TRENDELENBERG POSITION.
--- NOTE | 2021-03-11 14:05 | NUR ---
LAB AT BEDSIDE.
[2021-03-11] MEDS ORDERED: IV NS 0.9% 1,000 ML BAG IV ONE (14:30)
[2021-03-11 15:14] LABS: BASOPHILS # (AUTO) 0.1 K/uL (0.0-0.2); BASOPHILS % (AUTO) 1.4 % (0.0-2.0); EOSINOPHILS % (AUTO) 1.1 % (0.0-6.0); HEMATOCRIT 31 % (39-51); HEMOGLOBIN 10.4 g/dL (13.5-17.5); LYMPHOCYTES # (AUTO) 1.1 K/uL (0.8-4.8); LYMPHOCYTES % (AUTO) 21.5 % (20.0-44.0); MEAN CORPUSCULAR HGB CONC 34 g/dl (31.0-36.0); MEAN CORPUSCULAR VOLUME 109 fL (80-96); MONOCYTES # (AUTO) 0.4 K/uL (0.1-1.30); MONOCYTES % (AUTO) 8.4 % (2.0-12.0); NEUTROPHILS # (AUTO) 3.4 K/uL (1.8-8.9); NEUTROPHILS % (AUTO) 67.6 % (43.0-81.0); PLATELET COUNT (AUTO) 140 K/uL (150-450); RED BLOOD CELL COUNT(AUTO) 2.86 MIL/uL (4.5-6.0)
[2021-03-11 15:34] LABS: CALCIUM, SERUM 9.1 mg/dL (8.5-10.1); CARBON DIOXIDE 28 mmol/L (21-32); CHLORIDE 97 mmol/L (98-107); CREATININE 5.6 mg/dL (0.6-1.3); GLUCOSE 91 mg/dL (74-106); POTASSIUM 4.3 mmol/L (3.5-5.1); SODIUM SERUM 136 mmol/L (136-145); UREA NITROGEN, BLOOD 45 mg/dL (7-18)
[2021-03-11 15:40] LABS: ALANINE AMINOTRANSFERASE 32 U/L (12-78); ALKALINE PHOSPHATASE 101 U/L (46-116); ASPARTATE AMINOTRANSFERASE 58 U/L (15-37); BILIRUBIN,TOTAL 0.9 mg/dL (0.2-1.0); TOTAL PROTEIN, SERUM 6.3 g/dL (6.4-8.2)
[2021-03-11] MEDS ORDERED: ONDANSETRON HCL/PF 4 MG/2 ML VIAL ONE (15:59)
[2021-03-11 16:00] LABS: ALBUMIN 2.2 g/dL (3.4-5.0); BILIRUBIN,DIRECT 0.5 mg/dL (0.0-0.2)
--- NOTE | 2021-03-11 16:19 | NUR ---
UNABLE TO OBTAIN URINE BC PT IS A DIALYSIIS PT
[2021-03-11] MEDS ORDERED: NOREPINEPHRINE 8 MG in IV NS 0.9% 242 ML IV PRN (17:00)
[2021-03-11] MEDS ORDERED: ZOLPIDEM TARTRATE 5 MG TABLET PO PRN (17:00)
[2021-03-11] MEDS ORDERED: Z GUARD REMEDY 4 OZ OINT TP PRN (17:00)
[2021-03-11] MEDS ORDERED: MAG HYDROX/AL HYDROX/SIMETH 30 ML UDC PO PRN (17:00)
[2021-03-11] MEDS ORDERED: ONDANSETRON HCL/PF 4 MG/2 ML VIAL IVP PRN (17:00)
[2021-03-11] MEDS ORDERED: ACETAMINOPHEN 325 MG TABLET PO PRN ×2 (17:00→17:30)
[2021-03-11] MEDS ORDERED: MAGNESIUM HYDROXIDE 30 ML UDC PO PRN (17:00)
[2021-03-11] MEDS ORDERED: DEXTROSE 50%-WATER 50 ML DISP.SYRIN IV PRN (17:30)
--- NOTE | 2021-03-11 17:30 | NUR ---
PT INFUSED ONLY 1 L NS 9% FOLLOWING ORDER OF NORMA PORRAS. DR. MURPHY AWARE.
[2021-03-11] MEDS ORDERED: HEPARIN SODIUM, PORCINE 5000 UNITS/1 ML VIAL ONE (17:39)
[2021-03-11] MEDS: HEPARIN SODIUM, PORCINE 5000 UNITS/1 ML VIAL SQ SCH (17:50)
[2021-03-11] MEDS: PIPERACILLIN /TAZOBACTAM 2.25 G in IV D5W 50 ML IV SCH (17:56)
[2021-03-11] MEDS: BLOOD SUGAR DIAGNOSTIC 1 EACH STRIP IN SCH (17:56)
--- NOTE | 2021-03-11 17:56 | NUR ---
BS 91
[2021-03-11] MEDS ORDERED: PIPERACILLIN /TAZOBACTAM 3.375 G in IV D5W 50 ML IV SCH (18:00)
[2021-03-11] MEDS ORDERED: VANCOMYCIN 1 GM in IV D5W 250 ML IV ONE (19:00)
--- NOTE | 2021-03-11 19:20 | NUR ---
BED ASSIGNMENT: 119-1
--- NOTE | 2021-03-11 19:39 | NUR ---
CALLED TO GIVE REPORT. RN BUSY, WILL CALL BACK AGAIN
--- NOTE | 2021-03-11 19:50 | NUR ---
REPORT GIVEN VANESSA DAS
--- NOTE | 2021-03-11 19:55 | NUR ---
NURSE SAYS WILL CALL BACK WHEN READY TO ACCEPT PATIENT
--- NOTE | 2021-03-11 19:55 | NUR ---
RN NOTES RECEIVED REPORT FROM ER NURSE KELLY
--- NOTE | 2021-03-11 21:08 | NUR ---
PT TRANSFERRED TO FLOOR FOLLOWING ACLS PROTOCOL WITH EMT AND RN.
[2021-03-11 21:20] VITALS: BP 129/54
--- NOTE | 2021-03-11 21:20 | NUR ---
RESTAURANT MANAGER NOTES RECEIVED A 60 YEAR OLD MALE FROM ER. PATIENT ALERT AND ORIENTED X 1, CITIZEN OF [place] SPEAKING. RESPIRATORY EVEN AND UNLABLORED, NO SOB NOTED, NOT IN DISTRESS, NO DACILA GRIMACING NOTED. ON NASAL CANULA @ 2LPM, OXYGEN SATURATION OF 95 PERCENT. ON TELE MONITORING. SKIN WARM AND DRY. NOTED WITH IV ACCESS AT LEFT FOREARM 20G, PATENT, INTACT, FLUSHED WITH NS, NO INFILTRATION NOTED. PATIENT NOTED WITH GTUBE, INPACED, INTACT, FLUSHED WITH WATER TOLERATED WELL, NO RESIDUAL NOTED UPON ASPIRATION. HEAD OF BED KEPT ELEVATED. V/S TAKEN AND RECORDED, SKIN ASSESSMENT DONE. ALL SAFETY PRECAUTION PROVIDED. BED IN LOWEST POSITION, LOCKED AND BED ALARM ARMED. CALL LIGHT WITHIN REACH.
[2021-03-11] MEDS: MIRTAZAPINE 15 MG TABLET GT SCH (21:59)
[2021-03-11] MEDS: LEVETIRACETAM SOL (5 ML) 100 MG/ML UDC GT SCH (22:00)
[2021-03-11] MEDS: ATORVASTATIN 40 MG TABLET GT SCH (22:00)
--- NOTE | 2021-03-11 23:58 | NUR ---
KIRSTEN RN NOTE CHASSIS MECHANIC JENIRENAN CALLED AND INFORMED PT COVID RAPID RESULT IS POSITIVE. ISOLATION PRECAUTIONS TAKEN.
[2021-03-12] VITALS: BP 106/54
[2021-03-12] MEDS ORDERED: PIPERACILLIN /TAZOBACTAM 2.25 G VIAL IV ONE (02:17)
[2021-03-12] MEDS: PIPERACILLIN /TAZOBACTAM 2.25 G in IV D5W 50 ML IV SCH ×4 (02:22→21:13)
[2021-03-12 04:00] VITALS: BP 100/48
[2021-03-12] MEDS: NEPRO 1,000 ML BOTTLE GT PRN (04:23)
[2021-03-12] MEDS: BLOOD SUGAR DIAGNOSTIC 1 EACH STRIP IN SCH ×5 (05:59→23:58)
[2021-03-12 06:32] LABS: BASOPHILS # (AUTO) 0.1 K/uL (0.0-0.2); BASOPHILS % (AUTO) 1.2 % (0.0-2.0); HEMATOCRIT 30 % (39-51); HEMOGLOBIN 10.1 g/dL (13.5-17.5); LYMPHOCYTES # (AUTO) 1.4 K/uL (0.8-4.8); LYMPHOCYTES % (AUTO) 25.8 % (20.0-44.0); MEAN CORPUSCULAR HGB CONC 33 g/dl (31.0-36.0); MEAN CORPUSCULAR VOLUME 110 fL (80-96); MONOCYTES # (AUTO) 0.5 K/uL (0.1-1.30); MONOCYTES % (AUTO) 10.2 % (2.0-12.0); NEUTROPHILS # (AUTO) 3.2 K/uL (1.8-8.9); NEUTROPHILS % (AUTO) 60.8 % (43.0-81.0); PLATELET COUNT (AUTO) 120 K/uL (150-450); RED BLOOD CELL COUNT(AUTO) 2.77 MIL/uL (4.5-6.0); WHITE BLOOD COUNT (AUTO) 5.3 K/uL (4.3-11.0)
[2021-03-12 07:09] LABS: CALCIUM, SERUM 9.4 mg/dL (8.5-10.1); MAGNESIUM 2.4 mg/dL (1.8-2.4); PHOSPHORUS 6.9 mg/dL (2.5-4.9); POTASSIUM 4.4 mmol/L (3.5-5.1)
--- NOTE | 2021-03-12 07:15 | NUR ---
RN CLOSING NOTES PATIENT REMAIN STABLE THROUGH OUT THE SHIFT. RESPIRATORY EVEN AND UNLABLORED, NO SOB NOTED, NOT IN DISTRESS, NO FACIAL GRIMACING NOTED. ON NASAL CANULA @ 2LPM, OXYGEN SATURATION OF 98% PERCENT. SR ON TELE MONITORING. RUNNING WITH NEPHRO @50 ML/HR. HEAD OF BED KEPT ELEVATED. ALL DUE MEDS GIVEN ORDERED. ALL SAFETY PRECAUTION PROVIDED. BED IN LOWEST POSITION, LOCKED AND BED ALARM ARMED. CALL LIGHT WITHIN REACH.
--- NOTE | 2021-03-12 07:30 | NUR ---
RN OPENING NOTE PT RESTING UPON ASSESSMENT. PATIENT ON 2LPM VIA NASAL CANNULA. TOLERATING WELL WITH BREATHING EVEN AND UNLABORED NO SOB AND O2 SAT OF 99%. NSR ON TELE MONITORING. PEG TUBE FEED RUNNING WITH NEPHRO @ 50ML/HR TOLERATING WELL. HEAD OF BED ELEVATED. PATIENT BED IN LOWEST POSITION AND WHEELS LOCKED IN PLACE. CALL LIGHT WITHIN REACH. ALL SAFETY MEASURES NOTED. WILL CONTINUE TO MONITOR.
[2021-03-12 08:00] VITALS: BP 118/41
[2021-03-12] MEDS: LEVETIRACETAM SOL (5 ML) 100 MG/ML UDC GT SCH ×2 (09:20→21:13)
[2021-03-12] MEDS: GABAPENTIN 300 MG CAPSULE GT SCH ×3 (09:20→16:24)
[2021-03-12] MEDS: DOCUSATE SODIUM 100 MG CAPSULE PO SCH (09:20)
[2021-03-12] MEDS: FERROUS SULFATE UDC 300 MG/5 ML UDC GT SCH ×2 (09:20→16:24)
[2021-03-12] MEDS: PANTOPRAZOLE 40 MG VIAL IV SCH (09:20)
[2021-03-12] MEDS: FOLIC ACID 1 MG TABLET GT SCH (09:20)
[2021-03-12] MEDS: ALLOPURINOL 100 MG TABLET GT SCH (09:20)
[2021-03-12] MEDS: HEPARIN SODIUM, PORCINE 5000 UNITS/1 ML VIAL SQ SCH (09:22)
[2021-03-12] MEDS: DEXAMETHASONE SOD PHOSPHATE 10 MG/ML VIAL IV SCH (10:41)
--- NOTE | 2021-03-12 10:45 | NUR ---
PER RN, LACHELLE URIAS WAS GIVEN HEPARIN SQ AT 0900 TODAY 03/12/21. RN WAS INFORMED TO HOLD HEPARIN TILL AFTER PROCEDURE. PROCEDURE/THORACENTESIS WILL BE DONE TOMORROW
--- NOTE | 2021-03-12 10:53 | NUR ---
RN NOTE PT US GUIDED THORACENTESIS OF R LUNG WILL BE DONE ON 03/13/19. PT HEPARIN SQ D/C 03/12/21. WILL ENDORSE ACCORDINGLY.
[2021-03-12 12:00] VITALS: BP 124/51
[2021-03-12] MEDS: INSULIN REGULAR, HUMAN 100 UNIT/ML 3 ML VIAL SQ PRN (14:35)
[2021-03-12 15:33] LABS: THYROID STIMULATING HORMONE 4.453 uIU/mL (0.358-3.74)
[2021-03-12 16:00] VITALS: BP 105/52
--- NOTE | 2021-03-12 17:15 | NUR ---
RN NOTE HELD ZOSYN AND 2 UNITS INSULIN UNTIL HEMODIALYSIS COMPLETED. WILL NOTIFY SECOND OPERATOR RN.
[2021-03-12] MEDS ORDERED: VANCOMYCIN 500 MG in IV D5W 100 ML IV PRN (18:00)
--- NOTE | 2021-03-12 18:37 | NUR ---
RN CLOSING NOTE PATIENT REMAINED STABLE THROUGHOUT SHIFT. PATIENT ON 2LPM VIA NASAL CANNULA. TOLERATING WELL WITH BREATHING EVEN AND UNLABORED NO SOB AND O2 SAT OF 99%. NSR ON TELE MONITORING. PEG TUBE FEED RUNNING WITH NEPHRO @ 50ML/HR TOLERATING WELL. HEAD OF BED ELEVATED. PATIENT BED IN LOWEST POSITION AND WHEELS LOCKED IN PLACE. CALL LIGHT WITHIN REACH. ALL SAFETY MEASURES NOTED. WILL ENDORSE TO FOURTH HAND RN..
[2021-03-12] MEDS: MUPIROCIN OINT 2% 22 GM TUBE NS SCH (18:39)
--- NOTE | 2021-03-12 19:10 | NUR ---
RN NOTES RECEIVED REPORT FROM MORNING RN. PATIENT IN BED A/O X1 .WITH ONGOING HEMODIALYSIS HD AT BEDSIDE. WITH OXYGEN INHALATION AT 2 LPM VIA NASAL CANULA TOLERATING WELL SATING 98%. WITH IV ACCESS AT L FA # 20 PATENT FLUSHES WELL. VITAL SIGNS TAKEN AND RECORDED AFEBRILE. PATIENT WITH GT PATENT INTACT CONNECTED TO CONTINUOS FEEDING NEPHRO @ 50CC/HR NO RESIDUAL NOTED. ALL SAFETY MEASURES IN PLACE AT ALL TIMES. HOB ELEVATED. CALL LIGHT WITHIN REACH. BED ON LOWEST POSITION AND LOCKED. WILL CLOSELY MONITOR THE PATIENT.
[2021-03-12 20:00] VITALS: BP 126/60
--- NOTE | 2021-03-12 20:50 | NUR ---
RN NOTES HEMODIALYSIS COMPLETED. PATIENT REMAINS IN STABLE CONDITION. BP 123/65 HR 68. UF GOAL 1L NET. WILL MONITOR PATIENT.
[2021-03-12] MEDS: ATORVASTATIN 40 MG TABLET GT SCH (21:13)
[2021-03-12] MEDS: MIRTAZAPINE 15 MG TABLET GT SCH (21:13)
[2021-03-13] VITALS: BP 100/56
[2021-03-13] MEDS: INSULIN REGULAR, HUMAN 100 UNIT/ML 3 ML VIAL SQ PRN ×4 (00:03→23:24)
--- NOTE | 2021-03-13 00:10 | NUR ---
RN NOTES BS 184 MG/DL DUE REGULAR INSULIN 3 UNITES GIVEN PER SLIDING SCALE. WILL CONTINUE TO MONITOR THE PATIENT
[2021-03-13] MEDS: PIPERACILLIN /TAZOBACTAM 2.25 G in IV D5W 50 ML IV SCH ×3 (02:28→17:26)
[2021-03-13 04:00] VITALS: BP 100/45
[2021-03-13] MEDS: BLOOD SUGAR DIAGNOSTIC 1 EACH STRIP IN SCH ×4 (05:42→23:24)
--- NOTE | 2021-03-13 05:58 | NUR ---
RN NOTES BS 163 MG/DL 3 UNITS OF REGULAR INSULIN GIVEN PER SLIDING SCALE.
--- NOTE | 2021-03-13 06:52 | NUR ---
RN NOTES PATIENT REMAINS STABLE THE WHOLE SHIFT NO SIGNIFICANT CHANGES IN HEALTH CONDITION. ALL DUE MEDS GIVEN ORDERED. STILL ON OXYGEN INHALATION AT 3 LPM VIA NC TOLERATING WELL SATING 98%. STILL ON GT FEEDING TOLERATING WELL ALL NEEDS ATTENDED PROMPTLY. ALL SAFETY MEASURES IN PLACE AT ALL TIMES. CALL LIGHT WITHIN REACH. HOB ELEVATED. CALL LIGHT WITHIN REACH. FOR THORACENTESIS TODAY. WILL ENDORSED TO AM NURSE FOR EZEQUIEL
--- NOTE | 2021-03-13 07:56 | NUR ---
WOUND CARE CONSULT: REVIEWED CHART, NURSING DOCUMENTATION AND PHOTOS WHICH INDICATE SACRAL SCARRING, RT UPPER ARM DISCOLORATION/DRY ABRASION/WOUND AND RT GREAT TOE DISCOLORATION/DRY WOUND, PRESENT ON ADMISSION. SURGICAL AND DPM CONSULTS CALLED TO DR JOSEPH AND DR GOODSON. PT IS ON SEDRICK ISOFLEX LOW AIRLOSS BED. RECOMMENDATIONS MADE FOR SKIN PROTECTION. DISCUSSED WITH NURSING STAFF. MD IN AGREEMENT WITH PLAN OF CARE.
[2021-03-13 08:00] VITALS: BP 97/70
[2021-03-13] MEDS: FERROUS SULFATE UDC 300 MG/5 ML UDC GT SCH ×2 (08:00→17:25)
[2021-03-13] MEDS: LEVETIRACETAM SOL (5 ML) 100 MG/ML UDC GT SCH ×2 (08:00→21:54)
[2021-03-13] MEDS: ALLOPURINOL 100 MG TABLET GT SCH (08:00)
[2021-03-13] MEDS: FOLIC ACID 1 MG TABLET GT SCH (08:00)
[2021-03-13] MEDS: PANTOPRAZOLE 40 MG VIAL IV SCH (08:00)
[2021-03-13] MEDS: GABAPENTIN 300 MG CAPSULE GT SCH ×3 (08:00→17:25)
[2021-03-13] MEDS: DOCUSATE SODIUM 100 MG CAPSULE PO SCH (08:01)
[2021-03-13] MEDS: DEXAMETHASONE SOD PHOSPHATE 10 MG/ML VIAL IV SCH (08:01)
[2021-03-13] MEDS: MUPIROCIN OINT 2% 22 GM TUBE NS SCH ×2 (08:11→17:31)
[2021-03-13 08:26] LABS: CALCIUM, SERUM 9.3 mg/dL (8.5-10.1); CREATININE 3.9 mg/dL (0.6-1.3); MAGNESIUM 2.2 mg/dL (1.8-2.4); PHOSPHORUS 3.9 mg/dL (2.5-4.9); POTASSIUM 3.8 mmol/L (3.5-5.1)
[2021-03-13 08:35] LABS: BASOPHILS % (AUTO) 0.1 % (0.0-2.0); HEMATOCRIT 32 % (39-51); HEMOGLOBIN 10.7 g/dL (13.5-17.5); LYMPHOCYTES # (AUTO) 0.5 K/uL (0.8-4.8); LYMPHOCYTES % (AUTO) 10.4 % (20.0-44.0); MEAN CORPUSCULAR HGB CONC 34 g/dl (31.0-36.0); MEAN CORPUSCULAR VOLUME 109 fL (80-96); MONOCYTES # (AUTO) 0.2 K/uL (0.1-1.30); MONOCYTES % (AUTO) 4.8 % (2.0-12.0); NEUTROPHILS % (AUTO) 84.7 % (43.0-81.0); PLATELET COUNT (AUTO) 122 K/uL (150-450); RED BLOOD CELL COUNT(AUTO) 2.92 MIL/uL (4.5-6.0); WHITE BLOOD COUNT (AUTO) 4.7 K/uL (4.3-11.0)
--- NOTE | 2021-03-13 11:26 | NUR ---
RN NOTE THORACENTESIS TO R LUNG PROCEDURE WAS D/C DUE TO LACK OF FLUID IN LUNGS. PULMO AND MADE AWARE.
[2021-03-13 12:00] VITALS: BP 130/71
[2021-03-13 12:05] LABS: BASOPHILS % (AUTO) 0.7 % (0.0-2.0); EOSINOPHILS % (AUTO) 0.2 % (0.0-6.0); HEMATOCRIT 31 % (39-51); HEMOGLOBIN 10.4 g/dL (13.5-17.5); LYMPHOCYTES # (AUTO) 0.7 K/uL (0.8-4.8); LYMPHOCYTES % (AUTO) 13.4 % (20.0-44.0); MEAN CORPUSCULAR HGB CONC 34 g/dl (31.0-36.0); MEAN CORPUSCULAR VOLUME 108 fL (80-96); MONOCYTES # (AUTO) 0.1 K/uL (0.1-1.30); MONOCYTES % (AUTO) 2.7 % (2.0-12.0); NEUTROPHILS # (AUTO) 4.4 K/uL (1.8-8.9); PLATELET COUNT (AUTO) 105 K/uL (150-450); RED BLOOD CELL COUNT(AUTO) 2.86 MIL/uL (4.5-6.0); WHITE BLOOD COUNT (AUTO) 5.3 K/uL (4.3-11.0)
[2021-03-13] MEDS: HEPARIN SODIUM, PORCINE 5000 UNITS/1 ML VIAL SQ SCH ×2 (13:20→17:26)
[2021-03-13 16:00] VITALS: BP 92/56
[2021-03-13] MEDS: NEPRO 1,000 ML BOTTLE GT PRN (16:34)
--- NOTE | 2021-03-13 19:28 | NUR ---
RN NOTE PATIENT STABLE THROUGHOUT SHIFT. PATIENT ON 2LPM VIA NASAL CANNULA. TOLERATING WELL WITH BREATHING EVEN AND UNLABORED NO SOB AND O2 SAT OF 98%. NSR. PEG TUBE FEED RUNNING WITH NEPHRO @ 50ML/HR TOLERATING WELL ASPIRATION PREC FOLLOWED. PATIENT BED IN LOWEST POSITION AND WHEELS LOCKED IN PLACE. CALL LIGHT WITHIN REACH. ALL SAFETY MEASURES NOTED.
--- NOTE | 2021-03-13 19:30 | NUR ---
RN OPENING NOTE RECEIVED CARE OF PATIENT WHILE PATIENT IN BED, A/O X2, NAURUAN SPEAKING, ABLE TO VERBALIZE NEEDS. PATIENT ON OXYGEN THERAPY VIA NC 2 L/MIN, NO SOB NOTED, O2 SAT 97%. PATIENT ON TELE MONITOR, SHOWING SR WITH HR OF 71, NO DISTRESS NOTED. PATIENT NOTED WITH GTUBE RUNNING NEPHRO AT 50 ML/HR, TOLERATING WELL, NO RESIDUAL NOTED. GTUBE PLACEMENT CONFIRMED VIA AUSCULTATION OF THE ABDOMEN. NO SIGNIFICANT FINDINGS UPON INITIAL NURSING ASSESSMENTS. APPROPRIATE ISOLATION PRECAUTIONS IN PLACE, NECESSARY SAFETY MEASURES IMPLEMENTED. WILL CONTINUE TO MONITOR PATIENT.
[2021-03-13 20:00] VITALS: BP 90/44
--- NOTE | 2021-03-13 20:41 | NUR ---
RN NOTES HEMODIALYSIS PATIENT, NOTED HYPOTENSIVE, BP: 74/42, 85/44, READINGS TAKEN 5 MINUTES APART. NO DISTRESS NOTED. STORE FACILITY TECHNICIAN MADE AWARE. ORDER TO CONTINUE MONITORING PATIENT.
[2021-03-13] MEDS: MIRTAZAPINE 15 MG TABLET GT SCH (21:53)
[2021-03-13] MEDS: ATORVASTATIN 40 MG TABLET GT SCH (21:54)
[2021-03-14] VITALS: BP 100/61
[2021-03-14] MEDS: PIPERACILLIN /TAZOBACTAM 2.25 G in IV D5W 50 ML IV SCH ×3 (02:40→17:50)
[2021-03-14 04:00] VITALS: BP 99/58
[2021-03-14] MEDS: INSULIN REGULAR, HUMAN 100 UNIT/ML 3 ML VIAL SQ PRN ×2 (06:46→17:58)
[2021-03-14] MEDS: BLOOD SUGAR DIAGNOSTIC 1 EACH STRIP IN SCH ×3 (06:50→17:51)
[2021-03-14 07:15] LABS: BASOPHILS % (AUTO) 0.1 % (0.0-2.0); HEMATOCRIT 32 % (39-51); HEMOGLOBIN 10.6 g/dL (13.5-17.5); LYMPHOCYTES # (AUTO) 0.6 K/uL (0.8-4.8); LYMPHOCYTES % (AUTO) 12.5 % (20.0-44.0); MEAN CORPUSCULAR HGB CONC 33 g/dl (31.0-36.0); MEAN CORPUSCULAR VOLUME 109 fL (80-96); MONOCYTES # (AUTO) 0.3 K/uL (0.1-1.30); MONOCYTES % (AUTO) 5.8 % (2.0-12.0); NEUTROPHILS # (AUTO) 4.2 K/uL (1.8-8.9); NEUTROPHILS % (AUTO) 81.6 % (43.0-81.0); PLATELET COUNT (AUTO) 113 K/uL (150-450); RED BLOOD CELL COUNT(AUTO) 2.91 MIL/uL (4.5-6.0); WHITE BLOOD COUNT (AUTO) 5.1 K/uL (4.3-11.0)
--- NOTE | 2021-03-14 07:29 | NUR ---
RN CLOSING NOTES ENDORSED CARE OF PATIENT TO AM NURSE WHILE PATIENT IN BED, A/O X3, ABLE TO MAKE NEEDS KNOWN, IRISH SPEAKING. ALL NEEDS MET THROUGHOUT SHIFT. PATIENT WILL RECEIVED SCHEDULED HEMODIALYSIS. HD NURSE AT BEDSIDE. PATIENT REMAINS STABLE ON 2 L/MIN NC, O2 SAT 96%, NO SOB NOTED. ON TELE MONITOR, SHOWING SR WITH HEART RATE 77. APPROPRIATE ISOLATION PRECAUTIONS IN PLACE, NECESSARY SAFETY MEASURES IMPLEMENTED. ENDORSED CARE OF PATIENT TO AM NURSE FOR EZEQUIEL.
--- NOTE | 2021-03-14 07:30 | NUR ---
VALIDATION ARCHITECT OPENING NOTES RECEIVED PATIENT IN BED, A/O X3, ABLE TO MAKE NEEDS KNOWN, BELARUSIAN SPEAKING. ON O2 AT 2LPM VIA NASAL CANNULA SATURATING WELL. NO SOB NOTED. NOT IN DISTRESS. WITH NO COMPLAINTS OF PAIN OR DISCOMFORT AT THIS TIME. WITH IV ACCESS LEFT FOREARM G20 SALINE LOCKED, PATENT AND INTACT. WITH RIGHT UPPER ARM FISTULA FOR HEMODIALYSIS. ON TELE MONITOR CURRENTLY READING SINUS RHYTHM AT 76BPM. SAFETY MEASURES IN PLACED. CALL LIGHT WITHIN REACH. BED ON LOWEST LOCKED POSITION, SIDE RAILS UP X2. WILL CONTINUE TO MONITOR.
[2021-03-14 08:00] VITALS: BP 88/58
[2021-03-14 08:52] LABS: CALCIUM, SERUM 9.3 mg/dL (8.5-10.1); CREATININE 4.7 mg/dL (0.6-1.3); MAGNESIUM 3.1 mg/dL (1.8-2.4); PHOSPHORUS 5.4 mg/dL (2.5-4.9); POTASSIUM 4.4 mmol/L (3.5-5.1)
[2021-03-14] MEDS: GABAPENTIN 300 MG CAPSULE GT SCH ×3 (09:00→16:32)
[2021-03-14] MEDS: HEPARIN SODIUM, PORCINE 5000 UNITS/1 ML VIAL SQ SCH ×2 (09:00→16:36)
[2021-03-14] MEDS ORDERED: ALBUMIN 25% 12.5 GM in PREMIX 1 EA IV PRN (10:40)
[2021-03-14] MEDS: ALBUMIN 25% 25 GM in PREMIX 1 EA IV PRN (10:49)
[2021-03-14 12:00] VITALS: BP 105/67
[2021-03-14] MEDS: DOCUSATE SODIUM 100 MG CAPSULE PO SCH (13:16)
[2021-03-14] MEDS: FOLIC ACID 1 MG TABLET GT SCH (13:16)
[2021-03-14] MEDS: FERROUS SULFATE UDC 300 MG/5 ML UDC GT SCH ×2 (13:16→16:32)
[2021-03-14] MEDS: DEXAMETHASONE SOD PHOSPHATE 10 MG/ML VIAL IV SCH (13:16)
[2021-03-14] MEDS: Fenofibrate 48 MG TABLET GT SCH (13:16)
[2021-03-14] MEDS: PANTOPRAZOLE 40 MG/PACK PACK GT SCH (13:16)
[2021-03-14] MEDS: MUPIROCIN OINT 2% 22 GM TUBE NS SCH ×2 (13:17→16:36)
[2021-03-14] MEDS: ALLOPURINOL 100 MG TABLET GT SCH (13:17)
[2021-03-14] MEDS: LEVETIRACETAM SOL (5 ML) 100 MG/ML UDC GT SCH ×2 (13:19→21:48)
[2021-03-14] MEDS: NEPRO 1,000 ML BOTTLE GT PRN (14:52)
[2021-03-14 16:00] VITALS: BP 108/70
--- NOTE | 2021-03-14 17:38 | NUR ---
PATIENT PCR POSITIVE MD NOTIFIED.
--- NOTE | 2021-03-14 18:56 | NUR ---
HOUSEKEEPER AND LAUNDRY ASSISTANT CLOSING NOTES PATIENT IN BED, A/O X3, ABLE TO MAKE NEEDS KNOWN, KYRGYZ SPEAKING. ON O2 AT 2LPM VIA NASAL CANNULA SATURATING WELL. NO SOB NOTED. NOT IN DISTRESS. WITH NO COMPLAINTS OF PAIN OR DISCOMFORT AT THIS TIME. WITH IV ACCESS LEFT FOREARM G20 SALINE LOCKED, PATENT AND INTACT. WITH RIGHT UPPER ARM FISTULA FOR HEMODIALYSIS. ON TELE MONITOR CURRENTLY READING SINUS RHYTHM AT 80BPM. DUE MEDS GIVEN. SAFETY MEASURES IN PLACED. CALL LIGHT WITHIN REACH. BED ON LOWEST LOCKED POSITION, SIDE RAILS UP X2. WILL ENDORSE TO NEXT SHIFT FOR EZEQUIEL.
[2021-03-14 20:00] VITALS: BP 139/71
[2021-03-14] MEDS: MIRTAZAPINE 15 MG TABLET GT SCH (21:48)
[2021-03-14] MEDS: ATORVASTATIN 40 MG TABLET GT SCH (21:48)
[2021-03-15] VITALS (7 sets, daily range): BP systolic 99–133; BP diastolic 51–70
[2021-03-15] MEDS: INSULIN REGULAR, HUMAN 100 UNIT/ML 3 ML VIAL SQ PRN ×4 (00:45→17:17)
[2021-03-15] MEDS: BLOOD SUGAR DIAGNOSTIC 1 EACH STRIP IN SCH ×4 (00:46→17:20)
[2021-03-15] MEDS: PIPERACILLIN /TAZOBACTAM 2.25 G in IV D5W 50 ML IV SCH ×3 (02:11→17:16)
--- NOTE | 2021-03-15 07:25 | NUR ---
PRINTING EQUIPMENT MECHANIC OPENING NOTES RECEIVED PATIENT IN BED, AWAKE, ALERT/ORIENTED X3, ABLE TO MAKE NEEDS KNOWN, TURKISH SPEAKING. ON O2 AT 3LPM VIA NC. BREATHING EVEN AND UNLABORED. NO SOB OR ANY ACUTE DISTRESS NOTED. WITH NO COMPLAINTS OF PAIN OR DISCOMFORT AT THIS TIME. WITH IV ACCESS LEFT FOREARM G20 SALINE LOCKED, AND LEFT LOWER LEG G#20, PATENT AND INTACT. NO SIGNS OF INFILTRATIONS WITH RIGHT UPPER ARM FISTULA FOR HEMODIALYSIS. ON GT FEEDING RUNNING AT NEPHRO 50 ML/HR, TOLERATING WELL. ON TELE MONITOR CURRENTLY READING SINUS RHYTHM. ALL APPLICABLE ISOLATION PRECAUTIONS IN PLACE. SAFETY MEASURES IN PLACED. CALL LIGHT WITHIN REACH. BED ON LOWEST LOCKED POSITION, SIDE RAILS UP X2. WILL CONTINUE TO MONITOR PATIENT ACCORDINGLY.
--- NOTE | 2021-03-15 07:28 | NUR ---
RN NOTES ENDORSED CARE OF PATIENT TO AM NURSE WHILE PATIENT IN BED, A/O X3, ABLE TO MAKE NEEDS KNOWN, LITHUANIAN SPEAKING. PATIENT ON 2 L/MIN NC, O2 SAT 97%, NO SOB NOTED. ON TELE MONITOR, SHOWING SR WITH HEART RATE 81. ALL DUE MEDS GIVEN, ALL NEEDS ATTENDED TO. APPROPRIATE ISOLATION PRECAUTIONS IN PLACE, NECESSARY SAFETY MEASURES IMPLEMENTED. ENDORSED CARE OF PATIENT TO AM NURSE FOR EZEQUIEL.
[2021-03-15 07:49] LABS: BASOPHILS % (AUTO) 0.1 % (0.0-2.0); HEMATOCRIT 31 % (39-51); HEMOGLOBIN 10.4 g/dL (13.5-17.5); LYMPHOCYTES # (AUTO) 0.7 K/uL (0.8-4.8); LYMPHOCYTES % (AUTO) 13.4 % (20.0-44.0); MEAN CORPUSCULAR HGB CONC 33 g/dl (31.0-36.0); MEAN CORPUSCULAR VOLUME 110 fL (80-96); MONOCYTES # (AUTO) 0.2 K/uL (0.1-1.30); MONOCYTES % (AUTO) 4.5 % (2.0-12.0); NEUTROPHILS # (AUTO) 4.4 K/uL (1.8-8.9); PLATELET COUNT (AUTO) 88 K/uL (150-450); RED BLOOD CELL COUNT(AUTO) 2.86 MIL/uL (4.5-6.0); WHITE BLOOD COUNT (AUTO) 5.3 K/uL (4.3-11.0)
[2021-03-15 08:29] LABS: CALCIUM, SERUM 8.4 mg/dL (8.5-10.1); CREATININE 3.6 mg/dL (0.6-1.3); MAGNESIUM 2.2 mg/dL (1.8-2.4); PHOSPHORUS 3.8 mg/dL (2.5-4.9); POTASSIUM 4.2 mmol/L (3.5-5.1)
[2021-03-15] MEDS: FOLIC ACID 1 MG TABLET GT SCH (09:00)
[2021-03-15] MEDS: DEXAMETHASONE SOD PHOSPHATE 10 MG/ML VIAL IV SCH (09:00)
[2021-03-15] MEDS: GABAPENTIN 300 MG CAPSULE GT SCH ×3 (09:00→16:13)
[2021-03-15] MEDS: FERROUS SULFATE UDC 300 MG/5 ML UDC GT SCH ×2 (09:00→16:13)
[2021-03-15] MEDS: LEVETIRACETAM SOL (5 ML) 100 MG/ML UDC GT SCH ×2 (09:00→21:25)
[2021-03-15] MEDS: Fenofibrate 48 MG TABLET GT SCH (09:01)
[2021-03-15] MEDS: DOCUSATE SODIUM 100 MG CAPSULE PO SCH (09:01)
[2021-03-15] MEDS: PANTOPRAZOLE 40 MG/PACK PACK GT SCH (09:01)
[2021-03-15] MEDS: ALLOPURINOL 100 MG TABLET GT SCH (09:01)
[2021-03-15] MEDS: HEPARIN SODIUM, PORCINE 5000 UNITS/1 ML VIAL SQ SCH (09:02)
[2021-03-15] MEDS: MUPIROCIN OINT 2% 22 GM TUBE NS SCH ×2 (09:31→16:14)
[2021-03-15] MEDS: NEPRO 1,000 ML BOTTLE GT PRN (13:39)
[2021-03-15 15:14] LABS: LYMPHOCYTES % (MANUAL) 16 % (16-48); MONOCYTES % (MANUAL) 5 % (0-11.0); NEUTROPHILS % (MANUAL) 79 (42-76)
--- NOTE | 2021-03-15 19:30 | NUR ---
PYROTECHNIC MIXER OPENING RECEIVED PATIENT IN BED WITH EYES CLOSED, EASY TO AROUSE. NON-VERBAL. NO S/S OF APPARENT DISTRESS ON 3LPM OF O2 VIA NC. NOT EXHIBITING PAIN VIA FLACC. TELE MONITOR READING SR WITH ST DEPRESSION 62 BPM. ZOSYN STILL RUNNING AT THIS TIME. G-TUBE NOTED TO BE RUNNING NEPRO @70 ML/HR. SAFETY IN PLACE. WILL CONTINUE WITH PLAN OF CARE FOR PATIENT.
--- NOTE | 2021-03-15 19:38 | NUR ---
RN CLOSING NOTES PATIENT REMAINS IN STABLE CONDITION THROUGHOUT. BREATHING EVEN AND UNLABORED. NO SOB OR ANY ACUTE DISTRESS NOTED. ON O2 3LPM VIA NC, TOLERATING WELL. IV ACCESS ON LEFT FOREARM AND LEFT LOWER LEG, PATENT AND INTACT. NO SIGNS OF INFILTRATIONS. GT FEEDING NEPHRO RUNNING AT 50 CC/HR, TOLERATING WELL. ALL DUE MEDS GIVEN ORDERED. KEPT PATIENT CLEAN, DRY AND COMFORTABLE. ALL NEEDS ATTENDED. ALL APPLICABLE ISOLATION PRECAUTIONS IN PLACE. ALL SAFETY MEASURES MAINTAINED. BED LOCKED AND IN LOWEST POSITION WITH SIDERAILS UP. CALL LIGHT WITHIN REACH. ENDORSED TO ONCOMING NURSE FOR EZEQUIEL.
[2021-03-15] MEDS: ATORVASTATIN 40 MG TABLET GT SCH (21:25)
[2021-03-15] MEDS: MIRTAZAPINE 15 MG TABLET GT SCH (21:25)
[2021-03-16] VITALS: BP 133/70
[2021-03-16] MEDS: INSULIN REGULAR, HUMAN 100 UNIT/ML 3 ML VIAL SQ PRN ×4 (00:46→18:05)
[2021-03-16] MEDS: PIPERACILLIN /TAZOBACTAM 2.25 G in IV D5W 50 ML IV SCH ×2 (02:00→09:11)
[2021-03-16 04:00] VITALS: BP 117/67
[2021-03-16] MEDS: BLOOD SUGAR DIAGNOSTIC 1 EACH STRIP IN SCH ×4 (06:08→18:04)
--- NOTE | 2021-03-16 07:25 | NUR ---
CERTIFIED EXECUTIVE CHEF OPENING NOTES RECEIVED PATIENT IN BED, SLEEPING, EASILY AROUSABLE. PATIENT IS ALERT/ORIENTED X 2, AZERI SPEAKING. ON O2 AT 3LPM VIA NC. BREATHING EVEN AND UNLABORED. NO SOB OR ANY ACUTE DISTRESS NOTED. WITH NO COMPLAINTS OF PAIN OR DISCOMFORT AT THIS TIME. WITH IV ACCESS LEFT FOREARM G20 SALINE LOCKED, AND LEFT LOWER LEG G#20, PATENT AND INTACT. NO SIGNS OF INFILTRATIONS WITH RIGHT UPPER ARM FISTULA FOR HEMODIALYSIS. GT FEEDING IS STOPPED AT THIS TIME. ON TELE MONITOR CURRENTLY READING SINUS RHYTHM. ALL APPLICABLE ISOLATION PRECAUTIONS IN PLACE. SAFETY MEASURES IN PLACED. CALL LIGHT WITHIN REACH. BED ON LOWEST LOCKED POSITION, SIDE RAILS UP X2. WILL CONTINUE TO MONITOR PATIENT ACCORDINGLY.
--- NOTE | 2021-03-16 07:29 | NUR ---
DIRECTOR OF STUDENT LIFE CLOSING NOTE PATIENT IN BED WITH EYES CLOSED, EASY TO AROUSE. NOW TALKING. NO S/S OF APPARENT DISTRESS ON 3LPM OF O2 VIA NC. TELE MONITOR READING SR THROUGHOUT SHIFT. NO C/O PAIN AT THIS TIME. WOUND CONSULT ORDERED FOR SACRUM-- PICTURE TAKEN, OFFLOADED. NO FLUIDS RUNNING AT THIS TIME. SAFETY KEPT IN PLACE THE WHOLE SHIFT. ALL NEEDS ATTENDED. ALL SCHEDULED MEDICATIONS ADMINISTERED. ISOLATION STRICTLY FOLLOWED. WILL ENDORSE TO MORNING SHIFT RN FOR CONTINUITY OF CARE.
[2021-03-16 08:00] VITALS: BP 121/67
[2021-03-16] MEDS: Fenofibrate 48 MG TABLET GT SCH (08:28)
[2021-03-16] MEDS: PANTOPRAZOLE 40 MG/PACK PACK GT SCH (08:28)
[2021-03-16] MEDS: FERROUS SULFATE UDC 300 MG/5 ML UDC GT SCH ×2 (08:28→17:24)
[2021-03-16] MEDS: LEVETIRACETAM SOL (5 ML) 100 MG/ML UDC GT SCH ×2 (08:28→21:12)
[2021-03-16] MEDS: DOCUSATE SODIUM 100 MG CAPSULE PO SCH (08:28)
[2021-03-16] MEDS: DEXAMETHASONE SOD PHOSPHATE 10 MG/ML VIAL IV SCH (08:28)
[2021-03-16] MEDS: FOLIC ACID 1 MG TABLET GT SCH (08:29)
[2021-03-16] MEDS: ALLOPURINOL 100 MG TABLET GT SCH (08:29)
[2021-03-16] MEDS: GABAPENTIN 300 MG CAPSULE GT SCH ×3 (08:29→17:24)
[2021-03-16] MEDS: MUPIROCIN OINT 2% 22 GM TUBE NS SCH ×2 (09:11→17:25)
--- NOTE | 2021-03-16 10:49 | NUR ---
WOUND CARE CONSULT: RECEIVED SECOND CONSULT FOR SACRUM. REVIEWED CHART AND PHOTO DOCUMENTATION WHICH INDICATES SACRAL SCARRING, PRESENT ON ADMISSION. RECOMMENDATIONS MADE FOR SKIN PROTECTION. DISCUSSED WITH NURSING STAFF. PT IS ON [facility] LOW AIRLOSS BED. MD IN AGREEMENT WITH PLAN OF CARE.
[2021-03-16 12:00] VITALS: BP 126/73
[2021-03-16] MEDS ORDERED: DOXYCYCLINE HYCLATE (100 MG) 100 MG TABLET PO SCH (12:00)
[2021-03-16] MEDS ORDERED: GENTAMICIN 140 MG in IV D5W 50 ML IV PRN (12:30)
[2021-03-16] MEDS ORDERED: GENTAMICIN 200 MG in IV D5W 100 ML IV ONE ×2 (13:00→16:00)
--- NOTE | 2021-03-16 14:39 | NUR ---
PATIENT RECEIVING DIALYSIS , TO BE DONE TOMORROW MORNING
--- NOTE | 2021-03-16 15:00 | NUR ---
RN NOTES DIALYSIS COMPLETED BY HD NURSE, REMOVED 2LITERS BP:151/93 HR-64. NO SOB OR ANY ACUTE DISTRESS NOTED AT THE TIME. ALL NEEDS ATTENDED. ALL APPLICABLE ISOLATION PRECAUTIONS IN PLACE. ALL SAFETY MEASURES IN PLACE. CALL LIGHT WITHIN REACH. WILL CONTINUE TO MONITOR PATIENT ACCORDINGLY.
[2021-03-16 16:19] VITALS: BP 147/78
--- NOTE | 2021-03-16 18:35 | NUR ---
ROLL OVER LOADER CLOSING NOTES PATIENT REMAINS IN STABLE CONDITION THROUGHOUT SHIFT. PATIENT IS SLEEPING IN BED. ON O2 AT 3LPM VIA NC. BREATHING EVEN AND UNLABORED. NO SOB OR ANY ACUTE DISTRESS NOTED. WITH IV ACCESS LEFT FOREARM G20 SALINE LOCKED, AND LEFT LOWER LEG G#20, PATENT AND INTACT. NO SIGNS OF INFILTRATIONS WITH RIGHT UPPER ARM FISTULA FOR HEMODIALYSIS. GT FEEDING NEPHRO RUNNING AT 50 ML/HR, TOLERATING WELL. ALL DUE MEDS GIVEN ORDERED. WOUND CARE RENDERED, TOLERATED WELL. ALL NEEDS ATTENDED. KEPT PATIENT CLEAN, DRY AND COMFORTABLE. ALL APPLICABLE ISOLATION PRECAUTIONS IN PLACE. SAFETY MEASURES IN PLACED. CALL LIGHT WITHIN REACH. BED ON LOWEST LOCKED POSITION, SIDE RAILS UP X2. WILL ENDORSE TO ONCOMING NURSE FOR CONTINUITY OF CARE.
--- NOTE | 2021-03-16 19:35 | NUR ---
RN OPENING NOTE PATIENT IN BED, AWAKE. PATIENT IS A/O X 1 AT THIS TIME, ABLE TO FOLLOW COMMANDS. PATIENT CURRENTLY ON 3LPM VIA NC. TELE MONITOR READS SR 63 BPM. PATIENT HAS A DRESSING IN PLACE ON L FOOT C/D/I. TF RUNNING NEPRO AT 50 ML/HR, TOLERATES WELL NO RESIDUAL. PATIENT HAS A LFA 20 G AND A L LOWER LEG 2 G PRESENT. MARY AV FISTULA BRUIT/THRILL PALPABLE. PATIENT TO HAVE THORACENTESIS IN AM. ISOLATION PRECAUTION IMPLEMENTED. SAFETY MEASURES IN PLACE: BED LOCKED AND IN LOWEST POSITION, CALL LIGHT WITHIN REACH, SIDE RAILS UP. HOB ELEVATED. WILL CONTINUE TO MONITOR CLOSELY.
[2021-03-16 20:00] VITALS: BP_SYST 112; BP_SYST 132; BP_DIAS 56; BP_DIAS 61
[2021-03-16] MEDS: DOXYCYCLINE HYCLATE (100 MG) 100 MG TABLET PO SCH (21:17)
[2021-03-16] MEDS: MIRTAZAPINE 15 MG TABLET GT SCH (21:18)
[2021-03-16] MEDS: ATORVASTATIN 40 MG TABLET GT SCH (21:18)
[2021-03-17] VITALS: BP 104/46
[2021-03-17] MEDS: BLOOD SUGAR DIAGNOSTIC 1 EACH STRIP IN SCH ×5 (00:01→23:52)
[2021-03-17] MEDS: INSULIN REGULAR, HUMAN 100 UNIT/ML 3 ML VIAL SQ PRN ×5 (00:10→23:53)
--- NOTE | 2021-03-17 00:15 | NUR ---
RN NOTE BS 168 MG/DL. 3 UNITS COVERAGE GIVEN, ON CONTINUOUS TF.
[2021-03-17 04:00] VITALS: BP 121/60
[2021-03-17 07:09] LABS: BASOPHILS % (AUTO) 0.1 % (0.0-2.0); EOSINOPHILS % (AUTO) 0.1 % (0.0-6.0); HEMATOCRIT 33 % (39-51); LYMPHOCYTES # (AUTO) 0.7 K/uL (0.8-4.8); LYMPHOCYTES % (AUTO) 10.6 % (20.0-44.0); MEAN CORPUSCULAR HGB CONC 33 g/dl (31.0-36.0); MEAN CORPUSCULAR VOLUME 109 fL (80-96); MONOCYTES # (AUTO) 0.5 K/uL (0.1-1.30); MONOCYTES % (AUTO) 8.1 % (2.0-12.0); NEUTROPHILS # (AUTO) 5.5 K/uL (1.8-8.9); NEUTROPHILS % (AUTO) 81.1 % (43.0-81.0); PLATELET COUNT (AUTO) 103 K/uL (150-450); RED BLOOD CELL COUNT(AUTO) 3.07 MIL/uL (4.5-6.0); WHITE BLOOD COUNT (AUTO) 6.8 K/uL (4.3-11.0)
--- NOTE | 2021-03-17 07:09 | NUR ---
RN CLOSING NOTE PATIENT IN BED, AWAKE. PATIENT IS A/O X 1-2 AT THIS TIME, ABLE TO FOLLOW COMMANDS. PATIENT CURRENTLY ON 3LPM VIA NC. TELE MONITOR READS SR 61 BPM. PATIENT HAS A DRESSING IN PLACE ON L FOOT C/D/I. TF RUNNING NEPRO AT 50 ML/HR, TOLERATES WELL NO RESIDUAL. PATIENT HAS A L LOWER LEG 2 G PRESENT. MARY AV FISTULA BRUIT/THRILL PALPABLE. PATIENT TO HAVE THORACENTESIS THIS AM. ISOLATION PRECAUTION IMPLEMENTED. BS 168 MG/DL AT 0600, 3 UNITS COVERAGE GIVEN. SAFETY MEASURES IN PLACE: BED LOCKED AND IN LOWEST POSITION, CALL LIGHT WITHIN REACH, SIDE RAILS UP. HOB ELEVATED. ALL NEEDS MET AND ATTENDED, ALL ORDERS CARRIED OUT. WILL ENDORSE TO DAY SHIFT NURSE FOR EZEQUIEL.
--- NOTE | 2021-03-17 07:24 | NUR ---
RN OPENING NOTES PATIENT AWAKE IN BED RESTING, A/O X1. NO S/S OF PAIN NOTED AT THIS TIME. ON 3L OXYGEN, NO DISTRESS OR SHORTNESS OF BREATH NOTED. IV ACCESS L LOWER LEG #20G, INTACT, PATENT AND FLUSHING WELL. PATIENT HAVE AN EXTERNAL BUSINESS CHANGE MANAGER WITH CURRENT READING OF S.R., NO CARDIAC DISTRESS NOTED. FALL AND SAFETY MEASURES IN PLACE, BED ALARM ON, BED IN LOW AND LOCK POSITION, CALL LIGHT AND TABLE WITHIN EASY REACH, SIDE RAILS UP X2. WILL CONTINUE TO MONITOR.
[2021-03-17 08:00] VITALS: BP 105/62
[2021-03-17 08:17] LABS: CALCIUM, SERUM 8.1 mg/dL (8.5-10.1); CREATININE 3.5 mg/dL (0.6-1.3); PHOSPHORUS 4.5 mg/dL (2.5-4.9); POTASSIUM 4.2 mmol/L (3.5-5.1)
[2021-03-17] MEDS: FERROUS SULFATE UDC 300 MG/5 ML UDC GT SCH ×2 (08:43→17:05)
[2021-03-17] MEDS: PANTOPRAZOLE 40 MG/PACK PACK GT SCH (08:44)
[2021-03-17] MEDS: FOLIC ACID 1 MG TABLET GT SCH (08:44)
[2021-03-17] MEDS: Fenofibrate 48 MG TABLET GT SCH (08:44)
[2021-03-17] MEDS: DOCUSATE SODIUM 100 MG CAPSULE PO SCH (08:44)
[2021-03-17] MEDS: DOXYCYCLINE HYCLATE (100 MG) 100 MG TABLET PO SCH ×2 (08:44→21:10)
[2021-03-17] MEDS: GABAPENTIN 300 MG CAPSULE GT SCH ×3 (08:44→17:05)
[2021-03-17] MEDS: DEXAMETHASONE SOD PHOSPHATE 10 MG/ML VIAL IV SCH (08:45)
[2021-03-17] MEDS: ALLOPURINOL 100 MG TABLET GT SCH (08:45)
[2021-03-17] MEDS: LEVETIRACETAM SOL (5 ML) 100 MG/ML UDC GT SCH ×2 (08:45→21:10)
[2021-03-17] MEDS: MUPIROCIN OINT 2% 22 GM TUBE NS SCH (09:16)
[2021-03-17 09:49] LABS: GENTAMICIN,RANDOM 5.7 ug/ml (4.0-8.0)
[2021-03-17 12:00] VITALS: BP 129/60
[2021-03-17 16:00] VITALS: BP 124/58
--- NOTE | 2021-03-17 18:50 | NUR ---
RN CLOSING NOTES PATIENT AWAKE IN BED RESTING, A/O X1. NO S/S OF PAIN NOTED AT THIS TIME. ON 3L OXYGEN, NO DISTRESS OR SHORTNESS OF BREATH NOTED. IV ACCESS L LOWER LEG #20G, INTACT, PATENT AND FLUSHING WELL. PATIENT HAVE AN EXTERNAL SANITATION TECHNICIAN WITH CURRENT READING OF S.R. AND HR OF 61, NO CARDIAC DISTRESS NOTED. ALL SCHEDULED MEDS ADMINISTERED. FALL AND SAFETY MEASURES IN PLACE, BED ALARM ON, BED IN LOW AND LOCK POSITION, CALL LIGHT AND TABLE WITHIN EASY REACH, SIDE RAILS UP X2. WILL ENDORSE TO DIGITAL FORENSIC ANALYST.
[2021-03-17 20:00] VITALS: BP 132/61
--- NOTE | 2021-03-17 20:00 | NUR ---
HOMICIDE DETECTIVE OPENING NOTES PATIENT AWAKE IN BED, A/O X1. NO S/S OF PAIN NOTED AT THIS TIME. PT STABLE ON 3L OXYGEN VIA NC, NO RESPIRATORY DISTRESS OR SHORTNESS OF BREATH NOTED, BREATHING EVEN AND UNLABORED. IV ACCESS LEFT LOWER LEG #20G INTACT AND SALINE LOCKED. GT FEEDING RUNNING NEPRO @ 50 ML/HR. SAFETY MEASURES IN PLACE: CALL LIGHT WITHIN REACH, SIDE RAILS UP X 2, BED LOCKED IN LOW POSITION, HOB ELEVATED, CALL LIGHT AND TABLE WITHIN REACH. WILL CONTINUE TO MONITOR PATIENT
[2021-03-17] MEDS: ATORVASTATIN 40 MG TABLET GT SCH (21:10)
[2021-03-17] MEDS: MIRTAZAPINE 15 MG TABLET GT SCH (21:10)
[2021-03-18] VITALS: BP 101/54
[2021-03-18 04:00] VITALS: BP 121/48
[2021-03-18] MEDS: NEPRO 1,000 ML BOTTLE GT PRN (06:09)
[2021-03-18] MEDS: ALBUMIN 25% 25 GM in PREMIX 1 EA IV PRN (06:50)
[2021-03-18 07:02] LABS: BASOPHILS % (AUTO) 0.4 % (0.0-2.0); EOSINOPHILS % (AUTO) 0.1 % (0.0-6.0); HEMATOCRIT 29 % (39-51); HEMOGLOBIN 9.6 g/dL (13.5-17.5); LYMPHOCYTES # (AUTO) 0.6 K/uL (0.8-4.8); LYMPHOCYTES % (AUTO) 9.8 % (20.0-44.0); MEAN CORPUSCULAR HGB CONC 34 g/dl (31.0-36.0); MEAN CORPUSCULAR VOLUME 108 fL (80-96); MONOCYTES # (AUTO) 0.4 K/uL (0.1-1.30); NEUTROPHILS # (AUTO) 5.1 K/uL (1.8-8.9); NEUTROPHILS % (AUTO) 82.7 % (43.0-81.0); PLATELET COUNT (AUTO) 102 K/uL (150-450); RED BLOOD CELL COUNT(AUTO) 2.65 MIL/uL (4.5-6.0); WHITE BLOOD COUNT (AUTO) 6.1 K/uL (4.3-11.0)
[2021-03-18] MEDS: BLOOD SUGAR DIAGNOSTIC 1 EACH STRIP IN SCH ×3 (07:02→17:06)
[2021-03-18] MEDS: INSULIN REGULAR, HUMAN 100 UNIT/ML 3 ML VIAL SQ PRN ×3 (07:03→17:06)
[2021-03-18 07:33] LABS: CALCIUM, SERUM 8.6 mg/dL (8.5-10.1); CREATININE 2.6 mg/dL (0.6-1.3); MAGNESIUM 1.9 mg/dL (1.8-2.4); PHOSPHORUS 3.2 mg/dL (2.5-4.9); POTASSIUM 3.2 mmol/L (3.5-5.1)
--- NOTE | 2021-03-18 07:38 | NUR ---
INDUSTRIAL SALES MANAGER CLOSING NOTE PATIENT AWAKE IN BED, A/O X1, PT CURRENTLY UNDERGOING HEMODIALYSIS. NO S/S OF PAIN NOTED AT THIS TIME. PT STABLE ON 3L OXYGEN VIA NC, NO RESPIRATORY DISTRESS OR SHORTNESS OF BREATH NOTED, BREATHING EVEN AND UNLABORED. IV ACCESS LEFT LOWER LEG #20G INTACT AND SALINE LOCKED. GT FEEDING RUNNING NEPRO @ 50 ML/HR. MEDICATIONS GIVEN ORDERED, PT NEEDS MET THROUGHOUT SHIFT, PT TURNED Q2H, HYGIENE CARE DONE THROUGHOUT SHIFT. SAFETY MEASURES IN PLACE: CALL LIGHT WITHIN REACH, SIDE RAILS UP X 2, BED LOCKED IN LOW POSITION, HOB ELEVATED, CALL LIGHT AND TABLE WITHIN REACH. ENDORSED TO DAY SHIFT NURSE FOR CONTINUITY OF CARE
--- NOTE | 2021-03-18 07:43 | NUR ---
RN OPENING NOTES Patient seen comfortably lying in bed, no apparent distress noted, respirations even and unlabored, no shortness of breath, no grimacing. Call light left within reach, safety precautions in place, brakes locked, side rails up X 2, will monitor closely for any changes.
[2021-03-18 08:00] VITALS: BP 107/68
[2021-03-18] MEDS: FERROUS SULFATE UDC 300 MG/5 ML UDC GT SCH ×2 (09:33→16:24)
[2021-03-18] MEDS: LEVETIRACETAM SOL (5 ML) 100 MG/ML UDC GT SCH ×2 (09:33→21:06)
[2021-03-18] MEDS: PANTOPRAZOLE 40 MG/PACK PACK GT SCH (09:33)
[2021-03-18] MEDS: GABAPENTIN 300 MG CAPSULE GT SCH ×3 (09:34→16:24)
[2021-03-18] MEDS: Fenofibrate 48 MG TABLET GT SCH (09:34)
[2021-03-18] MEDS: FOLIC ACID 1 MG TABLET GT SCH (09:34)
[2021-03-18] MEDS: ALLOPURINOL 100 MG TABLET GT SCH (09:34)
[2021-03-18] MEDS: DOXYCYCLINE HYCLATE (100 MG) 100 MG TABLET PO SCH ×2 (09:34→21:08)
[2021-03-18] MEDS: DEXAMETHASONE SOD PHOSPHATE 10 MG/ML VIAL IV SCH (09:35)
[2021-03-18] MEDS: DOCUSATE SODIUM 100 MG CAPSULE PO SCH (09:35)
[2021-03-18 12:00] VITALS: BP 111/50
[2021-03-18] MEDS ORDERED: POTASSIUM CHLORIDE 20 MEQ POWDER PACKET GT SCH (13:30)
[2021-03-18 16:00] VITALS: BP 132/75
[2021-03-18] MEDS ORDERED: POTASSIUM CHLORIDE 20 MEQ POWDER PACKET GT ONE (17:30)
--- NOTE | 2021-03-18 18:42 | NUR ---
RN CLOSING NOTES Patient in bed, respirations even and unlabored, no shortness of breath, remained afebrile during shift, no bleeding noted, no unusual bruising, no hematuria, no blood in stool, no bleeding gums. S/P hemodialysis with 2000ml ouput, tolerated hemodialysis procedure, dialysis site on right upper arm AV fistula, free from bleeding, has bruit and thrill, covered with dry dressing, no unusual odor, no drainage noted. Patient also S/P CT guided thoracentesis of right lung with approximately 700ml fluid output, site covered with dry dressing, intact and patent, no bleeding noted, no s/s of infection, no unusual drainage, no unusual odor, denies any discomfort or pain, patient tolerated procedure well, no apparent distress noted, no shortness of breath, afebrile at this time. Gastric tube remained patent, intact and in place during shift, placement verified by auscultation and aspiration of gastric residuals. All due medications given via gtube per MD order, tolerating well. No s/s of hypo or hyperglycemia, no change in level of consciousness, no tremors, tolerating well. All needs anticipated, kept clean and dry, aspiration precautions observed at all times, seizure precautions rendered, safety precautions in place, frequent visual checks done, brakes locked, padded side rails up X 2, call light left within reach, will endorse to next shift for continuity of care.
--- NOTE | 2021-03-18 19:30 | NUR ---
RN OPENING NOTES RECEIVED PATIENT IN BED WITH NO S/S OF PAIN NOTED AT THIS TIME. ON 3L OXYGEN VIA NC , NO DISTRESS OR SHORTNESS OF BREATH NOTED. IV ACCESS L LOWER LEG #20G, INTACT, PATENT AND FLUSHING WELL. PATIENT ON TELE MONITOR. FALL AND SAFETY MEASURES IN PLACE, BED ALARM ON, BED IN LOW AND LOCK POSITION, CALL LIGHT AND TABLE WITHIN EASY REACH, SIDE RAILS UP X2. ALL ENVIRONMENTAL SAFETY MEASURES TAKEN. WILL CONTINUE TO MONITOR PATIENT THROUGHOUT THE SHIFT.
[2021-03-18 20:00] VITALS: BP 97/45
[2021-03-18] MEDS: ATORVASTATIN 40 MG TABLET GT SCH (21:07)
[2021-03-18] MEDS: MIRTAZAPINE 15 MG TABLET GT SCH (21:07)
[2021-03-19] VITALS: BP 98/65
[2021-03-19] MEDS: BLOOD SUGAR DIAGNOSTIC 1 EACH STRIP IN SCH ×5 (00:18→23:27)
[2021-03-19 04:00] VITALS: BP 91/49
[2021-03-19] MEDS: INSULIN REGULAR, HUMAN 100 UNIT/ML 3 ML VIAL SQ PRN ×2 (05:56→23:32)
--- NOTE | 2021-03-19 06:31 | NUR ---
RN CLOSING NOTE PATIENT REMAINS IN BED RESTING, WITH G TUBE FEEDING @50 ML. ALL MEDS GIVEN THROUGHOUT THE NIGHT, KEPT PATIENT DRY AND CLEAN. WILL ENDORSE PLAN OF CARE TO AM NURSE.
[2021-03-19 06:50] LABS: BASOPHILS % (AUTO) 0.2 % (0.0-2.0); EOSINOPHILS % (AUTO) 0.1 % (0.0-6.0); HEMATOCRIT 34 % (39-51); HEMOGLOBIN 11.5 g/dL (13.5-17.5); LYMPHOCYTES % (AUTO) 15.4 % (20.0-44.0); MEAN CORPUSCULAR HGB CONC 34 g/dl (31.0-36.0); MEAN CORPUSCULAR VOLUME 109 fL (80-96); MONOCYTES # (AUTO) 0.5 K/uL (0.1-1.30); NEUTROPHILS # (AUTO) 5.1 K/uL (1.8-8.9); NEUTROPHILS % (AUTO) 76.3 % (43.0-81.0); PLATELET COUNT (AUTO) 97 K/uL (150-450); RED BLOOD CELL COUNT(AUTO) 3.15 MIL/uL (4.5-6.0); WHITE BLOOD COUNT (AUTO) 6.7 K/uL (4.3-11.0)
[2021-03-19 07:20] LABS: CALCIUM, SERUM 8.6 mg/dL (8.5-10.1); CREATININE 3.6 mg/dL (0.6-1.3); MAGNESIUM 1.9 mg/dL (1.8-2.4); PHOSPHORUS 4.8 mg/dL (2.5-4.9)
--- NOTE | 2021-03-19 07:35 | NUR ---
ms rn received on bed, awake,oriented x1,nonvrbal,vent dependent patient, denies pain at this time,all needs attended.
[2021-03-19 08:00] VITALS: BP 136/63
[2021-03-19] MEDS: Fenofibrate 48 MG TABLET GT SCH (09:22)
[2021-03-19] MEDS: DOXYCYCLINE HYCLATE (100 MG) 100 MG TABLET PO SCH ×2 (09:22→21:17)
[2021-03-19] MEDS: FERROUS SULFATE UDC 300 MG/5 ML UDC GT SCH ×2 (09:22→17:38)
[2021-03-19] MEDS: FOLIC ACID 1 MG TABLET GT SCH (09:23)
[2021-03-19] MEDS: PANTOPRAZOLE 40 MG/PACK PACK GT SCH (09:23)
[2021-03-19] MEDS: ALLOPURINOL 100 MG TABLET GT SCH (09:23)
[2021-03-19] MEDS: GABAPENTIN 300 MG CAPSULE GT SCH ×3 (09:23→17:38)
[2021-03-19] MEDS: LEVETIRACETAM SOL (5 ML) 100 MG/ML UDC GT SCH ×2 (09:23→21:17)
[2021-03-19] MEDS: DOCUSATE SODIUM 100 MG CAPSULE PO SCH (09:23)
[2021-03-19] MEDS: DEXAMETHASONE SOD PHOSPHATE 10 MG/ML VIAL IV SCH (09:24)
--- NOTE | 2021-03-19 09:30 | NUR ---
ms alfaro breakfast served,due meds given,tolerated well.
[2021-03-19] MEDS ORDERED: GENTAMICIN 120 MG in IV D5W 50 ML IV PRN (15:00)
[2021-03-19 16:00] VITALS: BP 107/53
[2021-03-19] MEDS: HEPARIN SODIUM, PORCINE 5000 UNITS/1 ML VIAL SQ SCH (17:39)
--- NOTE | 2021-03-19 19:15 | NUR ---
EN OPENING NOTES RECEIVED PT IN BED, A/O X 1, GREENLANDIC SPEAKING. RESPIRATORY EVEN AND UNLABORED, NO SOB NOTED, NO S/S OF DISTRESS NOTED . ON NASAL CANULA @ 3LPM. PATIENT NOTED WITH LEG LOWER LEG #20 IV LINE, PATENT, INTACT AND FLUSHED WITH NS. GTUBE PATENT AND INTACT, FLUSH WITH WATER, NO RESIDUAL NOTED UPON ASPIRATION, RUNNING WITH NEPHRO @ 50 ML/HR, HEAD OF BED KEPT ELEVATED. ALL SAFETY MEASURES PROVIDED. BED IN LOWEST POSITION, LOCKED, BED ALARM ARMED. CALL LIGHT WITHIN REACH. WILL CONTINUE TO MONITOR.
[2021-03-19] MEDS: NEPRO 1,000 ML BOTTLE GT PRN (19:57)
[2021-03-19 20:00] VITALS: BP 109/58
[2021-03-19] MEDS: ATORVASTATIN 40 MG TABLET GT SCH (21:17)
[2021-03-19] MEDS: MIRTAZAPINE 15 MG TABLET GT SCH (21:17)
[2021-03-20] VITALS: BP 116/69
[2021-03-20 04:00] VITALS: BP 139/81
[2021-03-20] MEDS: BLOOD SUGAR DIAGNOSTIC 1 EACH STRIP IN SCH ×3 (05:34→18:09)
[2021-03-20] MEDS: INSULIN REGULAR, HUMAN 100 UNIT/ML 3 ML VIAL SQ PRN (05:36)
--- NOTE | 2021-03-20 07:07 | NUR ---
RN CLOSING NOTES NO SIGNIFICANT CHANGES THROUGH OUT THE SHIFT. RESPIRATORY EVEN AND UNLABORED, NO SOB NOTED, NO S/S OF DISTRESS NOTED. HEAD OF BED KEPT ELEVATED. ALL DUE MEDS GIVEN ORDERED. ALL SAFETY MEASURES PROVIDED. BED IN LOWEST POSITION, LOCKED, BED ALARM ARMED. CALL LIGHT WITHIN REACH. WILL CONTINUE TO MONITOR.
[2021-03-20 07:52] LABS: CALCIUM, SERUM 8.3 mg/dL (8.5-10.1); CREATININE 2.9 mg/dL (0.6-1.3); MAGNESIUM 1.9 mg/dL (1.8-2.4); PHOSPHORUS 3.8 mg/dL (2.5-4.9); POTASSIUM 4.6 mmol/L (3.5-5.1)
[2021-03-20 07:53] LABS: BASOPHILS % (AUTO) 0.1 % (0.0-2.0); EOSINOPHILS % (AUTO) 0.1 % (0.0-6.0); HEMATOCRIT 32 % (39-51); HEMOGLOBIN 10.6 g/dL (13.5-17.5); LYMPHOCYTES # (AUTO) 0.6 K/uL (0.8-4.8); LYMPHOCYTES % (AUTO) 8.6 % (20.0-44.0); MEAN CORPUSCULAR HGB CONC 33 g/dl (31.0-36.0); MEAN CORPUSCULAR VOLUME 109 fL (80-96); MONOCYTES # (AUTO) 0.3 K/uL (0.1-1.30); MONOCYTES % (AUTO) 3.7 % (2.0-12.0); NEUTROPHILS % (AUTO) 87.5 % (43.0-81.0); PLATELET COUNT (AUTO) 101 K/uL (150-450); RED BLOOD CELL COUNT(AUTO) 2.93 MIL/uL (4.5-6.0); WHITE BLOOD COUNT (AUTO) 6.9 K/uL (4.3-11.0)
[2021-03-20 08:00] VITALS: BP 133/70
[2021-03-20] MEDS: GABAPENTIN 300 MG CAPSULE GT SCH ×3 (08:38→17:21)
[2021-03-20] MEDS: DOXYCYCLINE HYCLATE (100 MG) 100 MG TABLET PO SCH ×2 (08:38→21:22)
[2021-03-20] MEDS: FERROUS SULFATE UDC 300 MG/5 ML UDC GT SCH ×2 (08:38→17:21)
[2021-03-20] MEDS: PANTOPRAZOLE 40 MG/PACK PACK GT SCH (08:38)
[2021-03-20] MEDS: Fenofibrate 48 MG TABLET GT SCH (08:38)
[2021-03-20] MEDS: FOLIC ACID 1 MG TABLET GT SCH (08:38)
[2021-03-20] MEDS: LEVETIRACETAM SOL (5 ML) 100 MG/ML UDC GT SCH ×2 (08:38→21:21)
[2021-03-20] MEDS: DEXAMETHASONE SOD PHOSPHATE 10 MG/ML VIAL IV SCH (08:39)
[2021-03-20] MEDS: DOCUSATE SODIUM 100 MG CAPSULE PO SCH (08:39)
[2021-03-20] MEDS: ALLOPURINOL 100 MG TABLET GT SCH (08:39)
[2021-03-20] MEDS: HEPARIN SODIUM, PORCINE 5000 UNITS/1 ML VIAL SQ SCH ×2 (08:39→17:22)
[2021-03-20 12:00] VITALS: BP 133/70
[2021-03-20 16:00] VITALS: BP 107/59
[2021-03-20 20:00] VITALS: BP 107/59
[2021-03-20] MEDS: MIRTAZAPINE 15 MG TABLET GT SCH (21:22)
[2021-03-20] MEDS: ATORVASTATIN 40 MG TABLET GT SCH (21:23)
[2021-03-21] VITALS: BP 105/47
[2021-03-21] MEDS: INSULIN REGULAR, HUMAN 100 UNIT/ML 3 ML VIAL SQ PRN ×5 (00:01→23:30)
[2021-03-21] MEDS: BLOOD SUGAR DIAGNOSTIC 1 EACH STRIP IN SCH ×4 (00:01→17:36)
[2021-03-21 04:00] VITALS: BP 104/43
--- NOTE | 2021-03-21 05:13 | NUR ---
RN notes In bed resting comfortably with no distress noted. Breathing even and unlabored. On 3lpm via nasal cannula tolerating well. No physical manifestation of pain or discomfort. Kept clean and dry. Vital signs wnl. Will endorse to next shift for continuity of care.
--- NOTE | 2021-03-21 07:18 | NUR ---
RN OPENING NOTE- PT ASLEEP IN BED, EASILY AWAKENED, A/O X 1, EMIRATI SPEAKING. RESPIRATIONS EVEN AND NON-LABORED, NO SOB NOTED, NO S/S OF DISTRESS NOTED . ON NASAL CANULA @ 3LPM. PATIENT NOTED WITH LLE PERIPHERAL #20 IV LINE. GTUBE PATENT AND INTACT, NO RESIDUAL NOTED UPON ASPIRATION, GT PUMP RUNNING WITH NEPHRO @ 50 ML/HR, HEAD OF BED KEPT ELEVATED. ALL SAFETY MEASURES PROVIDED. BED IN LOWEST POSITION, LOCKED, BED ALARM ARMED. CALL LIGHT WITHIN REACH. WILL CONTINUE TO MONITOR.
[2021-03-21 07:35] LABS: BASOPHILS % (AUTO) 0.2 % (0.0-2.0); EOSINOPHILS % (AUTO) 0.1 % (0.0-6.0); HEMATOCRIT 32 % (39-51); HEMOGLOBIN 10.6 g/dL (13.5-17.5); LYMPHOCYTES # (AUTO) 0.8 K/uL (0.8-4.8); LYMPHOCYTES % (AUTO) 14.8 % (20.0-44.0); MEAN CORPUSCULAR HGB CONC 33 g/dl (31.0-36.0); MEAN CORPUSCULAR VOLUME 109 fL (80-96); MONOCYTES # (AUTO) 0.5 K/uL (0.1-1.30); MONOCYTES % (AUTO) 8.6 % (2.0-12.0); NEUTROPHILS # (AUTO) 4.1 K/uL (1.8-8.9); NEUTROPHILS % (AUTO) 76.3 % (43.0-81.0); PLATELET COUNT (AUTO) 94 K/uL (150-450); WHITE BLOOD COUNT (AUTO) 5.3 K/uL (4.3-11.0)
[2021-03-21 07:42] LABS: CALCIUM, SERUM 8.5 mg/dL (8.5-10.1); CREATININE 3.5 mg/dL (0.6-1.3); MAGNESIUM 1.9 mg/dL (1.8-2.4); PHOSPHORUS 4.9 mg/dL (2.5-4.9); POTASSIUM 5.1 mmol/L (3.5-5.1)
[2021-03-21 08:00] VITALS: BP 103/56
[2021-03-21] MEDS: GABAPENTIN 300 MG CAPSULE GT SCH ×3 (09:11→16:42)
[2021-03-21] MEDS: LEVETIRACETAM SOL (5 ML) 100 MG/ML UDC GT SCH ×2 (09:11→21:25)
[2021-03-21] MEDS: FERROUS SULFATE UDC 300 MG/5 ML UDC GT SCH ×2 (09:11→16:42)
[2021-03-21] MEDS: DEXAMETHASONE SOD PHOSPHATE 10 MG/ML VIAL IV SCH (09:11)
[2021-03-21] MEDS: ALLOPURINOL 100 MG TABLET GT SCH (09:11)
[2021-03-21] MEDS: PANTOPRAZOLE 40 MG/PACK PACK GT SCH (09:11)
[2021-03-21] MEDS: Fenofibrate 48 MG TABLET GT SCH (09:11)
[2021-03-21] MEDS: DOXYCYCLINE HYCLATE (100 MG) 100 MG TABLET PO SCH ×2 (09:12→21:26)
[2021-03-21] MEDS: FOLIC ACID 1 MG TABLET GT SCH (09:12)
[2021-03-21] MEDS: DOCUSATE SODIUM 100 MG CAPSULE PO SCH (09:12)
[2021-03-21] MEDS: HEPARIN SODIUM, PORCINE 5000 UNITS/1 ML VIAL SQ SCH ×2 (09:42→16:45)
[2021-03-21 12:00] VITALS: BP 102/55
--- NOTE | 2021-03-21 13:05 | NUR ---
RN NOTE- DRESSING CHANGE LEFT FOOT. OLD DRESSING REMOVED. SLIGHT SEROUS DRAINAGE PRESENT. WOUND WITHOUT PURULENCE OR SX OF INFECTION. CLEANSED SITE W NS, DRY STERILE DRESSING APPLIED. WRAPPED W KERLIX. TAPED SECURELY / TOLERATED WELL.
[2021-03-21 16:00] VITALS: BP 78/55
--- NOTE | 2021-03-21 18:30 | NUR ---
RN CLOSING NOTE-PT AWAKE, QUIET, A/O X 1, KYRGYZ SPEAKING. RESPIRATIONS EVEN AND NON-LABORED, NO SOB NOTED, NO S/S OF DISTRESS NOTED . ON NASAL CANULA @ 3LPM. PATIENT NOTED WITH LLE PERIPHERAL #20 IV LINE. GTUBE PATENT AND INTACT, REPLACED MARYURI VALVE / BLOCKED. , GT PUMP RUNNING WITH NEPHRO @ 50 ML/HR, HEAD OF BED KEPT ELEVATED. ALL SAFETY MEASURES PROVIDED. BED IN LOWEST POSITION, LOCKED, BED ALARM ARMED. CALL LIGHT WITHIN REACH. WILL CONTINUE TO MONITOR.
[2021-03-21 20:00] VITALS: BP 94/53
[2021-03-21] MEDS: MIRTAZAPINE 15 MG TABLET GT SCH (21:26)
[2021-03-21] MEDS: ATORVASTATIN 40 MG TABLET GT SCH (21:26)
[2021-03-22] VITALS: BP 117/48
[2021-03-22] MEDS: BLOOD SUGAR DIAGNOSTIC 1 EACH STRIP IN SCH ×3 (00:04→11:06)
[2021-03-22 04:00] VITALS: BP 111/50
[2021-03-22] MEDS: INSULIN REGULAR, HUMAN 100 UNIT/ML 3 ML VIAL SQ PRN (06:14)
--- NOTE | 2021-03-22 06:44 | NUR ---
RN notes Alert with confusion. In bed resting comfortably with no distress noted. On 3lpm O2 via nasal cannula tolerating well. No physical manifestation of pain or discomfort. No significant change of condition. Vital signs wnl. For DC back to SNF pending ID recommendation.Kept clean and dry. Will endorse to next shift for continuity of care.
--- NOTE | 2021-03-22 07:30 | NUR ---
FITTER HAND OPENING NOTE PT ASLEEP IN BED, EASILY AWAKENED, A/O X 1, SWEDISH SPEAKING. RESPIRATIONS EVEN AND NON-LABORED, NO SOB NOTED, NO S/S OF DISTRESS NOTED . ON NASAL CANULA @ 3LPM. PATIENT NOTED WITH LLE PERIPHERAL #20 IV LINE. GTUBE PATENT AND INTACT, NO RESIDUAL NOTED UPON ASPIRATION, GT PUMP RUNNING WITH NEPHRO @ 50 ML/HR, HEAD OF BED KEPT ELEVATED. ALL SAFETY MEASURES PROVIDED. BED IN LOWEST POSITION, LOCKED, BED ALARM ARMED. CALL LIGHT WITHIN REACH. WILL CONTINUE TO MONITOR.
[2021-03-22 08:00] VITALS: BP 156/57
[2021-03-22] MEDS: DOCUSATE SODIUM 100 MG CAPSULE PO SCH (08:55)
[2021-03-22] MEDS: Fenofibrate 48 MG TABLET GT SCH (08:56)
[2021-03-22] MEDS: LEVETIRACETAM SOL (5 ML) 100 MG/ML UDC GT SCH (08:56)
[2021-03-22] MEDS: FOLIC ACID 1 MG TABLET GT SCH (08:57)
[2021-03-22] MEDS: GABAPENTIN 300 MG CAPSULE GT SCH ×2 (08:57→12:47)
[2021-03-22] MEDS: DOXYCYCLINE HYCLATE (100 MG) 100 MG TABLET PO SCH (08:57)
[2021-03-22] MEDS: DEXAMETHASONE SOD PHOSPHATE 10 MG/ML VIAL IV SCH (08:57)
[2021-03-22] MEDS: FERROUS SULFATE UDC 300 MG/5 ML UDC GT SCH (08:57)
[2021-03-22] MEDS: ALLOPURINOL 100 MG TABLET GT SCH (08:57)
[2021-03-22] MEDS: PANTOPRAZOLE 40 MG/PACK PACK GT SCH (08:57)
[2021-03-22] MEDS: HEPARIN SODIUM, PORCINE 5000 UNITS/1 ML VIAL SQ SCH (09:00)
[2021-03-22] MEDS ORDERED: Nepro GT (09:55)
[2021-03-22 12:00] VITALS: BP 112/60
--- NOTE | 2021-03-22 12:30 | NUR ---
RN NOTES GAVE REPORT TO IRAIS FROM [facility] FOR CONTINUITY OF CARE.
--- NOTE | 2021-03-22 16:22 | NUR ---
RN NOTES GAVE REPORT TO WILDER PEDRAZA) EMT. AMBULANCE ON ROUTE TO [facility] FOR CONTINUITY OF CARE.
== END 2021-03-22 16:26 | DRG 890 ==
LOC: ER 13:31 → TRANSITION 17:47 → TELE1 20:07 → TELE-TD 22:22 → TELE1 03-12 10:30
PROVIDERS: ADMIT Registered Nurse; ATTEND Nurse Practitioner Acute Care
PROC: 5A1D70Z Performance of Urinary Filtration, Intermittent, Less than 6 Hours Per Day (ICD-10-PCS; 2021-03-12)
PROC: 0W993ZZ Drainage of Right Pleural Cavity, Percutaneous Approach (ICD-10-PCS; principal; 2021-03-13)
PROC: 5A1935Z Respiratory Ventilation, Less than 24 Consecutive Hours (ICD-10-PCS; 2021-03-19)
PROC: 0BH17EZ Insertion of Endotracheal Airway into Trachea, Via Natural or Artificial Opening (ICD-10-PCS; 2021-03-19)
DX: A41.89 Other specified sepsis (principal); B20 Human immunodeficiency virus [HIV] disease; G92.8 Other toxic encephalopathy; J12.82 Pneumonia due to coronavirus disease 2019; R65.21 Severe sepsis with septic shock; E44.0 Moderate protein-calorie malnutrition; U07.1 COVID-19; D68.59 Other primary thrombophilia; I95.3 Hypotension of hemodialysis; I12.0 Hypertensive chronic kidney disease with stage 5 chronic kidney disease or end stage renal disease; N18.6 End stage renal disease; E11.22 Type 2 diabetes mellitus with diabetic chronic kidney disease; G40.909 Epilepsy, unspecified, not intractable, without status epilepticus; E03.9 Hypothyroidism, unspecified; D69.6 Thrombocytopenia, unspecified; D63.1 Anemia in chronic kidney disease; Z79.4 Long term (current) use of insulin; Z99.2 Dependence on renal dialysis; Z93.1 Gastrostomy status; Z86.79 Personal history of other diseases of the circulatory system; Z88.2 Allergy status to sulfonamides; Z79.899 Other long term (current) drug therapy; J90 Pleural effusion, not elsewhere classified; E78.5 Hyperlipidemia, unspecified; E88.09 Other disorders of plasma-protein metabolism, not elsewhere classified; F32.A Depression, unspecified; I31.3 Pericardial effusion (noninflammatory); I31.2 Hemopericardium, not elsewhere classified; I69.354 Hemiplegia and hemiparesis following cerebral infarction affecting left non-dominant side; J81.1 Chronic pulmonary edema; Y95 Nosocomial condition; R13.10 Dysphagia, unspecified; M89.9 Disorder of bone, unspecified; K80.20 Calculus of gallbladder without cholecystitis without obstruction; D64.9 Anemia, unspecified; Z74.09 Other reduced mobility; K21.9 Gastro-esophageal reflux disease without esophagitis; Z22.322 Carrier or suspected carrier of Methicillin resistant Staphylococcus aureus; I87.312 Chronic venous hypertension (idiopathic) with ulcer of left lower extremity; L97.529 Non-pressure chronic ulcer of other part of left foot with unspecified severity; M62.562 Muscle wasting and atrophy, not elsewhere classified, left lower leg; M62.561 Muscle wasting and atrophy, not elsewhere classified, right lower leg; R23.4 Changes in skin texture; J18.9 Pneumonia, unspecified organism
CPT/HCPCS: 36415; 71045-TC; 71250-TC; 76604-TC; 80048-TC; 80076-TC; 80170-TC; 80177; 80202-TC; 82962-TC; 83605-TC; 83735-TC; 84100-TC; 84443-TC; 84484-TC; 85025-TC; 85610-TC; 85730-TC; 86706; 87040-TC; 87070-TC; 87081-TC; 87102-TC; 87116; 87206; 87340; 88108-TC; 88305-TC; 89051-TC; 90935-TC; 93307-TC; A4216; A6403; C9113; G0378; J1100; J1580; J1644; J1815; J1953; J2405; J2543; J3370; J7030; J7050; J7060; P9047; U0003

== ENCOUNTER 2022-05-14 15:58 | Inpatient (IN) | payer OTHER ==
[~2022-05-14] VITALS: Ht 152.4 cm; Wt 48.5 kg
[~2022-05-14 15:58] MED LIST changes: +ABAC300T2 GT; -ABAC300T2 PO; -AMLO-213 GT; -LABE100T5 GT; +Nepro GT
--- NOTE | 2022-05-14 16:15 | NUR ---
EMMANUEL LUND From Dialysis center "Weaker than usual"
--- NOTE | 2022-05-14 16:45 | NUR ---
BLOOD SAMPLES OBTAINED
[2022-05-14 16:46] LABS: BASOPHILS # (AUTO) 0.1 K/uL (0.0-0.2); BASOPHILS % (AUTO) 1.3 % (0.0-2.0); EOSINOPHILS % (AUTO) 2.1 % (0.0-6.0); HEMATOCRIT 31 % (39-51); HEMOGLOBIN 10.2 g/dL (13.5-17.5); LYMPHOCYTES # (AUTO) 0.8 K/uL (0.8-4.8); LYMPHOCYTES % (AUTO) 11.6 % (20.0-44.0); MEAN CORPUSCULAR HGB CONC 33 g/dl (31.0-36.0); MEAN CORPUSCULAR VOLUME 104 fL (80-96); MONOCYTES # (AUTO) 0.4 K/uL (0.1-1.30); MONOCYTES % (AUTO) 5.9 % (2.0-12.0); NEUTROPHILS # (AUTO) 5.4 K/uL (1.8-8.9); NEUTROPHILS % (AUTO) 79.1 % (43.0-81.0); PLATELET COUNT (AUTO) 191 K/uL (150-450); RED BLOOD CELL COUNT(AUTO) 2.97 MIL/uL (4.5-6.0); WHITE BLOOD COUNT (AUTO) 6.8 K/uL (4.3-11.0)
--- NOTE | 2022-05-14 16:46 | NUR ---
Patient noted with dialysis shunt on right arm, left arm severely contracted, 20 latvian g-tube in place
[2022-05-14 17:04] LABS: CALCIUM, SERUM 9.7 mg/dL (8.5-10.1); CARBON DIOXIDE 35 mmol/L (21-32); CHLORIDE 101 mmol/L (98-107); CREATININE 2.5 mg/dL (0.6-1.3); GLUCOSE 102 mg/dL (74-106); POTASSIUM 3.3 mmol/L (3.5-5.1); SODIUM SERUM 141 mmol/L (136-145); UREA NITROGEN, BLOOD 26 mg/dL (7-18)
[2022-05-14 17:05] LABS: SERUM AMMONIA 9 umol/L (11-32)
[2022-05-14 17:13] LABS: ALANINE AMINOTRANSFERASE 25 U/L (12-78); ALBUMIN 2.8 g/dL (3.4-5.0); ALKALINE PHOSPHATASE 100 U/L (46-116); ASPARTATE AMINOTRANSFERASE 34 U/L (15-37); BILIRUBIN,DIRECT 0.4 mg/dL (0.0-0.2); BILIRUBIN,TOTAL 0.9 mg/dL (0.2-1.0); TOTAL PROTEIN, SERUM 7.5 g/dL (6.4-8.2)
[2022-05-14] MEDS ORDERED: LABE100T5 GT (17:52)
[2022-05-14] MEDS ORDERED: AMLO-213 GT (17:52)
[2022-05-14] MEDS ORDERED: ZINC50TA65 GT (17:52)
[2022-05-14] MEDS ORDERED: AMIN30LI2 GT (17:52)
[2022-05-14] MEDS ORDERED: ASCO-340 GT (17:52)
[2022-05-14] MEDS ORDERED: COLL30OI TP (17:52)
[2022-05-14] MEDS ORDERED: FOLI0.8T2 GT (17:52)
[2022-05-14 18:29] LABS: EOSINOPHILS % (MANUAL) 2 % (0-4); LYMPHOCYTES % (MANUAL) 9 % (16-48); MONOCYTES % (MANUAL) 6 % (0-11.0); NEUTROPHILS % (MANUAL) 83 (42-76)
[2022-05-14 18:49] LABS: THYROID STIMULATING HORMONE 2.145 uIU/mL (0.358-3.74)
--- NOTE | 2022-05-14 18:54 | NUR ---
COVID SWAB OBTAINED
--- NOTE | 2022-05-14 20:37 | NUR ---
BED 117*-1
--- NOTE | 2022-05-14 21:33 | NUR ---
REPORT GIVEN TO JEROME MENDEZ FOR EZEQUIEL
[2022-05-14] MEDS ORDERED: Z GUARD REMEDY 4 OZ OINT TP PRN (22:00)
[2022-05-14] MEDS ORDERED: MAG HYDROX/AL HYDROX/SIMETH 30 ML UDC PO PRN (22:00)
[2022-05-14] MEDS ORDERED: ONDANSETRON HCL/PF 4 MG/2 ML VIAL IVP PRN (22:00)
[2022-05-14] MEDS ORDERED: DEXTROSE 50%-WATER 50 ML DISP.SYRIN IV PRN (22:00)
[2022-05-14] MEDS ORDERED: MAGNESIUM HYDROXIDE 30 ML UDC PO PRN (22:00)
[2022-05-14] MEDS ORDERED: ACETAMINOPHEN 325 MG TABLET PO PRN (22:00)
[2022-05-14] MEDS ORDERED: ZOLPIDEM TARTRATE 5 MG TABLET PO PRN (22:00)
[2022-05-14 22:50] VITALS: BP 104/63
[2022-05-14] MEDS: NEPRO 1,000 ML BOTTLE GT PRN (23:38)
[2022-05-14] MEDS: ATORVASTATIN 40 MG TABLET GT SCH (23:39)
[2022-05-15] MEDS: INSULIN REGULAR, HUMAN 100 UNIT/ML 3 ML VIAL SQ PRN ×3 (01:33→12:46)
--- NOTE | 2022-05-15 01:33 | NUR ---
CHECKED BG AT 0000, BG 93, NO INSULIN GIVEN
[2022-05-15 03:14] LABS: BASOPHILS % (AUTO) 1.2 % (0.0-2.0); EOSINOPHILS % (AUTO) 3.1 % (0.0-6.0); HEMATOCRIT 29 % (39-51); HEMOGLOBIN 9.5 g/dL (13.5-17.5); LYMPHOCYTES % (AUTO) 19.2 % (20.0-44.0); MEAN CORPUSCULAR HGB CONC 32 g/dl (31.0-36.0); MEAN CORPUSCULAR VOLUME 105 fL (80-96); MONOCYTES % (AUTO) 7.7 % (2.0-12.0); NEUTROPHILS % (AUTO) 68.8 % (43.0-81.0); PLATELET COUNT (AUTO) 179 K/uL (150-450); RED BLOOD CELL COUNT(AUTO) 2.79 MIL/uL (4.5-6.0); WHITE BLOOD COUNT (AUTO) 6.7 K/uL (4.3-11.0)
[2022-05-15 03:15] LABS: BASOPHILS # (AUTO) 0.1 K/uL (0.0-0.2); LYMPHOCYTES # (AUTO) 1.3 K/uL (0.8-4.8); MONOCYTES # (AUTO) 0.5 K/uL (0.1-1.30); NEUTROPHILS # (AUTO) 4.6 K/uL (1.8-8.9)
[2022-05-15 03:36] LABS: CALCIUM, SERUM 9.6 mg/dL (8.5-10.1); CREATININE 3.1 mg/dL (0.6-1.3); MAGNESIUM 2.1 mg/dL (1.8-2.4); POTASSIUM 3.9 mmol/L (3.5-5.1)
[2022-05-15 04:00] VITALS: BP 90/56
[2022-05-15] MEDS: BLOOD SUGAR DIAGNOSTIC 1 EACH STRIP IN SCH ×4 (05:53→17:42)
--- NOTE | 2022-05-15 06:44 | NUR ---
ADMITTED FROM DIALYSIS CENTER DUE TO BEING "WEAKER THAN USUAL." CAME FROM [facility]. ALERT AND AWAKE, NON-VERBAL, OPENS EYES, 2LPM VIA NC, NOT IN APPARENT PAIN, ESRD ON HD, MWF, MARY AV FISTULA, THRILL AND BRUIT, DRESSING INTACT. LEFT LEG PERIPHERAL LINE #20, SALINE LOCK, LEFT ARM CONTRACTURE, LEFT BUTTOCK STAGE 2, NPO, PEG TUBE FEEDING, NEPRO AT 50 ML/HR. BLOOD CULTURE, WOUND CONSULT, NEURO CONSULT, NEPRO CONSULT.
--- NOTE | 2022-05-15 07:47 | NUR ---
RN OPENING NOTE RECEIVED PT IN BED. PT NONVERBAL, OPENS EYES. PT ON 2 L NASAL CANNULA. PT HAS RUPPER ARM AV FISTULA.DRESSING IN INTACT. PT HAS RIGHT LEG PERIPHERAL #20 GUAGE. IV INTACT,PATENT AND FLUSHING WELL. LEFT ARM IS CONTRACTED. ALL SAFETY MEASURES IN PLACE. CALL LIGHT WITHIN REACH. BED LOCKED AT LOWEST POSITION. SIDE RAILS UP X2. BED ALARM ON.
[2022-05-15 08:00] VITALS: BP 93/53
[2022-05-15] MEDS: GABAPENTIN 300 MG CAPSULE GT SCH ×3 (08:17→17:14)
[2022-05-15] MEDS: FERROUS SULFATE UDC 300 MG/5 ML UDC GT SCH ×2 (08:17→17:14)
[2022-05-15] MEDS: ALLOPURINOL 100 MG TABLET GT SCH (08:17)
[2022-05-15] MEDS: LEVETIRACETAM SOL (5 ML) 100 MG/ML UDC GT SCH ×2 (08:17→21:18)
[2022-05-15] MEDS: LIOTHYRONINE SODIUM (25 MCG) 25 MCG TABLET GT SCH (08:17)
[2022-05-15] MEDS: ASCORBIC ACID 500 MG TABLET GT SCH (08:17)
[2022-05-15] MEDS: FOLIC ACID 1 MG TABLET GT SCH (08:17)
[2022-05-15] MEDS: AMLODIPINE BESYLATE 10 MG TABLET GT SCH (08:38)
[2022-05-15] MEDS: ABACAVIR SULFATE 300 MG TABLET GT SCH ×2 (08:43→21:18)
[2022-05-15] MEDS: LABETALOL HCL (100MG) 100 MG TABLET GT SCH ×2 (08:43→17:00)
[2022-05-15] MEDS: DOCUSATE SODIUM LIQ 100 MG/10 ML UDC GT SCH (08:43)
[2022-05-15] MEDS ORDERED: DARUNAVIR ETHANOLATE 800 MG TABLET PO SCH (09:00)
[2022-05-15] MEDS ORDERED: DOCUSATE SODIUM 250 MG CAPSULE PO SCH (09:00)
[2022-05-15] MEDS: PROSOURCE / PROSTAT (PYXIS) 30 ML UDC GT SCH (09:00)
--- NOTE | 2022-05-15 09:33 | NUR ---
rn note prezista not avaiable in pharmacy. need to call if someone can bring in medication
[2022-05-15] MEDS ORDERED: ZOLPIDEM TARTRATE 5 MG TABLET GT PRN (10:20)
[2022-05-15] MEDS ORDERED: MAGNESIUM HYDROXIDE 30 ML UDC GT PRN (10:21)
[2022-05-15] MEDS ORDERED: MAG HYDROX/AL HYDROX/SIMETH 30 ML UDC GT PRN (10:21)
[2022-05-15] MEDS ORDERED: ACETAMINOPHEN 650 MG/20.3 ML UDC GT PRN (10:30)
[2022-05-15] MEDS: Fenofibrate 48 MG TABLET GT SCH (11:09)
[2022-05-15] MEDS ORDERED: CEFEPIME 1 GM in IV D5W 50 ML IV SCH (12:00)
[2022-05-15] MEDS ORDERED: CEFEPIME 2 GM in IV D5W 100 ML IV SCH (13:00)
[2022-05-15] MEDS ORDERED: VANCOMYCIN 1 GM in IV D5W 250ml IV ONE (13:00)
--- NOTE | 2022-05-15 15:14 | NUR ---
rn note aayush rn at bedside
[2022-05-15] MEDS: MIDODRINE HCL (5MG) 5 MG TABLET PO PRN (15:54)
[2022-05-15 16:00] VITALS: BP 87/44
[2022-05-15 16:12] VITALS: BP 95/54
--- NOTE | 2022-05-15 17:00 | NUR ---
rn note pt completed dialysis. dialysis nurse removed 1 L. notified that bp 103/60 hr 60 and if okay to hold labetol. said okay to hold
[2022-05-15] MEDS: CEFEPIME 1 GM in IV D5W 50 ML IV PRN (17:14)
[2022-05-15] MEDS: VANCOMYCIN POST DIALYSIS 500MG IV PRN ×2 (18:01)
--- NOTE | 2022-05-15 19:35 | NUR ---
RN NOTE CALLED FACILITY REGARDING PREZISTA. NURSING SSAS DEVELOPER AT FACILITY SAID THEY WOULD CONTACT DON AND CALL BACK
--- NOTE | 2022-05-15 19:36 | NUR ---
RN CLOSING NOTE PT IN BED. PT NONVERBAL, OPENS EYES. PT ON 2 L NASAL CANNULA TOELRATING AT 100%. PT HAS RUPPER ARM AV FISTULA.DRESSING IN INTACT. PT HAS RIGHT LEG PERIPHERAL #20 GUAGE. IV INTACT,PATENT AND FLUSHING WELL. LEFT ARM IS CONTRACTED.PT HAD HEMODIALYSIS TODAY. REMOVED 1L. ALL SAFETY MEASURES IN PLACE. CALL LIGHT WITHIN REACH. BED LOCKED AT LOWEST POSITION. SIDE RAILS UP X2. BED ALARM ON. ENDORSED TO GAS OR WATER METER INSTALLER RN FOR CONTUITY OF CARE
[2022-05-15 20:00] VITALS: BP 133/67
[2022-05-15] MEDS: MIRTAZAPINE 15 MG TABLET GT SCH (21:18)
[2022-05-15] MEDS: ATORVASTATIN 40 MG TABLET GT SCH (21:18)
[2022-05-16] MEDS: BLOOD SUGAR DIAGNOSTIC 1 EACH STRIP IN SCH ×4 (00:33→17:02)
[2022-05-16] MEDS: INSULIN REGULAR, HUMAN 100 UNIT/ML 3 ML VIAL SQ PRN ×4 (02:51→17:04)
[2022-05-16] MEDS: NEPRO 1,000 ML BOTTLE GT PRN (02:55)
[2022-05-16 04:00] VITALS: BP 122/66
[2022-05-16 06:45] LABS: BASOPHILS # (AUTO) 0.1 K/uL (0.0-0.2); BASOPHILS % (AUTO) 0.9 % (0.0-2.0); EOSINOPHILS % (AUTO) 3.2 % (0.0-6.0); HEMATOCRIT 28 % (39-51); HEMOGLOBIN 9.2 g/dL (13.5-17.5); LYMPHOCYTES % (AUTO) 15.6 % (20.0-44.0); MEAN CORPUSCULAR HGB CONC 33 g/dl (31.0-36.0); MEAN CORPUSCULAR VOLUME 105 fL (80-96); MONOCYTES # (AUTO) 0.5 K/uL (0.1-1.30); MONOCYTES % (AUTO) 7.3 % (2.0-12.0); NEUTROPHILS # (AUTO) 4.6 K/uL (1.8-8.9); PLATELET COUNT (AUTO) 175 K/uL (150-450); RED BLOOD CELL COUNT(AUTO) 2.71 MIL/uL (4.5-6.0); WHITE BLOOD COUNT (AUTO) 6.3 K/uL (4.3-11.0)
[2022-05-16 07:18] LABS: CALCIUM, SERUM 10.2 mg/dL (8.5-10.1); CREATININE 3.2 mg/dL (0.6-1.3); PHOSPHORUS 5.5 mg/dL (2.5-4.9); POTASSIUM 3.7 mmol/L (3.5-5.1)
[2022-05-16 08:00] VITALS: BP 116/56
--- NOTE | 2022-05-16 08:00 | NUR ---
MS RN NOTE PT IN BED. PT NONVERBAL, OPENS EYES. PT ON 2 L NASAL CANNULA TOELRATING AT 100%. PT HAS RUPPER ARM AV FISTULA.DRESSING IN INTACT. PTLT FA L #20 GUAGE. IV INTACT,PATENT AND FLUSHING WELL. LEFT ARM IS CONTRACTED. ALL SAFETY MEASURES IN PLACE. CALL LIGHT WITHIN REACH. BED LOCKED AT LOWEST POSITION. SIDE RAILS UP X2. BED ALARM ON. WILL CONT TO MONITOR
[2022-05-16] MEDS: LEVETIRACETAM SOL (5 ML) 100 MG/ML UDC GT SCH ×2 (09:52→21:09)
[2022-05-16] MEDS: FERROUS SULFATE UDC 300 MG/5 ML UDC GT SCH ×2 (09:52→17:05)
[2022-05-16] MEDS: FOLIC ACID 1 MG TABLET GT SCH (09:53)
[2022-05-16] MEDS: ABACAVIR SULFATE 300 MG TABLET GT SCH ×2 (09:53→21:09)
[2022-05-16] MEDS: LIOTHYRONINE SODIUM (25 MCG) 25 MCG TABLET GT SCH (09:53)
[2022-05-16] MEDS: ALLOPURINOL 100 MG TABLET GT SCH (09:53)
[2022-05-16] MEDS: DOCUSATE SODIUM LIQ 100 MG/10 ML UDC GT SCH (09:53)
[2022-05-16] MEDS: ASCORBIC ACID 500 MG TABLET GT SCH (09:53)
[2022-05-16] MEDS: AMLODIPINE BESYLATE 10 MG TABLET GT SCH (09:53)
[2022-05-16] MEDS: GABAPENTIN 300 MG CAPSULE GT SCH ×3 (09:53→17:05)
[2022-05-16] MEDS: PROSOURCE / PROSTAT (PYXIS) 30 ML UDC GT SCH (09:54)
[2022-05-16] MEDS: PREZISTA 800 MG GT SCH (09:58)
[2022-05-16] MEDS: LABETALOL HCL (100MG) 100 MG TABLET GT SCH (10:03)
[2022-05-16] MEDS: Fenofibrate 48 MG TABLET GT SCH (10:21)
--- NOTE | 2022-05-16 10:35 | NUR ---
MS RN NOTE ENDORSED CARE TO TANIA FALL
--- NOTE | 2022-05-16 11:27 | NUR ---
WAISTBAND SETTER NOTES Pharmacy called to inform that they only have a 4 day supply of Prezista. Previous facility called and they said they wouldn't be able to supply anymore. Dr. Hernández and CN made aware.
[2022-05-16] MEDS: MIDODRINE HCL (5MG) 5 MG TABLET PO PRN (13:23)
--- NOTE | 2022-05-16 13:26 | NUR ---
RADIO MESSAGE ROUTER NOTES Pt about to start HD. HD nurse informed me BP 70/46. PRN midorine 10mg given via GT. CN made aware. Will continue to monitor.
--- NOTE | 2022-05-16 13:47 | NUR ---
EMBEDDED SOFTWARE ARCHITECT NOTES HD stopped d/t pts BP 69/40. PRN midodrine 10mg and [address] Chapa made aware awaiting call back.
--- NOTE | 2022-05-16 13:55 | NUR ---
BUTTER PRINTER NOTES Dr. Chapa called back with new orders to make Midodrine 10mg routine TID and to start 8 hour from when PRN was give and new order for PRN Albumin. CN made aware. Noted and carried out.
[2022-05-16] MEDS ORDERED: ALBUMIN 25% 25 GM in PREMIX 1 EA IV PRN (14:30)
--- NOTE | 2022-05-16 14:30 | NUR ---
HOTEL OFFICE MANAGER NOTES Pt BP is 128/76. CN made aware. Will continue to monitor.
[2022-05-16 16:00] VITALS: BP 117/59
--- NOTE | 2022-05-16 18:24 | NUR ---
HORSE IDENTIFIER CLOSING NOTES All due meds and tx given as ordered. Pt tolerated everything well. All needs attended to. Pt is still on 2L NC and tolerating it well. IV access on left arm 20G patent and intact. Call light within reach. Will endorse to oncoming nurse.
--- NOTE | 2022-05-16 19:35 | NUR ---
MS RN OPENING NOTE RECEIVED PATIENT IN BED; AWAKE AND NONVERBAL. ON O2 INHALATION @ 2 LPM VIA NASAL CANNULA; TOLERATING WELL. BREATHING EVEN AND NONLABORED. NOT IN ANY FORM OF RESPIRATORY OR CARDIAC DISTRESS. NO S/S OF PAIN OR DISCOMFORT. WITH IV ACCESS ON LEFT ARM 20g; PATENT, INTACT AND SALINE LOCKED. WITH RIGHT UPPER ARM AV FISTULA. WITH GTUBE IN PLACE'; INTACT RUNNING WITH NEPRO REGULATED @ 50 ML/HR; FLUSHES WELL. SAFETY PRECAUTIONS IMPLEMENTED: HEAD OF BED ELEVATED, CALL LIGHT AND TABLE WITHIN REACH, SIDE RAILS UP X 3, BED IN LOWEST LOCKED POSITION. WILL CONTINUE TO MONITOR THROUGHOUT SHIFT.
[2022-05-16 20:00] VITALS: BP 111/55
[2022-05-16] MEDS: MIRTAZAPINE 15 MG TABLET GT SCH (21:10)
[2022-05-16] MEDS: ATORVASTATIN 40 MG TABLET GT SCH (21:10)
[2022-05-16] MEDS: MIDODRINE HCL (5MG) 5 MG TABLET PO SCH (21:14)
[2022-05-17] MEDS: BLOOD SUGAR DIAGNOSTIC 1 EACH STRIP IN SCH ×5 (00:04→23:49)
[2022-05-17] MEDS: INSULIN REGULAR, HUMAN 100 UNIT/ML 3 ML VIAL SQ PRN ×4 (00:04→23:49)
[2022-05-17 04:00] VITALS: BP 120/55
[2022-05-17] MEDS: NEPRO 1,000 ML BOTTLE GT PRN (04:00)
[2022-05-17] MEDS: MIDODRINE HCL (5MG) 5 MG TABLET PO SCH ×3 (05:53→21:32)
--- NOTE | 2022-05-17 06:50 | NUR ---
MS RN CLOSING NOTE PATIENT IN BED; AWAKE, NONVERBAL. STILL ON O2 INHALATION @ 2 LPM VIA NASAL CANNULA; TOLERATING WELL. IN NO ACUTE DISTRESS. NO S/S OF PAIN OR DISCOMFORT. WITH IV ACCESS ON LEFT ARM 20g; PATENT, INTACT AND SALINE LOCKED. WITH RIGHT UPPER ARM AV FISTULA; INTACT. WITH GTUBE IN PLACE RUNNING WITH NEPRO REGULATED @ 50 ML/HR; FLUSHING WELL. SAFETY PRECAUTIONS IN PLACE: HEAD OF BED ELEVATED, CALL LIGHT AND TABLE WITHIN REACH, SIDE RAILS UP X 3, BED IN LOWEST LOCKED POSITION. ENDORSED TO ONCOMING NURSE FOR EZEQUIEL.
[2022-05-17 08:00] VITALS: BP 81/37
--- NOTE | 2022-05-17 08:05 | NUR ---
RN NOTE PATIENT IS STARTING DIALYSIS AT THIS TIME.
[2022-05-17 08:39] LABS: CALCIUM, SERUM 9.9 mg/dL (8.5-10.1); CREATININE 4.2 mg/dL (0.6-1.3); POTASSIUM 4.4 mmol/L (3.5-5.1)
[2022-05-17 08:44] LABS: ALBUMIN 2.3 g/dL (3.4-5.0); BILIRUBIN,TOTAL 0.5 mg/dL (0.2-1.0); TOTAL PROTEIN, SERUM 6.4 g/dL (6.4-8.2)
[2022-05-17] MEDS: AMLODIPINE BESYLATE 10 MG TABLET GT SCH (09:00)
[2022-05-17 09:04] LABS: BASOPHILS # (AUTO) 0.1 K/uL (0.0-0.2); BASOPHILS % (AUTO) 0.9 % (0.0-2.0); EOSINOPHILS % (AUTO) 2.7 % (0.0-6.0); HEMATOCRIT 30 % (39-51); HEMOGLOBIN 9.9 g/dL (13.5-17.5); LYMPHOCYTES # (AUTO) 1.1 K/uL (0.8-4.8); LYMPHOCYTES % (AUTO) 14.7 % (20.0-44.0); MEAN CORPUSCULAR HGB CONC 33 g/dl (31.0-36.0); MEAN CORPUSCULAR VOLUME 108 fL (80-96); MONOCYTES # (AUTO) 0.5 K/uL (0.1-1.30); MONOCYTES % (AUTO) 6.8 % (2.0-12.0); NEUTROPHILS # (AUTO) 5.9 K/uL (1.8-8.9); NEUTROPHILS % (AUTO) 74.9 % (43.0-81.0); PLATELET COUNT (AUTO) 178 K/uL (150-450); RED BLOOD CELL COUNT(AUTO) 2.82 MIL/uL (4.5-6.0); WHITE BLOOD COUNT (AUTO) 7.8 K/uL (4.3-11.0)
--- NOTE | 2022-05-17 09:12 | NUR ---
WOUND CARE CONSULT: PT HAVING HEMODIALYSIS AT THIS TIME. REVIEWED CHART, NURSING DOCUMENTATION AND PHOTOS WHICH INDICATE DISCOLORATIONS/SCABS TO BILATERAL FEET AND FULL THICKNESS PRESSURE ULCER TO SACRUM WITH SURROUNDING SCARRING, PRESENT ON ADMISSION. DR JOSEPH CALLED FOR SURGICAL CONSULT. DISCUSSED SKIN PROTECTION WITH NURSING STAFF. MD IN AGREEMENT WITH PLAN OF CARE.
--- NOTE | 2022-05-17 09:19 | NUR ---
RN NOTE DIALYSIS COMPLETED AT THIS TIME. 0L REMOVED DUE TO LOW BP. POWER, HEMODIALYSIS NURSE CONTACTED DR GARCIA.
[2022-05-17] MEDS: PROSOURCE / PROSTAT (PYXIS) 30 ML UDC GT SCH (09:34)
[2022-05-17] MEDS: DOCUSATE SODIUM LIQ 100 MG/10 ML UDC GT SCH (09:51)
[2022-05-17] MEDS: PREZISTA 800 MG GT SCH (09:51)
[2022-05-17] MEDS: FERROUS SULFATE UDC 300 MG/5 ML UDC GT SCH ×2 (09:51→16:21)
[2022-05-17] MEDS: ALLOPURINOL 100 MG TABLET GT SCH (09:51)
[2022-05-17] MEDS: PANTOPRAZOLE 40 MG VIAL IV SCH ×2 (09:52→16:21)
[2022-05-17] MEDS: ABACAVIR SULFATE 300 MG TABLET GT SCH ×2 (09:52→21:26)
[2022-05-17] MEDS: Fenofibrate 48 MG TABLET GT SCH (09:52)
[2022-05-17] MEDS: LEVETIRACETAM SOL (5 ML) 100 MG/ML UDC GT SCH ×2 (09:52→21:26)
[2022-05-17] MEDS: IBUPROFEN 400 MG TABLET GT SCH ×3 (09:52→16:21)
[2022-05-17] MEDS: VANCOMYCIN POST DIALYSIS 500MG IV PRN ×2 (09:52)
[2022-05-17] MEDS: LIOTHYRONINE SODIUM (25 MCG) 25 MCG TABLET GT SCH (09:52)
[2022-05-17] MEDS: ASCORBIC ACID 500 MG TABLET GT SCH (09:53)
[2022-05-17] MEDS: GABAPENTIN 300 MG CAPSULE GT SCH ×3 (09:53→16:21)
[2022-05-17] MEDS: FOLIC ACID 1 MG TABLET GT SCH (09:53)
[2022-05-17] MEDS: COLCHICINE 0.6 MG TABLET GT SCH ×2 (09:53→09:55)
[2022-05-17] MEDS: CEFEPIME 1 GM in IV D5W 50 ML IV PRN (11:06)
[2022-05-17 16:00] VITALS: BP 131/56
--- NOTE | 2022-05-17 18:43 | NUR ---
MS RN CLOSING NOTE PATIENT IN BED; AWAKE, NONVERBAL. BREATHING ON 2 LPM VIA NASAL CANNULA; TOLERATING WELL. IN NO ACUTE DISTRESS. NO S/S OF PAIN OR DISCOMFORT. WITH IV ACCESS ON LEFT ARM 20g; PATENT, INTACT AND SALINE LOCKED. WITH RIGHT UPPER ARM AV FISTULA; INTACT. WITH GTUBE IN PLACE RUNNING WITH NEPRO REGULATED @ 50 ML/HR; FLUSHING WELL. SAFETY PRECAUTIONS IN PLACE: HEAD OF BED ELEVATED, CALL LIGHT AND TABLE WITHIN REACH, SIDE RAILS UP X 3, BED IN LOWEST LOCKED POSITION. ENDORSED TO ONCOMING NURSE FOR EZEQUIEL.
--- NOTE | 2022-05-17 19:30 | NUR ---
MS RN OPENING NOTE RECEIVED PATIENT IN BED, ASLEEP. CURRENTLY ON O2 THERAPY VIA NC @ 2 LPM, TOLERATING WELL, SATING @ 100%. NO S/SX OF ACUTE RESPI DISTRESS NOTED AT THIS TIME. NO SOB. BREATHING IS EVEN AND UNLABORED. WITH IV ACCESS ON LEFT ARM, 20g; PATENT, INTACT AND SALINE LOCKED. RIGHT UPPER ARM AV FISTULA NOTED. GTUBE IN PLACE RUNNING NEPRO @ 50 ML/HR, NO RESIDUAL NOTED. ALL SAFETY PRECAUTIONS IN PLACE: HEAD OF BED ELEVATED, CALL LIGHT AND TABLE WITHIN REACH, SIDE RAILS UP X 3, BED IN LOWEST, LOCKED POSITION. WILL CONTINUE TO MONITOR THROUGHOUT SHIFT.
[2022-05-17 20:00] VITALS: BP 95/48
[2022-05-17] MEDS: ATORVASTATIN 40 MG TABLET GT SCH (21:27)
[2022-05-17] MEDS: MIRTAZAPINE 15 MG TABLET GT SCH (21:27)
--- NOTE | 2022-05-18 01:50 | NUR ---
RN NOTE REPORT GIVEN TO
--- NOTE | 2022-05-18 02:00 | NUR ---
Continuation of care Report received at this time from VANESSA Novak. Patient non-verbal. no s/s of apparent distress and saturating 99% on 1lpm of o2. BP : 106/44 hr 56. Will continue with care.
[2022-05-18 04:00] VITALS: BP 100/44
[2022-05-18] MEDS: MIDODRINE HCL (5MG) 5 MG TABLET PO SCH ×3 (05:09→21:03)
[2022-05-18] MEDS: NEPRO 1,000 ML BOTTLE GT PRN (06:11)
[2022-05-18] MEDS: BLOOD SUGAR DIAGNOSTIC 1 EACH STRIP IN SCH ×4 (06:25→23:36)
[2022-05-18] MEDS: INSULIN REGULAR, HUMAN 100 UNIT/ML 3 ML VIAL SQ PRN ×4 (06:26→23:38)
[2022-05-18 06:54] LABS: BASOPHILS # (AUTO) 0.1 K/uL (0.0-0.2); BASOPHILS % (AUTO) 0.8 % (0.0-2.0); EOSINOPHILS % (AUTO) 2.4 % (0.0-6.0); HEMATOCRIT 31 % (39-51); HEMOGLOBIN 10.1 g/dL (13.5-17.5); LYMPHOCYTES # (AUTO) 1.5 K/uL (0.8-4.8); LYMPHOCYTES % (AUTO) 21.5 % (20.0-44.0); MEAN CORPUSCULAR HGB CONC 33 g/dl (31.0-36.0); MEAN CORPUSCULAR VOLUME 107 fL (80-96); MONOCYTES # (AUTO) 0.6 K/uL (0.1-1.30); MONOCYTES % (AUTO) 8.5 % (2.0-12.0); NEUTROPHILS # (AUTO) 4.6 K/uL (1.8-8.9); NEUTROPHILS % (AUTO) 66.8 % (43.0-81.0); PLATELET COUNT (AUTO) 180 K/uL (150-450); RED BLOOD CELL COUNT(AUTO) 2.92 MIL/uL (4.5-6.0); WHITE BLOOD COUNT (AUTO) 6.9 K/uL (4.3-11.0)
--- NOTE | 2022-05-18 06:56 | NUR ---
noc rn closing note Patient in bed, awake with garbled speech. no s/s of apparent distress on 1pm of o2 via nc. not exhibiting pain via flacc. peripheral line flushing well. G-tube intact and running Nepro @50cc/hr. all needs attended. all scheduled medications administered. safety kept in place the whole shift. will endorse to morning shift rn for continuity of patient care.
[2022-05-18 07:00] LABS: ALBUMIN 2.7 g/dL (3.4-5.0); BILIRUBIN,TOTAL 0.5 mg/dL (0.2-1.0); CALCIUM, SERUM 9.5 mg/dL (8.5-10.1); CREATININE 4.4 mg/dL (0.6-1.3); POTASSIUM 4.5 mmol/L (3.5-5.1); TOTAL PROTEIN, SERUM 6.6 g/dL (6.4-8.2)
--- NOTE | 2022-05-18 07:20 | NUR ---
RN OPEN NOTE: EYES OPEN, NON VERBAL. MOIST ORAL MUCOSA, ON 02 1LPM NC. SATING AT 99%. RIGHT UPPER ARM AV FISTULA. NO COMPLICATION NOTED. LEFT FOREARM IV 20G PATENT, SALINE LOCKED. GTF NEPRO FORMULA AT 50 ML/HR. HOB ELEVATED, ASPIRATION PRECAUTIONS MAINTAINED, BILATERAL HALF SIDE RAILS UP X2, BED IN LOW POSITION, LOCKED, EXIT ALARM ON. CALL LIGHT IN REACH.
[2022-05-18 08:00] VITALS: BP 113/51
[2022-05-18] MEDS: AMLODIPINE BESYLATE 10 MG TABLET GT SCH (09:00)
[2022-05-18] MEDS: COLCHICINE 0.6 MG TABLET GT SCH (10:16)
[2022-05-18] MEDS: LIOTHYRONINE SODIUM (25 MCG) 25 MCG TABLET GT SCH (10:16)
[2022-05-18] MEDS: DOCUSATE SODIUM LIQ 100 MG/10 ML UDC GT SCH (10:16)
[2022-05-18] MEDS: FERROUS SULFATE UDC 300 MG/5 ML UDC GT SCH ×2 (10:17→17:54)
[2022-05-18] MEDS: PREZISTA 800 MG GT SCH (10:17)
[2022-05-18] MEDS: FOLIC ACID 1 MG TABLET GT SCH (10:17)
[2022-05-18] MEDS: IBUPROFEN 400 MG TABLET GT SCH ×3 (10:17→17:53)
[2022-05-18] MEDS: ABACAVIR SULFATE 300 MG TABLET GT SCH ×2 (10:18→20:30)
[2022-05-18] MEDS: ASCORBIC ACID 500 MG TABLET GT SCH (10:18)
[2022-05-18] MEDS: PANTOPRAZOLE 40 MG VIAL IV SCH (10:19)
[2022-05-18] MEDS: GABAPENTIN 300 MG CAPSULE GT SCH ×3 (10:21→17:53)
[2022-05-18] MEDS: Fenofibrate 48 MG TABLET GT SCH (10:21)
[2022-05-18] MEDS: LEVETIRACETAM SOL (5 ML) 100 MG/ML UDC GT SCH ×2 (10:21→20:30)
[2022-05-18] MEDS: ALLOPURINOL 100 MG TABLET GT SCH (10:23)
--- NOTE | 2022-05-18 10:24 | NUR ---
Norvasc mg dose held due to per HD nurse to hold it, patient to have HD today.
[2022-05-18] MEDS: PROSOURCE / PROSTAT (PYXIS) 30 ML UDC GT SCH (10:30)
[2022-05-18 12:00] VITALS: BP 107/52
--- NOTE | 2022-05-18 14:30 | NUR ---
SPOKE TO YULIANA KOLB TO BRING PREZISTA PER YULIANA HE CANNOT BRING MEDICINE DUE TO HE LIVES IN [place]. HE STATED TO CALL [facility].
--- NOTE | 2022-05-18 14:34 | NUR ---
MESSAGE LEFT TO [facility] TO CALL BACK TO [facility] FOR FOLLOW UP TO BRING HOME MED CATE.
--- NOTE | 2022-05-18 14:40 | NUR ---
CALLED [facility] AT [facility] FOR FOLLOW UP STATED TO CALL YULIA[facility] OR [facility].
--- NOTE | 2022-05-18 15:22 | NUR ---
PATIENT COMPLETED HD. IBUPROFEN, GABAPENTIN, MIDODRINE GIVEN AT THIS TIME PER HD NURSE TO GIVE THIS MEDS AFTER HD. SPOKE TO JERE AT PHARMACY TO REPORT VANCO TROUGH AT 0605 PER PHARMACY TO HOLD VANCO AND NOT GIVE IT FOR TODAY.
[2022-05-18 16:00] VITALS: BP 130/76
[2022-05-18] MEDS: CEFEPIME 1 GM in IV D5W 50 ML IV SCH (17:53)
[2022-05-18] MEDS: PANTOPRAZOLE 40 MG/PACK PACK GT SCH (17:53)
--- NOTE | 2022-05-18 19:00 | NUR ---
RN CLOSING NOTE: AWAKE. ALERT TO NAME, YI SPEAKING. ON 1 LITER NASAL CANNULA. SATIN AT 95%. LEFT FOREARM IV PATENT. 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 RN CLOSING NOTE: ALERT TO NAME, YI SPEAKING, ON 1 LITER NASAL CANNULA SATING AT 95 %. LEFT FOREARM IV PATENT. RIGHT ARM AV FISTULA WITH NO COMPLICATIONS. POSITIVE FOR BRUIT AND THRILL. GT IN PLACE PATENT TOLERATED NEPRO FORMULA WELL. ASPIRATION PRECAUTIONS MAINTAINED. KEPT CLEAN AND COMFORTABLE. HOB ELEVATED. BILATERAL HALF SIDE RAIL UP X2. BED IN LOW POSITION, BED IS LOCKED, EXIT ALARM ON. CALL LIGHT IN REACH. TOTAL CARE PROVIDED.
--- NOTE | 2022-05-18 19:30 | NUR ---
MS RN OPENING NOTE RECEIVED PATIENT IN BED, AWAKE, A/O X 0-1, ABLE TO RESPOND WHEN GREETED. PT IS HONDURAN SPEAKING. CURRENTLY ON O2 THERAPY VIA NC @ 1 LPM, TOLERATING WELL, SATING @ >95%. NO S/SX OF ACUTE RESPI DISTRESS NOTED AT THIS TIME. NO SOB. BREATHING IS EVEN AND UNLABORED. WITH IV ACCESS ON LEFT ARM, 20g; PATENT, INTACT AND SALINE LOCKED. RIGHT UPPER ARM AV FISTULA ALSO NOTED. GTUBE IN PLACE RUNNING NEPRO @ 50 ML/HR, NO RESIDUAL NOTED. ALL SAFETY PRECAUTIONS IN PLACE: HEAD OF BED ELEVATED, CALL LIGHT AND TABLE WITHIN REACH, SIDE RAILS UP X 3, BED IN LOWEST, LOCKED POSITION. WILL CONTINUE TO MONITOR THROUGHOUT SHIFT.
[2022-05-18 20:00] VITALS: BP 111/47
[2022-05-18] MEDS: ATORVASTATIN 40 MG TABLET GT SCH (21:04)
[2022-05-18] MEDS: MIRTAZAPINE 15 MG TABLET GT SCH (21:04)
[2022-05-19 04:00] VITALS: BP 110/52
[2022-05-19] MEDS: NEPRO 1,000 ML BOTTLE GT PRN (05:12)
[2022-05-19] MEDS: BLOOD SUGAR DIAGNOSTIC 1 EACH STRIP IN SCH ×3 (05:38→17:07)
[2022-05-19] MEDS: INSULIN REGULAR, HUMAN 100 UNIT/ML 3 ML VIAL SQ PRN ×3 (05:39→17:08)
[2022-05-19] MEDS: MIDODRINE HCL (5MG) 5 MG TABLET PO SCH ×2 (05:42→12:17)
[2022-05-19 06:56] LABS: BASOPHILS # (AUTO) 0.1 K/uL (0.0-0.2); EOSINOPHILS % (AUTO) 2.6 % (0.0-6.0); HEMATOCRIT 28 % (39-51); HEMOGLOBIN 9.3 g/dL (13.5-17.5); LYMPHOCYTES # (AUTO) 0.9 K/uL (0.8-4.8); LYMPHOCYTES % (AUTO) 13.5 % (20.0-44.0); MEAN CORPUSCULAR HGB CONC 33 g/dl (31.0-36.0); MEAN CORPUSCULAR VOLUME 106 fL (80-96); MONOCYTES # (AUTO) 0.5 K/uL (0.1-1.30); MONOCYTES % (AUTO) 7.9 % (2.0-12.0); NEUTROPHILS # (AUTO) 4.8 K/uL (1.8-8.9); PLATELET COUNT (AUTO) 181 K/uL (150-450); RED BLOOD CELL COUNT(AUTO) 2.67 MIL/uL (4.5-6.0); WHITE BLOOD COUNT (AUTO) 6.4 K/uL (4.3-11.0)
[2022-05-19 07:03] LABS: CALCIUM, SERUM 9.6 mg/dL (8.5-10.1); CREATININE 3.3 mg/dL (0.6-1.3); POTASSIUM 3.9 mmol/L (3.5-5.1)
--- NOTE | 2022-05-19 07:04 | NUR ---
RN CLOSING NOTE NO SIGNIFICANT CHANGE T/O THE NIGHT. ALL DUE MEDS GIVEN. NEEDS MET. PM CARE DONE. TURNED AND REPOSITIONED. WILL ENDORSE TO AM SHIFT NURSE FOR EZEQUIEL.
[2022-05-19 07:09] LABS: ALBUMIN 2.3 g/dL (3.4-5.0); BILIRUBIN,TOTAL 0.4 mg/dL (0.2-1.0); TOTAL PROTEIN, SERUM 6.2 g/dL (6.4-8.2)
--- NOTE | 2022-05-19 07:30 | NUR ---
OPENING NOTE RECEIVED PATIENT RESTING IN BED COMFORTABLY BUT AROUSABLE, NO SIGNS OF IN DISTRESS, SAFETY MEASURES IN PLACED, BED IN LOW POSITION LOCKED, SIDE RAILS UPX3, CALL LIGHT WITHIN REACHED.
[2022-05-19] MEDS: ALLOPURINOL 100 MG TABLET GT SCH (08:14)
[2022-05-19] MEDS: PANTOPRAZOLE 40 MG/PACK PACK GT SCH ×2 (08:14→16:03)
[2022-05-19] MEDS: IBUPROFEN 400 MG TABLET GT SCH ×3 (08:14→16:02)
[2022-05-19] MEDS: FOLIC ACID 1 MG TABLET GT SCH (08:14)
[2022-05-19] MEDS: Fenofibrate 48 MG TABLET GT SCH (08:14)
[2022-05-19] MEDS: COLCHICINE 0.6 MG TABLET GT SCH (08:14)
[2022-05-19] MEDS: GABAPENTIN 300 MG CAPSULE GT SCH ×3 (08:14→16:02)
[2022-05-19] MEDS: LIOTHYRONINE SODIUM (25 MCG) 25 MCG TABLET GT SCH (08:14)
[2022-05-19] MEDS: ASCORBIC ACID 500 MG TABLET GT SCH (08:14)
[2022-05-19] MEDS: FERROUS SULFATE UDC 300 MG/5 ML UDC GT SCH ×2 (08:15→16:01)
[2022-05-19] MEDS: LEVETIRACETAM SOL (5 ML) 100 MG/ML UDC GT SCH (08:15)
[2022-05-19] MEDS: DOCUSATE SODIUM LIQ 100 MG/10 ML UDC GT SCH (08:16)
[2022-05-19] MEDS ORDERED: LEVO500T90 PO (08:17)
[2022-05-19] MEDS ORDERED: PANT40SU2 GT (08:17)
[2022-05-19] MEDS: AMLODIPINE BESYLATE 10 MG TABLET GT SCH (08:17)
[2022-05-19] MEDS: PROSOURCE / PROSTAT (PYXIS) 30 ML UDC GT SCH (08:20)
[2022-05-19] MEDS: ABACAVIR SULFATE 300 MG TABLET GT SCH (08:20)
[2022-05-19] MEDS: PREZISTA 800 MG GT SCH (08:21)
[2022-05-19 12:00] VITALS: BP 126/60
--- NOTE | 2022-05-19 12:26 | NUR ---
PATIENT IS DISCHARGED TO HOME WITH SPOUSE, STABLE CONDITION, NO SIGNS OF IN DISTRESS, DISCHARGE PACKET WAS GIVEN TO THE PATIENT, IV LINE WAS DISCONTINUE. Addendum: 05/19/22 at 1230 by GRAND FLOR MENDEZ WRONG CHART
--- NOTE | 2022-05-19 12:31 | NUR ---
DISCHARGE REPORT GIVEN TO [facility] AND SPOKE TO RENETTA MENDEZ
[2022-05-19 16:00] VITALS: BP 122/66
[2022-05-19] MEDS: CEFEPIME 1 GM in IV D5W 50 ML IV SCH (17:55)
--- NOTE | 2022-05-19 17:55 | NUR ---
CEFEPIME NOT GIVEN DUE TO PATIENT IS BEING DISCHARGED TODAY.
== END 2022-05-19 19:22 | DRG 720 ==
LOC: ER 17:37 → TELE1 21:13 → MEDSG1 22:41
PROVIDERS: ADMIT Nurse Practitioner Acute Care; ATTEND Nurse Practitioner Acute Care
PROC: 5A1D70Z Performance of Urinary Filtration, Intermittent, Less than 6 Hours Per Day (ICD-10-PCS; principal; 2022-05-15)
DX: A41.9 Sepsis, unspecified organism (principal); J69.0 Pneumonitis due to inhalation of food and vomit; G93.41 Metabolic encephalopathy; E44.0 Moderate protein-calorie malnutrition; D68.59 Other primary thrombophilia; I13.11 Hypertensive heart and chronic kidney disease without heart failure, with stage 5 chronic kidney disease, or end stage renal disease; J18.9 Pneumonia, unspecified organism; I31.9 Disease of pericardium, unspecified; D63.1 Anemia in chronic kidney disease; Z74.09 Other reduced mobility; E78.5 Hyperlipidemia, unspecified; G40.909 Epilepsy, unspecified, not intractable, without status epilepticus; Z20.822 Contact with and (suspected) exposure to COVID-19; Z86.16 Personal history of COVID-19; E11.22 Type 2 diabetes mellitus with diabetic chronic kidney disease; N18.6 End stage renal disease; Z99.2 Dependence on renal dialysis; Z79.4 Long term (current) use of insulin; L89.156 Pressure-induced deep tissue damage of sacral region; R13.10 Dysphagia, unspecified; Z93.1 Gastrostomy status; Z79.899 Other long term (current) drug therapy; Z87.01 Personal history of pneumonia (recurrent); E87.6 Hypokalemia; J90 Pleural effusion, not elsewhere classified; M43.8X6 Other specified deforming dorsopathies, lumbar region; Z86.73 Personal history of transient ischemic attack (TIA), and cerebral infarction without residual deficits; Z88.2 Allergy status to sulfonamides; J98.11 Atelectasis; F03.90 Unspecified dementia, unspecified severity, without behavioral disturbance, psychotic disturbance, mood disturbance, and anxiety; E03.9 Hypothyroidism, unspecified; K80.20 Calculus of gallbladder without cholecystitis without obstruction; M89.8X9 Other specified disorders of bone, unspecified site; N30.90 Cystitis, unspecified without hematuria
CPT/HCPCS: 36415; 70450-TC; 71045-TC; 71250-TC; 80048-TC; 80053-TC; 80076-TC; 80202-TC; 82140-TC; 82962-TC; 83735-TC; 84100-TC; 84443-TC; 84484-TC; 85025-TC; 86706; 87040-TC; 87340; 90935-TC; 93307-TC; A4216; A4217; C9113; C9803; G0378; J0692; J1815; J1953; J3370; J7030; J7040; J7060; P9047